=== PATIENT | female | born 1945 | race Caucasian/White ===

== ENCOUNTER 2016-10-31 10:49 | Inpatient (IN) | payer MEDICARE ==
[2016-10-31 17:10] VITALS: BMI 17.2
[2016-10-31] MEDS ORDERED: ACETAMINOPHEN TAB 325 MG TAB PO PRN (17:57)
[2016-10-31] MEDS ORDERED: MAG HYDROX/AL HYDROX/SIMETH 30 ML CUP PO PRN (17:57)
[2016-10-31] MEDS: OLANZapine 5 MG TAB PO SCH (21:03)
[2016-11-01] MEDS: FLUoxetine HCL 20 MG CAP PO SCH (08:57)
[2016-11-01 09:33] LABS: Calcium 9.7 mg/dL (8.4-10.2); Total Bilirubin 0.6 mg/dL (0.2-1.3); Total Protein 6.6 g/dL (6.3-8.2)
[2016-11-01 09:44] LABS: Basophils % (A) 0 %; CH 31.4; CHCM 32.3; Eosinophils # (A) 0.1 k/uL (0-0.7); Eosinophils % (A) 1 %; HCT 39.1 % (34.0-46.0); HDW 2.22; HGB 12.4 gm/dL (11.4-16.0); Luc # (Auto) 0.19; Luc % (Auto) 2; Lymphocytes # (A) 1.1 k/uL (1.0-4.8); Lymphocytes % (A) 12 %; MCHC 31.7 g/dL (31.0-37.0); MCV 97.8 fL (80.0-100.0); Mean Platelet Volume 7.2; Monocytes # (A) 0.6 k/uL (0-1.0); Monocytes % (A) 7 %; Neutrophils # (A) 7.1 k/uL (1.3-7.7); Neutrophils % (A) 78 %; RBC 3.99 m/uL (3.80-5.40); RDW 12.7 % (11.5-15.5); WBC 9.1 k/uL (3.8-10.6); WBC (Perox) 9.26
--- NOTE | 2016-11-01 15:41 | HP ---
DATE OF ADMISSION: IDENTIFYING DATA: This patient is a 71-year-old female who was admitted to the mental health unit as a transfer from [facility]. HISTORY OF PRESENT ILLNESS: The patient had presents with a petition stating, "patient decided to end her life by ingesting multiple medication, I was done my life. I wanted to simply it". The patient states that Wednesday while alone in her own home, she ingested a combination of Prozac, Zyprexa and Ativan. She thinks she took approximately 30 Prozac, around 5 Zyprexa and an unknown quantity of Ativan. She took all these medications at once. Her intent was to . She states that she had been contemplating the attempt for about one week before attempting and she did write suicide note to her children. She has been feeling depressed for the last year and a half she states. She has not been tearful, but had noticed impairments of sleep, appetite, and energy. She has lost approximately 12 pounds unintentionally. She had been feeling hopeless. There really was no other precipitating event other than she thinks the Ativan that she was concurrently taking was "messing me up." She reports in the recent past that it had been increased from 1 mg twice daily to 1 mg 3 times daily. She states that she had been complaining to her psychiatrist she was having anxiety but she felt anxiety was worsened as well as her mood by the Ativan. The patient does have a long history of bipolar disorder. She has had 4 admissions to this mental health unit since January 2015. She endorses classic episodes of cheryle with increased energy, decreased need for sleep, racing thoughts, irritability, etc. She describes classic depressive episodes as well. In terms of anxiety she describes herself as being a worrier. She is endorsing no panic attacks. She reports no symptoms of psychosis. PAST PSYCHIATRIC HISTORY: She has had multiple inpatient admissions. Again, she has had 4 since January 2015. She is diagnosed with bipolar disorder. Most recently she is prescribed Prozac 40 mg daily, Zyprexa 5 mg at bedtime and was receiving Ativan 1 mg [address] Boyer at [facility]. The patient has been on numerous psychotropics in the past including lithium, Depakote, Haldol, Effexor, Lamictal, Abilify, Prozac, Risperdal, Zyprexa, Tegretol. She is not able to comment on the quality of those medication trials. She does have an individual therapist. She does have another prior suicide attempt in 1975 with a lithium overdose. She had been most successfully treated with lithium for over 30 years, but it needed to be stopped due to perceived renal damage. PAST MEDICAL HISTORY: She states that she has a thyroid but is on no medications for that. ALLERGIES: IODINE and although not an allergy she cannot take lithium again. CHEMICAL DEPENDENCY HISTORY: She reports using alcohol once a year on [place]. No use of marijuana or other illicit drugs. She has never been placed in residential treatment for chemical dependency reasons. FAMILY PSYCHIATRIC HISTORY: Her brother had an unknown psychiatric illness. No suicides in the family. FAMILY CHEMICAL DEPENDENCY HISTORY: None reported. SOCIAL HISTORY: The patient is 71 years old. She is twice . She lives alone in her own home. She is retired from parking cashier work. She graduated high school and earned associates. No history of service. She is originally from [place], but moved to this area numerous years ago. She was raised by both parents. She has 2 sisters and 4 brothers. She has 2 adult children whom she does have contact with. LEGAL HISTORY: None reported. ABUSE HISTORY: None reported. MENTAL STATUS EXAM: The patient is a thin female appearing her stated age. She has a mildly disheveled appearance. She is pleasant and cooperative. She is easily directed in the interview. She reports recent suicidal ideation and hopelessness in the context of feeling depressed for the last year and a half. She endorses some anxiety symptoms. She reports no homicidal ideation. She is endorsing no racing thoughts. She demonstrates no pressured speech. She does not appear hypomanic or manic at this time. She reports no auditory or visual hallucinations. She is endorsing no specific delusions. She does not appear psychotic during the interview. Affect is constricted. She demonstrates no verbal or physical aggressiveness. Insight and judgment limited. She demonstrates no abnormal involuntary movements. She is oriented to person, place, and date. She is able to spell world backwards. STRENGTHS: Housing, income, support from family. WEAKNESSES: Ongoing mood symptoms. INTELLECT: Average. IMPRESSIONS: 1. Bipolar I disorder, most recent depressed, anxiety, unspecified. 2. Rule out cluster B traits. 3. Recent medication overdose approximately one week ago. PLAN: The patient has been admitted with a petition and clinical certificate. She is willing to sign in voluntarily. We reviewed medication options. She feels fairly strongly that Zyprexa has been good for mood stabilization. She has been on high as 7.5 mg daily, but feels that 5 mg at bedtime is affective. She wishes to continue the Prozac 40 mg daily. She states this was a recent change from Effexor just approximately 3 months ago. We discussed alternatives. We discussed augmentation strategy of possibly using Lamictal for further stabilization of mood. She will be seen by the court specialist for routine history and physical exam. Labs are reviewed. There is some elevation of her BUN and creatinine, as well as her AST and ALT. Social work will meet with the patient to complete psychosocial assessment and begin discharge planning. We will monitor her for safety and encourage her participation in the milieu.
[2016-11-01] MEDS: OLANZapine 5 MG TAB PO SCH (20:07)
[2016-11-02] MEDS: FLUoxetine HCL 20 MG CAP PO SCH (08:23)
--- NOTE | 2016-11-02 10:17 | P.PN ---
Progress Note - Text Interval history: The patient is found in group she follows me to an interview room. We discussed her current medications and decided we would add Lamictal to try to further stabilize mood and this may also help with depressive symptoms. She does not wish to change the Prozac. The Zyprexa has provided a mood stabilizing influence. Hopefully the Lamictal could eventually be effective and replace the Zyprexa. She reports having some difficulty remembering things such as her address. She feels it's likely related to her recent overdose. She has been attending groups. Her daughter came up for visit she has spoken with her son via phone and she finds them supportive. Mental status exam: The patient is a thin female appearing her stated age she is dressed in her own clothing. Eye contact is appropriate speech is fluent spontaneous nonpressured. She reports feeling forgetful she cannot recall her own address. She is able to participate in conversation she recalls her current medications I do need to repeat some answers to questions she is are he asked. She endorses a depressed mood but feels safe here in the hospital. She is endorsing no acute suicidal ideation here area no homicidal ideation she is endorsing no auditory or visual hallucinations no specific delusions. Insight and judgment limited. She demonstrates no verbal or physical aggressiveness. No abnormal involuntary movements observed. Plan: The patient will continue on the Zyprexa and Prozac as written. She wishes to continue on both of these medications we will initiate Lamictal 25 mg daily. This will need to be titrated further to efficacy. Hopefully the Lamictal with demonstrate mood stabilizing efficacy allowing the Zyprexa to be discontinued in the long run. Vital signs reviewed. We will continue to monitor her for safety and encourage her full participation in the milieu.
--- NOTE | 2016-11-02 10:35 | CONS ---
DATE OF CONSULTATION: REASON FOR CONSULTATION: Drug overdose. HISTORY OF ILLNESS: Ms. Ziegler is a 71-year-old female with a known history of depression for the past one year and history of suicidal ideation in the past. She was initially transferred from [facility] as she took multiple medications and multiple antidepressant medications during her life. Patient has been very depressed for the past one year. She took approximately 30 pills of a combination of Prozac, Zyprexa and Ativan. The patient was petitioned and subsequently transferred to the mental health unit at [facility]. Patient was found to have a slightly elevated BUN and troponin level and ALT and AST level as well. Patient currently denied any complaints of abdominal pain. No nausea, vomiting. No complaints of chest pain or short of breath. Patient is very depressed. Otherwise denies any complaints at this time, denied any recent illnesses. Apparently, patient has not been sleeping well and has been having a flight of ideas and irritable recently and also was having being very depressed as well. REVIEW OF SYSTEMS: CONSTITUTIONAL: No fever. No chills. Patient denied any weakness or malaise. RESPIRATORY: No cough or sputum production. CARDIOVASCULAR: No chest pain or short of breath. ABDOMEN: No nausea, vomiting or abdominal pain. GENITOURINARY: No dysuria. No ( ). NEUROLOGIC: No headache or dizziness or lightheadedness. ENDOCRINE: No heat or cold intolerance. PSYCHIATRIC: Depressed mood. All other 14-point review of systems negative except as above. PAST MEDICAL HISTORY: Depression. PAST SURGICAL HISTORY: Tubal ligation. FAMILY HISTORY: Brother had a mental illness. Denied any history of hypertension, diabetes mellitus or premature heart disease in the family. SOCIAL HISTORY: Patient denied any smoking, alcohol, drugs or IVDU. Home medications Zyprexa, Prozac and Ativan. Allergies include IODINATED CONTRAST MEDIA, LITHIUM. PHYSICAL EXAMINATION: A 71-year-old female, lying in the bed comfortably, awake, alert and oriented x3. Appears to be in no apparent distress. VITALS: Blood pressure is 141/64, pulse is 88, respiratory rate 16, temperature afebrile. Pulse ox is ( ). HEENT: Atraumatic, normocephalic. Neck is supple. No JVD. CVS EXAM: S1, S2 heard. No murmurs, no gallop, no rub. LUNGS: Bilateral air entry is present. No wheezing. No crackles. Nonlabored breathing. ABDOMEN: Soft, nontender. Bowel sounds are present. [employer]: Awake, alert, oriented x3. No focal deficit. EXTREMITIES: No edema. Pulses are palpable bilaterally. No clubbing or cyanosis. PSYCHIATRIC: Cooperative, depressed. Denied any suicidal ideation at this time. LABORATORY DATA: WBC 9.1, hemoglobin 12.4, platelets 270, sodium 143, potassium 4.0, chloride 103, bicarb is 29, BUN 19, creatinine 1.34, blood sugar is 152, AST 73, ALT 104, TSH 0.571. IMPRESSION: 1. Acute drug overdose with Ativan, Prozac and Zyprexa. 2. Suicide attempt. 3. Bipolar disorder with major depression. 4. Acute kidney injury, most likely prerenal. 5. Elevated liver enzymes, possible drug induced. 6. History of prior suicide attempt with overdose. DISCUSSION AND PLAN: Patient will be continued on antidepressants as per Psychiatry recommendations. Would recommend repeating CMP to chela liver enzymes and acute kidney and renal failure. Encourage p.o. intake. TSH is within normal limits. Will continue the current management and further recommendations based on the clinical course.
[2016-11-02] MEDS: lamoTRIgine 25 MG TAB PO SCH (11:52)
[2016-11-02] MEDS: OLANZapine 5 MG TAB PO SCH (21:05)
[2016-11-03] MEDS: FLUoxetine HCL 20 MG CAP PO SCH (08:37)
[2016-11-03] MEDS: lamoTRIgine 25 MG TAB PO SCH (08:37)
--- NOTE | 2016-11-03 10:23 | P.PN ---
Progress Note - Text Interval history: The patient is found in her room she follows me to an interview room. She reports feeling tired she states that she woke last evening having to go to the bathroom. We discussed using melatonin if needed for insomnia and she was agreeable. We again reviewed her psychotropic medications her questions were answered. She has been making an effort to attend groups. She continues to endorse a depressed mood but feels safe here in the hospital. Mental status exam: The patient is a thin female she is dressed in her own clothing. Eye contact is appropriate. Affect is constricted she endorses a depressed mood. In terms of suicidal thoughts she reports she feels safe here in the hospital. No homicidal ideation. No evidence of psychosis. She demonstrates no verbal or physical aggressiveness. Insight and judgment limited. No observed abnormal involuntary movements. Plan: The patient will continue on her current medication I will order melatonin at bedtime to improve sleep. Vital signs reviewed. I will repeat a CMP tomorrow to evaluate kidney function and liver enzymes further. She requires continued hospitalization for treatment of mood symptoms. We will continue to monitor her for safety and encourage her full participation in the milieu.
[2016-11-03] MEDS: OLANZapine 5 MG TAB PO SCH (20:44)
[2016-11-03] MEDS: MELATONIN 5 MG TABLET PO SCH (20:44)
[2016-11-04] MEDS: FLUoxetine HCL 20 MG CAP PO SCH (08:40)
[2016-11-04] MEDS: lamoTRIgine 25 MG TAB PO SCH (08:41)
[2016-11-04 08:54] LABS: Calcium 9.8 mg/dL (8.4-10.2); Potassium 4.8 mmol/L (3.5-5.1); Total Bilirubin 0.6 mg/dL (0.2-1.3)
--- NOTE | 2016-11-04 10:06 | P.PN ---
Progress Note - Text Interval history: The patient is found in her room she follows me to an interview room. She reports that she had a family meeting this morning involving her son and daughter. The patient states in terms of mood "I lost confidence in myself". By this she means she does not feel confident she can manage her affairs or keep herself safe at this time. She to is troubled by the fact that she overdosed as it has been so many years since she did that last. We discussed her psychotropic medication again. She continues to state she does not wish to use a benzodiazepine as she felt the Ativan ultimately made her worse. Mental status exam: The patient is a thin female she seated calmly she is pleasant cooperative she endorses a depressed mood with anxiety at times she still has some hopelessness thinking. She endorses no homicidal ideation. There is no evidence of psychosis. She demonstrates no verbal or physical aggressiveness. She is oriented to person place and date. She has a constricted affect. She does not appear hypomanic or manic. She is reporting no auditory or visual hallucinations or specific delusions. Plan: The patient will continue on her current psychotropic medications we will titrate the Lamictal further during the course of her stay. The lab work was reviewed there has been some mild improvement in the liver enzyme numbers but her BUN/creatinine have increased. She does have a history of being on lithium for several years and this may be a chronic phenomenon we will ask for input from internal medicine. The patient is not appropriate for discharge at this time as she remains a safety risk given the impulsive nature of her serious overdose. The patient verbalizes a sense of not being able to keep herself safe.
[2016-11-04] MEDS: OLANZapine 5 MG TAB PO SCH (20:35)
[2016-11-04] MEDS: MELATONIN 5 MG TABLET PO SCH (20:35)
[2016-11-05] MEDS: FLUoxetine HCL 20 MG CAP PO SCH (08:28)
[2016-11-05] MEDS: lamoTRIgine 25 MG TAB PO SCH ×2 (08:28→20:09)
--- NOTE | 2016-11-05 10:25 | P.PN ---
Progress Note - Text Interval history: The patient's is found in the hallway she follows me to an interview room. She reports that her mood is mildly improved. She does still feel down and feels overwhelmed at times. Appetite is still diminished. She has no questions regarding medication management we discussed titrating the Lamictal further during the course of the admission. She is trying to plan for things she will need to address once she returns home. She states her sister is willing to oversee her medications for additional support. Mental status exam: The patient is a thin female she just room clothing eye contacts appropriate she is cooperative. She demonstrates a constricted affect. She reports a depressed mood appetite is decreased. To some extent she still feels overwhelmed. She feels safe in the hospital she has no homicidal ideation there is no report or evidence of psychosis hypomania or cheryle. She is oriented to person place and date. She demonstrates no psychomotor agitation at times there may be some mild psychomotor slowing. Plan: The patient will continue on her current medications we will go ahead and titrate the Lamictal to 25 mg twice daily. She continues to wish to stay on the Prozac and Zyprexa. She is open to the idea of the Lamictal replacing the Zyprexa in the future once the Lamictal is at a therapeutic dose and demonstrates efficacy. We will continue to monitor her for safety. We have requested input from internal medicine regarding her kidney function which is likely the effect of chronic lithium use. We will order another CMP to check the trend of her kidney function.
[2016-11-05] MEDS: MELATONIN 5 MG TABLET PO SCH (20:09)
[2016-11-05] MEDS: OLANZapine 5 MG TAB PO SCH (20:09)
[2016-11-06] MEDS: FLUoxetine HCL 20 MG CAP PO SCH (07:56)
[2016-11-06] MEDS: lamoTRIgine 25 MG TAB PO SCH ×2 (07:56→20:06)
[2016-11-06 09:30] LABS: Calcium 9.3 mg/dL (8.4-10.2); Potassium 4.8 mmol/L (3.5-5.1); Total Bilirubin 0.5 mg/dL (0.2-1.3); Total Protein 6.3 g/dL (6.3-8.2)
--- NOTE | 2016-11-06 09:48 | P.PN ---
Progress Note - Text Interval history: The patient is found in her room she follows me to an interview room. We addressed her medications her questions were answered. We have titrated the Lamictal further to 25 mg twice daily. She continues to attend groups. She admits that in terms of mood "I'm not there yet". She does feel herself pressured to get out to attend to bills and other responsibilities but we discussed our primary priority is her safety at this time. She continues to attend meals we discussed that we would like her to eat more. She reports that she ate all of her dinner and is aware that she needs to take in more calories. Mental status exam: The patient is a thin female she ambulates slowly without ataxia. Eye contact is appropriate speech is fluent spontaneous nonpressured. She endorses a mood that is still down she is still bewildered as to why she overdosed and continues to state "it's been so long". She maintains a constricted affect. She reports some hopelessness thinking she feels safe in the hospital no homicidal ideation. There is no report or evidence of psychosis. She does not appear hypomanic or manic. She is oriented to person place and date. Plan: The patient will continue on her current medication we will continue to monitor her for safety. She is encouraged to eat more and continue hydration. We are awaiting lab work drawn this morning to follow her BUN and creatinine as well as AST ALT. We discussed that she will probably be appropriate for discharge by mid next week if clinically stable.
[2016-11-06] MEDS: MAGNESIUM HYDROXIDE 2,400 MG/10 ML CUP PO PRN (13:33)
[2016-11-06] MEDS: OLANZapine 5 MG TAB PO SCH (20:06)
[2016-11-06] MEDS: MELATONIN 5 MG TABLET PO SCH (20:06)
[2016-11-07] MEDS: FLUoxetine HCL 20 MG CAP PO SCH (08:24)
[2016-11-07] MEDS: lamoTRIgine 25 MG TAB PO SCH ×2 (08:24→20:18)
[2016-11-07 12:45] LABS: Glucose,Whole Blood 107 mg/dL (75-99)
[2016-11-07 17:44] LABS: Glucose,Whole Blood 91 mg/dL (75-99)
--- NOTE | 2016-11-07 19:16 | P.PN ---
Progress Note - Text Date of service: 11/07/2016 Chief complaint: "I feel better today " Subjective: The patient has been seen today as follow-up, chart reviewed, case discussed with the treatment team. Patient denies feeling depressed, hopeless, or suicidal. She reports has intermittent sleep last night. She reports has better appetite today. Patient expressed feeling anxious about her medical condition and she was very fixated on her kidney condition. Patient was educated about her BUN and creatinine still elevated. Also patient was concerned about her blood sugar level which was elevated. Patient has been explained that we'll order HBA1C to monitor blood sugar control.The patient denies any manic symptoms including sustained period of time with elevated or irritable mood, impulsive or irrational behavior. The patient denies any auditory or visual hallucinations. Also the patient denies any paranoid ideation. Review of other systems: Patient denies any physical symptoms besides what has been mentioned above. No breathing problems, no chest pain reported today. Objective: Vitals has been reviewed. Mental status examination; Appearance: The patient appears stated age. Very thin, no specific features. Gait/posture: Normal gait, Normal arm was swinging: No abnormal movements. Attitude and behavior: engaged, cooperative, fair eye contact. Motor activity: Normal psychomotor activity Speech: Normal rate and rhythm Mood: Anxious Affect: Constricted Thought form: goal-directed, linear, coherent. Thought content: Non-delusional, denies suicidal thoughts, denies homicidal thoughts, denies intentions or plans. Perception: Denies any auditory or visual hallucinations Attention: No impairment. Patient was able to repeat serial 7. Orientation: Patient patient was fully oriented to time place person and situation. Insight: Patient has limited insight about his psychiatric disorder. Judgment: Patient has limited judgment about his psychiatric treatment. Assessment: Bipolar disorder, most recent depressed. Unspecified anxiety Cluster B traits Plan: Increase the melatonin to 10 mg by mouth at bedtime for sleep problems. Patient was educated about her BUN and creatinine. Also was educated about improvement in AST and ALT. Obtain HbA1C Continue psychiatric hospitalization for further monitoring and stabilization. Continue current management including psychiatric medications Prozac 40 mg daily , Zyprexa 5 mg at bedtime and Lamictal 25 mg twice a day.
[2016-11-07 20:18] LABS: Glucose,Whole Blood 114 mg/dL (75-99)
[2016-11-07] MEDS: MELATONIN 5 MG TABLET PO SCH (20:19)
[2016-11-07] MEDS: OLANZapine 5 MG TAB PO SCH (20:19)
[2016-11-08 06:12] LABS: Glucose,Whole Blood 93 mg/dL (75-99)
[2016-11-08] MEDS: FLUoxetine HCL 20 MG CAP PO SCH (08:11)
[2016-11-08] MEDS: lamoTRIgine 25 MG TAB PO SCH ×2 (08:12→20:19)
[2016-11-08 12:22] LABS: Glucose,Whole Blood 83 mg/dL (75-99)
--- NOTE | 2016-11-08 16:19 | P.PN ---
Progress Note - Text Date of service: 11/08/2016 Chief complaint: "I feel better today" Subjective: The patient has been seen today as follow-up, chart reviewed, case discussed with the treatment team. Patient reports in general feels better and emotionally stable. She endorsed feeling frustrated about staying the weekend and holiday here. Patient reports sometimes feels down, but not severely depressed, and denies any suicidal thoughts. Anxiety is better control. She reports better sleep last night about 8 hours and stated appetite is getting better "food started to taste better". The patient denies any manic symptoms. The patient denies any auditory or visual hallucinations. Also the patient denies any paranoid ideation. Review of other systems: Patient denies any physical symptoms besides what has been mentioned above. No breathing problems, no chest pain reported today. Objective: Vitals has been reviewed. Mental status examination: Appearance: The patient appears stated age. Very thin, no specific features. Gait/posture: Normal gait, Normal arm was swinging: No abnormal movements. Attitude and behavior: engaged, cooperative, fair eye contact. Motor activity: Normal psychomotor activity Speech: Normal rate and rhythm Mood: Anxious Affect: Constricted Thought form: goal-directed, linear, coherent. Thought content: Non-delusional, denies suicidal thoughts, denies homicidal thoughts, denies intentions or plans. Perception: Denies any auditory or visual hallucinations Attention: No impairment. Orientation: Patient patient was fully oriented to time place person and situation. Insight: Patient has limited insight about his psychiatric disorder. Judgment: Patient has limited judgment about his psychiatric treatment. Assessment: Bipolar disorder, most recent depressed. Unspecified anxiety Cluster B traits Plan: Continue melatonin to 10 mg by mouth at bedtime for sleep problems. Patient was educated about her lab results. BUN and creatinine. and AST and ALT. Obtain HbA1C- ordered Continue psychiatric hospitalization for further monitoring and stabilization. Continue current management including psychiatric medications Prozac 40 mg daily , Zyprexa 5 mg at bedtime and Lamictal 25 mg twice a day. Consider discuss discharge plan.
[2016-11-08] MEDS: MAGNESIUM HYDROXIDE 2,400 MG/10 ML CUP PO PRN (16:22)
[2016-11-08 17:03] LABS: Glucose,Whole Blood 95 mg/dL (75-99)
[2016-11-08] MEDS: MELATONIN 5 MG TABLET PO SCH (20:18)
[2016-11-08] MEDS: OLANZapine 5 MG TAB PO SCH (20:18)
[2016-11-09] MEDS: FLUoxetine HCL 20 MG CAP PO SCH (08:19)
[2016-11-09] MEDS: lamoTRIgine 25 MG TAB PO SCH ×2 (08:19→20:08)
[2016-11-09 10:48] LABS: Hemoglobin A1C 5.6 % (4.2-6.1)
--- NOTE | 2016-11-09 20:02 | P.PN ---
Progress Note - Text DATE OF SERVICE: 11/09/2016 CHIEF COMPLAINT: The patient was admitted due to increasing problems with depression and hopelessness. She hadn't taken an unknown amount of her medications including Zyprexa, Prozac and Ativan with a clear intention to end her life. She had poor sleep, appetite and energy. She was hopeless. She was admitted on petition for involuntary hospitalization. INTERVAL HISTORY: The patient has been doing fairly well. Overall her mood has gradually improved. She has a better outlook. She feels that her mood has stabilized and that she has been not coming out of her serious depression. She hasn't had any hypomanic or manic symptoms. She had a quiet evening last night. He has been attending groups. Generally she seems to present herself in a quiet reserved manner. In one group by yesterday she was noted to have racing thoughts. He was having issues with constipation though a bowel prep has helped. She hasn't had other change in her general health, save for elevated systolic blood pressure in the 150 range. She tolerates her psychotropic medications. MENTAL STATUS EXAM: Patient gave good eye contact. Psychomotor activity was slowed. He answered questions appropriately. Her thoughts were coherent and goal directed. Her affect was somewhat blunted. He smiled a little. He had a pleasant manner. Her mood was even. She didn't appear to be distressed. ASSESSMENT: I will continue the current diagnosis and treatment plan. We will continue to engage the patient in individual and group therapeutic activities. I will continue psychotropic medications the same. We reviewed side effects and the potential long-term issues relating to her medications. It is no noted that her hemoglobin A1c today was 5.6, with a fasting glucose of 114. We will continue to focus on stabilization and discharge planning.
[2016-11-09] MEDS: OLANZapine 5 MG TAB PO SCH (20:08)
[2016-11-09] MEDS: MELATONIN 5 MG TABLET PO SCH (20:08)
[2016-11-10] MEDS: lamoTRIgine 25 MG TAB PO SCH ×2 (08:00→20:37)
[2016-11-10] MEDS: FLUoxetine HCL 20 MG CAP PO SCH (08:00)
--- NOTE | 2016-11-10 12:32 | P.PN ---
Progress Note - Text DATE OF SERVICE: 11/10/2016 CHIEF COMPLAINT: The patient was admitted due to increasing problems with depression and hopelessness. She hadn't taken an unknown amount of her medications including Zyprexa, Prozac and Ativan with a clear intention to end her life. She had poor sleep, appetite and energy. She was hopeless. She was admitted on petition for involuntary hospitalization. INTERVAL HISTORY: The patient has been doing fairly well. She had a quiet evening last night. She slept fairly well. She has been up and about today. She attends groups. She notes that yesterday morning she had some problems with lightheadedness though she has not had problems with that today. She feels her medications have been helping. She has a better outlook. Her mood has improved. She has been able to focus on some issues relating to discharge planning. She hasn't had change in her general health. He tolerates her psychotropic medications. MENTAL STATUS EXAM: Patient gave good eye contact. Psychomotor activity was a little slow. She answered questions appropriately. Her thoughts were clear and coherent. Her affect was a little blunted but not significantly so. Her mood was even. She smiled some. She was not distressed. ASSESSMENT: I will continue the current diagnosis and treatment plan. Will continue psychotropic medications the same. I reviewed discharge planning issues. I anticipate the patient to be discharged in the next few days.
[2016-11-10] MEDS: MELATONIN 5 MG TABLET PO SCH (20:37)
[2016-11-10] MEDS: OLANZapine 5 MG TAB PO SCH (20:37)
[2016-11-11 06:33] VITALS: BP 124/76; PULSE 113; RESP 18; TEMP 97.9
[2016-11-11] MEDS: FLUoxetine HCL 20 MG CAP PO SCH (08:16)
[2016-11-11] MEDS: lamoTRIgine 25 MG TAB PO SCH (08:17)
--- NOTE | 2016-11-11 11:14 | P.DS ---
Providers Date of admission: 10/31/16 15:36 Expected date of discharge: 11/11/16 Attending physician: Francisco Moreau Consults: 10/31/16 17:57 Consult Physician Routine Consulting Provider: Gab Desir Consult Reason/Comments: H & P and medical care Do you want consulting provider notified?: Yes 11/04/16 11:16 Consult Physician Routine Consulting Provider: Gab Desir Consult Reason/Comments: increasing BUN and CR. Do you want consulting provider notified?: Yes Primary care physician: Moises Ross - Discharge Diagnosis(es) (1) Bipolar 1 disorder, depressed Current Visit: Yes Status: Acute Priority: High Hospital Course: This patient is a 71-year-old female who was admitted to the mental health unit after she overdosed with medications. The patient presented with a petition from [facility] and she tried to end her life by ingesting multiple medications. She reported she took the overdose while she was alone at home she ingested a combination of Prozac Zyprexa and Ativan. She states she had been feeling depressed for the last year and noted fluctuation of her mood. She had been losing weight and was feeling hopeless. She was also prescribed Ativan and she felt that that was "messing me up" she felt more anxious with it. For full details please refer to my psychiatric evaluation. Summary of hospital course: The patient was admitted to the mental health unit she signed in voluntarily. She stated she wanted to continue on her Prozac and Zyprexa. We did decide to initiate Lamictal and titrated that during the course of her stay. Eventually the Lamictal could become efficacious enough to replace Zyprexa. The patient had described that the suicidal thoughts were impulsive however she didn't plan it for approximately one week. She processed her stressors further during the course of her stay. She was in contact with family social media marketing analyst contacted family during the hospitalization as well. The patient was pleasant and cooperative she participated in group she demonstrated no agitated behavior. She was seen by the clinical aide for routine history and physical exam. She does have a history of kidney injury and her BUN and creatinine remain elevated. Her liver enzymes were elevated but they did trend downwards. During the course of the hospitalization the patient reports a resolution of any acute suicidal ideation. She plans to utilize family support. She is cooperative with the idea of following with her psychiatrist and other healthcare providers. She reported no side effects to the Lamictal. She did improve in terms of oral hydration and eating. At this time she feels that she no longer requires hospitalization and would like to return home. Mental status exam: The patient is a thin female appearing her stated age she has adequate hygiene grooming eye contact is appropriate speech is fluent spontaneous nonpressured. She engages in conversation and is cooperative. She reports her mood is improved she is reporting no hopelessness thinking or any suicidal or homicidal ideation intent or plan. She is endorsing no auditory or visual hallucinations or specific delusions. There is no evidence of psychosis. She does not appear hypomanic or manic. Insight and judgment improved. She is oriented to person place and date. She demonstrates no verbal or physical aggressiveness. She is able to demonstrate a range of affect including use of humor appropriately. Impressions 1. Bipolar 1 disorder most recent depressed, anxiety unspecified 2. Recent medication overdose, history of chronic kidney injury Plan: The patient will be discharged from the mental health unit today to return home. Her son will transport her home. She expects that she will stay with her daughter for a short time. The patient will continue on Zyprexa 5 mg at bedtime Prozac 40 mg daily Lamictal 25 mg twice daily. The Lamictal may be titrated further in the outpatient setting. There is no imminent safety risk the patient is appropriate for transition to outpatient psychiatric care. The patient is instructed to return to the hospital with any acute safety concerns and she agrees. She will follow-up with her primary care physician as needed. Patient Condition at Discharge: Stable Plan - Discharge Summary New Discharge Prescriptions: New FLUoxetine HCL [PROzac] 40 mg PO DAILY #30 cap lamoTRIgine [LaMICtal] 25 mg PO BID #60 tab Melatonin 5 mg PO HS #30 tab Continue OLANZapine [ZyPREXA] 5 mg PO HS #30 Discontinued FLUoxetine HCL [PROzac] 40 mg PO DAILY #30 cap Discharge Medication List FLUoxetine HCL [PROzac] 40 mg PO DAILY #30 cap 11/11/16 [Rx] Melatonin 5 mg PO HS #30 tab 11/11/16 [Rx] OLANZapine [ZyPREXA] 5 mg PO HS #30 11/11/16 [Rx] lamoTRIgine [LaMICtal] 25 mg PO BID #60 tab 11/11/16 [Rx] Follow up Appointment(s)/Referral(s): [facility] [Outside] - 11/12/16 1:00 pm ([place]) Activity/Diet/Wound Care/Special Instructions: Follow up with PCP in regards to increased BUN and CR. per Dr. Desir.
[2016-11-11 14:56] LABS: Appearance,Urine Clear (Clear); Bilirubin,Urine Negative (Negative); Glucose,Urine (UA) Negative (Negative); Ketones,Urine Negative (Negative); Leukocyte Esterase,Urine Negative (Negative); Nitrite,Urine Negative (Negative); Protein,Urine Negative (Negative); Specific Gravity,Urine 1.002 (1.001-1.035); UA Billing (MACRO vs. MICRO) CHEM; Urobilinogen,Urine <2.0 mg/dL (<2.0)
== END 2016-11-11 18:20 | disposition home or self-care (01) | DRG 885 ==
LOC: 3MHU 15:36
PROVIDERS: ADMIT Psychiatry & Neurology Psychiatry; ATTEND Psychiatry & Neurology Psychiatry
DX: F31.9 Bipolar disorder, unspecified (principal); N17.9 Acute kidney failure, unspecified; R45.851 Suicidal ideations; F41.9 Anxiety disorder, unspecified; Z79.899 Other long term (current) drug therapy; Z91.5 Personal history of self-harm
CPT/HCPCS: 80053; 81003; 83036; 84443; 85025

== ENCOUNTER 2016-12-30 18:43 | Inpatient (IN) | payer MEDICARE ==
--- NOTE | 2016-12-30 18:57 | ED ---
General Adult HPI - General Source: patient, family, RN notes reviewed, old records reviewed Mode of arrival: ambulatory Limitations: no limitations <Mau Barajas - Last Filed: 12/30/16 19:49> <Taylor Chand - Last Filed: 12/30/16 23:11> - General Chief complaint: Psychiatric Symptoms Stated complaint: SUICIDAL Time Seen by Provider: 12/30/16 18:56 - History of Present Illness Initial comments: This is a 71-year-old female here for evaluation of psychiatric disease. Increased suicidal ideation. No drug or alcohol abuse. (Mau Barajas) - Related Data Home Medications Medication Instructions Recorded Confirmed FLUoxetine HCL [PROzac] 40 mg PO QAM 12/30/16 12/30/16 lamoTRIgine [LaMICtal] 150 mg PO QAM 12/30/16 12/30/16 Previous Rx's Medication Instructions Recorded Melatonin 5 mg PO HS #30 tab 11/11/16 OLANZapine [ZyPREXA] 5 mg PO HS #30 11/11/16 Allergies Allergy/AdvReac Type Severity Reaction Status Date / Time Iodinated Contrast- Oral and Allergy Unknown Verified 07/06/15 08:10 IV Dye [Iodinated Contrast Media - IV Dye] lithium Allergy Dyspnea Verified 12/30/16 19:42 Review of Systems ROS Other: All systems not noted in ROS Statement are negative. <Mau Barajas - Last Filed: 12/30/16 19:49> ROS Other: All systems not noted in ROS Statement are negative. <Taylor Chand - Last Filed: 12/30/16 23:11> ROS Statement: Those systems with pertinent positive or pertinent negative responses have been documented in the HPI. Past Medical History Past Medical History: No Reported History Additional Past Medical History / Comment(s): Goiter, rhabdomylosis History of Any Multi-Drug Resistant Organisms: None Reported Past Surgical History: Tubal Ligation Additional Past Surgical History / Comment(s): Bilateral cataract removal and lens implants Past Anesthesia/Blood Transfusion Reactions: No Reported Reaction Past Psychological History: Anxiety, Bipolar, Depression Smoking Status: Never smoker - Past Family History Father Family Medical History: Coronary Artery Disease (CAD), Diabetes Mellitus Additional Family Medical History / Comment(s): Father at age 65. He had history of coronary artery disease and diabetes. Mother Family Medical History: CVA/TIA Additional Family Medical History / Comment(s): Mother at age 88 from a CVA. Brother(s) Additional Family Medical History / Comment(s): The patient has 4 brothers and one has depression. Patient has 2 sisters. Patient has 2 children one son and one daughter. <Mau Barajas - Last Filed: 12/30/16 19:49> General Exam Limitations: no limitations General appearance: alert, in no apparent distress Head exam: Present: atraumatic, normocephalic, normal inspection Eye exam: Present: normal appearance, PERRL, EOMI. Absent: scleral icterus, conjunctival injection, periorbital swelling ENT exam: Present: normal exam, mucous membranes moist Neck exam: Present: normal inspection. Absent: tenderness, meningismus, lymphadenopathy Respiratory exam: Present: normal lung sounds bilaterally. Absent: respiratory distress, wheezes, rales, rhonchi, stridor Cardiovascular Exam: Present: regular rate, normal rhythm, normal heart sounds. Absent: systolic murmur, diastolic murmur, rubs, gallop, clicks GI/Abdominal exam: Present: soft, normal bowel sounds. Absent: distended, tenderness, guarding, rebound, rigid Extremities exam: Present: normal inspection, full ROM, normal capillary refill. Absent: tenderness, pedal edema, joint swelling, calf tenderness Back exam: Present: normal inspection Neurological exam: Present: alert, oriented X3, CN II-XII intact Psychiatric exam: Present: normal affect, normal mood Skin exam: Present: warm, dry, intact, normal color. Absent: rash <Mau Barajas - Last Filed: 12/30/16 19:49> Course <Mau Barajas - Last Filed: 12/30/16 19:49> <Taylor Chand - Last Filed: 12/30/16 23:11> Vital Signs 12/30/16 18:50 Temperature 97.2 F L Pulse Rate 97 Respiratory 20 Rate Blood Pressure 141/73 O2 Sat by Pulse 95 Oximetry Chest clear to 2300s work with the service representative from Department of psychiatry patient also was done is walk with the patient herself labs are reviewed noticed creatinine was bit bumped up she had a poor oral intake she was encouraged to drink some more fluids she agreed with the IV fluids were not done she be admitted inpatient but there are no beds she should immediately or for low while the blood clears up (Taylor Chand) - Reevaluation(s) Reevaluation #1: 12/30/16 18:57 medically clear for psychiatric evaluation (Mau Barajas) Medical Decision Making - Lab Data Result diagrams: 12/30/16 19:56 12/30/16 19:56 <Taylor Chand - Last Filed: 12/30/16 23:11> - Lab Data Lab Results 12/30/16 12/30/16 12/30/16 Range/Units 19:56 19:56 20:09 WBC 8.5 (3.8-10.6) k/uL RBC 4.09 (3.80-5.40) m/uL Hgb 13.0 (11.4-16.0) gm/dL Hct 39.7 (34.0-46.0) % MCV 97.0 (80.0-100.0) fL MCH 31.8 (25.0-35.0) pg MCHC 32.8 (31.0-37.0) g/dL RDW 13.0 (11.5-15.5) % Plt Count 288 (150-450) k/uL Neutrophils % 81 % Lymphocytes % 10 % Monocytes % 5 % Eosinophils % 1 % Basophils % 1 % Neutrophils # 6.9 (1.3-7.7) k/uL Lymphocytes # 0.9 L (1.0-4.8) k/uL Monocytes # 0.5 (0-1.0) k/uL Eosinophils # 0.0 (0-0.7) k/uL Basophils # 0.0 (0-0.2) k/uL Sodium 136 L (137-145) mmol/L Potassium 4.5 (3.5-5.1) mmol/L Chloride 102 (98-107) mmol/L Carbon Dioxide 24 (22-30) mmol/L Anion Gap 10 mmol/L BUN 34 H (7-17) mg/dL Creatinine 1.50 H (0.52-1.04) mg/dL Est GFR (MDRD) Af Amer 42 (>60 ml/min/1.73 sqM) Est GFR (MDRD) Non-Af 34 (>60 ml/min/1.73 sqM) Glucose 89 (74-99) mg/dL Calcium 10.0 (8.4-10.2) mg/dL Urine Color Yellow Urine Appearance Clear (Clear) Urine pH 5.5 (5.0-8.0) Ur Specific [place] 1.009 (1.001-1.035) Urine Protein Trace H (Negative) Urine Glucose (UA) Negative (Negative) Urine Ketones Negative (Negative) Urine Blood Small H (Negative) Urine Nitrite Negative (Negative) Urine Bilirubin Negative (Negative) Urine Urobilinogen <2.0 (<2.0) mg/dL Ur Leukocyte Esterase Negative (Negative) Urine RBC 5 (0-5) /hpf Urine WBC 1 (0-5) /hpf Hyaline Casts 1 (0-2) /lpf Urine Mucus Rare H (None) /hpf Salicylates <1.0 mg/dL Urine Opiates Screen Not Detected (NotDetected) Ur Oxycodone Screen Not Detected (NotDetected) Urine Methadone Screen Not Detected (NotDetected) Ur Propoxyphene Screen Not Detected (NotDetected) Acetaminophen <10.0 ug/mL Ur Barbiturates Screen Not Detected (NotDetected) U Tricyclic Antidepress Not Detected (NotDetected) Ur Phencyclidine Scrn Not Detected (NotDetected) Ur Amphetamines Screen Not Detected (NotDetected) U Methamphetamines Scrn Not Detected (NotDetected) U Benzodiazepines Scrn Not Detected (NotDetected) Urine Cocaine Screen Not Detected (NotDetected) U Marijuana (THC) Screen Not Detected (NotDetected) Serum Alcohol <10 mg/dL Disposition <Mau Barajas - Last Filed: 12/30/16 19:49> <Taylor Chand - Last Filed: 12/30/16 23:11> Clinical Impression: Suicidal ideation Disposition: ADMITTED IP TO THIS HOSP Referrals: Moises Ross MD [Primary Care Provider] - 1-2 days
[2016-12-30 20:11] LABS: Basophils % (A) 1 %; CH 32.2; CHCM 33.4; Eosinophils % (A) 1 %; HCT 39.7 % (34.0-46.0); HDW 2.21; Luc # (Auto) 0.19; Luc % (Auto) 2; Lymphocytes # (A) 0.9 k/uL (1.0-4.8); Lymphocytes % (A) 10 %; MCH 31.8 pg (25.0-35.0); MCHC 32.8 g/dL (31.0-37.0); Mean Platelet Volume 7.4; Monocytes # (A) 0.5 k/uL (0-1.0); Monocytes % (A) 5 %; Neutrophils # (A) 6.9 k/uL (1.3-7.7); Neutrophils % (A) 81 %; RBC 4.09 m/uL (3.80-5.40); WBC 8.5 k/uL (3.8-10.6); WBC (Perox) 8.22
[2016-12-30 20:21] LABS: Acetaminophen <10.0 ug/mL; Alcohol <10 mg/dL; Anion Gap 10 mmol/L; Blood Urea Nitrogen 34 mg/dL (7-17); Carbon Dioxide 24 mmol/L (22-30); Chloride 102 mmol/L (98-107); Glucose 89 mg/dL (74-99); Non-African American GFR(MDRD) 34 (>60 ml/min/1.73 sqM); Potassium 4.5 mmol/L (3.5-5.1); Salicylate <1.0 mg/dL; Sodium 136 mmol/L (137-145)
[2016-12-30 20:36] LABS: Appearance,Urine Clear (Clear); Bilirubin,Urine Negative (Negative); Glucose,Urine (UA) Negative (Negative); Ketones,Urine Negative (Negative); Leukocyte Esterase,Urine Negative (Negative); Mucus,Urine Rare /hpf; Nitrite,Urine Negative (Negative); PH, Urine 5.5 (5.0-8.0); Particle Count 962; Protein,Urine Trace (Negative); RBC,Urine 5 /hpf (0-5); Specific Gravity,Urine 1.009 (1.001-1.035); UA Billing (MACRO vs. MICRO) MICRO; Urobilinogen,Urine <2.0 mg/dL (<2.0); WBC,Urine 1 /hpf (0-5)
[2016-12-30] MEDS ORDERED: LORazepam 1 MG TAB PO STA (21:16)
[2016-12-30] MEDS ORDERED: MELATONIN 5 MG TABLET PO STA (23:01)
[2016-12-30] MEDS ORDERED: OLANZapine 5 MG TAB PO STA (23:43)
[2016-12-31] MEDS ORDERED: OLANZapine 5 MG TAB PO SCH (09:00)
[2016-12-31] MEDS ORDERED: lamoTRIgine 100 MG TAB PO STA (14:28)
[2016-12-31] MEDS ORDERED: FLUoxetine HCL 20 MG CAP PO STA (14:29)
[2016-12-31] MEDS ORDERED: ACETAMINOPHEN TAB 325 MG TAB PO PRN (17:04)
[2016-12-31] MEDS ORDERED: MAGNESIUM HYDROXIDE 2,400 MG/10 ML CUP PO PRN (17:04)
[2016-12-31] MEDS ORDERED: MAG HYDROX/AL HYDROX/SIMETH 30 ML CUP PO PRN (17:04)
[2016-12-31] MEDS ORDERED: MAGNESIUM CITRATE 296 ML BOTTLE PO ONE (20:32)
[2016-12-31] MEDS ORDERED: NA PHOS,M-B/NA PHOS,DI-BA 133 ML ENEMA RECTAL ONE (20:37)
[2016-12-31] MEDS ORDERED: MELATONIN 5 MG TABLET PO SCH (21:00)
[2016-12-31] MEDS ORDERED: BACITRACIN OINT 1 EACH PACKET TOPICAL ONE (21:09)
--- NOTE | 2016-12-31 21:47 | P.CONS ---
History of Present Illness - Reason for Consult Consult date: 12/31/16 management of medical problems - Chief Complaint constipation, weight loss - History of Present Illness This patient is a 71 years old female who is being admitted to the psychiatric unit for evaluation and treatment of depression and suicidal ideation we will consulted to manage her medical problems specifically the patient is complaining of constipation she stated that this problem is chronic this usually leads to this fecal impaction she tries to his impacted herself with no success last bowel movement was more than 5 days ago she also complains of weight loss despite the fact that she eats according to her History of thyroidectomy partial in the past. Review of Systems Constitutional: Patient reports no fever, no chills, has weight changes, no change in appetite Eyes: Patient reports no double vision, no visual changes ENT: Patient reports no rhinorrhea, no post nasal drip, no sore throat Cardiovascular: Patient reports no chest, no edema, no palpitations, no syncope , no orthopnea, no paroxysmal nocturnal dyspnea. Respiratory: Patient reports no dyspnea, no cough, no wheeze Gastrointestinal: Patient reports no nausea, no vomiting, c/o severe constipation, no diarrhea Genitourinary: Patient reports no dysuria, no urinary frequency, no hematuria. Musculoskeletal: Patient reports no unusual joint pain, no joint swelling or weakness. Patient reports no muscular pain. Psychiatric: Patient reports no changes in mood, no sleeping problems. Patient reports no changes in memory. Endocrine: Patient reports no thirst, no polyuria, no cold intolerance, no heat intolerance. Neurological: Patient reports no unusual paresthesias, no seizures, no paresis , no paralysis, no facila droop, no headache. Heme/Lymphatic: Patient reports no easy bruising, no bleeding tendency, no lymphadenopathy. Allergic/ Immunologic: Patient reports no recent allergic reactions or immunologic history. Skin: Patient reports no rashes or unusual lesions. Past Medical History Past Medical History: Thyroid Disorder Additional Past Medical History / Comment(s): Goiter, rhabdomylosis History of Any Multi-Drug Resistant Organisms: None Reported Past Surgical History: Tubal Ligation Additional Past Surgical History / Comment(s): Bilateral cataract removal and lens implants, partial thyroidectomy Past Anesthesia/Blood Transfusion Reactions: No Reported Reaction Past Psychological History: Anxiety, Bipolar, Depression Smoking Status: Never smoker - Past Family History Father Family Medical History: Coronary Artery Disease (CAD), Diabetes Mellitus Additional Family Medical History / Comment(s): Father at age 65. He had history of coronary artery disease and diabetes. No history of eating disorders Mother Family Medical History: CVA/TIA Additional Family Medical History / Comment(s): Mother at age 88 from a CVA. Brother(s) Additional Family Medical History / Comment(s): The patient has 4 brothers and one has depression. Patient has 2 sisters. Patient has 2 children one son and one daughter. Medications and Allergies Home Medications Medication Instructions Recorded Confirmed Type FLUoxetine HCL [PROzac] 40 mg PO QAM 12/30/16 12/30/16 History lamoTRIgine [LaMICtal] 150 mg PO QAM 12/30/16 12/30/16 History Allergies Allergy/AdvReac Type Severity Reaction Status Date / Time Iodinated Contrast- Oral and Allergy Unknown Verified 07/06/15 08:10 IV Dye [Iodinated Contrast Media - IV Dye] lithium Allergy Dyspnea Verified 12/30/16 19:42 Physical Exam Vitals: Vital Signs Temp Pulse Pulse Resp BP BP Pulse Ox 12/31/16 16:02 98.2 F 84 16 134/79 98 12/31/16 15:48 98.6 F 88 18 130/88 12/31/16 10:06 57 L 14 144/65 98 Intake and Output 12/31/16 12/31/16 12/31/16 06:59 14:59 22:59 Other: Weight 40.832 kg Patient Weight 01/01/17 06:59 Weight 40.832 kg - Constitutional General appearance: cooperative, no acute distress, thin - EENT Eyes: no edentulous, PERRLA, no photophobia, normal appearance Ears: bilateral: normal - Neck Neck: normal ROM (Physician), no rigidity, no stridor, no thyromegaly Carotids: bilateral: upstroke normal Thyroid: bilateral: normal size - Respiratory Respiratory: bilateral: CTA, negative: dullness, rales, rhonchi, wheezing - Cardiovascular Rhythm: regular Abnormal Heart Sounds: systolic murmur, diastolic murmur - Gastrointestinal General gastrointestinal: decreased bowel sounds, organomegaly, soft, tenderness Localized gastrointestinal: tender: suprabubic - Integumentary Integumentary: no cellulitis, no flushed, no jaundiced, normal - Neurologic Neurologic: CNII-XII intact - Musculoskeletal Musculoskeletal: no generalized weakness, strength equal bilaterally - Psychiatric Psychiatric: A&O x's 3 (depressed ) Results CBC & Chem 7: 12/30/16 19:56 12/30/16 19:56 Assessment and Plan (1) Suicidal ideation Narrative/Plan: She's been admitted to the psych unit and treatment as per protocol Status: Acute (2) Bipolar 1 disorder, depressed Narrative/Plan: Again she is suicidal depressed and treatment as per psychiatriy Status: Acute (3) Constipation Narrative/Plan: She has history of constipation and fecal impaction it is bad the point that she tried the to disimpact herself with no success She likely has severe constipation with fecal impaction. We will start her on Fleet enemas and mag citrate increase her fiber and encourage by mouth fluid intake It's interesting that she has this constipation for a long time and she also has history of partial thyroidectomy, order TSH level to rule out hypothyroidism as a cause of her constipation Status: Chronic (4) Dehydration Narrative/Plan: She appears cachectic and dehydrated she admits not drinking enough water, her BUN/creatinine are also elevated likely as a result of hemoconcentration. But we cannot rule out underlying chronic kidney disease due to the fact that 2 years ago her creatinine was 1.3 she is little high for her. I encouraged her to increase her by mouth fluid Status: Acute (5) Weight loss Narrative/Plan: We will obtain TSH nutritional consult ,add ensure, outpatient further workup for weight loss and follow up with her primary Status: Chronic Time with Patient: Greater than 30
[2016-12-31] MEDS: OLANZapine 5 MG TAB PO SCH (22:08)
[2016-12-31] MEDS: MELATONIN 5 MG TABLET PO SCH (22:08)
[2017-01-01] MEDS: lamoTRIgine 100 MG TAB PO SCH (09:43)
[2017-01-01] MEDS: POLYETHYLENE GLYCOL 3350 17 GM POWD.PACK PO SCH (09:44)
[2017-01-01] MEDS: LORazepam 1 MG TAB PO PRN ×2 (09:47→18:59)
[2017-01-01] MEDS: OLANZapine 2.5 MG TAB PO SCH (13:17)
--- NOTE | 2017-01-01 13:26 | P.HP ---
Psychiatric H&P - . H&P Date: 01/01/17 History & Physical: Allergies Allergy/AdvReac Type Severity Reaction Status Date / Time Iodinated Contrast- Oral and Allergy Unknown Verified 07/06/15 08:10 IV Dye [Iodinated Contrast Media - IV Dye] lithium Allergy Dyspnea Verified 12/30/16 19:42 Vital Signs Temp 98.3 F 01/01/17 06:37 Pulse 84 01/01/17 06:37 Resp 15 01/01/17 06:37 BP 156/85 01/01/17 06:37 Pulse Ox 98 12/31/16 16:02 Intake & Output 12/31/16 01/01/17 01/01/17 18:59 06:59 18:59 Weight 40.832 kg Laboratory Last Values WBC 8.5 k/uL (3.8-10.6) 12/30/16 19:56 RBC 4.09 m/uL (3.80-5.40) 12/30/16 19:56 Hgb 13.0 gm/dL (11.4-16.0) 12/30/16 19:56 Hct 39.7 % (34.0-46.0) 12/30/16 19:56 MCV 97.0 fL (80.0-100.0) 12/30/16 19:56 MCH 31.8 pg (25.0-35.0) 12/30/16 19:56 MCHC 32.8 g/dL (31.0-37.0) 12/30/16 19:56 RDW 13.0 % (11.5-15.5) 12/30/16 19:56 Plt Count 288 k/uL (150-450) 12/30/16 19:56 Neutrophils % 81 % 12/30/16 19:56 Lymphocytes % 10 % 12/30/16 19:56 Monocytes % 5 % 12/30/16 19:56 Eosinophils % 1 % 12/30/16 19:56 Basophils % 1 % 12/30/16 19:56 Neutrophils # 6.9 k/uL (1.3-7.7) 12/30/16 19:56 Lymphocytes # 0.9 k/uL (1.0-4.8) L 12/30/16 19:56 Monocytes # 0.5 k/uL (0-1.0) 12/30/16 19:56 Eosinophils # 0.0 k/uL (0-0.7) 12/30/16 19:56 Basophils # 0.0 k/uL (0-0.2) 12/30/16 19:56 Sodium 136 mmol/L (137-145) L 12/30/16 19:56 Potassium 4.5 mmol/L (3.5-5.1) 12/30/16 19:56 Chloride 102 mmol/L (98-107) 12/30/16 19:56 Carbon Dioxide 24 mmol/L (22-30) 12/30/16 19:56 Anion Gap 10 mmol/L 12/30/16 19:56 BUN 34 mg/dL (7-17) H 12/30/16 19:56 Creatinine 1.50 mg/dL (0.52-1.04) H 12/30/16 19:56 Est GFR (MDRD) Af Amer 42 (>60 ml/min/1.73 sqM) 12/30/16 19:56 Est GFR (MDRD) Non-Af 34 (>60 ml/min/1.73 sqM) 12/30/16 19:56 Glucose 89 mg/dL (74-99) 12/30/16 19:56 Calcium 10.0 mg/dL (8.4-10.2) 12/30/16 19:56 TSH 0.230 mIU/L (0.465-4.680) L 12/30/16 19:56 Urine Color Yellow 12/30/16 20:09 Urine Appearance Clear (Clear) 12/30/16 20:09 Urine pH 5.5 (5.0-8.0) 12/30/16 20:09 Ur Specific [place] 1.009 (1.001-1.035) 12/30/16 20:09 Urine Protein Trace (Negative) H 12/30/16 20:09 Urine Glucose (UA) Negative (Negative) 12/30/16 20:09 Urine Ketones Negative (Negative) 12/30/16 20:09 Urine Blood Small (Negative) H 12/30/16 20:09 Urine Nitrite Negative (Negative) 12/30/16 20:09 Urine Bilirubin Negative (Negative) 12/30/16 20:09 Urine Urobilinogen <2.0 mg/dL (<2.0) 12/30/16 20:09 Ur Leukocyte Esterase Negative (Negative) 12/30/16 20:09 Urine RBC 5 /hpf (0-5) 12/30/16 20:09 Urine WBC 1 /hpf (0-5) 12/30/16 20:09 Hyaline Casts 1 /lpf (0-2) 12/30/16 20:09 Urine Mucus Rare /hpf (None) H 12/30/16 20:09 Salicylates <1.0 mg/dL 12/30/16 19:56 Urine Opiates Screen Not Detected (NotDetected) 12/30/16 20:09 Ur Oxycodone Screen Not Detected (NotDetected) 12/30/16 20:09 Urine Methadone Screen Not Detected (NotDetected) 12/30/16 20:09 Ur Propoxyphene Screen Not Detected (NotDetected) 12/30/16 20:09 Acetaminophen <10.0 ug/mL 12/30/16 19:56 Ur Barbiturates Screen Not Detected (NotDetected) 12/30/16 20:09 U Tricyclic Antidepress Not Detected (NotDetected) 12/30/16 20:09 Ur Phencyclidine Scrn Not Detected (NotDetected) 12/30/16 20:09 Ur Amphetamines Screen Not Detected (NotDetected) 12/30/16 20:09 U Methamphetamines Scrn Not Detected (NotDetected) 12/30/16 20:09 U Benzodiazepines Scrn Not Detected (NotDetected) 12/30/16 20:09 Urine Cocaine Screen Not Detected (NotDetected) 12/30/16 20:09 U Marijuana (THC) Screen Not Detected (NotDetected) 12/30/16 20:09 Serum Alcohol <10 mg/dL 12/30/16 19:56 Identification: Patient is a 71-year-old female who was brought to the hospital on Wednesday evening by her family stating that she was not sleeping, up pacing not eating and has apparently been going on for the last 7-10 days. When the patient was seen in the emergency room it was described that she had pressured speech and made some bizarre comments, patient was pacing they're constantly. History of Present Illness: Patient was seen after her recent discharge in November of this year from the hospital after a very serious suicide attempt. Patient was discharged on Lamictal which had been increased by her outpatient psychiatrist to a total of 150 mg a day, she was continued on Prozac 40 mg a day and Zyprexa 5 mg at bedtime. Patient was also continuing on the melatonin that it been begun here in the hospital at 5 mg. Patient was seen today and she was constantly pacing, telling me she was pacing constantly in the daley although the patient did state that she is able to sleep at night and doesn't feel like pacing van. She described to me that she feels compelled to pace, she reports that she is not feeling like she has increased energy and did not state that she was speaking a lot or too fast at home. Patient reports that she does not have a lot of energy, and was not doing a lot of activities at home. Patient states that she is feeling depressed, having suicidal thoughts that she just doesn't want to be here due to how she feels, denied any plans or intent to act. She states that she continues to ruminate about problems such as what to do with her apartment, what to do with her car bills that she has to pay. She states she saw her psychiatrist twice since her discharge here in November and is really unable to tell me when the increased pacing began. Patient is able to tell me that she has had manic episodes in the past and describes them as having increased energy, the ability to get a lot done, impulsive behavior, traveling, spending money not needing a lot of sleep and states this is not how she is currently feeling. Patient also reports that she has had episodes of depression in the past and had a serious suicide attempt prior to her last admission and per her history once in 1975. Patient has been living with her daughter since her discharge here and states she has not been doing much. She is unable to report if she had any side effects from the medication, in reviewing her records she's been on Zyprexa since 2016 and I see no correlation between her pacing which she states she has had for a number of years and the use of Zyprexa. Past Psychiatric History: Patient states she has had multiple inpatient admissions she was here last in October of this year. Patient has been treated with multiple medications, lithium in the past which caused renal impairment and the discontinuation of it, Effexor, Depakote, Risperdal, Prozac, Zyprexa, Abilify and Latuda. Past Medical/Surgical History: Patient has a history of a goiter which she states that she has declined surgery for and is not currently on any medication. She states that she had a tubal ligation in the past and cataract surgery. Current Medications Acetaminophen (Tylenol Tab) 650 mg PO Q4HR PRN PRN Reason: Pain/Discomfort Al Hydroxide/Mg Hydroxide (Maalox) 30 ml PO Q4HR PRN PRN Reason: GI Upset Fluoxetine HCl (Prozac) 20 mg PO DAILY [facility] Lamotrigine (Lamictal) 150 mg PO QAM [facility] Last Admin: 01/01/17 09:43 Dose: 150 mg Lorazepam (Ativan) 1 mg PO Q8HR PRN PRN Reason: Agitation Last Admin: 01/01/17 09:47 Dose: 1 mg Magnesium Hydroxide (Milk Of Magnesia) 2,400 mg PO DAILY PRN PRN Reason: Constipation Melatonin (Melatonin) 5 mg PO HS [facility] Last Admin: 12/31/16 22:08 Dose: 5 mg Olanzapine (Zyprexa) 5 mg PO HS [facility] Last Admin: 12/31/16 22:08 Dose: 5 mg Olanzapine (Zyprexa) 2.5 mg PO DAILY [facility] Polyethylene Glycol (Miralax) 17 gm PO DAILY [facility] Last Admin: 01/01/17 09:44 Dose: Not Given Family History: Per the patient's past medical record, patient has a brother with an unknown psychiatric illness. She reported that there were no completed suicides in the family. Social History: patient states that she has been recently living with her daughter but was living in an apartment on her own prior to that. She states that she has been twice in the past and is . She has an associates degree. Patient states that her parents are both and she has 6 total siblings. Patient has 2 children with whom she has a very close relationship. Patient is currently not working and is supported on a fixed income. She denied any abuse history. Substance Use History: Patient has no prior current history of any substance use , she uses alcohol on an infrequent basis. Legal History: Patient has no reported legal history. Mental Status:Appearance/Attitude: Patient is a thin, appropriately dressed, she is constantly pacing and is only able to sit for several minutes at a time in the office and she is cooperative. Behavior: Patient does not display any psychomotor retardation but is constantly pacing and states that she feels compelled to do so. Speech/Language: Patient's speech is spontaneous and of normal volume and rhythm and she is coherent. Thought Process: Patient is goal-directed, there is no evidence of circumstantial or tangential thought and no evidence of flight of ideas or loose associations. Thought Content: Patient denies any auditory or visual hallucinations and no delusions or paranoid ideation are elicited. The patient states that she feels compelled to keep pacing but states that she doesn't feel that way when she is in bed at night. Patient states that she has no energy eyes that she was speaking fast at any point in the past. Patient states she is constantly ruminating about her car, her apartment, her bills. She states she was not talking a lot at home and feels hopeless and helpless because she can't do things. She states that she was sleeping at home but was not eating. Suicidal/Homicidal Ideation: Patient states that she does not want to be here, she denies any current suicidal plan or intent to act and denies any current homicidal ideation. Sensorium/Cognition: Patient is alert and oriented to person, place, and time and her memory is grossly intact. Mood/Affect: Patient's mood is agitated, depressed and her affect is blunted. Insight/Judgement: Patient's insight and judgment are fair. Intellectual Functioning: patient's intellectual functioning appears average Strength/Weaknesses: Patient has a supportive family, compliance with medication and follow-up treatment/recurrent mood symptoms Assessment: patient was brought to the emergency room by her family after they reported a 7-10 day decompensation, from the report from the emergency room patient was noted to have pressured speech, pacing however when she was admitted to the inpatient unit she is not exhibiting any pressured speech but does continue to pace and states that she feels compelled to do so. Patient states she is not feeling manic and is aware of what those symptoms are, she states she continues to feel depressed, hopeless and helpless and is having suicidal ideation, which she states is that she just doesn't want to be here and has no plan or intent to act. Patient states she is able to sleep and doesn 't feel like pacing at those times. Patient has been living with her daughter and has been compliant with her medications Admission Diagnoses: Bipolar disorder, current episode severe Plan: Patient was admitted on a voluntary basis, routine laboratory studies were ordered at a medical consultation was requested. Patient was also ordered group and activity therapy. Patient was placed on routine observations and continued on her Lamictal 150 mg daily and her Zyprexa 5 mg at bedtime. Patient was also continued on melatonin 5 mg at bedtime. Patient was also placed on Ativan 1 mg 3 times a day as needed and after she received 1 mg dose this morning there did not seem to be much change in her pacing behavior and she reported such. It is difficult to determine if the patient is really having a manic episode or just agitated depression. As the patient is reporting feeling depressed, suicidal ideation I will restart her Prozac but at 20 mg and increase her Zyprexa to 2.5 mg in the morning and continued 5 mg at bedtime. Should the patient continue to report feeling depressed her Prozac can be increased to 40 mg. Patient has reported poor response to Latuda and Abilify in the past and has been on as high as 20 mg of Zyprexa a day in the past. 01/01/17 13:08 01/01/17 13:09
[2017-01-01] MEDS: OLANZapine 5 MG TAB PO SCH (21:18)
[2017-01-01] MEDS: MELATONIN 5 MG TABLET PO SCH (21:18)
[2017-01-02] MEDS: lamoTRIgine 100 MG TAB PO SCH (08:56)
[2017-01-02] MEDS: FLUoxetine HCL 20 MG CAP PO SCH (08:56)
[2017-01-02] MEDS: OLANZapine 2.5 MG TAB PO SCH (08:56)
[2017-01-02] MEDS: POLYETHYLENE GLYCOL 3350 17 GM POWD.PACK PO SCH (08:57)
[2017-01-02 09:05] LABS: Calcium 9.5 mg/dL (8.4-10.2); Potassium 4.4 mmol/L (3.5-5.1)
[2017-01-02] MEDS: LORazepam 1 MG TAB PO PRN (13:46)
--- NOTE | 2017-01-02 14:59 | P.PN ---
Progress Note - Text Date of service: 01/02/2017 Chief complaint: "I am pacing all the day " Subjective: The patient has been seen today as follow-up, chart reviewed, case discussed with the treatment team. Patient slept about 4 hours last night. Patient has been not going to groups and other unit activities. Patient reports poor appetite problems. Patient reports has been pacing all the day and she couldn' t stop walking. She reports feeling restless and very irritable. She stated her depression still very bad, feeling hopeless and has intermittent suicidal thoughts but denies any plans or intentions to hurt herself. The patient denies any manic symptoms. The patient denies any auditory or visual hallucinations. Also the patient denies any paranoid ideation. The patient is compliant with her medications and denies any adverse reactions. I discussed with the patient that the pacing could be a potential SEs of medications. She refused to try Benady for EPS and reports always has opposite effect with benadryl. She agreed to try Cogentin Review of other systems: Patient denies any physical symptoms besides what has been mentioned above. No breathing problems, no chest pain reported today. Objective: Vitals has been reviewed. Mental status examination; Appearance: The patient appears stated age, underweight, no specific features. Gait/posture: Normal gait but pacing all the time. Attitude and behavior: Not fully engaged, cooperative, intermittent eye contact. Motor activity: Increased psychomotor activity Speech: Low volume, soft Mood: Depressed Affect: Blunted Thought form: goal-directed, linear, coherent. Thought content: Non-delusional, suicidal thoughts, denies homicidal thoughts, denies intentions or plans. Perception: Denies any auditory or visual hallucinations Attention: No impairment. Orientation: Patient patient was fully oriented to time place person and situation. Insight: Patient has limited insight about her psychiatric disorder. Judgment: Patient has limited judgment about her psychiatric treatment. Assessment: Bipolar disorder, most recent episode depression Plan: Continue with inpatient psychiatric hospitalization for monitoring and continue treatment. Continue group therapy and other unit activities. Continue psychiatric medications: Prozac 20mg daily for depression. Zyprexa 2.5mg am and 5mg bedtime as mood stabilizer . Lamictal 150mg daily as mood stabilizer. Melatonin to help with insomnia Start Cogentin 0.5mg BID to address pacing as a potential EPS. Discharge planning is ongoing.
--- NOTE | 2017-01-02 17:05 | P.PN ---
Subjective Principal diagnosis: anxiety Patient is a 71-year-old female with no significant past medical history here for treatment of her bipolar disorder. Patient seen and examined at bedside. She complains of paving all day. She denies any chest pain, palpitations, shortness of breath, nausea, vomiting, or diarrhea. She states that her appetite has been better. Objective - Vital Signs Vital signs: Vital Signs Temp 97.9 F 01/02/17 06:45 Pulse 66 01/02/17 06:45 Resp 16 01/02/17 06:45 BP 105/59 01/02/17 06:45 Pulse Ox 98 12/31/16 16:02 Intake & Output 01/01/17 01/02/17 01/02/17 18:59 06:59 18:59 Weight 40.832 kg - Exam General: non toxic, no distress, appears at stated age Derm: no rashes, no lesions Head: atraumatic, normocephalic, symmetric Eyes: EOMI, no lid lag, anicteric sclera ENT: no post nasal drip, no thrush Mouth: no lip lesion, mucus membranes moist Cardiovascular: S1S2 reg, no murmur, positive posterior tibial pulse bilateral, Lungs: CTA bilateral, no rhonchi, no rales , no accessory muscle use Abdominal: soft, nontender to palpation, no guarding, no appreciable organomegaly Ext: no gross muscle atrophy, no edema, no contractures Neuro: CN II-XI grossly intact, no focal neuro deficits Psych: Alert, oriented, anxious - Labs CBC & Chem 7: 12/30/16 19:56 01/02/17 08:19 Labs: Abnormal Lab Results - Last 24 Hours (Table) 01/02/17 Range/Units 08:19 BUN 35 H (7-17) mg/dL Creatinine 1.50 H (0.52-1.04) mg/dL Assessment and Plan Plan: #Depressed TSH-normal T4, recommend recheck in 4-6 weeks #Chronic kidney disease stage III, labs reviewed from prior and appears at baseline-no need to continue to follow as an inpatient #Weight loss-appetite has improved with psychiatric treatment # bipolar disorder-continue your psych management
[2017-01-02] MEDS: MELATONIN 5 MG TABLET PO SCH (20:57)
[2017-01-02] MEDS: BENZTROPINE MESYLATE 0.5 MG TAB PO SCH (20:57)
[2017-01-02] MEDS: OLANZapine 5 MG TAB PO SCH (20:57)
[2017-01-03] MEDS: lamoTRIgine 100 MG TAB PO SCH (08:44)
[2017-01-03] MEDS: FLUoxetine HCL 20 MG CAP PO SCH (08:44)
[2017-01-03] MEDS: BENZTROPINE MESYLATE 0.5 MG TAB PO SCH (08:44)
[2017-01-03] MEDS: OLANZapine 2.5 MG TAB PO SCH (08:44)
[2017-01-03] MEDS: POLYETHYLENE GLYCOL 3350 17 GM POWD.PACK PO SCH (08:45)
[2017-01-03] MEDS: LORazepam 1 MG TAB PO PRN ×2 (09:12→18:06)
--- NOTE | 2017-01-03 13:06 | P.PN ---
Progress Note - Text Date of service: 01/03/2017 Chief complaint: "I'm is still pacing and I am feeling depressed " Subjective: The patient has been seen today as follow-up, chart reviewed, case discussed with the treatment team. Patient slept about 4-6 hours last night. Patient has been not going to groups and other unit activities. Patient reports good appetite problems. The patient reported that she still pacing for most of her time and she couldn't sit still. She continued to feel restless and always urge to move that she couldn't finish her food even she would has good appetite. She stated her depression still high and feeling hopeless about this situation. She continued to feel suicidal but denies any plan or intention to hurt self or others. The patient denies any manic symptoms . The patient denies any auditory or visual hallucinations. Also the patient denies any paranoid ideation. The patient is compliant with her medications and denies any adverse reactions beside what reported. Review of other systems: Patient denies any physical symptoms besides what has been mentioned above. No breathing problems, no chest pain reported today. Objective: Vitals has been reviewed. Mental status examination; Appearance: The patient appears stated age, underweight, no specific features. Gait/posture: Normal gait but pacing all the time. Attitude and behavior: Not fully engaged, cooperative, intermittent eye contact. Motor activity: Increased psychomotor activity Speech: Low volume, soft Mood: Depressed Affect: Blunted Thought form: goal-directed, linear, coherent. Thought content: Non-delusional, suicidal thoughts, denies homicidal thoughts, denies intentions or plans. Perception: Denies any auditory or visual hallucinations Attention: No impairment. Insight: Patient has limited insight about her psychiatric disorder. Judgment: Patient has limited judgment about her psychiatric treatment. Assessment: Bipolar disorder, most recent episode depression The patient pacing could be SE of medications and will increase Cogentin to 1mg BID for better control of restlessness. If patient didn't respond, probably consider change her psychiatric medications Zyprexa and/or Prozac. Plan: Continue with inpatient psychiatric hospitalization for monitoring and continue treatment. Continue group therapy and other unit activities. Continue psychiatric medications: Prozac 20mg daily for depression. Zyprexa 2.5mg am and 5mg bedtime as mood stabilizer . Lamictal 150mg daily as mood stabilizer. Melatonin to help with insomnia Inc Cogentin 1mg BID to address pacing as a potential EPS. Continue follow up
[2017-01-03] MEDS: OLANZapine 5 MG TAB PO SCH (20:38)
[2017-01-03] MEDS: MELATONIN 5 MG TABLET PO SCH (20:38)
[2017-01-03] MEDS: BENZTROPINE MESYLATE 1 MG TAB PO SCH (20:39)
[2017-01-04] MEDS: POLYETHYLENE GLYCOL 3350 17 GM POWD.PACK PO SCH (08:06)
[2017-01-04] MEDS: lamoTRIgine 100 MG TAB PO SCH (08:07)
[2017-01-04] MEDS: BENZTROPINE MESYLATE 1 MG TAB PO SCH (08:07)
[2017-01-04] MEDS: FLUoxetine HCL 20 MG CAP PO SCH (08:07)
[2017-01-04] MEDS: OLANZapine 2.5 MG TAB PO SCH ×2 (09:01→15:18)
--- NOTE | 2017-01-04 12:38 | P.PN ---
Progress Note - Text Interval History: Patient is a 71-year-old female seen in coverage for Dr. Moreau. Over the weekend the patient was begun on Cogentin and she reports it is not changed her pacing. Patient states that she continues to be able to sleep at night and is not getting up at night or feeling restless when she lies down at night to go to bed. Patient states she is unable to sit to eat but consumes about 50% of her meals and is is drinking the insurer. Patient states that when she is up she feels compelled to continue pacing in the hallway and is unable to sit for for more than 5 minutes. Patient consistently during the interview states that she is unable to sit still, I won't be able to sit still I won't be able to sit. Patient reports she continues to feel depressed and has suicidal thoughts with no plan. She reports no change in her feelings of depression. Patient reported she is sleeping well. Mental Status: Appearance/Attitude: Patient is a thin, neatly dressed and makes poor eye contact due to constantly pacing and is cooperative Behavior: Patient displays no psychomotor retardation but constantly paces during the day and during the interview in the office Speech/Language: Patient's speech is spontaneous, of normal volume and rhythm and she is coherent. Thought Process: Patient is goal directed, no evidence of circumstantial or tangential thought and no loose associations or flight of ideas. Thought Content: Patient denies any auditory or visual hallucinations no delusions or paranoid ideation were elicited. Patient states that she is able to sleep, she states she is able to lie quietly in bed and does sleep well at night. Patient states she feels compelled to paces soon if she awakens in the morning and states she is not able to stop pacing even to eat her meals. Suicidal/Homicidal Ideation: Patient states she has had some suicidal thoughts at times but no plan to act and denies any current homicidal ideation. Sensorium/Cognition: Patient is alert and oriented to person, place, and time and her memory is grossly intact. Mood/Affect: Patient's mood is depressed, agitated and her affect is blunted. Insight/Judgement: Patient's insight and judgment are fair. Assessment: Patient has received no benefit from the Cogentin and I do not see any evidence of akathisia or EPS. Patient states she is not able to sit to eat but is consuming about 50% of her meals and using the and sure. Patient is able to sleep at night and states she has no feeling of restlessness or need to pace at night. In team treatment meeting it was reported that the patient did sit quietly during one group for 45 minutes. Patient remains depressed with suicidal ideation but no plans. Plan: Patient will continue on Lamictal 150 mg a day, Prozac 20 mg a day to target her mood. I will increase the patient's Zyprexa to 2.5 mg at 9 AM and 3 PM and continue 5 mg at bedtime to target her agitation. I will discontinue the Cogentin as I do not feel the patient is having akathisia or EPS. Patient was encouraged to try to sit quietly at times or to lie in bed quietly, she states that she is going to be unable to do this. Patient was encouraged to continue to eat and attend groups and activities as she can.
[2017-01-04] MEDS: LORazepam 1 MG TAB PO PRN (17:04)
[2017-01-04] MEDS: MELATONIN 5 MG TABLET PO SCH (21:06)
[2017-01-04] MEDS: OLANZapine 5 MG TAB PO SCH (21:07)
--- NOTE | 2017-01-04 21:35 | P.PN ---
Progress Note - Text I saw the patient for the fall. Patient states that she got up from the bed in upright position very fast and felt lightheaded and lost her balance and fell on the side seeking her right side of head against the wall. She did not lose consciousness. She did not feel lots of pain. There is no confusion or loss of memory for events for prior and after the event. Currently there is no headache no vision changes nausea vomiting or any other complaints. Patient is known to run blood pressures on the lower side. The physical examination vital signs are stable Patient is no distress and is comfortable She had an neck examination: No signs of trauma extraocular movements are intact pupils are reactive to light no facial asymmetry Range of motion in the cervical spine is normal and there is no point tenderness or deformities Lungs are clear to auscultation Cardiovascular regular rate and rhythm S1-S2 Abdomen is soft nontender stem Activities without edema Musculoskeletal no joint pain swelling or deformities Neurological exam: Cranial nerves II through XII intact; motor is 5 out of 5 proximally and distally in upper and lower extremities Assessment and plan; Fall due to disequilibrium and orthostatic lightheadedness Patient instructed to get up from sitting or laying position slowly Nursing staff and patient instructed on alarming symptoms like headache, vision changes, changes in mental status, nausea neck pain, paresthesia to inform house physician immediately
[2017-01-05] MEDS: FLUoxetine HCL 20 MG CAP PO SCH (09:13)
[2017-01-05] MEDS: POLYETHYLENE GLYCOL 3350 17 GM POWD.PACK PO SCH (09:13)
[2017-01-05] MEDS: lamoTRIgine 100 MG TAB PO SCH (09:13)
[2017-01-05] MEDS: OLANZapine 2.5 MG TAB PO SCH (09:18)
--- NOTE | 2017-01-05 09:21 | P.PN ---
Progress Note - Text Interval history: The patient is found in her room lying in bed she follows me to an interview room. The patient was admitted to the hospital with a markedly depressed mood. She has been experiencing anorexia her weight has decreased reportedly by 15 pounds. She reports that she feels terrible she is anxious and continually has to pace. She continues on Prozac her Zyprexa was recently increased. There was some concern that the Zyprexa could be causing akisthesia and Cogentin was trialed. This was discontinued and the Zyprexa was increased. From patient report it is difficult to tell what is causing the pacing. She identifies herself as feeling anxious but also feels that she has to move her body all the time even when calm. She recalls being on the Zyprexa since approximately August which was 2 months before her last admission. The treatment option of ECT has been discussed with the patient. She states that she is fearful of this as a treatment modality and we spent several minutes discussing it to provide information. We discussed that it could demonstrate better and quicker efficacy than further medication trials. She reports she is sleeping throughout the night. Mental status exam: The patient is a cachectic appearing 71-year-old female. She is dressed in her own clothing. She ambulates slowly without ataxia. She has a dysphoric affect she reports a depressed mood with anxiety. She continues to have suicidal ideation throughout the day no homicidal ideation. She endorses no auditory or visual hallucinations she is endorsing no specific delusions there is no overt evidence of psychosis. Thought process is linear she demonstrates no tangential thinking loose associations or flight of ideas. She does have spontaneous speech but mainly responds to questions asked. During the session she states she has to stand up and she paces briefly in the room and is seated again. Even while seated she is moving her lower extremities. She demonstrates no verbal or physical aggressiveness. She remains oriented. Plan: We will discontinue the daytime doses of Zyprexa just in case it is causing akathisia. We had previously planned on eliminating Zyprexa as the Lamictal was increased. I do feel ECT is a viable treatment option and she is encouraged to give this more consideration. We will try to provide more educational materials regarding ECT. Should she opt for ECT treatment we will facilitate a transfer to a facility providing that service. Vital signs reviewed. We will monitor her for safety monitor by mouth intake and encourage participation in the milieu. She requires inpatient psychiatric hospitalization at this time.
[2017-01-05] MEDS: OLANZapine 5 MG TAB PO SCH (20:29)
[2017-01-05] MEDS: MELATONIN 5 MG TABLET PO SCH (21:24)
[2017-01-06] MEDS: lamoTRIgine 100 MG TAB PO SCH (09:39)
[2017-01-06] MEDS: FLUoxetine HCL 20 MG CAP PO SCH (09:39)
[2017-01-06] MEDS: POLYETHYLENE GLYCOL 3350 17 GM POWD.PACK PO SCH (09:39)
[2017-01-06] MEDS: LORazepam 1 MG TAB PO PRN (09:40)
--- NOTE | 2017-01-06 12:53 | CT ---
EXAMINATION TYPE: CT brain wo con DATE OF EXAM: 01/06/2017 HISTORY: Fall, hit Rt Parietal region with headache. CT DLP: 1082 mGycm. Automated Exposure Control for Dose Reduction was Utilized. TECHNIQUE: CT scan of the head is performed without contrast. COMPARISON: CT brain July 06, 2015. FINDINGS: There is no acute intracranial hemorrhage or midline shift identified. There is diffuse v entricular and sulcal prominence consistent with diffuse age-related cerebral atrophy. There is low- attenuation in the periventricular white matter consistent with chronic small vessel ischemic change. The globes are intact and the visualized sinuses are clear. The calvarium is intact. Patchy densi ty right external auditory canal is felt to reflect cerumen without significant change from prior CT. IMPRESSION: No acute intracranial hemorrhage or midline shift. There is mild diffuse age-related ce rebral atrophy and chronic small vessel ischemic change redemonstrated. No significant change from p rior study is noted.
--- NOTE | 2017-01-06 13:25 | P.PN ---
Progress Note - Text Interval History: Patient is a 71-year-old female who is being seen in coverage for Dr. Moreau and was seen today in her room and she was lying in bed and stated that she had fallen this morning and told me that she had hit her hip, however later reported that she had also hit her head. Patient reports that she isn't feeling well today and was lying in bed and seemed to be able to rest and states that she was not pacing because she was told to stay in bed. Patient told me that she was pacing yesterday and continues to feel the need to do so. Patient had no complaints at this time as she was preoccupied somatically with her fall this morning and possible incontinence of stool which was found to have not occurred. Mental Status: Appearance/Attitude: Patient is a thin woman who is lying in her hospital bed, she reports that she fell earlier today and is unable to tell me if she was dizzy or not at that time. Behavior: Patient does not display any psychomotor retardation but remains restless and states that she still feels compelled to pace but is not doing so. Speech/Language: Patient's speech is spontaneous and of normal volume and rhythm and she is coherent. Thought Process: Patient is goal-directed there is no evidence of thought blocking. Thought Content: Patient denies any auditory or visual hallucinations, no paranoid or delusional ideation is noted. Patient is occupied with her fall this morning as well as possible stool incontinence. Patient has been sleeping well Suicidal/Homicidal Ideation: Patient denied any current suicidal or homicidal ideation. Sensorium/Cognition: Patient is alert and oriented to person, place, and time and her memory is grossly intact. Mood/Affect: Patient's mood remains depressed, she is restless and pacing and her affect is blunted. Insight/Judgement: Patient's insight and judgment are fair. Assessment: patient was continued on Zyprexa 5 mg at night and her daytime doses were discontinued and her Prozac was maintained at 20 mg a day. Patient fell this morning and later told us that she had her hip as well as her head. Patient's pulse this morning was low at 42 but on repeat examination her pulse was back within the normal range. Patient's BUN remains elevated as well. Patient had a computed tomography scan of her brain which revealed no acute changes. Patient remains depressed, was pacing in the halls until she fell this morning was told to stay in her bed. Plan: Will continue her current medications at their present doses, have asked medical appliance maker to reevaluate the patient and they ordered a computed tomography scan of her brain which was also completed and was negative for an acute event. Patient was discussed in team treatment meeting and patient had been offered the option of ECT which she was reluctant to proceed with.
[2017-01-06 17:02] LABS: Basophils # (A) 0.1 k/uL (0-0.2); Basophils % (A) 1 %; CH 31.9; CHCM 32.8; Eosinophils # (A) 0.1 k/uL (0-0.7); Eosinophils % (A) 1 %; HCT 38.8 % (34.0-46.0); HDW 2.13; HGB 12.5 gm/dL (11.4-16.0); Luc # (Auto) 0.15; Luc % (Auto) 2; Lymphocytes % (A) 15 %; MCH 31.6 pg (25.0-35.0); MCHC 32.2 g/dL (31.0-37.0); MCV 97.9 fL (80.0-100.0); Mean Platelet Volume 7.3; Monocytes # (A) 0.5 k/uL (0-1.0); Monocytes % (A) 7 %; Neutrophils # (A) 5.1 k/uL (1.3-7.7); Neutrophils % (A) 75 %; RBC 3.96 m/uL (3.80-5.40); RDW 13.1 % (11.5-15.5); WBC 6.9 k/uL (3.8-10.6); WBC (Perox) 7.12
[2017-01-06 17:09] LABS: Calcium 9.6 mg/dL (8.4-10.2); Potassium 4.9 mmol/L (3.5-5.1); Total Bilirubin 0.2 mg/dL (0.2-1.3); Total Protein 6.4 g/dL (6.3-8.2)
[2017-01-06] MEDS: SODIUM CHLORIDE 0.9% 1,000 ML IV SCH (17:44)
--- NOTE | 2017-01-06 17:57 | P.PN ---
Subjective Principal diagnosis: anxiety Patient is a 71-year-old female with no significant past medical history here for treatment of her bipolar disorder. Patient seen and examined at bedside. Patient states she fell today and struck the right side of her head. She denies any headaches. She has felt light headed upon standing today. She denies any chest pain, shortness of breath, nausea, and diaphoresis. She states that she is still having to pace and sometimes it feels as though she has to walk quickly and she is unable to fight this urge. Objective - Vital Signs Vital signs: Vital Signs Temp 98.3 F 01/06/17 09:55 Pulse 80 01/06/17 12:02 Resp 18 01/06/17 12:02 BP 145/71 01/06/17 12:02 Pulse Ox 98 12/31/16 16:02 - Exam General: non toxic, no distress, appears at stated age Derm: no rashes, no lesions Head: atraumatic, normocephalic, Eyes: EOMI, no lid lag, anicteric sclera ENT: no post nasal drip, no thrush Mouth: no lip lesion, mucus membranes dry Cardiovascular: S1S2 reg, no murmur, positive posterior tibial pulse bilateral, Lungs: CTA bilateral, no rhonchi, no rales , no accessory muscle use Abdominal: soft, nontender to palpation, no guarding, no appreciable organomegaly Ext: no gross muscle atrophy, no edema, no contractures Neuro: CN II-XI grossly intact, no focal neuro deficits Psych: Alert, oriented, anxious - Labs CBC & Chem 7: 01/06/17 16:49 01/06/17 16:49 Assessment and Plan Plan: # Lightheadedness-stat blood work ordered and reviewed which demonstrates dehydration, we will initiate 0.9 normal saline at 100 mL an hour and recheck renal profile in a.m. #Fall-stat head CT checked and is negative #Depressed TSH-normal T4, recommend recheck in 4-6 weeks #Chronic kidney disease stage III, labs reviewed from prior and appears at baseline-no need to continue to follow as an inpatient #Weight loss-appetite has improved with psychiatric treatment # bipolar disorder-continue your psych management
[2017-01-06] MEDS: OLANZapine 5 MG TAB PO SCH (22:10)
[2017-01-06] MEDS: MELATONIN 5 MG TABLET PO SCH (22:13)
[2017-01-07] MEDS: SODIUM CHLORIDE 0.9% 1,000 ML IV SCH ×2 (03:12→13:50)
[2017-01-07] MEDS: FLUoxetine HCL 20 MG CAP PO SCH (08:40)
[2017-01-07] MEDS: lamoTRIgine 100 MG TAB PO SCH (08:40)
[2017-01-07 09:41] LABS: Calcium 9.3 mg/dL (8.4-10.2); Magnesium 2.2 mg/dL (1.6-2.3)
[2017-01-07 11:40] VITALS: BMI 16.7
--- NOTE | 2017-01-07 15:27 | P.PN ---
Progress Note - Text Interval History: Patient is a 71-year-old female being seen in coverage for Dr. Moreau. Patient reports that she continues to pace and is unable to sit for more than 15 minutes at a time. Patient states that she did not feel like eating today but did eat anyway and states that she continues to sleep at night without difficulty. She states she remains compelled to pace, is anxious and remains depressed. Patient states that she has suicidal thoughts but no plan to act. Patient had no other complaints at this time her focus is mainly on the inability for her to stop pacing. Mental Status: Appearance/Attitude: Patient is a thin female who is appropriately and neatly dressed, makes good eye contact and is cooperative. Behavior: Patient does not display any psychomotor retardation she was able to sit through the interview today in a chair but gripped the sides of the chair tightly to keep herself from pacing. Speech/Language: Patient's speech is spontaneous, normal volume and rhythm and she is coherent. Thought Process: Patient is goal-directed, she is not circumstantial or tangential and there is no evidence of loose associations or flight of ideas. Thought Content: Patient denies any auditory or visual hallucinations no delusions or paranoia were elicited. The patient continues to feel compelled to pace and is seen in the hallways pacing up and down, however she has been able to rest in bed periodically through the day. She states she is able to sit for about 15 minutes. Patient reports that she slept well and her appetite was not good today but she is still eating. Suicidal/Homicidal Ideation: Patient denies any current homicidal ideation and states she continues to have suicidal ideation but no plans. Sensorium/Cognition: Patient is alert and oriented to person, place, and time and her memory is grossly intact. Mood/Affect: Patient's mood remains depressed and her affect is blunted. Insight/Judgement: Patient's insight and judgment are fair. Assessment: Patient yesterday fell in the morning and x-rays revealed no acute changes to the computed tomography scan of her brain. Patient was also noted to have an increase in her creatinine and so she was begun on IV fluids and her creatinine level has decreased. Patient states she is feeling more stable today and has continued to feel compelled to pace. Patient however has been able to sit still at times for about 15 minutes. She reports that she continues to sleep well at night. She continues to report feeling depressed and compelled to pace. Plan: Patient will continue on Prozac 20 mg and Zyprexa 5 mg at bedtime. I discussed with the patient starting a low dose of BuSpar to see if this would alleviate some of her agitation and she was agreeable to this and so I will begin 5 mg twice a day. Patient and I also discussed ECT which had been suggested by Dr. Moreau and I discussed this with her and she will continue to consider this option. Patient continues to require hospitalization to stabilize her mood.
--- NOTE | 2017-01-07 18:04 | P.PN ---
Subjective Principal diagnosis: anxiety Patient is a 71-year-old female with no significant past medical history here for treatment of her bipolar disorder. Found to have falls and dehydration. Treated with IV fluids overnight examined at bedside. Delayed charting patient seen at approximately 12 PM Patient seen and examined at bedside. Her dizziness has resolved. She feels much better when up and walking. No headache, nausea, blurry vision, or double vision. Objective - Vital Signs Vital signs: Vital Signs Temp 97.9 F 01/07/17 06:46 Pulse 85 01/07/17 08:37 Resp 18 01/07/17 08:37 BP 151/77 01/07/17 08:37 Pulse Ox 98 12/31/16 16:02 Intake & Output 01/06/17 01/07/17 01/07/17 18:59 06:59 18:59 Intake Total 100 Balance 100 Weight 42.9 kg Intake: IV 100 Invasive Line 1 100 - Exam General: non toxic, no distress, appears at stated age Derm: no rashes, no lesions Head: atraumatic, normocephalic, Eyes: EOMI, no lid lag, anicteric sclera ENT: no post nasal drip, no thrush Mouth: no lip lesion, mucus membranes moist Cardiovascular: S1S2 reg, no murmur, positive posterior tibial pulse bilateral, Lungs: CTA bilateral, no rhonchi, no rales , no accessory muscle use Abdominal: soft, nontender to palpation, no guarding, no appreciable organomegaly Ext: no gross muscle atrophy, no edema, no contractures Neuro: CN II-XI grossly intact, no focal neuro deficits Psych: Alert, oriented, anxious - Labs CBC & Chem 7: 01/06/17 16:49 01/07/17 08:35 Labs: Abnormal Lab Results - Last 24 Hours (Table) 01/07/17 Range/Units 08:35 Chloride 108 H (98-107) mmol/L BUN 43 H (7-17) mg/dL Creatinine 1.50 H (0.52-1.04) mg/dL Glucose 116 H (74-99) mg/dL Assessment and Plan Plan: #Acute kidney injury secondary to dehydration, improved-DC'd IV fluids at 5 PM, recheck basic metabolic profile in a.m., patient nurse will leave in IV as hep- locked until then next morning. #Fall-stat head CT checked and is negative #Depressed TSH-normal T4, recommend recheck in 4-6 weeks #Chronic kidney disease stage III, labs reviewed from prior and appears at baseline-no need to continue to follow as an inpatient #Weight loss-appetite has improved with psychiatric treatment # bipolar disorder-continue your psych management We will plan on reevaluating the patient tomorrow to see if IV fluids need to continue or if we can remove her IV.
[2017-01-07] MEDS: busPIRone HCl 5 MG TAB PO SCH (20:32)
[2017-01-07] MEDS: MELATONIN 5 MG TABLET PO SCH (20:32)
[2017-01-07] MEDS: OLANZapine 5 MG TAB PO SCH (20:33)
[2017-01-08] MEDS: LORazepam 1 MG TAB PO PRN (02:09)
[2017-01-08] MEDS: lamoTRIgine 100 MG TAB PO SCH (08:28)
[2017-01-08] MEDS: busPIRone HCl 5 MG TAB PO SCH ×2 (08:28→20:29)
[2017-01-08] MEDS: FLUoxetine HCL 20 MG CAP PO SCH (08:29)
[2017-01-08 09:08] LABS: Calcium 9.7 mg/dL (8.4-10.2)
--- NOTE | 2017-01-08 10:31 | P.PN ---
Progress Note - Text interval history: The patient is found in her room lying in bed she follows me to an interview room. She endorses a depressed mood with continued hopelessness thinking and intermittent suicidal ideation. She reports having difficulty sleeping last night. We continued our conversation regarding ECT as an option and she had expressed giving it some consideration. She asked that I speak with her daughter Mary. With the patient's expressed permission I did call Mary and answered questions she had regarding ECT treatment. During my absence it appears the patient was given IV fluids for an elevated BUN/ creatinine creatinine. She does have a history of chronic kidney disease. The patient reports feeling anxious she continues to pace. Mental status exam: The patient is a thin underweight female she is dressed in her own clothing. Eye contact is intermittent she soft-spoken. She has a dysphoric affect and also appears anxious. She endorses hopelessness thinking with intermittent suicidal thoughts. No homicidal ideation reported. No report or evidence of auditory or visual hallucinations or specific delusions. She demonstrates no signs of hypomania or cheryle. Insight and judgment limited. She is oriented to person place month is January and the correct year. Plan: We will continue her current medications BuSpar was added in my absence. I will discontinue the Zyprexa. Her family plans on meeting with her tomorrow to continue the conversation of possibly pursuing ECT. Vital signs reviewed labs reviewed. We will continue to monitor her for safety she is encouraged to participate fully in the milieu
--- NOTE | 2017-01-08 11:34 | P.PN ---
Subjective Principal diagnosis: anxiety pacing intermittently but improved Patient is a 71-year-old female with no significant past medical history here for treatment of her bipolar disorder. Found to have falls and dehydration. Treated with IV fluids overnight examined at bedside. Delayed charting patient seen at approximately 12 PM Patient seen and examined at bedside. Her dizziness has resolved. She feels much better when up and walking. No headache, nausea, blurry vision, or double vision. Objective - Vital Signs Vital signs: Vital Signs Temp 98.0 F 01/08/17 02:51 Pulse 79 01/08/17 04:55 Resp 14 01/08/17 04:55 BP 145/68 01/08/17 04:55 Pulse Ox 98 12/31/16 16:02 Intake & Output 01/07/17 01/08/17 01/08/17 18:59 06:59 18:59 Weight 42.9 kg - Exam Constitutional: No acute distress, conversant, pleasant Eyes: Anicteric sclerae, moist conjunctiva, no lid-lag, PERRLA ENMT: NC/AT,Oropharynx clear, no erythema, exudates Neck: Supple, FROM, no masses, or JVD, No carotid bruits; No thyromegaly Lungs: Clear to auscultation, Clear to percussion, Normal respiratory effort, no accessory muscle use Cardiovascular: Heart regular in rate and rhythm, No murmurs, gallops, or rubs No peripheral edema Abdominal: Soft Nontender, nom distended, no guarding, no rebound or rigidity, Normoactive bowel sounds No hepatomegaly, No splenomegaly, No palpable mass No abdominal wall hernia noted Skin: Normal temperature, tone, texture, turgor, No induration No subcutaneous nodules, No rash, lesions, No ulcers Extremities: No digital cyanosis No clubbing, Pedal pulses intact and symmetrical Radial pulses intact and symmetrical Normal gait and station, No calf tenderness Psychiatric: Alert and oriented to person, place and time, flat affect, anxious About possibly receiving ECT Neuro: Muscles Strength 5/5 in all 4 extremities, Sensation to light touch grossly present throughout, Cranial nerves II-XII grossly intact No focal sensory deficits - Labs CBC & Chem 7: 01/06/17 16:49 01/08/17 07:52 Labs: Abnormal Lab Results - Last 24 Hours (Table) 01/08/17 Range/Units 07:52 Sodium 146 H (137-145) mmol/L Chloride 109 H (98-107) mmol/L BUN 28 H (7-17) mg/dL Creatinine 1.45 H (0.52-1.04) mg/dL Assessment and Plan Plan: A/P Acute kidney injury * secondary to dehydration, resolved after IV fluids-DC'd IV fluids today * We will discontinue her IV today, creatinine likely back to baseline #Fall-stat head CT checked and is negative #Depressed TSH-normal T4, recommend recheck in 4-6 weeks #Chronic kidney disease stage III, labs reviewed from prior and appears at baseline-no need to continue to follow as an inpatient #Weight loss-appetite has improved with psychiatric treatment # bipolar disorder-continue your psych management Disposition Medically stable sign off
[2017-01-08] MEDS ORDERED: LOPERAMIDE 2 MG CAP PO PRN (18:47)
[2017-01-08] MEDS: MELATONIN 5 MG TABLET PO SCH (20:28)
[2017-01-09] MEDS: FLUoxetine HCL 20 MG CAP PO SCH (08:04)
[2017-01-09] MEDS: lamoTRIgine 100 MG TAB PO SCH (08:04)
[2017-01-09] MEDS: busPIRone HCl 5 MG TAB PO SCH ×2 (08:04→20:20)
--- NOTE | 2017-01-09 15:19 | XR ---
EXAMINATION TYPE: XR chest 2V DATE OF EXAM: 01/09/2017 COMPARISON: NONE HISTORY: Extended care facility placement. TECHNIQUE: Frontal and lateral views of the chest are obtained. FINDINGS: There is no focal air space opacity, pleural effusion, or pneumothorax seen. Underlying em physematous change is not excluded. There is abnormal deviation of trachea to right of midline and mi ld to moderate narrowing of the trachea. The cardiac silhouette size is within normal limits. The o sseous structures are intact. IMPRESSION: Chronic emphysematous change without acute pulmonary process. Tracheal deviation is like ly on basis of enlarged left thyroid lobe or goiter as is noted on recent carotid ultrasound. Conside r confirmation with old outside chest x-ray.
--- NOTE | 2017-01-09 15:21 | US ---
EXAMINATION TYPE: US carotid duplex BILAT DATE OF EXAM: 01/09/2017 COMPARISON: Seen today chest x-ray CLINICAL HISTORY: required prior to ECF placement. EXAM MEASUREMENTS: RIGHT: Peak Systolic Velocity (PSV) cm/sec ----- Right CCA: 80.9 ----- Right ICA: 97.4 ----- Right ECA: 108.2 ICA/CCA ratio: 1.2 RIGHT: End Diastole cm/sec ----- Right CCA: 20.4 ----- Right ICA: 31.4 ----- Right ECA: 17.6 LEFT: Peak Systolic Velocity (PSV) cm/sec ----- Left CCA: 102.7 ----- Left ICA: 78.5 ----- Left ECA: 75.5 ICA/CCA ratio: 0.8 LEFT: End Diastole cm/sec ----- Left CCA: 34.9 ----- Left ICA: 17.1 ----- Left ECA: 9.5 VERTEBRALS (direction of flow): Right Vertebral: Antegrade Left Vertebral: Antegrade No elevated velocities, no significant stenosis. Grayscale images show no significant focal plaque at carotid bulb level bilaterally. Towards end of s tudy there is suspicious Left thyroid: 5.0 x 4.0 x 4.4cm hypoechoic vascular nodule IMPRESSION: No hemodynamically significant stenosis in either internal carotid artery. There is hete rogeneous hypoechoic hypervascular 5.0 cm left thyroid nodule in which neoplasm cannot be excluded. Follow-up dedicated thyroid ultrasound and ultrasound-guided FNA is advised.
[2017-01-09] MEDS: MELATONIN 5 MG TABLET PO SCH (20:20)
[2017-01-10] MEDS: lamoTRIgine 100 MG TAB PO SCH (07:53)
[2017-01-10] MEDS: busPIRone HCl 5 MG TAB PO SCH ×2 (07:53→20:34)
[2017-01-10] MEDS: FLUoxetine HCL 20 MG CAP PO SCH (07:54)
--- NOTE | 2017-01-10 08:54 | PN ---
PROGRESS NOTE DATE OF SERVICE: 01/09/2017. CHIEF COMPLAINT: The patient was admitted due to increasing problems with depression with poor sleep, loss of energy and motivation. She was functioning poorly at home. She had suicide thoughts. INTERVAL HISTORY: The patient has been doing fair. She has continued to have depression issues. Dr. Moreau talked to her about the possibility of ECT. The patient notes that she had a quiet evening last night. She slept better. Today she has been up and about, she wanders on the unit. She does not interact much with others. She is to have a family meeting today. She attends groups. She tends to be more on the quiet side than anything else. She continues to feel down in her mood. She acknowledges some tendency to self blame and believes others are looking at her and seeing her in a negative light. She has been started on BuSpar, she has not had problems with that. She has not had change in her general health. She tolerates her psychotropic medications. MENTAL STATUS EXAM: The patient gave fair eye contact. Psychomotor activity was slowed. Speech was monotone. She did not say a lot. Her affect was blunted. Her mood was reserved. She was moderately distressed. ASSESSMENT: Continue the current diagnosis and treatment plan. A primary discussion that Dr. Moreau has had is possible referral for ECT. He did not indicated in his note any direction in regard to antidepressant medications. She was started on BuSpar without difficulty. She is on a minimal dose of that. I will increase her BuSpar to 10 mg twice a day and continue other psychotropic medications the same. We will continue to focus on stabilization and discharge planning. MMODL / PAVANN: [id number] /
--- NOTE | 2017-01-10 11:19 | US ---
EXAMINATION TYPE: US thyroid st tissue head/neck DATE OF EXAM: 01/10/2017 COMPARISON: Carotid ultrasound from yesterday CLINICAL HISTORY: nodule/follow-up. Abnormal carotid ultrasound GLAND SIZE: Right Lobe: 6.1 x 2.0 x 2.4 cm Overall Parenchyma: heterogenous Left Lobe: 8.0 x 4.5 x 3.1 cm Overall Parenchyma: heterogeneous Isthmus Thickness: 0.5 cm NODULES RIGHT: # of nodules measured on right: 1 1. 0.8 X 0.8 x 0.4 cm hypoechoic cystic nodule at the lower pole with well-defined margins; interru pted peripheral calcification. This nodule is wider than tall and shows no intranodular vascularity. Prior size: not previously documented LEFT: # of nodules measured on left: 1 1. 5.1 X 4.4 x 4.9 cm hypoechoic mixed nodule at the mid to inferior pole with poorly defined rl ns. This nodule appears to be as wider than tall and shows some intranodular vascularity. ISTHMUS: # of nodules measured in the isthmus: 0 Bilateral neck scanned, no evidence of lymphadenopathy. Limited due to overall thyroid echogenicity is heterogenous. Thyroid appears to measure large and co ntains two distinct nodules; one on the right and one on the left. The nodule on the left has hypoec hoic heterogenous composition and increased vascularity, Heterogeneous enlarged thyroid gland is present with asymmetric increased size to left lobe noted. Do minant 5.1 cm isoechoic solid nodule is felt present mid to lower pole level left thyroid. IMPRESSION: Heterogeneous enlarged thyroid gland with dominant 5.1 cm isoechoic left-sided mid to lower pole priscila d nodule. Neoplasm cannot be excluded. Further investigation with ultrasound guided fine-needle aspir ation is advised.
--- NOTE | 2017-01-10 12:07 | P.PN ---
Subjective Principal diagnosis: anxiety pacing intermittently but improved Patient is a 71-year-old female with no significant past medical history here for treatment of her bipolar disorder. Found to have falls and dehydration. Treated with IV fluids overnight examined at bedside. Delayed charting patient seen at approximately 12 PM Patient seen and examined at bedside. Her dizziness has resolved. She feels much better when up and walking. No headache, nausea, blurry vision, or double vision. Objective - Vital Signs Vital signs: Vital Signs Temp 98.2 F 01/10/17 03:08 Pulse 82 01/10/17 03:08 Resp 18 01/10/17 03:08 BP 143/65 01/10/17 03:08 Pulse Ox 95 01/10/17 03:08 Intake & Output 01/09/17 01/10/17 01/10/17 18:59 06:59 18:59 Weight 43.1 kg - Exam Constitutional: No acute distress, conversant, pleasant Eyes: Anicteric sclerae, moist conjunctiva, no lid-lag, PERRLA ENMT: NC/AT,Oropharynx clear, no erythema, exudates Neck: Supple, FROM, no masses, or JVD, No carotid bruits; Palpable nontender left superior nodule on thyroid Lungs: Clear to auscultation, Clear to percussion, Normal respiratory effort, no accessory muscle use Cardiovascular: Heart regular in rate and rhythm, No murmurs, gallops, or rubs No peripheral edema Abdominal: Soft Nontender, nom distended, no guarding, no rebound or rigidity, Normoactive bowel sounds No hepatomegaly, No splenomegaly, No palpable mass No abdominal wall hernia noted Skin: Normal temperature, tone, texture, turgor, No induration No subcutaneous nodules, No rash, lesions, No ulcers Extremities: No digital cyanosis No clubbing, Pedal pulses intact and symmetrical Radial pulses intact and symmetrical Normal gait and station, No calf tenderness Psychiatric: Alert and oriented to person, place and time, flat affect, anxious About possibly receiving ECT Neuro: Muscles Strength 5/5 in all 4 extremities, Sensation to light touch grossly present throughout, Cranial nerves II-XII grossly intact No focal sensory deficits - Labs CBC & Chem 7: 01/06/17 16:49 01/08/17 07:52 Assessment and Plan Plan: A/P Acute kidney injury * secondary to dehydration, resolved after IV fluids-DC'd IV fluids today * We will discontinue her IV today, creatinine likely back to baseline Thyroid nodule * 0.5 cm nodule found on carotid Dopplers, reports a history of goiter and by ENT Carlos several years ago unaware of the results * Order a thyroid ultrasound and FNAS #Fall-stat head CT checked and is negative #Depressed TSH-normal T4, recommend recheck in 4-6 weeks #Chronic kidney disease stage III, labs reviewed from prior and appears at baseline-no need to continue to follow as an inpatient #Weight loss-appetite has improved with psychiatric treatment # bipolar disorder-continue your psych management Disposition Medically stable sign off
--- NOTE | 2017-01-10 15:21 | PN ---
PROGRESS NOTE DATE OF SERVICE: 01/10/2017 CHIEF COMPLAINT: The patient was admitted due to increasing problems with depression with poor sleep, loss of energy and motivation. She was functioning poorly at home. She had suicide thoughts. INTERVAL HISTORY: Patient has been doing fair. She had a quiet evening last night. She says that she signed papers for ECT. I did increase her BuSpar yesterday though she said she is not sure if she has noted any difference yet. She does have a little better outlook and seems to be a little more comfortable. It is noted that she was found to have a 5 cm left thyroid nodule as per carotid ultrasound. Medicine is doing appropriate follow up. She has not had other change in her general health. She tolerates the psychotropic medications. MENTAL STATUS EXAM: Patient gave good eye contact. She was a little restless. Her speech was clear. She did not say a lot. She had a quiet manner. Her affect was blunted. Her mood reserved/ She did not appear to be significantly distressed. ASSESSMENT: I will continue the current diagnosis and treatment plan. I will continue psychotropic medications the same. We will complete studies regarding her thyroid issues and presumably she will then be referred for ECT. MMODL / IJN: [id number] /
[2017-01-10] MEDS: MELATONIN 5 MG TABLET PO SCH (20:34)
[2017-01-11 06:55] VITALS: RESP 16
[2017-01-11] MEDS: busPIRone HCl 5 MG TAB PO SCH ×2 (09:35→20:13)
[2017-01-11] MEDS: FLUoxetine HCL 20 MG CAP PO SCH (09:35)
[2017-01-11] MEDS: lamoTRIgine 100 MG TAB PO SCH (09:35)
--- NOTE | 2017-01-11 10:15 | P.PN ---
Progress Note - Text Interval history: The patient is found in the hallway she follows me to an interview room. She reports that her mood is anxious she is depressed she continues to have suicidal thoughts. Testing was ordered to clear her for ECT as we anticipate a transfer tomorrow to [facility]. Chest x-ray was clear for any acute process. The carotid ultrasound did pickup an abnormal thyroid finding. A subsequent thyroid ultrasound was ordered which revealed a nodule. Radiology recommended a fine-needle aspiration. Typically this would be done as an outpatient. I will discuss this results with the accepting psychiatrist at [facility] prior to transfer tomorrow. The patient's family did participate in a family meeting over the weekend they were supportive in general and supported the idea of ECT. Mental status exam: The patient is a thin female she is dressed in her own clothing eye contact is appropriate speech is fluent. She endorses a depressed and anxious mood with ongoing hopeless thoughts and ongoing suicidal thoughts. She maintains a blunted affect. She demonstrates no hypomanic or manic symptoms. She endorses no auditory or visual hallucinations or specific delusions. Insight and judgment limited. She is oriented to person place and date. She demonstrates no verbal or physical aggressiveness. Plan: The patient will continue on her current medication. We are anticipating a transfer to [facility] tomorrow for initiation of ECT. We will address an acceptable plan for following up on the thyroid nodule prior to her transfer. We will continue to monitor her for safety and encourage her participation in the milieu.
[2017-01-11] MEDS: MELATONIN 5 MG TABLET PO SCH (20:12)
[2017-01-12 07:01] VITALS: BP 140/86; PULSE 90; TEMP 98
[2017-01-12] MEDS: busPIRone HCl 5 MG TAB PO SCH (08:28)
[2017-01-12] MEDS: lamoTRIgine 100 MG TAB PO SCH (08:28)
[2017-01-12] MEDS: FLUoxetine HCL 20 MG CAP PO SCH (08:28)
--- NOTE | 2017-01-12 09:35 | P.DS ---
Providers Date of admission: 12/31/16 15:16 Expected date of discharge: 01/12/17 Attending physician: Francisco Moreau Consults: 12/31/16 17:25 Consult Physician Routine Consulting Provider: Laurel Bailey Consult Reason/Comments: H & P and medical care Do you want consulting provider notified?: Already Contacted 01/06/17 09:55 Consult Physician Urgent Consulting Provider: [facility] Consult Reason/Comments: falls and acute drop in pulse rate Do you want consulting provider notified?: Yes Primary care physician: Moises Ross - Discharge Diagnosis(es) (1) Bipolar 1 disorder, depressed Current Visit: No Status: Acute Priority: High Hospital Course: Brief summary of admission note: This patient is a 71-year-old female who was admitted to the mental health unit through the emergency room with severe symptoms of depression. The patient presented with hopelessness thinking and suicidal ideation. She had decreased appetite with significant weight loss. She described constant pacing and reported symptoms of anxiety. Energy was reported as low she had been withdrawing from normal activities infrequently laying in bed. For full details please refer to the psychiatric evaluation 01/01/2017 Summary of hospital course: Due to the mental health unit voluntarily. She was continued on Lamictal and Prozac her Zyprexa was increased. The patient was on this unit admitted last October for severe symptoms of depression in the context of a recent suicide attempt in the form of overdose. She was maintained on her Prozac than the Zyprexa was continued and Lamictal was initiated. At that time she felt the Prozac and Zyprexa provided benefit. Our goal with the last admission was to replace Zyprexa with Lamictal as a mood stabilizer. The Zyprexa was maintained however by her outpatient psychiatrist. In coverage titrated the Zyprexa further. The patient's described feelings of restlessness and there was some concern she could be having akathisia although it is unlikely and it is more likely it is her anxiety causing the pacing behavior. The patient has been tried on numerous psychotropic medications with marginal response. The idea of ECT was discussed with her and after receiving more information she was agreeable. I discussed ECT with the patient's daughter via phone and in the family is was brought in for a family meeting facilitated by social work to discuss it further. As part of the medical workup for ECT she underwent chest x-ray carotid Doppler an EKG. There was an incidental finding of thyroid goiter and with thyroid ultrasound a thyroid nodule. Fine-needle aspiration his outpatient was recommended. We plan to transfer the patient today to [facility] for ECT. The patient remains depressed she continues to have hopelessness feelings with intermittent suicidal thoughts. She has been cooperative. Mental status exam: The patient is a thin underweight female. She is dressed in her own clothing. Eye contact is intermittent she has a dysphoric affect. She describes a depressed mood with hopelessness thinking and suicidal thoughts. She endorses no homicidal ideation intent or plan. She reports no auditory or visual hallucinations or any specific delusions as we reviewed several types. There is no overt evidence of psychosis. She endorses no racing thoughts there is no objective evidence of hypomania or cheryle at this time. She does appear anxious at times and will pace in the daley. Insight and judgment limited due to severe psychiatric symptoms. She is oriented to person place and date. She appropriately participates in the conversation when needed. She demonstrates no verbal or physical aggressiveness. She demonstrates no abnormal involuntary movements. Impressions 1. Bipolar 1 disorder most recent depressed severe without psychosis 2. History of thyroid goiter, thyroid nodule discovered with ultrasound which will require fine-needle aspiration as outpatient 3. Severe psychosocial dysfunction secondary to severe mood symptoms Plan: The patient will continue on her current psychotropic medications. We will transfer her to [facility] to their inpatient psychiatric unit so she may initiate ECT treatment. I have spoken with the accepting psychiatrist, Dr. Whitaker, this morning. Patient Condition at Discharge: Serious Plan - Discharge Summary New Discharge Prescriptions: New busPIRone HCl [Buspar] 10 mg PO BID tab FLUoxetine HCL [PROzac] 20 mg PO DAILY cap lamoTRIgine [LaMICtal] 100 mg PO DAILY tab Melatonin 5 mg PO HS tab Discontinued Melatonin 5 mg PO HS #30 tab OLANZapine [ZyPREXA] 5 mg PO HS #30 lamoTRIgine [LaMICtal] 150 mg PO QAM FLUoxetine HCL [PROzac] 40 mg PO QAM Discharge Medication List FLUoxetine HCL [PROzac] 20 mg PO DAILY cap 01/12/17 [Rx] Melatonin 5 mg PO HS tab 01/12/17 [Rx] busPIRone HCl [Buspar] 10 mg PO BID tab 01/12/17 [Rx] lamoTRIgine [LaMICtal] 100 mg PO DAILY tab 01/12/17 [Rx] Follow up Appointment(s)/Referral(s): Moises Ross MD [Primary Care Provider] - 1-2 days Care Plan Goals (MU): repeat TSH and T4 with primary care doctor in 6 weeks.
[2017-01-12] MEDS: LORazepam 1 MG TAB PO PRN (14:21)
== END 2017-01-12 15:59 | DRG 885 ==
LOC: EC 18:43 → 3MHU 12-31 15:16
PROVIDERS: ADMIT Psychiatry & Neurology Psychiatry; ATTEND Psychiatry & Neurology Psychiatry
DX: F31.4 Bipolar disorder, current episode depressed, severe, without psychotic features (principal); N17.9 Acute kidney failure, unspecified; R64 Cachexia; Z68.1 Body mass index [BMI] 19.9 or less, adult; R45.851 Suicidal ideations; E04.1 Nontoxic single thyroid nodule; N18.3 Chronic kidney disease, stage 3 (moderate); E86.0 Dehydration; R63.6 Underweight; F41.9 Anxiety disorder, unspecified; G47.9 Sleep disorder, unspecified; K56.41 Fecal impaction; Z79.899 Other long term (current) drug therapy; Z91.5 Personal history of self-harm; Z98.42 Cataract extraction status, left eye; Z98.41 Cataract extraction status, right eye; Z96.1 Presence of intraocular lens; Z88.8 Allergy status to other drugs, medicaments and biological substances; Z91.041 Radiographic dye allergy status; W01.198A Fall on same level from slipping, tripping and stumbling with subsequent striking against other object, initial encounter; Z81.8 Family history of other mental and behavioral disorders
CPT/HCPCS: 36415; 70450; 71020; 76536; 80048; 80053; 80306; 80320; 81001; 82075; 83520; 83735; 84439; 84443; 85025; 93005; 93880; 99285

== ENCOUNTER 2020-01-01 12:33 | Inpatient (IN) | payer MEDICARE ==
--- NOTE | 2020-01-01 13:08 | ED ---
General Adult HPI - General Source: patient, family, RN notes reviewed, old records reviewed Mode of arrival: ambulatory Limitations: no limitations <Mau Stewart - Last Filed: 01/01/20 19:49> <Bony Chase - Last Filed: 01/01/20 22:28> <Marita Blackman - Last Filed: 01/02/20 07:22> <Levy Jacobsen - Last Filed: 01/02/20 14:01> - General Chief complaint: Psychiatric Symptoms Stated complaint: Mental Health Time Seen by Provider: 01/01/20 12:40 - History of Present Illness Initial comments: This is a 74-year-old female who presents emergency Department with an extensive history of bipolar. Patient's family states that he is been depressed for the last 3 years but over the last few weeks after medication change the patient become much more manic and now she is becoming dangerous around the house. Patient is talking about shooting people patient has left the stove on and patient is not sleeping at all lately. Family is very concerned that she will accidentally harm her self. Patient states that she does believe she is in a manic phase but she doesn't think is quite as bad as the family does. Patient denies any physical complaints today. Patient denies headache patient denies any chest pain palpitations difficulty breathing shortness of breath per patient denies any fever chills or cough per patient denies abdominal pain patient denies nausea vomiting diarrhea. (Mau Stewart) - Related Data Home Medications Medication Instructions Recorded Confirmed Cholecalciferol [Vitamin D3 (25 1,000 unit PO DAILY@119901/01/20 01/01/20 Mcg = 1000 Iu)] LORazepam [Ativan] 0.5 mg PO Q6H PRN 01/01/20 01/01/20 Magnesium(Unknown Dose) 1 tab PO DAILY@119901/01/20 01/01/20 Multivitamins, Thera [Multivitamin 1 tab PO DAILY@119901/01/20 01/01/20 (formulary)] OLANZapine [ZyPREXA] 10 mg PO HS 01/01/20 01/01/20 hydrOXYzine pamoate [Vistaril] 25 mg PO TID PRN 01/01/20 01/01/20 Previous Rx's Medication Instructions Recorded lamoTRIgine [LaMICtal] 100 mg PO DAILY tab 01/12/17 Allergies Allergy/AdvReac Type Severity Reaction Status Date / Time Iodinated Contrast Media Allergy Unknown Verified 01/01/20 19:06 [Iodinated Contrast Media - IV Dye] lithium Allergy Dyspnea Verified 01/01/20 19:06 Review of Systems ROS Other: All systems not noted in ROS Statement are negative. <Mau Stewart - Last Filed: 01/01/20 19:49> ROS Other: All systems not noted in ROS Statement are negative. <Bony Chase D - Last Filed: 01/01/20 22:28> ROS Other: All systems not noted in ROS Statement are negative. <Marita Blackman P - Last Filed: 01/02/20 07:22> ROS Other: All systems not noted in ROS Statement are negative. <Levy Jacobsen - Last Filed: 01/02/20 14:01> ROS Statement: Those systems with pertinent positive or pertinent negative responses have been documented in the HPI. Past Medical History Past Medical History: Thyroid Disorder Additional Past Medical History / Comment(s): Goiter, rhabdomylosis History of Any Multi-Drug Resistant Organisms: None Reported Past Surgical History: Tubal Ligation Additional Past Surgical History / Comment(s): Bilateral cataract removal and lens implants, partial thyroidectomy Past Anesthesia/Blood Transfusion Reactions: No Reported Reaction Past Psychological History: Anxiety, Bipolar, Depression Past Alcohol Use History: Occasional Past Drug Use History: None Reported - Past Family History Father Family Medical History: Coronary Artery Disease (CAD), Diabetes Mellitus Additional Family Medical History / Comment(s): Father at age 65. He had history of coronary artery disease and diabetes. No history of eating disorders Mother Family Medical History: CVA/TIA Additional Family Medical History / Comment(s): Mother at age 88 from a CVA. Brother(s) Additional Family Medical History / Comment(s): The patient has 4 brothers and one has depression. Patient has 2 sisters. Patient has 2 children one son and one daughter. <Mau Stewart - Last Filed: 01/01/20 19:49> General Exam Limitations: no limitations <Mau Stewart - Last Filed: 01/01/20 19:49> - General Exam Comments Initial Comments: GENERAL: Patient is well-developed and well-nourished. Patient is nontoxic and well- hydrated and is in mild distress. ENT: Neck is soft and supple. No significant lymphadenopathy is noted. Oropharynx is clear. Moist mucous membranes. Neck has full range of motion without eliciting any pain. EYES: The sclera were anicteric and conjunctiva were pink and moist. Extraocular movements were intact and pupils were equal round and reactive to light. Eyelids were unremarkable. PULMONARY: Unlabored respirations. Good breath sounds bilaterally. No audible rales rhonchi or wheezing was noted. CARDIOVASCULAR: There is a regular rate and rhythm without any murmurs gallops or rubs. ABDOMEN: Soft and nontender with normal bowel sounds. SKIN: Patient has a wound on the lateral right leg that appears to be healing without any signs of infection NEUROLOGIC: Patient is alert and oriented x3. Cranial nerves II through XII are grossly intact. Motor and sensory are also intact. Normal speech, volume and content. Symmetrical smile. MUSCULOSKELETAL: Normal extremities with adequate strength and full range of motion. No lower extremity swelling or edema. No calf tenderness. LYMPHATICS: No significant lymphadenopathy is noted PSYCHIATRIC: Patient is calm and appropriate with me she denies any suicidal ideations. (Mau Stewart) Course <Levy Jacobsen - Last Filed: 01/02/20 14:01> Vital Signs 01/01/20 01/01/20 01/01/20 12:41 13:29 15:00 Temperature 98.1 F Pulse Rate 95 Respiratory 18 16 16 Rate Blood Pressure 152/81 O2 Sat by Pulse 100 Oximetry 01/01/20 01/02/20 01/02/20 23:19 04:24 06:49 Temperature 98.4 F Pulse Rate 109 H 87 86 Respiratory 16 18 18 Rate Blood Pressure 143/73 148/82 148/80 O2 Sat by Pulse 97 98 99 Oximetry - Reevaluation(s) Reevaluation #1: 01/02/20 13:56 Patient did require a certification did complete this. (Levy Jacobsen) Medical Decision Making - Lab Data Result diagrams: 01/01/20 13:49 01/01/20 13:49 <Mau Stewart - Last Filed: 01/01/20 19:49> - Lab Data Result diagrams: 01/01/20 13:49 01/01/20 13:49 <Bony Chsae - Last Filed: 01/01/20 22:28> - Lab Data Result diagrams: 01/01/20 13:49 01/01/20 13:49 <Marita Blackman - Last Filed: 01/02/20 07:22> - Lab Data Result diagrams: 01/01/20 13:49 01/01/20 13:49 <Levy Jacobsen - Last Filed: 01/02/20 14:01> - Medical Decision Making I filled out a clinical certain the patient to be transferred to a geriatric psychiatric facility Dr. Chase will be taking over care of this patient at 9 PM (Mau Stewart) Patient care is signed out to me by previous shift physician Dr. Stewart. Briefly, patient is a 74-year-old feel presents with acute psychosis. Patient does have history of psychiatric disease. Patient is medically cleared. Pending transfer to geriatric psychiatry unit. Patient care signed out to Dr. Blackman. (Bony De Paz) Patient care was signed out to me overnight, patient rested comfortably thr oughout the night. Regular diet and patient home medications were ordered. Patient is pending placement in inpatient psychiatric facility. (Marita Blackman) - Lab Data Lab Results 01/01/20 01/01/20 01/01/20 Range/Units 13:49 13:49 14:07 WBC 5.3 (3.8-10.6) k/uL RBC 3.80 (3.80-5.40) m/uL Hgb 11.4 (11.4-16.0) gm/dL Hct 36.0 (34.0-46.0) % MCV 94.7 (80.0-100.0) fL MCH 29.9 (25.0-35.0) pg MCHC 31.5 (31.0-37.0) g/dL RDW 12.7 (11.5-15.5) % Plt Count 291 (150-450) k/uL Neutrophils % 65 % Lymphocytes % 25 % Monocytes % 6 % Eosinophils % 2 % Basophils % 1 % Neutrophils # 3.4 (1.3-7.7) k/uL Lymphocytes # 1.3 (1.0-4.8) k/uL Monocytes # 0.3 (0-1.0) k/uL Eosinophils # 0.1 (0-0.7) k/uL Basophils # 0.1 (0-0.2) k/uL Sodium 140 (137-145) mmol/L Potassium 4.2 (3.5-5.1) mmol/L Chloride 108 H (98-107) mmol/L Carbon Dioxide 25 (22-30) mmol/L Anion Gap 7 mmol/L BUN 28 H (7-17) mg/dL Creatinine 1.46 H (0.52-1.04) mg/dL Est GFR (CKD-EPI)AfAm 41 (>60 ml/min/1.73 sqM) Est GFR (CKD-EPI)NonAf 36 (>60 ml/min/1.73 sqM) Glucose 88 (74-99) mg/dL Calcium 9.7 (8.4-10.2) mg/dL Total Bilirubin 0.4 (0.2-1.3) mg/dL AST 31 (14-36) U/L ALT 19 (4-34) U/L Alkaline Phosphatase 53 (38-126) U/L Total Protein 6.3 (6.3-8.2) g/dL Albumin 3.9 (3.5-5.0) g/dL Urine Color Light Yellow Urine Appearance Clear (Clear) Urine pH 6.0 (5.0-8.0) Ur Specific [place] 1.007 (1.001-1.035) Urine Protein Trace H (Negative) Urine Glucose (UA) Negative (Negative) Urine Ketones Negative (Negative) Urine Blood Negative (Negative) Urine Nitrite Negative (Negative) Urine Bilirubin Negative (Negative) Urine Urobilinogen <2.0 (<2.0) mg/dL Ur Leukocyte Esterase Negative (Negative) Urine Opiates Screen Not Detected (NotDetected) Ur Oxycodone Screen Not Detected (NotDetected) Urine Methadone Screen Not Detected (NotDetected) Ur Propoxyphene Screen Not Detected (NotDetected) Ur Barbiturates Screen Not Detected (NotDetected) U Tricyclic Antidepress Not Detected (NotDetected) Ur Phencyclidine Scrn Not Detected (NotDetected) Ur Amphetamines Screen Not Detected (NotDetected) U Methamphetamines Scrn Not Detected (NotDetected) U Benzodiazepines Scrn Detected H (NotDetected) Urine Cocaine Screen Not Detected (NotDetected) U Marijuana (THC) Screen Not Detected (NotDetected) Disposition <Mau Stewart - Last Filed: 01/01/20 19:49> <Bony Chase - Last Filed: 01/01/20 22:28> <Marita Blackman - Last Filed: 01/02/20 07:22> <Levy Jacobsen - Last Filed: 01/02/20 14:01> Clinical Impression: Bipolar disorder, Manic behavior Disposition: TRANSFER TO PSYCH HOSP/UNIT
[2020-01-01 13:58] LABS: Basophils # (A) 0.1 k/uL (0-0.2); Basophils % (A) 1 %; Eosinophils # (A) 0.1 k/uL (0-0.7); Eosinophils % (A) 2 %; HGB 11.4 gm/dL (11.4-16.0); Lymphocytes # (A) 1.3 k/uL (1.0-4.8); Lymphocytes % (A) 25 %; MCH 29.9 pg (25.0-35.0); MCHC 31.5 g/dL (31.0-37.0); MCV 94.7 fL (80.0-100.0); Mean Platelet Volume 6.8; Monocytes # (A) 0.3 k/uL (0-1.0); Monocytes % (A) 6 %; Neutrophils # (A) 3.4 k/uL (1.3-7.7); Neutrophils % (A) 65 %; Platelet Count 291 k/uL (150-450); RDW 12.7 % (11.5-15.5); WBC 5.3 k/uL (3.8-10.6)
[2020-01-01 14:12] LABS: Albumin 3.9 g/dL (3.5-5.0); Calcium 9.7 mg/dL (8.4-10.2); Potassium 4.2 mmol/L (3.5-5.1); Total Bilirubin 0.4 mg/dL (0.2-1.3); Total Protein 6.3 g/dL (6.3-8.2)
[2020-01-01 15:14] LABS: Amphetamine Screen,Urine Not Detected (NotDetected); Barbiturate Screen,Urine Not Detected (NotDetected); Benzodiazepines Screen,Urine Detected (NotDetected); Cocaine Screen,Urine Not Detected (NotDetected); Methadone Screen, Urine Not Detected (NotDetected); Opiate Screen,Urine Not Detected (NotDetected); Oxycodone Screen, Urine Not Detected (NotDetected); Phencyclidine Screen,Urine Not Detected (NotDetected); Tricyclic Antidepressant,Urine Not Detected (NotDetected); Urn Cannabinoid Scrn Not Detected (NotDetected)
[2020-01-01 15:27] LABS: Appearance,Urine Clear (Clear); Bilirubin,Urine Negative (Negative); Blood,Urine Negative (Negative); Color,Urine Light Yellow; Glucose,Urine (UA) Negative (Negative); Ketones,Urine Negative (Negative); Leukocyte Esterase,Urine Negative (Negative); Nitrite,Urine Negative (Negative); Protein,Urine Trace (Negative); Specific Gravity,Urine 1.007 (1.001-1.035); Urobilinogen,Urine <2.0 mg/dL (<2.0)
[2020-01-01] MEDS ORDERED: LORazepam 2 MG/ML INJ IM STA (22:30)
[2020-01-02] MEDS ORDERED: LORazepam 0.5 MG TAB PO PRN (07:22)
[2020-01-02] MEDS ORDERED: hydrOXYzine pamoate 25 MG CAP PO PRN (07:22)
[2020-01-02] MEDS: lamoTRIgine 100 MG TAB PO SCH (08:46)
[2020-01-02] MEDS ORDERED: MAG HYDROX/AL HYDROX/SIMETH 30 ML CUP PO PRN (12:02)
[2020-01-02] MEDS ORDERED: ZIPRASIDONE 20 MG VIAL IM PRN (12:02)
[2020-01-02] MEDS ORDERED: MAGNESIUM HYDROXIDE 2,400 MG/10 ML CUP PO PRN (12:02)
[2020-01-02] MEDS ORDERED: ACETAMINOPHEN TAB 325 MG TAB PO PRN (12:02)
--- NOTE | 2020-01-02 17:16 | P.MDCNMH ---
History of Present Illness H&P Date: 01/02/20 74-year-old female with history of bipolar disorder presents the ED for manic symptoms. She is admitted to mental health unit for further management and observation. [facility] physicians has been consulted for medical management of this patient. Patient has a flight of ideas and is not very easily redirectable. Patient is preoccupied with the notion that masks are dangerous. She denies any immediate complaints. She denies any headache, lower extremity edema, nausea or vomiting, fever or chills, cough, chest pain, shortness of breath, palpitations, changes in urination or bowel habits. No changes in appetite or weight. She denies any dizziness, numbness/weakness/tingling of the extremities. Her vital signs show tachycardia and elevated. CMP shows chloride of 108, BUN 20, creatinine 1.46. Urinalysis shows trace protein. UDS positive benzodiazepine. Review of Systems Pertinent positives and negatives as discussed in HPI, a complete review of systems was performed and all other systems are negative. Past Medical History Past Medical History: Thyroid Disorder Additional Past Medical History / Comment(s): Goiter, rhabdomylosis History of Any Multi-Drug Resistant Organisms: None Reported Past Surgical History: Tubal Ligation Additional Past Surgical History / Comment(s): Bilateral cataract removal and lens implants, partial thyroidectomy Past Anesthesia/Blood Transfusion Reactions: No Reported Reaction Past Psychological History: Anxiety, Bipolar, Depression Smoking Status: Never smoker Past Alcohol Use History: Occasional Additional Past Alcohol Use History / Comment(s): A she is a lifelong nonsmoker. She denies any medical marijuana marijuana, street drug use. She does state she drinks a couple glasses of wine per week. Past Drug Use History: None Reported - Past Family History Father Family Medical History: Coronary Artery Disease (CAD), Diabetes Mellitus Additional Family Medical History / Comment(s): Father at age 65. He had history of coronary artery disease and diabetes. No history of eating disorders Mother Family Medical History: CVA/TIA Additional Family Medical History / Comment(s): Mother at age 88 from a CVA. Brother(s) Additional Family Medical History / Comment(s): The patient has 4 brothers and one has depression. Patient has 2 sisters. Patient has 2 children one son and one daughter. Medications and Allergies Home Medications Medication Instructions Recorded Confirmed Type lamoTRIgine [LaMICtal] 100 mg PO DAILY tab 01/12/17 01/02/20 Rx Cholecalciferol [Vitamin D3 (25 1,000 unit PO DAILY@1200 01/01/20 01/02/20 History Mcg = 1000 Iu)] LORazepam [Ativan] 0.5 mg PO Q6H PRN 01/01/20 01/02/20 History Magnesium(Unknown Dose) 1 tab PO DAILY@119901/01/20 01/02/20 History Multivitamins, Thera [Multivitamin 1 tab PO DAILY@1200 01/01/20 01/02/20 History (formulary)] OLANZapine [ZyPREXA] 10 mg PO HS 01/01/20 01/02/20 History hydrOXYzine pamoate [Vistaril] 25 mg PO TID PRN 01/01/20 01/02/20 History Allergies Allergy/AdvReac Type Severity Reaction Status Date / Time Iodinated Contrast Media Allergy Unknown Verified 01/02/20 15:14 [Iodinated Contrast Media - IV Dye] lithium Allergy Dyspnea Verified 01/02/20 15:14 Physical Exam Vitals: Vital Signs Temp Pulse Pulse Resp BP BP Pulse Ox 01/02/20 14:30 98.3 F 102 H 18 151/92 98 01/02/20 13:56 116 H 20 168/89 99 01/02/20 06:49 86 18 148/80 99 01/02/20 04:24 87 18 148/82 98 01/01/20 23:19 98.4 F 109 H 16 143/73 97 Intake and Output 01/02/20 01/02/20 01/02/20 06:59 14:59 22:59 Other: Weight 49.3 kg General: [Flight of ideas], [no distress], [appears at stated age] Derm: [warm], [dry] Head: [atraumatic], [normocephalic], [symmetric] Eyes: [EOMI], [no lid lag], [anicteric sclera] Mouth: [no lip lesion], [mucus membranes moist] Cardiovascular: [S1S2 reg], [no murmur], [positive DP pulse bilateral], Lungs: [CTA bilateral], [no rhonchi, no rales] , [no accessory muscle use] Abdominal: [soft], [ nontender to palpation], [no guarding], [no appreciable organomegaly] Ext: [no gross muscle atrophy], [no edema], [no contractures] Neuro: [ CN II-XI grossly intact], [no focal neuro deficits] Psych: [Alert], [oriented], [appropriate affect] Cranial Nerve Examination - Cranial Nerves Cranial Nerve II- Optic: Intact Cranial Nerve III- Oculomotor: Intact Cranial Nerve IV- Trochlear: Intact Cranial Nerve V- Trigeminal: Intact Cranial Nerve - Abducens: Intact Cranial Nerve VII- Facial: Intact Cranial Nerve VIII- Auditory: Intact Cranial Nerve IX- Glossopharyngeal: Intact Cranial Nerve X- Vagus: Intact Cranial Nerve XI- Accessory: Intact Cranial Nerve XII- Hypoglossal: Intact Results CBC & Chem 7: 01/01/20 13:49 01/01/20 13:49 Assessment and Plan Assessment: Elevated BP Tachycardia Chronic kidney disease Goiter Patient's blood pressure of 168/89. She is not on any antihypertensive medication. We will continue to monitor her blood pressure at this time and start antihypertensive medication if persistently elevated. Documented heart rate as high as 116. Regular. Obtain EKG. Creatinine 1.46. It appears at baseline. Likely related to long-standing lithium use with possible hypertension. Avoid nephrotoxins. Obtain TSH. Obtain thyroid ultrasound. Thank you for this consult. Please call with any additional questions or concerns.
[2020-01-02] MEDS: OLANZapine 10 MG TAB PO SCH (22:11)
[2020-01-03] MEDS: lamoTRIgine 100 MG TAB PO SCH (09:03)
[2020-01-03] MEDS: CHOLECALCIFEROL 1,000 UNIT TAB PO SCH (11:33)
[2020-01-03] MEDS: MAGNESIUM OXIDE 400 MG TAB PO SCH (11:34)
[2020-01-03] MEDS: MULTIVITAMINS, THERA 1 EACH TAB PO SCH (11:34)
[2020-01-03] MEDS ORDERED: TEMAZEPAM 30 MG CAP PO SCH (21:00)
[2020-01-03] MEDS: OLANZapine 10 MG TAB PO SCH (21:04)
[2020-01-03] MEDS: TEMAZEPAM 15 MG CAP PO SCH (21:05)
[2020-01-04] MEDS: lamoTRIgine 100 MG TAB PO SCH (09:37)
--- NOTE | 2020-01-04 11:24 | P.HP ---
Psychiatric H&P - . H&P Date: 01/03/20 History & Physical: Allergies Allergy/AdvReac Type Severity Reaction Status Date / Time Iodinated Contrast Media Allergy Unknown Verified 01/02/20 15:14 [Iodinated Contrast Media - IV Dye] lithium Allergy Dyspnea Verified 01/02/20 15:14 Vital Signs Temp 98.3 F 01/02/20 14:30 Pulse 102 H 01/02/20 14:30 Resp 18 01/02/20 14:30 BP 151/92 01/02/20 14:30 Pulse Ox 98 01/02/20 14:30 Intake & Output 01/02/20 01/03/20 01/03/20 18:59 06:59 18:59 Weight 49.3 kg Laboratory Last Values WBC 5.3 k/uL (3.8-10.6) 01/01/20 13:49 RBC 3.80 m/uL (3.80-5.40) 01/01/20 13:49 Hgb 11.4 gm/dL (11.4-16.0) 01/01/20 13:49 Hct 36.0 % (34.0-46.0) 01/01/20 13:49 MCV 94.7 fL (80.0-100.0) 01/01/20 13:49 MCH 29.9 pg (25.0-35.0) 01/01/20 13:49 MCHC 31.5 g/dL (31.0-37.0) 01/01/20 13:49 RDW 12.7 % (11.5-15.5) 01/01/20 13:49 Plt Count 291 k/uL (150-450) 01/01/20 13:49 Neutrophils % 65 % 01/01/20 13:49 Lymphocytes % 25 % 01/01/20 13:49 Monocytes % 6 % 01/01/20 13:49 Eosinophils % 2 % 01/01/20 13:49 Basophils % 1 % 01/01/20 13:49 Neutrophils # 3.4 k/uL (1.3-7.7) 01/01/20 13:49 Lymphocytes # 1.3 k/uL (1.0-4.8) 01/01/20 13:49 Monocytes # 0.3 k/uL (0-1.0) 01/01/20 13:49 Eosinophils # 0.1 k/uL (0-0.7) 01/01/20 13:49 Basophils # 0.1 k/uL (0-0.2) 01/01/20 13:49 Sodium 140 mmol/L (137-145) 01/01/20 13:49 Potassium 4.2 mmol/L (3.5-5.1) 01/01/20 13:49 Chloride 108 mmol/L (98-107) H 01/01/20 13:49 Carbon Dioxide 25 mmol/L (22-30) 01/01/20 13:49 Anion Gap 7 mmol/L 01/01/20 13:49 BUN 28 mg/dL (7-17) H 01/01/20 13:49 Creatinine 1.46 mg/dL (0.52-1.04) H 01/01/20 13:49 Est GFR (CKD-EPI)AfAm 41 (>60 ml/min/1.73 sqM) 01/01/20 13:49 Est GFR (CKD-EPI)NonAf 36 (>60 ml/min/1.73 sqM) 01/01/20 13:49 Glucose 88 mg/dL (74-99) 01/01/20 13:49 Calcium 9.7 mg/dL (8.4-10.2) 01/01/20 13:49 Total Bilirubin 0.4 mg/dL (0.2-1.3) 01/01/20 13:49 AST 31 U/L (14-36) 01/01/20 13:49 ALT 19 U/L (4-34) 01/01/20 13:49 Alkaline Phosphatase 53 U/L (38-126) 01/01/20 13:49 Total Protein 6.3 g/dL (6.3-8.2) 01/01/20 13:49 Albumin 3.9 g/dL (3.5-5.0) 01/01/20 13:49 Urine Color Light Yellow 01/01/20 14:07 Urine Appearance Clear (Clear) 01/01/20 14:07 Urine pH 6.0 (5.0-8.0) 01/01/20 14:07 Ur Specific [place] 1.007 (1.001-1.035) 01/01/20 14:07 Urine Protein Trace (Negative) H 01/01/20 14:07 Urine Glucose (UA) Negative (Negative) 01/01/20 14:07 Urine Ketones Negative (Negative) 01/01/20 14:07 Urine Blood Negative (Negative) 01/01/20 14:07 Urine Nitrite Negative (Negative) 01/01/20 14:07 Urine Bilirubin Negative (Negative) 01/01/20 14:07 Urine Urobilinogen <2.0 mg/dL (<2.0) 01/01/20 14:07 Ur Leukocyte Esterase Negative (Negative) 01/01/20 14:07 Urine Opiates Screen Not Detected (NotDetected) 01/01/20 14:07 Ur Oxycodone Screen Not Detected (NotDetected) 01/01/20 14:07 Urine Methadone Screen Not Detected (NotDetected) 01/01/20 14:07 Ur Propoxyphene Screen Not Detected (NotDetected) 01/01/20 14:07 Ur Barbiturates Screen Not Detected (NotDetected) 01/01/20 14:07 U Tricyclic Antidepress Not Detected (NotDetected) 01/01/20 14:07 Ur Phencyclidine Scrn Not Detected (NotDetected) 01/01/20 14:07 Ur Amphetamines Screen Not Detected (NotDetected) 01/01/20 14:07 U Methamphetamines Scrn Not Detected (NotDetected) 01/01/20 14:07 U Benzodiazepines Scrn Detected (NotDetected) H 01/01/20 14:07 Urine Cocaine Screen Not Detected (NotDetected) 01/01/20 14:07 U Marijuana (THC) Screen Not Detected (NotDetected) 01/01/20 14:07 01/03/20 08:12 Identification: Patient is a 74 year-old female who was brought to the hospital on Wednesday evening by her family stating that she was not sleeping, up pacing not eating and has apparently been going on for the last 7-10 days. When the patient was seen in the emergency room it was described that she had pressured speech and made some bizarre comments, patient was pacing they're constantly. History of Present Illness: The patient has been depressed for the last 3 years since she was discharged from our hospital. In November 2016 she had a very serious suicide attempt. At that time she was hospitalized and then was discharged on Lamictal which had been increased by her outpatient psychiatrist to a total of 150 mg a day, she was continued on Prozac 40 mg a day and Zyprexa 5 mg at bedtime. Patient was also continuing on the melatonin that it been begun here in the hospital at 5 mg. she had to be rehospitalized on 01/01. She was discharged on BuSpar 10 twice a day [place] 20 every day Lamictal 100 and melatonin and was taken off of olanzapine Lamictal and the Prozac was decreased from 40. She has not been manic but has continued to be depressed since then until about 2 weeks ago when she began to elevate into cheryle at that point she was being treated with Effexor so that was rapidly discontinued about 2 weeks ago Lamictal was started again when she got to 50 she developed a mild rash so was stopped and restarted and now she is at 100 without any rash. She was begun about 2 weeks ago on Zyprexa at 2.5 which was increased to 5 and then to 10 just a day or 2 ago. However this coincides with her getting more and more manic and the question is whether the Zyprexa make her more manic or not. But she can't take lithium which we know works and we do not have information as to why Depakote was discontinued in the past. Now she presents the ED for manic symptoms. She is admitted to mental health unit for further management and observation. Internal medicine physicians has been consulted for medical management of this patient. Patient has a flight of ideas but is very easily redirectable. Patient is preoccupied with the notion that masks are dangerous. Current symptomatology patient was unable to sleep, she did attend a group last night was disheveled but compliant intrusive hyperverbal and required redirection in order to participate. Past Psychiatric History: the patient reports that she has had bipolar disorder since the 1970s. She was maintained on lithium for over 30 years. She stated "it saved my life". Apparently her creatinine and BUNs continued to rise and it was discontinued a few years ago. Since that time she has had multiple hospitalizations and a number of medication trials. Many of the medication trials have been truncated due to her nonadherence because of reported side effects. She reports having been trialed on Depakote, Latuda, Haldol, Lamictal, Abilify, Prozac, Risperdal, Zyprexa, Geodon, Seroquel 100 mg, Tegretol, Effexor, Wellbutrin. She does report a history of destabilization with antidepressant medication. She has been on court order for treatment in the past. She does report one suicide attempt by overdose on lithium in 1975. Past symptoms when her illness is not controlled: Threatening family and others, making comments about talking to people, being hyperverbal, ranting and raving about how she is going to josie everybody including the government as he are taking money from her and violating her rights. She hears relatives and also Maurizio Emeka, she excuses threatening people because it is "the [address] ", decreased need for sleep, easily agitated when manic and suicidal when depressed although she's only had 1 attempt. PMH: Patient has a history of goiter. Admission laboratory reveals her TSH is slightly low. Surgeries she has had bilateral cataract removalPatient has a history of a goiter which she states that she has declined surgery for and is not currently on any medication. She states that she had a tubal ligation in the past and cataract surgery. ALLERGIES: Iodinated contrast Vital signs: Temperature is 98.3 heart rate 116 blood pressure 168/89 respiration 20 Labs: Hematology done on 12/31 was normal, general chemistry shows elevated creatinine which is expected due to the chronic kidney disease, BUN is also elevated, the urine was clear except for some trace protein again from the kidney disease, toxicology was negative except for some benzodiazepines MEDICATIONS: Lamictal 100 mg each morning, Zyprexa 10 mg each evening for the last 2 days, when necessary Vistaril and Ativan for anxiety CHEMICAL DEPENDENCY HISTORY: Patient denies abuse of alcohol or recreational drugs. Denies abuse of prescription medications she has been a life long nonsmoker and does have an occasional glass of wine Family History: Per the patient's past medical record, patient has a brother with an unknown psychiatric illness. She reported that there were no completed suicides in the family. Her father struggled with CAD and diabetes mellitus and at 65. Mother at 88 from a stroke Social History: patient states that she has been recently living with her sister and has lived "all over" before that. She states that she has been twice in the past the first lasted "a little over a year, oh wait it was 7 years, how stupid can I be?" and "he was a son of a bitch" and the second lasted "well you know, you said 89, oh I think it was 82 no (fran peters). She is , the last time in 1989. She has an associates degree. Patient states that her parents are both and she has 6 total siblings. Patient has 2 children with whom she has a very close relationship. She has 4 grandchildren. Patient is currently not working and is supported on a fixed income. She denied any abuse history. Substance Use History: Patient has no prior current history of any substance use, she uses alcohol on an infrequent basis. Legal History: Patient has no reported legal history. Mental Status:Appearance/Attitude: Patient is a thin, appropriately dressed, she is constantly pacing and is only able to sit for several minutes at a time in the office and she is cooperative. Behavior: Patient does not display any psychomotor retardation but is constantly pacing and states that she feels compelled to do so. Speech/Language: Patient's speech is spontaneous and of normal volume and rhythm and she is coherent. Thought Process: Patient has severe flight of ideas and loose associations. Thought Content: Patient denies any auditory or visual hallucinations and no delusions or paranoid ideation are elicited. Suicidal/Homicidal Ideation: Patient denies any current suicidal plan or intent to act and denies any current homicidal ideation. Sensorium/Cognition: Patient is alert and oriented to person, place, and time and her memory is grossly intact. Mood/Affect: Patient's mood is agitated, elevated without being euphoric and is animated in her affect. Insight/Judgement: Patient's insight and judgment are pretty much nonexistent since she can stay on topic. Cognitive functioning is severely impaired she could not subtract 7 from 100 and when asked to subtract 7 from 10 she said "you're kidding right" then she thought for a while and said it's 10. She was unable to spell world backward she got retirement through the word and started talking about other topics. I gave her 3 things to remember such as blue [place] and [place] triangle, she described the shapes by driving them in the air to try to remember but less than a minute later could not remember any of the pieces. When I asked her how cats and snakes are alike she said they're sneaky then started talking about a different topic. She was bothered by the fact that she could not remember a see details of her life. For example she was twice she told me that the first time she was was for a year and she change it to 7 years. When asked her how long she was the second time she said she didn't know that she said well I knew because I told her that it ended in 1989. She couldn't realize that knowing when something and does not tell you how long it lasted. Then she thought it started in 1979 but couldn't calculate how long that would be. I asked her how many grandchildren she had she said 4 and then she changed a number. There is a concern that there may be some dementia mixed in with the racing cheryle Intellectual Functioning: patient's intellectual functioning appears average Strength/Weaknesses: Patient has a supportive family, compliance with medication and follow-up treatment/recurrent mood symptoms Assessment: After talking with the daughter it seems that this manic episode is different than previous manic episodes in that it probably has an element of dementia. However she is definitely too confused to be safe on her own or to be aware of any of her physical needs and take proper care of herself due to the racing thoughts. Admission Diagnoses: Bipolar I disorder, current episode manic severe Rule out early dementia Plan: Patient was admitted on a voluntary basis, routine laboratory studies were ordered at a medical consultation was requested. Patient was encouraged to attend both group and activity therapy. Patient was placed on routine observations and continued on her Lamictal 100 mg daily and her Zyprexa 10 mg at bedtime. Says she just started the Zyprexa we need to give [place] time and I'll give her some Restoril to take with it. We may need to increase his Zyprexa further in a day or 2 if it doesn't seem to be working. Her daughters guessed that the Zyprexa might be backfiring and making her worse is unlikely as she has not lethargic which is usually the reason and makes some old people more confused. 01/03/20 09:22
--- NOTE | 2020-01-04 11:29 | P.PN ---
Subjective Progress Note Date: 01/04/20 Principal diagnosis: Bipolar 1 manic severe Rule out dementia Subjective: The patient can't have a subjective opinion because her mind shifts from one idea to another before finishing his sentence she was rambling about how she couldn't find her shoes and how when she got up in the middle of the night she had to crawl. Objective the patient is alert walks steadily reasonable eye contact severe flight of ideas and looseness of associations she's not aggressive is a bit irritable. She was going on and on about how she was told by the lady in the cafeteria that she only had 20 minutes. Breakfast is and add a precise time in this hospital and she was objecting to that. Vital signs: Temperature 97.8 heart rate 96 respirations 16 blood pressure 140/61 Labs none new Groups: She did come to an 18 group yesterday at 145 and showed circumstantial thought process continuing asked during the group about many depression back in the day these are phrases she repeats endlessly back in the day and she likes to call her illness manic depression rather than bipolar. However she perseverates on these ideas when the group is moved on to a new topic she tends to perseverate on the old topic she is disheveled concrete intrusive hyperverbal Staff assessment patient is disheveled dresses in odd ways with several layers of clothing inside out speech is rapid and pressured she is anxious but cooperative shows flight of ideas high-energy. She was able to sleep last night when she took the high dose of Restoril. (when people are in manic state they usually need a higher dose that she begins to calm down we will have to decrease his dose) Assessment patient still manic but tolerating the medicine well think of give her 1 more night at 10 mg on the Zyprexa and increase it if she isn't beginning to slow down Objective - Vital Signs Vital signs: Vital Signs Temp 97.8 F 01/04/20 06:21 Pulse 96 01/04/20 06:21 Resp 16 01/04/20 06:21 BP 140/61 01/04/20 06:21 Pulse Ox 98 01/03/20 22:19 - Labs CBC & Chem 7: 01/01/20 13:49 01/01/20 13:49
[2020-01-04] MEDS: CHOLECALCIFEROL 1,000 UNIT TAB PO SCH (12:43)
[2020-01-04] MEDS: MAGNESIUM OXIDE 400 MG TAB PO SCH (12:43)
[2020-01-04] MEDS: MULTIVITAMINS, THERA 1 EACH TAB PO SCH (12:43)
[2020-01-04] MEDS: TEMAZEPAM 15 MG CAP PO SCH (20:30)
[2020-01-04] MEDS: OLANZapine 10 MG TAB PO SCH (20:30)
[2020-01-05] MEDS: lamoTRIgine 100 MG TAB PO SCH (09:18)
--- NOTE | 2020-01-05 10:20 | P.PN ---
Subjective Progress Note Date: 01/05/20 Principal diagnosis: Bipolar 1 manic severe Rule out dementia Subjective: The patient rambles a lot she seems be really worried about the court papers and what the different things me. She says she slept well and feels less unstable then she has when she walks. Objective: Vital signs pulse is 90 respiration 18 blood pressure is 140/69 and O2 sat is 96 Labs: Nothing new Groups the patient has been attending and needs quite a bit of prompting to participate but she has a good attitude initiates talking with peers and staff and is redirectable Staff report patient is dressing in her own clothes but tends to be put on all of her clothes because she is worried about what other people will do with that. Seems anxious with rapid pressured speech disorganized thought flight processes and poor insight Mental status exam: She seems lower than the last 2 days little bit more on topic right now little bit more worried about the whole court today. Good eye contact she has trouble letting go what she is doing and moving on to the next task her affect is more subdued and she is less likely to break into somebody else's sent Assessment is that the medication is starting to work. The Zyprexa was started and increased when the cheryle was surging and continued to assert but not because of the Zyprexa it seems to be starting to work in fact by Wednesday I expect that may have to back off on that Zyprexa to a lower dose. The patient was able to sleep 6 continuous hours last night which is good. The concern is that when she comes out of the cheryle she is going to crash into a depression. The patient continues to need hospitalization for her safety and that her age for adjusting the medication Plan increase the Lamictal 125 Objective - Vital Signs Vital signs: Vital Signs Temp 97.3 F L 01/04/20 22:30 Pulse 90 01/05/20 06:00 Resp 18 01/05/20 06:00 BP 140/69 01/05/20 06:00 Pulse Ox 96 01/05/20 06:00 - Labs CBC & Chem 7: 01/01/20 13:49 01/01/20 13:49
[2020-01-05] MEDS: CHOLECALCIFEROL 1,000 UNIT TAB PO SCH (12:05)
[2020-01-05] MEDS: MULTIVITAMINS, THERA 1 EACH TAB PO SCH (12:05)
[2020-01-05] MEDS: MAGNESIUM OXIDE 400 MG TAB PO SCH (12:05)
[2020-01-05] MEDS: OLANZapine 10 MG TAB PO SCH (22:33)
[2020-01-05] MEDS: LORazepam 1 MG TAB PO PRN (22:34)
[2020-01-06] MEDS: lamoTRIgine 25 MG TAB PO SCH (08:59)
[2020-01-06] MEDS: MULTIVITAMINS, THERA 1 EACH TAB PO SCH (13:05)
[2020-01-06] MEDS: CHOLECALCIFEROL 1,000 UNIT TAB PO SCH (13:06)
[2020-01-06] MEDS: MAGNESIUM OXIDE 400 MG TAB PO SCH (13:06)
[2020-01-06] MEDS: OLANZapine 10 MG TAB PO SCH (21:07)
--- NOTE | 2020-01-06 22:10 | P.PN ---
Progress Note - Text Progress Note Date: 01/06/20 Subjective: Patient was seen today as a cross coverage for Dr. Valles. The patient was evaluated, chart reviewed, case discussed with the treatment team. Patient reports poor sleep, and appetite was reported as "fine". Patient has not been going to groups and other unit activities. The patient is compliant with her medications and denies any adverse reactions. Pt. reports poor sleep last night because claimed had diarrhea all night but denies any diarrhea today. As per nursing Restoril was discontinued which causes patient not to sleep last night and she was on 30 mg HS. Pt reports continued to feel depressed but "not much". Denies S/H ideation, and denies any A/V hallucinations. No report of severe mood swings, manic or severe anxiety symptoms. Pt was pleasant with no behavioral problems but nurses report pt probably clogged her toilet last night. Pt was not oriented. Objective: Vitals has been reviewed. Mental status examination; Appearance: The patient appears stated age, adequately groomed and dressed, no specific features. Gait/posture: Normal gait, Normal arm swinging: No abnormal movements. Attitude and behavior: engaged, cooperative, eye contact. Motor activity: Normal psychomotor activity Speech: Normal rate, tone. Mood: Anxious, depressed Affect: Constricted Thought form: decreased thoughts, but coherent. Thought content: Non-delusional, denies suicidal thoughts, denies homicidal thoughts, denies intentions or plans. Perception: Denies any auditory or visual hallucinations Attention: No impairment. Orientation: Patient was not oriented to time but oriented to place person and situation. Insight: Patient has fair insight about her psychiatric disorder. Judgment: Patient has fair judgment about her psychiatric treatment. Assessment: Bipolar I disorder, current episode manic severe Rule out early dementia Plan: Continue inpatient level of care due to need for further stabilization. Precautions: Continue 15 minutes check for safety. Consider medical consultation if any acute medical issues arise. Provide the patient individual, group therapy, substance use disorder counseling to give better insight and learn coping skills. Medications: Lamictal for mood stabilization. Zyprexa for psychotic symptoms and mood stabilizer. Continue PRN psych medications Continue non-psychiatric medications for management of co-morbid medical problems. Discharge patient to OUTPATIENT services upon a stabilization
[2020-01-07] MEDS: lamoTRIgine 25 MG TAB PO SCH (09:40)
[2020-01-07] MEDS: MULTIVITAMINS, THERA 1 EACH TAB PO SCH (09:41)
[2020-01-07] MEDS: CHOLECALCIFEROL 1,000 UNIT TAB PO SCH (09:41)
[2020-01-07] MEDS: MAGNESIUM OXIDE 400 MG TAB PO SCH (09:41)
--- NOTE | 2020-01-07 12:53 | P.PN ---
Progress Note - Text Progress Note Date: 01/07/20 Subjective: Patient was seen today as a cross coverage for Dr. Valles. The patient was evaluated, chart reviewed, case discussed with the treatment team. Patient reports feeling stable emotionally and he denies feeling depressed, hopeless or suicidal. She denies any manic or psychotic symptoms. Patient presents less confused and more oriented with better hygiene and groomed. She reports has been feeling sleepy all evening because Zyprexa made her to feel very tired. Patient was oriented to place and person but not fully oriented to time. We discussed to this shift Zyprexa timing to be at bedtime instead of dinner time. She reports continued to have good appetite, but she is not attending groups. No reports of any hallucinations, paranoid ideation, or delusions. Objective: Vitals has been reviewed. Mental status examination; Appearance: The patient appears stated age, adequately groomed and dressed, no specific features. Gait/posture: Normal gait, Normal arm swinging: No abnormal movements. Attitude and behavior: engaged, cooperative, eye contact. Motor activity: Normal psychomotor activity Speech: Normal rate, tone. Mood: Anxious, depressed Affect: Constricted Thought form: decreased thoughts, but coherent. Thought content: Non-delusional, denies suicidal thoughts, denies homicidal thoughts, denies intentions or plans. Perception: Denies any auditory or visual hallucinations Attention: No impairment. Orientation: Patient was not oriented to time but oriented to place person and situation. Insight: Patient has fair insight about her psychiatric disorder. Judgment: Patient has fair judgment about her psychiatric treatment. Assessment: Bipolar I disorder, current episode manic severe Rule out early dementia Plan: Continue inpatient level of care due to need for further stabilization. Precautions: Continue 15 minutes check for safety. Consider medical consultation if any acute medical issues arise. Provide the patient individual, group therapy, substance use disorder counseling to give better insight and learn coping skills. Medications: Lamictal for mood stabilization. Zyprexa for psychotic symptoms and mood stabilizer. Continue PRN psych medications Continue non-psychiatric medications for management of co-morbid medical problems. Discharge patient to OUTPATIENT services upon a stabilization
[2020-01-07] MEDS: OLANZapine 10 MG TAB PO SCH (20:56)
[2020-01-08] MEDS: LORazepam 1 MG TAB PO PRN (01:11)
--- NOTE | 2020-01-08 09:25 | P.PN ---
Subjective Progress Note Date: 01/08/20 Principal diagnosis: Bipolar 1 manic severe Rule out dementia Subjective the patient was going on and on about somebody on the unit who was controlling the TV and she got upset and had to talk to the staff. However she says she is sleeping fine and overall feeling good was able talk to her family on the phone this weekend Objective she still has pressured speech and flight of ideas Groups she been attending and needs verbal prompting to participate has hyperverbal initiates conversations but does not need much assistance she seems to be a figure out what's going on Staff assessment is that the patient denies suicide homicidality or any psychotic symptoms was spontaneous and cooperative and very social vital signs temperature is 98.1 respirations 16 Labs nothing new Mental status exam patient is constantly distracted she had to tell me about the window and how at night if you put your eyes up against that she can make she see out fairly well and then she had to go happen of her face before she could come and talk and then constant change of topic. Assessment on Wednesday she looked like she was headed down under the cheryle but is about the same may be slightly better Plan increase the Zyprexa to 15 I taught her about the normal dosage ranges she is worried will demonstrate kidney do not think that's an issue it's more will she process it properly but she is handling the 10 well she is not dizzy or unstable and is still much too manic Objective - Vital Signs Vital signs: Vital Signs Temp 98.1 F 01/08/20 06:43 Pulse 87 01/07/20 06:30 Resp 16 01/08/20 06:43 BP 116/59 01/07/20 06:30 Pulse Ox 96 01/05/20 06:00 Intake & Output 01/07/20 01/08/20 01/08/20 18:59 06:59 18:59 Weight 50 kg - Labs CBC & Chem 7: 01/01/20 13:49 01/01/20 13:49
[2020-01-08] MEDS: lamoTRIgine 25 MG TAB PO SCH (09:35)
[2020-01-08] MEDS: CHOLECALCIFEROL 1,000 UNIT TAB PO SCH (12:04)
[2020-01-08] MEDS: MAGNESIUM OXIDE 400 MG TAB PO SCH (12:04)
[2020-01-08] MEDS: MULTIVITAMINS, THERA 1 EACH TAB PO SCH (12:04)
[2020-01-08] MEDS: OLANZapine 5 MG TAB PO SCH (21:16)
[2020-01-09] MEDS: lamoTRIgine 25 MG TAB PO SCH (08:54)
[2020-01-09] MEDS: CHOLECALCIFEROL 1,000 UNIT TAB PO SCH (13:30)
[2020-01-09] MEDS: MAGNESIUM OXIDE 400 MG TAB PO SCH (13:30)
[2020-01-09] MEDS: MULTIVITAMINS, THERA 1 EACH TAB PO SCH (13:30)
[2020-01-09] MEDS: OLANZapine 5 MG TAB PO SCH (21:13)
[2020-01-09] MEDS: QUEtiapine 100 MG TAB PO SCH (21:13)
[2020-01-10] MEDS: CHOLECALCIFEROL 1,000 UNIT TAB PO SCH (10:35)
[2020-01-10] MEDS: lamoTRIgine 25 MG TAB PO SCH (10:35)
[2020-01-10] MEDS: MAGNESIUM OXIDE 400 MG TAB PO SCH (10:36)
[2020-01-10] MEDS: MULTIVITAMINS, THERA 1 EACH TAB PO SCH (10:36)
[2020-01-10 11:27] VITALS: BMI 19.5
--- NOTE | 2020-01-10 12:55 | P.PN ---
Subjective Progress Note Date: 01/09/20 Principal diagnosis: Diagnosis: Bipolar 1 manic episode Subjective the patient is gradually's slowing down was that she can't sleep and is worried if they can't sleep she will be able to function Objective: Vital signs temperature 98.3 heart rate 107 respirations 16 blood pressure 132/63 Labs: Nothing new Groups: The patient has been attending groups is relatively calm and appropriate require some assistance Staff assessment patient is stopped spontaneous attentive compliant denies suicidality or homicidality talks with peers and staff Mental status exam: Patient still jumps from topic to topic does not seem to be delusional at this point as she was somewhat grandiose when her family came to visit. Psychomotor activity is still above normal but slower than it was no aggression no tearfulness. Assessment patient is still manic still not sleeping Plan at 100 of Seroquel at night and see if we can get her to sleep. Objective - Vital Signs Vital signs: Vital Signs Temp 97.8 F 01/10/20 06:35 Pulse 67 01/10/20 06:35 Resp 16 01/10/20 06:35 BP 123/69 01/10/20 06:35 Pulse Ox 98 01/10/20 06:35 Intake & Output 01/09/20 01/10/20 01/10/20 18:59 06:59 18:59 Weight 50 kg - Labs CBC & Chem 7: 01/01/20 13:49 01/01/20 13:49
--- NOTE | 2020-01-10 12:58 | P.PN ---
Subjective Progress Note Date: 01/10/20 Principal diagnosis: Diagnosis: Bipolar 1 manic episode Subjective: Patient says she was able to sleep last night and is very positive about that no constipation dizziness dry mouth blurred vision or restlessness Objective: Vital signs temperature 97.8 heart rate 67 which is slowing down and respirations 16 blood pressure 123/69 room air is 98% Labs nothing new Groups the patient is still wandering in and out of groups and needs verbal prompts to participate she initiates interaction with peers and staff Staff assessment: Patient slept 7 hours last night she still remained somewhat intrusive but pleasant denying psychotic experiences insight is poor judgment poor Mental status exam: Patient is good eye contact normal response time normal psychomotor activity did not picker box operator on any delusional focus still uses too many words to answer a question and changes the subject easily and insight is slow no aggression no tearfulness Assessment patient is still manic although she was able to sleep if we can get her to have a few good night sleep we should back get her racing thoughts down to where she can function and stay on topic so we'll continue the current medications and were also looking for placement Objective - Vital Signs Vital signs: Vital Signs Temp 97.8 F 01/10/20 06:35 Pulse 67 01/10/20 06:35 Resp 16 01/10/20 06:35 BP 123/69 01/10/20 06:35 Pulse Ox 98 01/10/20 06:35 Intake & Output 01/09/20 01/10/20 01/10/20 18:59 06:59 18:59 Weight 50 kg - Labs CBC & Chem 7: 01/01/20 13:49 01/01/20 13:49
[2020-01-10] MEDS: OLANZapine 5 MG TAB PO SCH (21:00)
[2020-01-10] MEDS: QUEtiapine 100 MG TAB PO SCH (21:00)
[2020-01-11] MEDS: lamoTRIgine 25 MG TAB PO SCH (08:50)
[2020-01-11] MEDS: MULTIVITAMINS, THERA 1 EACH TAB PO SCH (08:51)
[2020-01-11] MEDS: CHOLECALCIFEROL 1,000 UNIT TAB PO SCH (08:51)
[2020-01-11] MEDS: MAGNESIUM OXIDE 400 MG TAB PO SCH (09:35)
--- NOTE | 2020-01-11 10:52 | P.PN ---
Subjective Progress Note Date: 01/11/20 Principal diagnosis: Diagnosis: Bipolar 1 manic episode Subjective: The patient said that she had some trouble sleeping last night despite the extra Seroquel Objective: the patient still rambles is distracted by irrelevant things such is commenting about how my fascial was scratched and having to comment on random objects in the environment. She has good eye contact is pacing all the time mild pressured speech. The staff report that there is probably some dementia and distractibility is probably baseline not just left over from cheryle. However the patient is not able to take care of herself due to baseline dysfunction and needs to be in a placement where they can keep her safe and make sure she is properly cared for. Groups she attends but has to be redirected and prompted a lot in order to be up participate The patient interacts well with peers is compliant with care trouble with focus and to be restless. She was seen by her family who are struggling to find a place for her to stay. Medications 15 of Zyprexa with 100 of Seroquel which is pretty good dose for a small 74-year-old. Assessment. She needs to be transferred to a safe environment I'm not sure want to increase the medicine as it takes about a month to kick in and will probably suffice at this dose. Objective - Vital Signs Vital signs: Vital Signs Temp 97.8 F 01/10/20 06:35 Pulse 113 H 01/11/20 05:41 Resp 18 01/11/20 05:41 BP 169/81 01/11/20 05:41 Pulse Ox 98 01/10/20 06:35 Intake & Output 01/10/20 01/11/20 01/11/20 18:59 06:59 18:59 Weight 50 kg - Labs CBC & Chem 7: 01/01/20 13:49 01/01/20 13:49
[2020-01-11] MEDS: OLANZapine 5 MG TAB PO SCH (20:40)
[2020-01-11] MEDS: QUEtiapine 100 MG TAB PO SCH (20:40)
[2020-01-12] MEDS: lamoTRIgine 25 MG TAB PO SCH (09:33)
--- NOTE | 2020-01-12 11:10 | P.PN ---
Subjective Progress Note Date: 01/12/20 Principal diagnosis: Diagnosis: Bipolar 1 manic episode Subjective: The patient has difficulty staying on topic making comments about the temperature in the room and how my facemask looks like someone from [employer]. Her comments are irrelevant to the task at hand and get in the way of focusing on discharge plans. 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 The patient described a reaction to her Seroquel where first it made her sleepy and she is able fall sleep but then she developed akathisia which kept her up for an hour and a half in the middle of the night, pacing. . Objective: staff observation is that the patient remains confused if pleasant able take care of basic ADLs denies psychosis is cooperative with medication group function: The patient tries to function socially so she goes to the groups and is compliant but tends to have trouble staying on topic is quite talkative with her peers and staff disorganized thought processes wanders in and out of the groups. Vital signs: Have not been run today Labs nothing new Assessment program to stop the Seroquel which will probably interfere with her sleep although she is on an excellent dose of Zyprexa which hopefully will help and she will need to go directly to a place that can monitor her safety and we have not found a place in she has not functioning well enough to be on her own without endangering herself due to her confusion Objective - Vital Signs Vital signs: Vital Signs Temp 97.8 F 01/10/20 06:35 Pulse 113 H 01/11/20 05:41 Resp 18 01/11/20 05:41 BP 169/81 01/11/20 05:41 Pulse Ox 98 01/10/20 06:35 - Labs CBC & Chem 7: 01/01/20 13:49 01/01/20 13:49
[2020-01-12] MEDS: CHOLECALCIFEROL 1,000 UNIT TAB PO SCH (12:17)
[2020-01-12] MEDS: MULTIVITAMINS, THERA 1 EACH TAB PO SCH (12:17)
[2020-01-12] MEDS: MAGNESIUM OXIDE 400 MG TAB PO SCH (12:17)
[2020-01-12] MEDS: OLANZapine 5 MG TAB PO SCH (21:35)
[2020-01-13] MEDS: lamoTRIgine 25 MG TAB PO SCH (08:52)
--- NOTE | 2020-01-13 11:31 | P.PN ---
Progress Note - Text Progress Note Date: 01/13/20 Interval history: Patient was seen playing cards with another patient in the patient lounge and was directable and agreeable to speak with designer/writer. Patient appeared to be fairly calm with designer/writer and interactive. She states that she was able to sleep better last night being off the Seroquel. She spoke about her family today and how she misses them and that they're doing "fireworks over the weekend". She states that she is interacting with others and trying to go to groups as much as he can. She denied any overnight complaints and states she has been taking her medications regularly. She states that she has been showering and eating her meals. She claims that her mood has been improving. At this time patient denies any suicidal or homicidal ideations intent or plan. Denies any Auditory or visual hallucinations. Patient denies any side effects from the medications and has been compliant with meds. Mental status exam: General Appearance: Patient appears to be thin, stated age is alert, directable, and cooperative. Improving hygiene. Behavior: No agitated behavior. Patient is calm and directable cooperative. Speech: Patient's speech is fluent and nonpressured. Mood/Affect: Mood is improving mildly, affect is congruent and constricted. Suicidality/Homicidality: Patient denies having any suicidal or homicidal ideation intent or plan. Perceptions: Patient denies any auditory or visual hallucinations. Though content/process: There is no evidence of any delusional thought content and thought process is linear and goal-directed. Focused on discharge. Memory and concentration: AOX3, grossly intact for the purposes of this session Judgment and insight: improving mildly Assessment/Plan: Continue with current diagnosis. Patient continues to meet criteria for inpatient psychiatric admission for symptom stabilization and safety.Patient will be maintained on current psychotropic medication regimen. Monitor for medication compliance and for any psychotropic medication side effects. Will continue to monitor ongoing response to treatment. Encouraged participation in milieu.
[2020-01-13] MEDS: MAGNESIUM OXIDE 400 MG TAB PO SCH (12:32)
[2020-01-13] MEDS: MULTIVITAMINS, THERA 1 EACH TAB PO SCH (12:32)
[2020-01-13] MEDS: CHOLECALCIFEROL 1,000 UNIT TAB PO SCH (12:32)
[2020-01-13] MEDS: OLANZapine 5 MG TAB PO SCH (21:31)
[2020-01-14] MEDS: lamoTRIgine 25 MG TAB PO SCH (09:17)
--- NOTE | 2020-01-14 09:51 | P.PN ---
Progress Note - Text Progress Note Date: 01/14/20 Interval history: Patient was seen wandering the hallways before group and was directable and a greeable to speak with radio script writer. Patient appeared to be fairly calm with radio script writer and interactive and spoke about speaking with her daughter yesterday about going to an assisted living. She states that she was initially hesitant to go however she was willing to go with along with that plan. She did claim that she slept well last night however did have some restless leg symptoms just prior to sleeping which lasted approximately 1 hour. Senior Mechanical Development Engineer spoke with patient about possible medications including Requip however patient would like to continue to monitor at this time. She states that she is interacting with others and trying to go to groups as much as he can. She has been taking her medications regularly. She states that she has been showering and eating her meals. She claims that her mood has been improving. At this time patient denies any suicidal or homicidal ideations intent or plan. Denies any Auditory or visual hallucinations. Patient denies any side effects from the medications and has been compliant with meds. Mental status exam: General Appearance: Patient appears to be thin, stated age is alert, directable, and cooperative. Improving hygiene. Behavior: No agitated behavior. Patient is calm and directable cooperative. Speech: Patient's speech is fluent and nonpressured. Mood/Affect: Mood is "good" and his improving mildly, affect is congruent and constricted. Suicidality/Homicidality: Patient denies having any suicidal or homicidal ideation intent or plan. Perceptions: Patient denies any auditory or visual hallucinations. Though content/process: There is no evidence of any delusional thought content and thought process is linear and goal-directed. Focused on discharge. Memory and concentration: AOX3, grossly intact for the purposes of this session Judgment and insight: improving mildly Assessment/Plan: Continue with current diagnosis. Patient continues to meet criteria for inpatient psychiatric admission for symptom stabilization and safety.Patient will be maintained on current psychotropic medication regimen, consider Requip if RLS persist. Monitor for medication compliance and for any psychotropic medication side effects. Will continue to monitor ongoing response to treatment. Encouraged participation in milieu.
[2020-01-14] MEDS: CHOLECALCIFEROL 1,000 UNIT TAB PO SCH (12:14)
[2020-01-14] MEDS: MULTIVITAMINS, THERA 1 EACH TAB PO SCH (12:14)
[2020-01-14] MEDS: MAGNESIUM OXIDE 400 MG TAB PO SCH (12:14)
[2020-01-14] MEDS: OLANZapine 5 MG TAB PO SCH (20:54)
[2020-01-15 07:17] VITALS: RESP 16
[2020-01-15] MEDS: MULTIVITAMINS, THERA 1 EACH TAB PO SCH (09:03)
[2020-01-15] MEDS: MAGNESIUM OXIDE 400 MG TAB PO SCH (09:03)
[2020-01-15] MEDS: lamoTRIgine 25 MG TAB PO SCH (09:03)
[2020-01-15] MEDS: CHOLECALCIFEROL 1,000 UNIT TAB PO SCH (09:03)
--- NOTE | 2020-01-15 10:52 | P.PN ---
Subjective Progress Note Date: 01/15/20 Principal diagnosis: Diagnoses bipolar 1 manic Subjective patient still rambles a lot but basically feels positive about allowing her family to help her solve her problem and she says she is going to be going to a home with about 4 bedrooms and later to help take care of her Objective: Vital signs temperature 98.6 heart rate 92 respiration 16 blood pressure 107/59 Labs nothing new Groups: Patient attends faithfully states for the full group is compliant speech is noted to be spontaneous and she initiates verbal interchanges with peer and staff but not as pressured or intrusive as before Staff assessment patient is calm goals dressed in street clothes denies suicidal or suicidal or psychotic experiences oriented Patient is alert good eye contact reasonable response times somewhat sarcastic view of life without being irrational no signs of psychosis. She denies depr ession and does not seem to be slowed down no tearfulness no irritability. Assessment: She should have a place to be discharged too by tomorrow she is not doing well enough to be on her own no changes in medicine are indicated at this time we cannot go up on the Lamictal until we see whether she needs to and I believe the Zyprexa to be good dose she is not constipated she is not dizzy no dry mouth is not too sleepy. Objective - Vital Signs Vital signs: Vital Signs Temp 98.6 F 01/15/20 06:42 Pulse 92 01/15/20 06:42 Resp 16 01/15/20 06:42 BP 107/59 01/15/20 06:42 Pulse Ox 97 01/14/20 06:55 Intake & Output 01/14/20 01/15/20 01/15/20 18:59 06:59 18:59 Weight 49.3 kg - Labs CBC & Chem 7: 01/01/20 13:49 01/01/20 13:49
[2020-01-15] MEDS: OLANZapine 5 MG TAB PO SCH (21:09)
[2020-01-16 04:50] VITALS: BP 151/86; PULSE 69; TEMP 98.2
[2020-01-16] MEDS: lamoTRIgine 25 MG TAB PO SCH (10:09)
--- NOTE | 2020-01-16 10:54 | P.DS ---
Providers Date of admission: 01/02/20 11:58 Expected date of discharge: 01/16/20 Attending physician: Megan Valles MD Consults: 01/02/20 12:02 Consult Physician Routine Consulting Provider: Laurel Bailey Consult Reason/Comments: History and Physical Do you want consulting provider notified?: Yes Primary care physician: [facility] Course: Patient presented to the emergency room with severe symptoms of cheryle with flight of ideas trouble being redirectable pressured speech irrational preoccupations she was admitted to the psychiatric unit on 825 and is being discharged on 98 The patient went to groups and classes and participated well she is very social person and very gradually over her time here her intrusiveness and is decreased in her ability to stay on topic improved. She has been sleeping well. Noted by the staff to be appropriate bright good hygiene compliant cooperative oriented person place time and circumstance denying hallucinations or delusions denying any suicidality or homicidality. Groups the patient was slightly restless in groups but attended and participated well was growing ability to stay on task Medications the patient was given a hefty dose of Zyprexa at 15 mg which still took about a week to begin to do anything she was also given Lamictal because her dominant past history is been depression and I increased it to 125 which hopefully will prevent her from crashing into depression now that she is coming out of the cheryle. It seems to be working because the cheryle is largely cleared and I don't see any depression. The patient will go to her family today and they have a placement for her she has good follow-up in terms of renewal of her medications and counseling Assessment that she is ready for discharge Assessment: Assessment: The patient is doing much better she still rambles and is easily distracted I think those are just due to her age but the pressure is gone away and she has not crashed into depression she is not a danger to self or others she has good follow-up arranged I think she is ready for discharge Health Concerns: The patient came in had a physical exam with noted to have a history of blood pressure tachycardia chronic kidney disease and a goiter. Her creatinine is 1.46 which was felt to just be baseline and stable and probably from the long-term use of lithium in the past She had a TSH which was fine so her thyroid seems to be okay Vital signs: She ran a fast heart rate when she first came in but that settled down today was 69 yesterday 92 was running up in the 100s blood pressure has been fine 107/59 yesterday 151/86 today O2 sat is good respirations 16 Pertinent Studies: As above Procedures: None Patient Condition at Discharge: Fair Plan - Discharge Summary New Discharge Prescriptions: New lamoTRIgine [LaMICtal] 125 mg PO DAILY 30 Days #150 tab OLANZapine [ZyPREXA] 15 mg PO HS 30 Days #90 tab Continue Multivitamins, Thera [Multivitamin (formulary)] 1 tab PO DAILY@1200 Cholecalciferol [Vitamin D3 (25 Mcg = 1000 Iu)] 1,000 unit PO DAILY@1200 Discontinued lamoTRIgine [LaMICtal] 100 mg PO DAILY tab Magnesium(Unknown Dose) 1 tab PO DAILY@1200 hydrOXYzine pamoate [Vistaril] 25 mg PO TID PRN PRN Reason: Anxiety OLANZapine [ZyPREXA] 10 mg PO HS LORazepam [Ativan] 0.5 mg PO Q6H PRN PRN Reason: Anxiety Discharge Medication List Cholecalciferol [Vitamin D3 (25 Mcg = 1000 Iu)] 1,000 unit PO DAILY@1200 01/01/20 [History] Multivitamins, Thera [Multivitamin (formulary)] 1 tab PO DAILY@1200 01/01/20 [History] OLANZapine [ZyPREXA] 15 mg PO HS 30 Days #90 tab 01/16/20 [Rx] lamoTRIgine [LaMICtal] 125 mg PO DAILY 30 Days #150 tab 01/16/20 [Rx] Follow up Appointment(s)/Referral(s): Ferdinand Shelton MD [Primary Care Provider] - 1-2 days Activity/Diet/Wound Care/Special Instructions: Activity and diet as tolerated. Avoid the use of street drugs and alcohol. Take all medications as prescribed. When you are in need of refills on your medications please contact your medical provider and/or outpatient psychiatrist to have this done. Please go to scheduled outpatient appointment for aftercare treatment. If symptoms return or become worse, call the crisis line at and/or go to the nearest emergency room for evaluation.
[2020-01-16] MEDS: CHOLECALCIFEROL 1,000 UNIT TAB PO SCH (12:01)
[2020-01-16] MEDS: MAGNESIUM OXIDE 400 MG TAB PO SCH (12:01)
[2020-01-16] MEDS: MULTIVITAMINS, THERA 1 EACH TAB PO SCH (12:01)
== END 2020-01-16 15:07 | disposition home or self-care (01) | DRG 885 ==
LOC: EC 12:33 → 3MHU 01-02 11:58
PROVIDERS: ADMIT Psychiatry & Neurology Psychiatry; ATTEND Psychiatry & Neurology Psychiatry
DX: F31.2 Bipolar disorder, current episode manic severe with psychotic features (principal); F03.90 Unspecified dementia, unspecified severity, without behavioral disturbance, psychotic disturbance, mood disturbance, and anxiety; R00.0 Tachycardia, unspecified; E89.0 Postprocedural hypothyroidism; G25.81 Restless legs syndrome; N18.9 Chronic kidney disease, unspecified; Z91.5 Personal history of self-harm; Z79.899 Other long term (current) drug therapy; Z87.39 Personal history of other diseases of the musculoskeletal system and connective tissue; Z86.39 Personal history of other endocrine, nutritional and metabolic disease; Z98.51 Tubal ligation status; Z98.42 Cataract extraction status, left eye; Z98.41 Cataract extraction status, right eye; Z96.1 Presence of intraocular lens; Z98.890 Other specified postprocedural states; Z88.8 Allergy status to other drugs, medicaments and biological substances; Z91.041 Radiographic dye allergy status; Z82.49 Family history of ischemic heart disease and other diseases of the circulatory system; Z83.3 Family history of diabetes mellitus; Z82.3 Family history of stroke; Z81.8 Family history of other mental and behavioral disorders
CPT/HCPCS: 36415; 80053; 80306; 81003; 82075; 84443; 85025; 93005; 96372; 99285

== ENCOUNTER 2021-09-01 12:55 | Inpatient (IN) | payer MEDICARE ==
--- NOTE | 2021-09-01 18:06 | ED ---
General Adult HPI - General Chief complaint: Psychiatric Symptoms Stated complaint: unable to sleep, sent from [facility] Time Seen by Provider: 09/01/21 17:47 Source: patient Mode of arrival: ambulatory Limitations: no limitations - History of Present Illness Initial comments: Dictation was produced using [employer] dictation software. please excuse any gram matical, word or spelling errors. Chief Complaint: 76-year-old female presents emergency Department for psychiatric evaluation. History of Present Illness: She is 76-year-old female past medical history of psychiatric illness. Patient states she has a history of depression and anxiet y. She was brought to the emergency department by her daughter. Patient reports that she is been having trouble sleeping and pacing the house for sometimes 24 hours. Patient denies any homicidal ideation. Sometimes has suicidal thoughts. Denies any visual or auditory hallucinations. Patient has been admitted to the hospital for psychiatric issues in the past. She does not have any medical complaints. Chart review shows that patient has been admitted for bipolar disorder and cheryle. The ROS documented in this emergency department record has been reviewed and confirmed by me. Those systems with pertinent positive or negative responses have been documented in the HPI. All other systems are other negative and/or noncontributory. PHYSICAL EXAM: General Impression: Alert and oriented x3, not in acute distress HEENT: Normocephalic atraumatic, extra-ocular movements intact, pupils equal and reactive to light bilaterally, mucous membranes moist. Cardiovascular: Heart regular rate and rhythm Chest: Able to complete full sentences, no retractions, no tachypnea Abdomen: abdomen soft, non-tender, non-distended, no organomegaly Musculoskeletal: Pulses present and equal in all extremities, no peripheral edema Motor: no focal deficits noted Neurological: CN II-XII grossly intact, no focal motor or sensory deficits noted Skin: Intact with no visualized rashes Psych: Flattened affect, poor eye contact ED course: 74-year-old female with past medical history of bipolar disease pre sents to the ER for psychiatric evaluation. Signs upon arrival are within acceptable limits. Physical examination is benign. She has no medical complaints. Laboratory evaluation obtained. CBC metabolic panel is within acceptable limits. Patient medically cleared for EPS evaluation. Patient was instructed by EPS and accepted patient for inpatient psychiatric admission. - Related Data Home Medications Medication Instructions Recorded Confirmed Cholecalciferol [Vitamin D3 (25 1,000 unit PO DAILY@1200 01/01/20 09/01/21 Mcg = 1000 Iu)] Dicyclomine [Bentyl] 20 mg PO BID 09/01/21 09/01/21 Mirtazapine [Remeron] 30 mg PO HS 09/01/21 09/01/21 QUEtiapine [SEROquel] 25 mg PO BID@1200,2100 09/01/21 09/01/21 QUEtiapine [SEROquel] 200 mg PO HS 09/01/21 09/01/21 lamoTRIgine [LaMICtal] 100 mg PO BID 09/01/21 09/01/21 Allergies Allergy/AdvReac Type Severity Reaction Status Date / Time Iodinated Contrast Media Allergy Unknown Verified 09/01/21 19:23 [Iodinated Contrast Media - IV Dye] lithium Allergy Dyspnea Verified 09/01/21 19:23 Review of Systems ROS Statement: Those systems with pertinent positive or pertinent negative responses have been documented in the HPI. ROS Other: All systems not noted in ROS Statement are negative. Past Medical History Past Medical History: Thyroid Disorder Additional Past Medical History / Comment(s): Goiter, rhabdomylosis History of Any Multi-Drug Resistant Organisms: None Reported Past Surgical History: Tubal Ligation Additional Past Surgical History / Comment(s): Bilateral cataract removal and lens implants, partial thyroidectomy Past Anesthesia/Blood Transfusion Reactions: No Reported Reaction Past Psychological History: Anxiety, Bipolar, Depression Smoking Status: Never smoker Past Alcohol Use History: Occasional Past Drug Use History: None Reported - Past Family History Father Family Medical History: Coronary Artery Disease (CAD), Diabetes Mellitus Additional Family Medical History / Comment(s): Father at age 65. He had history of coronary artery disease and diabetes. No history of eating disorders Mother Family Medical History: CVA/TIA Additional Family Medical History / Comment(s): Mother at age 88 from a CVA. Brother(s) Additional Family Medical History / Comment(s): The patient has 4 brothers and one has depression. Patient has 2 sisters. Patient has 2 children one son and one daughter. General Exam Limitations: no limitations Course Vital Signs 09/01/21 09/01/21 13:59 23:00 Temperature 99.3 F Pulse Rate 101 H 107 H Respiratory 18 16 Rate Blood Pressure 155/82 118/65 O2 Sat by Pulse 96 98 Oximetry Medical Decision Making - Lab Data Result diagrams: 09/01/21 18:03 09/01/21 18:03 Lab Results 09/01/21 09/01/21 09/01/21 Range/Units 18:03 18:03 18:03 WBC 6.6 (3.8-10.6) k/uL RBC 4.14 (3.80-5.40) m/uL Hgb 13.2 (11.4-16.0) gm/dL Hct 40.1 (34.0-46.0) % MCV 96.9 (80.0-100.0) fL MCH 32.0 (25.0-35.0) pg MCHC 33.0 (31.0-37.0) g/dL RDW 12.3 (11.5-15.5) % Plt Count 274 (150-450) k/uL MPV 6.9 Neutrophils % 70 % Lymphocytes % 20 % Monocytes % 6 % Eosinophils % 1 % Basophils % 1 % Neutrophils # 4.6 (1.3-7.7) k/uL Lymphocytes # 1.3 (1.0-4.8) k/uL Monocytes # 0.4 (0-1.0) k/uL Eosinophils # 0.1 (0-0.7) k/uL Basophils # 0.0 (0-0.2) k/uL Sodium 140 (137-145) mmol/L Potassium 4.2 (3.5-5.1) mmol/L Chloride 104 (98-107) mmol/L Carbon Dioxide 27 (22-30) mmol/L Anion Gap 9 mmol/L BUN 39 H (7-17) mg/dL Creatinine 1.71 H (0.52-1.04) mg/dL Est GFR (CKD-EPI)AfAm 34 (>60 ml/min/1.73 sqM) Est GFR (CKD-EPI)NonAf 29 (>60 ml/min/1.73 sqM) Glucose 102 H (74-99) mg/dL Estimated Ave Glu mg/dL 116 Hemoglobin A1c 5.7 (0.0-6.0) % Calcium 10.1 (8.4-10.2) mg/dL Total Bilirubin 0.5 (0.2-1.3) mg/dL AST 29 (14-36) U/L ALT 20 (4-34) U/L Alkaline Phosphatase 70 (38-126) U/L Total Protein 7.5 (6.3-8.2) g/dL Albumin 4.6 (3.5-5.0) g/dL Triglycerides (0.00-149.00) mg/dL Cholesterol (0.00-200.00) mg/dL LDL Cholesterol, Calc (0.0-131.0) mg/dL VLDL Cholesterol, Calc (5.00-40.00) mg/dL HDL Cholesterol (40.00-60.00) mg/dL Cholesterol/HDL Ratio Ratio TSH (0.465-4.680) mIU/L Coronavirus (PCR) (Not Detectd) 09/01/21 09/01/21 Range/Units 18:03 22:00 WBC (3.8-10.6) k/uL RBC (3.80-5.40) m/uL Hgb (11.4-16.0) gm/dL Hct (34.0-46.0) % MCV (80.0-100.0) fL MCH (25.0-35.0) pg MCHC (31.0-37.0) g/dL RDW (11.5-15.5) % Plt Count (150-450) k/uL MPV Neutrophils % % Lymphocytes % % Monocytes % % Eosinophils % % Basophils % % Neutrophils # (1.3-7.7) k/uL Lymphocytes # (1.0-4.8) k/uL Monocytes # (0-1.0) k/uL Eosinophils # (0-0.7) k/uL Basophils # (0-0.2) k/uL Sodium (137-145) mmol/L Potassium (3.5-5.1) mmol/L Chloride (98-107) mmol/L Carbon Dioxide (22-30) mmol/L Anion Gap mmol/L BUN (7-17) mg/dL Creatinine (0.52-1.04) mg/dL Est GFR (CKD-EPI)AfAm (>60 ml/min/1.73 sqM) Est GFR (CKD-EPI)NonAf (>60 ml/min/1.73 sqM) Glucose (74-99) mg/dL Estimated Ave Glu mg/dL Hemoglobin A1c (0.0-6.0) % Calcium (8.4-10.2) mg/dL Total Bilirubin (0.2-1.3) mg/dL AST (14-36) U/L ALT (4-34) U/L Alkaline Phosphatase (38-126) U/L Total Protein (6.3-8.2) g/dL Albumin (3.5-5.0) g/dL Triglycerides 95.60 (0.00-149.00) mg/dL Cholesterol 201.00 H (0.00-200.00) mg/dL LDL Cholesterol, Calc 103.7 (0.0-131.0) mg/dL VLDL Cholesterol, Calc 19.12 (5.00-40.00) mg/dL HDL Cholesterol 78.20 H (40.00-60.00) mg/dL Cholesterol/HDL Ratio 2.57 Ratio TSH 0.401 L (0.465-4.680) mIU/L Coronavirus (PCR) Not Detected (Not Detectd) Disposition Clinical Impression: Psychosis Disposition: ADMITTED IP TO THIS HOSP Condition: Fair
[2021-09-01 18:18] LABS: Basophils % (A) 1 %; Eosinophils # (A) 0.1 k/uL (0-0.7); Eosinophils % (A) 1 %; HCT 40.1 % (34.0-46.0); HGB 13.2 gm/dL (11.4-16.0); Lymphocytes # (A) 1.3 k/uL (1.0-4.8); Lymphocytes % (A) 20 %; MCV 96.9 fL (80.0-100.0); Mean Platelet Volume 6.9; Monocytes # (A) 0.4 k/uL (0-1.0); Monocytes % (A) 6 %; Neutrophils # (A) 4.6 k/uL (1.3-7.7); Neutrophils % (A) 70 %; Platelet Count 274 k/uL (150-450); RBC 4.14 m/uL (3.80-5.40); RDW 12.3 % (11.5-15.5); WBC 6.6 k/uL (3.8-10.6)
[2021-09-01 18:26] LABS: Albumin 4.6 g/dL (3.5-5.0); Calcium 10.1 mg/dL (8.4-10.2); Potassium 4.2 mmol/L (3.5-5.1); Total Bilirubin 0.5 mg/dL (0.2-1.3); Total Protein 7.5 g/dL (6.3-8.2)
[2021-09-01] MEDS ORDERED: ZIPRASIDONE 20 MG VIAL IM STA (19:51)
[2021-09-01] MEDS ORDERED: SODIUM CHLORIDE 0.9% 1,000 ML IV ONE (19:52)
[2021-09-01] MEDS ORDERED: LORazepam 2 MG/ML INJ IM STA (20:54)
[2021-09-01] MEDS ORDERED: diphenhydrAMINE 50 MG/ML 1 ML VIAL IM STA (20:55)
[2021-09-01] MEDS ORDERED: LORazepam 1 MG TAB PO PRN (23:42)
[2021-09-01] MEDS ORDERED: MAGNESIUM HYDROXIDE 2,400 MG/10 ML CUP PO PRN (23:42)
[2021-09-01] MEDS ORDERED: LORazepam 2 MG/ML INJ IM PRN (23:52)
[2021-09-02] MEDS: DICYCLOMINE 20 MG TAB PO SCH ×2 (08:36→22:03)
[2021-09-02] MEDS: lamoTRIgine 100 MG TAB PO SCH ×2 (08:36→22:03)
[2021-09-02 09:26] LABS: Chol/HDL Ratio 2.57 Ratio; LDL Cholesterol,Calculated 103.7 mg/dL (0.0-131.0); VLDL Calculation 19.12 mg/dL (5.00-40.00)
[2021-09-02 09:58] VITALS: BMI 18.0
[2021-09-02] MEDS ORDERED: LORazepam 1 MG TAB PO PRN (11:04)
--- NOTE | 2021-09-02 11:20 | P.HP ---
Psychiatric H&P - . H&P Date: 09/02/21 History & Physical: Allergies Allergy/AdvReac Type Severity Reaction Status Date / Time Iodinated Contrast Media Allergy Unknown Verified 09/01/21 19:23 Iodinated Contrast Media - IV Dye lithium Allergy Dyspnea Verified 09/01/21 19:23 Vital Signs Temp 97.6 F 09/02/21 01:03 Pulse 89 09/02/21 01:03 Resp 18 09/02/21 01:03 BP 127/60 09/02/21 01:03 Pulse Ox 96 09/02/21 01:03 Intake & Output 09/01/21 09/02/21 09/02/21 18:59 06:59 18:59 Weight 46.266 kg 46.266 kg Laboratory Last Values WBC 6.6 k/uL (3.8-10.6) 09/01/21 18:03 RBC 4.14 m/uL (3.80-5.40) 09/01/21 18:03 Hgb 13.2 gm/dL (11.4-16.0) 09/01/21 18:03 Hct 40.1 % (34.0-46.0) 09/01/21 18:03 MCV 96.9 fL (80.0-100.0) 09/01/21 18:03 MCH 32.0 pg (25.0-35.0) 09/01/21 18:03 MCHC 33.0 g/dL (31.0-37.0) 09/01/21 18:03 RDW 12.3 % (11.5-15.5) 09/01/21 18:03 Plt Count 274 k/uL (150-450) 09/01/21 18:03 MPV 6.9 09/01/21 18:03 Neutrophils % 70 % 09/01/21 18:03 Lymphocytes % 20 % 09/01/21 18:03 Monocytes % 6 % 09/01/21 18:03 Eosinophils % 1 % 09/01/21 18:03 Basophils % 1 % 09/01/21 18:03 Neutrophils # 4.6 k/uL (1.3-7.7) 09/01/21 18:03 Lymphocytes # 1.3 k/uL (1.0-4.8) 09/01/21 18:03 Monocytes # 0.4 k/uL (0-1.0) 09/01/21 18:03 Eosinophils # 0.1 k/uL (0-0.7) 09/01/21 18:03 Basophils # 0.0 k/uL (0-0.2) 09/01/21 18:03 Sodium 140 mmol/L (137-145) 09/01/21 18:03 Potassium 4.2 mmol/L (3.5-5.1) 09/01/21 18:03 Chloride 104 mmol/L (98-107) 09/01/21 18:03 Carbon Dioxide 27 mmol/L (22-30) 09/01/21 18:03 Anion Gap 9 mmol/L 09/01/21 18:03 BUN 39 mg/dL (7-17) H 09/01/21 18:03 Creatinine 1.71 mg/dL (0.52-1.04) H 09/01/21 18:03 Est GFR (CKD-EPI)AfAm 34 (>60 ml/min/1.73 sqM) 09/01/21 18:03 Est GFR (CKD-EPI)NonAf 29 (>60 ml/min/1.73 sqM) 09/01/21 18:03 Glucose 102 mg/dL (74-99) H 09/01/21 18:[address] Glu mg/dL 116 09/01/21 18:03 Hemoglobin A1c 5.7 % (0.0-6.0) 09/01/21 18:03 Calcium 10.1 mg/dL (8.4-10.2) 09/01/21 18:03 Total Bilirubin 0.5 mg/dL (0.2-1.3) 09/01/21 18:03 AST 29 U/L (14-36) 09/01/21 18:03 ALT 20 U/L (4-34) 09/01/21 18:03 Alkaline Phosphatase 70 U/L (38-126) 09/01/21 18:03 Total Protein 7.5 g/dL (6.3-8.2) 09/01/21 18:03 Albumin 4.6 g/dL (3.5-5.0) 09/01/21 18:03 Triglycerides 95.60 mg/dL (0.00-149.00) 09/01/21 18:03 Cholesterol 201.00 mg/dL (0.00-200.00) H 09/01/21 18:03 LDL Cholesterol, Calc 103.7 mg/dL (0.0-131.0) 09/01/21 18:03 VLDL Cholesterol, Calc 19.12 mg/dL (5.00-40.00) 09/01/21 18:03 HDL Cholesterol 78.20 mg/dL (40.00-60.00) H 09/01/21 18:03 Cholesterol/HDL Ratio 2.57 Ratio 09/01/21 18:03 TSH 0.401 mIU/L (0.465-4.680) L 09/01/21 18:03 Coronavirus (PCR) Not Detected (Not Detectd) 09/01/21 22:00 09/02/21 11:14 IDENTIFYING DATA: Patient is a 76-year-old female with a history of bipolar disorder, currently lives with her daughter in the house has 2 kids and 4 grandchildren. HPI: Patient presented to the hospital yesterday on a petition by her daughter for increased agitation, pacing and also not taking medications and having poor sleep. Patient was given several prn meds last night for agitation in the ER before coming up to the mental health unit. Patient was admitted involuntarily on a petition and certificate. Patient was seen this morning in agreeable to speak to underwriter solicitation director in the office. Patient appeared to be fairly calm today. She states that she was "pacing and not sleeping" at home. She states that she was also feeling agitated. This is been going on for the past 2 weeks she says. She claims that she "just needed some rest". She claims that she has a long history of bipolar disorder diagnosed when she was in her 20s. She states that her mood is "a bit better today". She is denying any current racing thoughts. She is denying any goal oriented/goal-directed behavior or flight of ideas. She claims that she is taking her medications at home including Lamictal and Seroquel as her daughter and sister help manage it for her. She claims that she does not have any paranoia. She claims that her appetite has been fairly poor. Patient denies any suicidal or homicidal ideations intent or plan. At this time patient denies any auditory or visual hallucinations. Patient denies any flight of ideas racing thoughts and increased in goal directed behavior. Patient admits to using no recreational drugs or cigarettes. PAST PSYCHIATRIC HISTORY: Patient states that she has a history of bipolar disorder, diagnosed in her 20s. She claims that she has been on several different psychiatric medications however currently is on Seroquel and Lamictal, she was recently switched off of Zyprexa. She is been admitted psychiatrically several times in the past, last hospitalization was in December 2019. She claimed that she follows up at [facility] with her nurse practitioner. She claims that she has had 3 suicide attempts in the past nail have been overdoses. Past Medical History: Thyroid Disorder Additional Past Medical History / Comment(s): Goiter, rhabdomylosis ALLERGIES: as per EMR CHEMICAL DEPENDENCY HISTORY: as per HPI FAMILY PSYCHIATRIC/SUBSTANCE USE HISTORY: denies SOCIAL HISTORY: Patient was born and raised in [facility]. She states that she completed high school and got her associates degree in business. She is denying any legal history. She claims that she has 2 kids and 4 grandchildren. She states that she currently lives with her daughter in house. MENTAL STATUS EXAM: General Appearance: Patient appears to be thin, elderly, stated age is alert, directable, and attempts to cooperate. Patient appears to have fair hygiene and grooming. Behavior: Patient is seated without any agitated behavior. Speech: Patient's speech is fluent and nonpressured. Mood/Affect: Patient reports their mood is "a bit better today", affect is congr uent and constricted. Suicidality/Homicidality: Patient denies having any homicidal ideation intent or plan. Denies any suicidal ideations intent or plan Perceptions: Patient denies any visual hallucinations and denies any auditory hallucinations Though content/process: No delusions or paranoia today. Goal oriented. No flight of ideas. Memory and concentration: AOX3, grossly intact for the purposes of this session. Can spell "WORLD" backwards Judgment and insight: Limited STRENGTHS/WEAKNESSES: strength is that patient is resilient. Weakness is that patient has poor judgment and is impulsive INTELLECT: average IMPRESSIONS: Bipolar disorder, manic episode PLAN: -Patient is admitted under voluntary status to MHU for stabilization of psychiatric symptoms and safety. Patient has signed adult voluntary form and medication consent and is placed in patient's chart. -Medications : Will start patient on her home dose of Lamictal 100 mg twice a day for mood stabilization, Seroquel increased to 250 mg daily at bedtime for mood stabilization/insomnia, decreased Remeron to 15 mg daily at bedtime for mood/anxiety/sleep. -Ativan and Haldol PRN for agitation/aggression -Patient was informed of the risks, benefits and side effects of the medication and patient verbally consented to taking the medications. Patient signed med consent form and was placed in chart. -Internal Medicine consult to perform medical evaluation and physical. -NRT - not needed as patient does not smoke. -SW on board for discharge planning. Encourage patient to participate in groups to work on coping skills.
[2021-09-02] MEDS: CHOLECALCIFEROL 25 MCG (1000 IU) TABLET PO SCH (12:53)
[2021-09-02] MEDS ORDERED: MIRTAZAPINE 15 MG TAB PO SCH (21:00)
[2021-09-02] MEDS ORDERED: QUEtiapine 100 MG TAB PO SCH ×2 (21:00)
--- NOTE | 2021-09-02 21:54 | P.CONS ---
History of Present Illness - Reason for Consult Consult date: 09/02/21 Medical management Requesting physician: Jaylen Vaughn - Chief Complaint Hyperactive - History of Present Illness This is a pleasant 76-year-old patient who follows with Dr. Ferdinand Shelton. Chronic stable medical conditions include goiter that has been worked up, chronic kidney disease, insomnia, bipolar disorder. Patient is brought into the ER with her daughter for being very hyperactive pacing up and down not sleeping. Appetite has been okay. No change in bowel pattern. No fever no chills. Review of systems: GEN.: Tired EYES: None HEENT: None NECK: None RESPIRATORY: None CARDIOVASCULAR: None GASTROINTESTINAL: None GENITOURINARY: None MUSCULOSKELETAL: None LYMPHATICS: None HEMATOLOGICAL: None PSYCHIATRY: Trouble sleeping anxious NEUROLOGICAL: None Past medical history to include: Goiter, bipolar disorder, chronic kidney disease Social history: This daughter. Alcohol occasionally. No smoking. Family history: CAD, diabetes Physical examination: VITAL SIGNS: 97.6, 89, 18, 127/60, 96% room air GENERAL: BMI 18.1 laying in bed a bit anxious. EYES: Pupils equal. Conjunctiva normal. HEENT: External appearance of nose and ears normal, oral cavity grossly normal. NECK: JVD not raised; masses not palpable. HEART: First and second heart sounds are normal; no edema. LUNGS: Respiratory rate normal; clear to auscultation. ABDOMEN: Soft, nontender, liver spleen not palpable, no masses palpable. PSYCH: Alert and oriented x3; mood and affect anxiousl. MUSCULOSKELETAL:No Clubbing/cyanosis;muscles-grossly intact. Evidence of OA especially in the hands NEUROLOGICAL: Cranial nerves grossly intact; no facial asymmetry, power and sensation grossly intact. LYMPHATICS: No lymph nodes palpable in the axilla and neck INVESTIGATIONS, reviewed in the clinical context: White count 6.6 hemoglobin 13.2 platelets 274 sodium 140 potassium 4.2 and 39 creatinine 1.71 and 3 TSH 0.401 COVID 19: Not detected Assessment and plan: -Bipolar disorder, manic episode Being followed by psychiatry -Abnormal TSH. Free T4 and T3 requested -Chronic kidney disease, stage III likely nephrosclerosis -Hypertension with chronic kidney disease Start Lopressor 25 mg twice a day -Insomnia from underlying psychiatry disorder Remeron -Irritable bowel syndrome Bentyl Care was discussed with the patient. Questions answered. Thyroid studies have been requested. Thank you Dr. Vaughn Past Medical History Past Medical History: Thyroid Disorder Additional Past Medical History / Comment(s): Goiter, rhabdomylosis History of Any Multi-Drug Resistant Organisms: None Reported Past Surgical History: Tubal Ligation Additional Past Surgical History / Comment(s): Bilateral cataract removal and lens implants, partial thyroidectomy Past Anesthesia/Blood Transfusion Reactions: No Reported Reaction Past Psychological History: Anxiety, Bipolar, Depression Smoking Status: Never smoker Past Alcohol Use History: Occasional Past Drug Use History: None Reported - Past Family History Father Family Medical History: Coronary Artery Disease (CAD), Diabetes Mellitus Additional Family Medical History / Comment(s): Father at age 65. He had history of coronary artery disease and diabetes. No history of eating disorders Mother Family Medical History: CVA/TIA Additional Family Medical History / Comment(s): Mother at age 88 from a CVA. Brother(s) Additional Family Medical History / Comment(s): The patient has 4 brothers and one has depression. Patient has 2 sisters. Patient has 2 children one son and one daughter. Medications and Allergies Home Medications Medication Instructions Recorded Confirmed Type Cholecalciferol [Vitamin D3 (25 1,000 unit PO DAILY@1200 01/01/20 09/01/21 History Mcg = 1000 Iu)] Dicyclomine [Bentyl] 20 mg PO BID 09/01/21 09/01/21 History Mirtazapine [Remeron] 30 mg PO HS 09/01/21 09/01/21 History QUEtiapine [SEROquel] 25 mg PO BID@1200,2100 09/01/21 09/01/21 History QUEtiapine [SEROquel] 200 mg PO HS 09/01/21 09/01/21 History lamoTRIgine [LaMICtal] 100 mg PO BID 09/01/21 09/01/21 History Allergies Allergy/AdvReac Type Severity Reaction Status Date / Time Iodinated Contrast Media Allergy Unknown Verified 09/01/21 19:23 [Iodinated Contrast Media - IV Dye] lithium Allergy Dyspnea Verified 09/01/21 19:23 Physical Exam Vitals: Vital Signs Temp Pulse Pulse Resp BP BP Pulse Ox 09/02/21 01:03 97.6 F 89 18 127/60 96 09/01/21 23:00 107 H 16 118/65 98 09/01/21 13:59 99.3 F 101 H 18 155/82 96 Intake and Output 09/01/21 09/02/21 09/02/21 22:59 06:59 14:59 Other: Weight 46.266 kg Results CBC & Chem 7: 09/01/21 18:03 09/01/21 18:03 Labs: Abnormal Lab Results - Last 24 Hours (Table) 09/01/21 09/01/21 Range/Units 18:03 18:03 BUN 39 H (7-17) mg/dL Creatinine 1.71 H (0.52-1.04) mg/dL Glucose 102 H (74-99) mg/dL Cholesterol 201.00 H (0.00-200.00) mg/dL HDL Cholesterol 78.20 H (40.00-60.00) mg/dL TSH 0.401 L (0.465-4.680) mIU/L
[2021-09-02] MEDS: METOPROLOL TARTRATE 25 MG TAB PO SCH (22:03)
[2021-09-02] MEDS: MIRTAZAPINE 15 MG TAB PO SCH (22:03)
[2021-09-03] MEDS: lamoTRIgine 100 MG TAB PO SCH ×2 (08:23→21:09)
[2021-09-03] MEDS: METOPROLOL TARTRATE 25 MG TAB PO SCH ×2 (08:23→21:09)
[2021-09-03] MEDS: DICYCLOMINE 20 MG TAB PO SCH (08:23)
[2021-09-03] MEDS: flUPHENAZine 2.5 MG/ML (MDV) 10 ML VIAL IM PRN ×2 (09:46→15:30)
--- NOTE | 2021-09-03 10:44 | P.PN ---
Progress Note - Text Progress Note Date: 09/03/21 Interval History: Patient was seen this morning for psychiatric follow-up. Nurses had alerted august garcia that patient was grossly disorganized, bizarre and aggressive this morning. They were attempting to restrain her in her bed this morning and group underwriter wasn't going evaluate patient. She received prn Ativan earlier 2 mg. Patient was seen trying to get up out of her bed and appeared to be disorganized and bizarre. She did acknowledge group underwriter however was answering questions inappropriately. She was resisting fairly aggressively. She was not following commands. Patient was not able to answer any questions appropriately. Silo Filler gave order for prolixin prn IM 5mg. Mental Status Exam: General Appearance: Patient appears to be elderly, stated age is difficult to redirect, trying to resist physical restrains, bizarre. Behavior: Laying in the bed trying to resist and was aggressive. Speech: Patient's speech is not comprehensible. Mood/Affect: Unable to assess Suicidality/Homicidality: Unable to assess Perceptions: Unable to assess Though content/process: Bizarre, disorganized, illogical. Memory and concentration: Followed minimal commands, poor attention. Judgment and insight: Limited Assessment Bipolar disorder, manic episode Plan: -Patient continues to meet criteria for inpatient psychiatric admission for symptom stabilization and safety. Patient has signed adult voluntary form and medication consent and was placed in patient's chart. -Medications: Continue Lamictal 100 mg twice a day for mood stabilization, Seroquel 250 mg daily at bedtime for mood stabilization, Remeron 15 mg daily at bedtime for mood/anxiety/sleep. -When necessary Ativan and Haldol for agitation/aggression. -NRT - not needed as patient does not smoke. -SW on board for discharge planning. Encouraged the patient to participate in milieu.
[2021-09-03] MEDS ORDERED: OLANZapine 10 MG VIAL IM STA ×2 (12:47→16:47)
[2021-09-03] MEDS ORDERED: WATER FOR INJECTION, STERILE 10 ML IV ONE ×2 (12:52→17:12)
[2021-09-03] MEDS: CHOLECALCIFEROL 25 MCG (1000 IU) TABLET PO SCH (13:00)
--- NOTE | 2021-09-03 14:11 | P.MHFACE ---
Face to Face Restrain/Seclus - Evaluation Patient's Immediate Situation: Endangers self safety, Endangers others' safety Patient's Immediate Situation - Comment: patient was aggressive, not able to be redirected and swinging at staff members. Patient's Reaction to the Intervention: Uncooperative, Hostile, Bizarre, Aggressive, Combative, Resistive to care Patient's Medical & Behavioral Condition: Awake, Confused, Agitated, Paranoid Need to Continue or Terminate Restraint or Seclusion: Continue Face to Face Eval of Restraint Date: 09/03/21 Face to Face Eval of Restraint Time: 13:10
--- NOTE | 2021-09-03 17:44 | P.MHFACE ---
Face to Face Restrain/Seclus - Evaluation Patient's Immediate Situation: Endangers self safety Patient's Reaction to the Intervention: Uncooperative, Depressed, Restless Patient's Medical & Behavioral Condition: Awake, Depressed, Suicidal thoughts Need to Continue or Terminate Restraint or Seclusion: Continue Face to Face Eval of Restraint Date: 09/03/21 Face to Face Eval of Restraint Time: 17:35
--- NOTE | 2021-09-03 17:46 | P.PN ---
Progress Note - Text Progress Note Date: 09/03/21 - Chief Complaint Hyperactive Hospital course This is a pleasant 76-year-old patient who follows with Dr. Ferdinand Shelton. Chronic stable medical conditions include goiter that has been worked up, chronic kidney disease, insomnia, bipolar disorder. Patient is brought into the ER with her daughter for being very hyperactive pacing up and down not sleeping. Appetite has been okay. No change in bowel pattern. No fever no chills. Patient admitted with bipolar disorder/manic episode. September 03: Patient was sedated with Ativan earlier today.This afternoon patient is very anxious delirious. Walking the hallways. Holding onto people. Would n ot answer any questions straight. Active Medications Acetaminophen (Acetaminophen Tab 325 Mg Tab) 650 mg PO Q4HR PRN PRN Reason: Pain/Discomfort Al Hydroxide/Mg Hydroxide (Mag Hydrox/Al Hydrox/Simeth 30 Ml Cup) 30 ml PO Q4HR PRN PRN Reason: GI Upset Cholecalciferol (Cholecalciferol 25 Mcg (1000 Iu) Tablet) 25 mcg PO DAILY@1200 [facility] Last Admin: 09/03/21 13:00 Dose: Not Given Documented by: Dicyclomine HCl (Dicyclomine 20 Mg Tab) 20 mg PO BID [facility] Last Admin: 09/03/21 08:23 Dose: Not Given Documented by: Fluphenazine HCl (Fluphenazine 5 Mg Tab) 5 mg PO Q6H PRN PRN Reason: Agitation Fluphenazine HCl (Fluphenazine 2.5 Mg/Ml (Mdv) 10 Ml Vial) 5 mg IM Q6HR PRN PRN Reason: Agitation Last Admin: 09/03/21 15:30 Dose: 5 mg Documented by: Lamotrigine (Lamotrigine 100 Mg Tab) 100 mg PO BID [facility] Last Admin: 09/03/21 08:23 Dose: Not Given Documented by: Magnesium Hydroxide (Magnesium Hydroxide 2,400 Mg/10 Ml Cup) 2,400 mg PO DAILY PRN PRN Reason: Constipation Metoprolol Tartrate (Metoprolol Tartrate 25 Mg Tab) 25 mg PO BID [facility] Last Admin: 09/03/21 08:23 Dose: Not Given Documented by: Mirtazapine (Mirtazapine 15 Mg Tab) 15 mg PO [facility] Last Admin: 09/02/21 22:03 Dose: Not Given Documented by: Quetiapine Fumarate (Quetiapine 100 Mg Tab) 250 mg PO HS [facility] Last Admin: 09/02/21 22:03 Dose: Not Given Documented by: Past medical history to include: Goiter, bipolar disorder, chronic kidney disease Social history: This daughter. Alcohol occasionally. No smoking. Family history: CAD, diabetes Physical examination: VITAL SIGNS: Noted GENERAL: Anxious, not really answering questions EYES: Pupils equal. Conjunctiva normal. HEENT: External appearance of nose and ears normal, oral cavity grossly normal. NECK: JVD not raised; masses not palpable. HEART: First and second heart sounds are normal; no edema. LUNGS: Respiratory rate normal; clear to auscultation. ABDOMEN: Soft, nontender, liver spleen not palpable, no masses palpable. PSYCH: Very anxious delirious MUSCULOSKELETAL:No Clubbing/cyanosis;muscles-grossly intact. Evidence of OA especially in the hands NEUROLOGICAL: Walking hallways. Moving all 4 limbs.. INVESTIGATIONS, reviewed in the clinical context: White count 6.6 hemoglobin 13.2 platelets 274 sodium 140 potassium 4.2 and 39 creatinine 1.71 and 3 TSH 0.401 COVID 19: Not detected Assessment and plan: -Bipolar disorder, manic episode: Uncontrolled Being followed by psychiatry -Abnormal TSH. Free T4 and T3 pending -Chronic kidney disease, stage III likely nephrosclerosis -Hypertension with chronic kidney disease Lopressor 25 mg twice a day -Insomnia from underlying psychiatry disorder Remeron -Irritable bowel syndrome Bentyl We'll stop scheduled Bentyl. Awaiting thyroid studies. Zyprexa is being added by psychiatry. Thank you Dr. Vaughn
[2021-09-03] MEDS ORDERED: QUEtiapine 100 MG TAB PO SCH (21:00)
[2021-09-03 21:01] LABS: Basophils # (A) 0.1 k/uL (0-0.2); Basophils % (A) 1 %; Eosinophils # (A) 0.1 k/uL (0-0.7); Eosinophils % (A) 1 %; HCT 40.2 % (34.0-46.0); HGB 13.2 gm/dL (11.4-16.0); Lymphocytes # (A) 1.6 k/uL (1.0-4.8); Lymphocytes % (A) 21 %; MCH 32.6 pg (25.0-35.0); MCHC 32.9 g/dL (31.0-37.0); Mean Platelet Volume 6.8; Monocytes # (A) 0.6 k/uL (0-1.0); Monocytes % (A) 7 %; Neutrophils # (A) 5.2 k/uL (1.3-7.7); Neutrophils % (A) 67 %; Platelet Count 279 k/uL (150-450); RBC 4.06 m/uL (3.80-5.40); RDW 12.4 % (11.5-15.5); WBC 7.7 k/uL (3.8-10.6)
[2021-09-03 21:09] LABS: Calcium 9.9 mg/dL (8.4-10.2); Potassium 4.4 mmol/L (3.5-5.1)
[2021-09-03] MEDS: MIRTAZAPINE 15 MG TAB PO SCH (21:09)
[2021-09-03] MEDS ORDERED: ZIPRASIDONE 20 MG VIAL IM STA (22:36)
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
[2021-09-03] MEDS: DEXTROSE 5%-0.9% NACL 1,000 ML IV SCH (23:27)
[2021-09-04] MEDS: DEXTROSE 5%-0.9% NACL 1,000 ML IV SCH (06:31)
[2021-09-04] MEDS: lamoTRIgine 100 MG TAB PO SCH (07:58)
[2021-09-04] MEDS: METOPROLOL TARTRATE 25 MG TAB PO SCH (07:58)
[2021-09-04] MEDS: CHOLECALCIFEROL 25 MCG (1000 IU) TABLET PO SCH (07:58)
[2021-09-04] MEDS ORDERED: ZIPRASIDONE 20 MG VIAL IM STA (08:26)
[2021-09-04] MEDS ORDERED: OLANZapine 7.5 MG TAB PO PRN (10:16)
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
[2021-09-04] MEDS: DIVALPROEX ER 500 MG TAB.ER.24H PO SCH (11:29)
[2021-09-04] MEDS: PALIPERIDONE 3 MG TAB.ER.24 PO SCH ×2 (11:29→21:23)
--- NOTE | 2021-09-04 11:42 | P.MHFACE ---
Face to Face Restrain/Seclus - Evaluation Patient's Immediate Situation: Endangers self safety, Endangers others' safety Patient's Immediate Situation - Comment: patient was not redirectable and was aggressive, scratching at people and agitated. mentioning she wanted to . acute risk for self harm and/or harm to others. Patient's Reaction to the Intervention: Uncooperative, Bizarre, Aggressive, Resistive to care Patient's Medical & Behavioral Condition: Awake, Manic, Suicidal thoughts Need to Continue or Terminate Restraint or Seclusion: Continue Face to Face Eval of Restraint Date: 09/04/21 Face to Face Eval of Restraint Time: 10:51
[2021-09-04] MEDS ORDERED: SODIUM CHLORIDE 0.9% 1,000 ML IV SCH (13:30)
[2021-09-04] MEDS: OLANZapine 10 MG VIAL IM PRN ×2 (13:47→22:07)
[2021-09-04 14:59] LABS: Appearance,Urine Clear (Clear); Bilirubin,Urine Negative (Negative); Blood,Urine Negative (Negative); Color,Urine Light Yellow; Glucose,Urine (UA) Negative (Negative); Ketones,Urine Negative (Negative); Leukocyte Esterase,Urine Negative (Negative); Nitrite,Urine Negative (Negative); PH, Urine 6.5 (5.0-8.0); Protein,Urine Trace (Negative); Specific Gravity,Urine 1.006 (1.001-1.035); Urobilinogen,Urine <2.0 mg/dL (<2.0)
--- NOTE | 2021-09-04 15:02 | P.MHFACE ---
Face to Face Restrain/Seclus - Evaluation Patient's Immediate Situation: Endangers self safety, Endangers others' safety Patient's Immediate Situation - Comment: patient continues to pull at restraints and continues to endorse thoughts of self harm and to call the police. she is not directable and does not follow commands. repeatedly moving in the bed, repeating phrases over and over. Patient's Reaction to the Intervention: Uncooperative, Bizarre, Combative, Restless, Resistive to care Patient's Medical & Behavioral Condition: Awake, Confused, Agitated, Paranoid, Manic Need to Continue or Terminate Restraint or Seclusion: Continue Face to Face Eval of Restraint Date: 09/04/21 Face to Face Eval of Restraint Time: 14:50
[2021-09-04] MEDS: DEXTROSE 5% IN WATER 1,000 ML IV SCH (15:07)
[2021-09-04 15:09] LABS: Amphetamine Screen,Urine Not Detected (NotDetected); Barbiturate Screen,Urine Not Detected (NotDetected); Benzodiazepines Screen,Urine Not Detected (NotDetected); Cocaine Screen,Urine Not Detected (NotDetected); Methadone Screen, Urine Not Detected (NotDetected); Opiate Screen,Urine Not Detected (NotDetected); Oxycodone Screen, Urine Not Detected (NotDetected); Phencyclidine Screen,Urine Not Detected (NotDetected); Tricyclic Antidepressant,Urine Not Detected (NotDetected); Urn Cannabinoid Scrn Not Detected (NotDetected)
[2021-09-04] MEDS ORDERED: VALPROIC ACID ORAL SOLN 250 MG/5 ML CUP PO STA (16:24)
--- NOTE | 2021-09-04 16:52 | P.PN ---
Progress Note - Text Progress Note Date: 09/04/21 - Chief Complaint Hyperactive Hospital course This is a pleasant 76-year-old patient who follows with Dr. Ferdinand Shelton. Chronic stable medical conditions include goiter that has been worked up, chronic kidney disease, insomnia, bipolar disorder. Patient is brought into the ER with her daughter for being very hyperactive pacing up and down not sleeping. Appetite has been okay. No change in bowel pattern. No fever no chills. Patient admitted with bipolar disorder/manic episode. September 03: Patient was sedated with Ativan earlier today.This afternoon patient is very anxious delirious. Walking the hallways. Holding onto people. Would n ot answer any questions straight. September 04: Patient has been in restraints. Not eating drinking since yesterday at least. Overnight given 2 L of IV fluids. IV fluids started. D5W. Patient is very restless. Delirious. Saying words sentences repetitively. In restraints. Active Medications Acetaminophen (Acetaminophen Tab 325 Mg Tab) 650 mg PO Q4HR PRN PRN Reason: Pain/Discomfort Al Hydroxide/Mg Hydroxide (Mag Hydrox/Al Hydrox/Simeth 30 Ml Cup) 30 ml PO Q4HR PRN PRN Reason: GI Upset Cholecalciferol (Cholecalciferol 25 Mcg (1000 Iu) Tablet) 25 mcg PO DAILY@1200 [facility] Last Admin: 09/04/21 07:58 Dose: Not Given Documented by: Divalproex Sodium (Divalproex Er 500 Mg Tab.Er.24h) 500 mg PO DAILY [facility] Last Admin: 09/04/21 11:29 Dose: Not Given Documented by: Dextrose/Water (Dextrose 5%-Water Iv Soln) 1,000 mls @ 75 mls/hr IV .[id number] [facility] Last Admin: 09/04/21 15:07 Dose: 75 mls/hr Documented by: Magnesium Hydroxide (Magnesium Hydroxide 2,400 Mg/10 Ml Cup) 2,400 mg PO DAILY PRN PRN Reason: Constipation Metoprolol Tartrate (Metoprolol Tartrate 25 Mg Tab) 25 mg PO BID [facility] Last Admin: 09/04/21 07:58 Dose: Not Given Documented by: Mirtazapine (Mirtazapine 15 Mg Tab) 30 mg PO [facility] Olanzapine (Olanzapine 10 Mg Vial) 7.5 mg IM TID PRN PRN Reason: Agitation Last Admin: 09/04/21 13:47 Dose: 7.5 mg Documented by: Olanzapine (Olanzapine 7.5 Mg Tab) 7.5 mg PO TID PRN PRN Reason: Agitation Paliperidone (Paliperidone 3 Mg Tab.Er.24) 3 mg PO BID [facility] Last Admin: 09/04/21 11:29 Dose: Not Given Documented by: Ziprasidone (Ziprasidone 20 Mg Vial) 20 mg IM BID PRN PRN Reason: Agitation or Acute Psychosis Past medical history to include: Goiter, bipolar disorder, chronic kidney disease Social history: This daughter. Alcohol occasionally. No smoking. Family history: CAD, diabetes Physical examination: VITAL SIGNS: 97.3, 103, 20, 140/91, 98% room air GENERAL: Very anxious, try to move about, in restraints EYES: Pupils equal. Conjunctiva normal. HEENT: External appearance of nose and ears normal, oral cavity dry NECK: JVD not raised; masses not palpable. HEART: First and second heart sounds are normal; no edema. LUNGS: Respiratory rate normal; clear to auscultation. ABDOMEN: Soft, nontender, liver spleen not palpable, no masses palpable. PSYCH: Delirious. Anxious. MUSCULOSKELETAL:No Clubbing/cyanosis;muscles-grossly intact. Evidence of OA especially in the hands NEUROLOGICAL: Restraints. Very restless. INVESTIGATIONS, reviewed in the clinical context: UA: Unremarkable Urine drug screen: Negative BUN 33 creatinine 1.54. TSH 1.8 White count 6.6 hemoglobin 13.2 platelets 274 sodium 140 potassium 4.2 and 39 creatinine 1.71 and 3 TSH 0.401 COVID 19: Not detected Assessment and plan: -Bipolar disorder, manic episode: Uncontrolled Being followed by psychiatry. Under restraints -Acute delirium, multifactorial -Mild rhabdomyolysis IV fluids -Chronic kidney disease, stage III likely nephrosclerosis -Acute kidney injury from dehydration from not taking oral IV fluids D5W 1 25 mL an hour -Hypertension with chronic kidney disease Lopressor 25 mg twice a day. Start Catapres patch as patient not taking oral medications -Insomnia from underlying psychiatry disorder Remeron -Irritable bowel syndrome Bentyl D5W at 1 25 mL an hour. Start Catapres 0.1 patch. DC Lopressor. Thank you Dr. Vaughn
[2021-09-04] MEDS: cloNIDine 0.1 MG/24HR PATCH TRANSDERM SCH (17:16)
--- NOTE | 2021-09-04 18:19 | P.MHFACE ---
Face to Face Restrain/Seclus - Evaluation Patient's Immediate Situation: Endangers self safety Patient's Reaction to the Intervention: Restless Patient's Medical & Behavioral Condition: Paranoid Need to Continue or Terminate Restraint/Seclusion - Comment: Continue. Patient not redirectable, repeats same phrases over and over. Still agitated. Responding to internal stimuli.
[2021-09-04] MEDS ORDERED: ZIPRASIDONE 20 MG VIAL IM PRN (21:00)
[2021-09-04] MEDS: MIRTAZAPINE 15 MG TAB PO SCH (21:23)
[2021-09-04] MEDS ORDERED: LORazepam 2 MG/ML INJ IV STA (22:43)
--- NOTE | 2021-09-04 23:33 | P.MHFACE ---
Face to Face Restrain/Seclus - Evaluation Patient's Immediate Situation: Endangers self safety, Endangers staff safety Patient's Reaction to the Intervention: Anxious Patient's Medical & Behavioral Condition: Agitated Need to Continue or Terminate Restraint or Seclusion: Continue Need to Continue or Terminate Restraint/Seclusion - Comment: The patient internally preoccupied, not following directions, and exhibiting rigidity. Continues to be a danger to self and others. Discussed the case with the mental health unit RNs in detail regarding concerns for possibly developing neuroleptic malignant syndrome in light of significant rigidity. The patient's vitals were reviewed with temperature 98.0F. The psychiatrist reconsignment clerk was notified, Ativan IV push 2 mg was ordered. Recommend close monitoring for development of hyperpyrexia and possible neuroleptic malignant syndrome. Stat labs also ordered for possible rhabdomyolysis and acute kidney injury. The patient's internal medicine consulting physician also notified by the mental health unit RN. Face to Face Eval of Restraint Date: 09/04/21 Face to Face Eval of Restraint Time: 22:10
[2021-09-04 23:37] LABS: HCT 38.4 % (34.0-46.0); HGB 12.2 gm/dL (11.4-16.0); MCH 31.5 pg (25.0-35.0); MCHC 31.8 g/dL (31.0-37.0); MCV 98.9 fL (80.0-100.0); Mean Platelet Volume 7.1; Platelet Count 235 k/uL (150-450); RBC 3.88 m/uL (3.80-5.40); RDW 11.8 % (11.5-15.5); WBC 9.1 k/uL (3.8-10.6)
[2021-09-04 23:54] LABS: Albumin 3.9 g/dL (3.5-5.0); Calcium 9.7 mg/dL (8.4-10.2); Magnesium 1.8 mg/dL (1.6-2.3); Total Bilirubin 0.5 mg/dL (0.2-1.3); Total Protein 6.6 g/dL (6.3-8.2)
[2021-09-05] MEDS ORDERED: LORazepam 2 MG/ML INJ IV STA (00:29)
[2021-09-05] MEDS: PALIPERIDONE 3 MG TAB.ER.24 PO SCH (05:27)
[2021-09-05] MEDS: DEXTROSE 5% IN WATER 1,000 ML IV SCH (05:37)
[2021-09-05] MEDS ORDERED: LORazepam 2 MG/ML INJ IV SCH (06:00)
[2021-09-05] MEDS: DIVALPROEX ER 500 MG TAB.ER.24H PO SCH (09:24)
--- NOTE | 2021-09-05 12:02 | P.PN ---
Progress Note - Text Progress Note Date: 09/05/21 - Chief Complaint Hyperactive Hospital course This is a pleasant 76-year-old patient who follows with Dr. Ferdinand Shelton. Chronic stable medical conditions include goiter that has been worked up, chronic kidney disease, insomnia, bipolar disorder. Patient is brought into the ER with her daughter for being very hyperactive pacing up and down not sleeping. Appetite has been okay. No change in bowel pattern. No fever no chills. Patient admitted with bipolar disorder/manic episode. September 03: Patient was sedated with Ativan earlier today.This afternoon patient is very anxious delirious. Walking the hallways. Holding onto people. Would n ot answer any questions straight. September 04: Patient has been in restraints. Not eating drinking since yesterday at least. Overnight given 2 L of IV fluids. IV fluids started. D5W. Patient is very restless. Delirious. Saying words sentences repetitively. In restraints. September 05: Patient has remained in restraints. Has a sitter. Iate about 25% this morning. Being given Ativan. Fluids reorder that D545 at 100 mL an hour. Some elevation in CPK. Clinically not felt to be neuroleptic malignant syndrome. No fever. Elevated blood pressure recorded previously likely from agitation/restlessness. Active Medications Acetaminophen (Acetaminophen Tab 325 Mg Tab) 650 mg PO Q4HR PRN PRN Reason: Pain/Discomfort Al Hydroxide/Mg Hydroxide (Mag Hydrox/Al Hydrox/Simeth 30 Ml Cup) 30 ml PO Q4HR PRN PRN Reason: GI Upset Cholecalciferol (Cholecalciferol 25 Mcg (1000 Iu) Tablet) 25 mcg PO DAILY@1200 [facility] Last Admin: 09/04/21 07:58 Dose: Not Given Documented by: Clonidine HCl (Clonidine 0.1 Mg/24hr Patch) 1 patch TRANSDERM Q7D [facility] [place] Last Admin: 09/04/21 17:16 Dose: 1 patch Documented by: Dextrose/Sodium Chloride (Dextrose 5%-1/2ns Iv Soln) 1,000 mls @ 100 mls/hr IV .Q10H [facility] Lorazepam (Lorazepam 2 Mg/Ml Inj) 1 mg IV Q8HR [facility] Magnesium Hydroxide (Magnesium Hydroxide 2,400 Mg/10 Ml Cup) 2,400 mg PO DAILY PRN PRN Reason: Constipation Mirtazapine (Mirtazapine 15 Mg Tab) 30 mg PO HS [facility] Last Admin: 09/04/21 21:23 Dose: Not Given Documented by: Olanzapine (Olanzapine 10 Mg Vial) 7.5 mg IM TID PRN PRN Reason: Agitation Last Admin: 09/04/21 22:07 Dose: 7.5 mg Documented by: Olanzapine (Olanzapine 7.5 Mg Tab) 7.5 mg PO TID PRN PRN Reason: Agitation Paliperidone (Paliperidone 3 Mg Tab.Er.24) 3 mg PO HS [facility] [place] [place] Valproic Acid (Valproic Acid Oral Soln 250 Mg/5 Ml Cup) 250 mg PO BID [facility] Ziprasidone (Ziprasidone 20 Mg Vial) 20 mg IM BID PRN PRN Reason: Agitation or Acute Psychosis Last Admin: 09/04/21 18:45 Dose: 20 mg Documented by: Past medical history to include: Goiter, bipolar disorder, chronic kidney disease Social history: This daughter. Alcohol occasionally. No smoking. Family history: CAD, diabetes Physical examination: VITAL SIGNS: 97.6, 95, 16, 138/72, 97% room air GENERAL: More relaxed, sleepy, in restraints EYES: Pupils equal. Conjunctiva normal. HEENT: External appearance of nose and ears normal, oral cavity dry NECK: JVD not raised; masses not palpable. HEART: First and second heart sounds are normal; no edema. LUNGS: Respiratory rate normal; clear to auscultation. ABDOMEN: Soft, nontender, liver spleen not palpable, no masses palpable. PSYCH: Sleepy MUSCULOSKELETAL:No Clubbing/cyanosis;muscles-grossly intact. Evidence of OA especially in the hands INVESTIGATIONS, reviewed in the clinical context: September 04: Potassium 4 BUN 20 creatinine 1.38 CPK 1027 UA: Unremarkable Urine drug screen: Negative BUN 33 creatinine 1.54. TSH 1.8 White count 6.6 hemoglobin 13.2 platelets 274 sodium 140 potassium 4.2 and 39 creatinine 1.71 and 3 TSH 0.401 COVID 19: Not detected Assessment and plan: -Bipolar disorder, manic episode: Uncontrolled Being followed by psychiatry. Under restraints -Acute delirium, multifactorial, uncontrolled -Acute rhabdomyolysis: Slow to respond Continue IV fluids -Chronic kidney disease, stage III likely nephrosclerosis -Acute kidney injury from dehydration from not taking oral: Slow to respond IV fluids D5.45. 100 mL an hour. -Hypertension with chronic kidney disease Catapres patch as patient not taking oral medications -Insomnia from underlying psychiatry disorder Remeron -Irritable bowel syndrome Bentyl D5 0.45 at 100 mL an hour.Catapres 0.1 patch. Pending labs from today. Ativan when necessary. Continue sitter. Thank you Dr. Vaughn
[2021-09-05] MEDS: VALPROIC ACID ORAL SOLN 250 MG/5 ML CUP PO SCH ×3 (12:03→21:00)
[2021-09-05] MEDS: CHOLECALCIFEROL 25 MCG (1000 IU) TABLET PO SCH ×2 (12:03→13:53)
--- NOTE | 2021-09-05 12:03 | P.PN ---
Progress Note - Text Progress Note Date: 09/05/21 Interval History: Patient was seen this morning for psychiatric follow-up. Patient was in restr aints for most of yesterday up until the late evening due to agitation and inability to be redirected. Patient was repeating several phrases over and over again. She was also pulling at restraints. Patient was given several prn meds without much improvement. Patient ended up being given 2 mg of Ativan last night IV push which improved her mental status and patient was released from restraints. Patient also began drinking water and eating. She was also noted to be not pacing any longer. She was seen today by medical writer continues to have a one-to-one sitter. She was laying in the seclusion room which was unlocked and no restraints. Patient was agreeable to speak to medical writer however he did not know who he was. She knew her full name however does not know today's date or where she is. She attempted to answer most questions however did appear to be somewhat lethargic. She denied any complaints or concerns. Denying any depression or anxiety. Followed most commands. Improvement in attention span and concentration. Improvement in eye contact today. She is denying any suicidal or homicidal ideations intent or plan. She is denying any auditory or visual hallucinations. Mental Status Exam: General Appearance: Patient appears to be elderly, somewhat lethargic, laying in bed, thin. Behavior: Laying in bed, no agitation. Speech: Patient's speech is easier to understand today. [place]. Mood/Affect: Denies any depression or anxiety. Affect is constricted. Suicidality/Homicidality: Denies any suicidal or homicidal ideations intent or plan. Perceptions: Denies any auditory or visual hallucinations. Though content/process: [place], poverty of content. More logical. Not endorsing any paranoia or delusions. Memory and concentration: Followed most commands today. Improvement in concentration. Alert and oriented 1, only knows her name. Judgment and insight: Limited, improving markedly Assessment Catatonia, excited type Bipolar disorder, cheryle Plan: -Patient continues to meet criteria for inpatient psychiatric admission for symptom stabilization and safety. Patient has signed adult voluntary form and medication consent and was placed in patient's chart. -Medications: Remeron 30 mg daily at bedtime for mood/anxiety/sleep. added Depakene 250 mg BID for mood stabilization. paliperidone 3 mg changed to qhs for psychosis/mood stabilization. decreased Ativan IVP to 1 mg q8hr scheduled for treatment of catatonia, will likely continue this throughout the weekend and consider titrating down very slowly. -When necessary Zyprexa and Geodon for agitation/aggression. -NRT - not needed as patient does not smoke. -SW on board for discharge planning. Encouraged the patient to participate in milieu. awaiting court and deferral date.
[2021-09-05 12:14] LABS: Albumin 3.9 g/dL (3.5-5.0); Potassium 4.7 mmol/L (3.5-5.1); Total Bilirubin 0.5 mg/dL (0.2-1.3); Total Protein 6.6 g/dL (6.3-8.2)
[2021-09-05] MEDS: DEXTROSE 5%-0.45% NACL 1,000 ML IV SCH (13:11)
[2021-09-05] MEDS: LORazepam 2 MG/ML INJ IV SCH ×2 (16:59→23:47)
[2021-09-05] MEDS ORDERED: PALIPERIDONE 3 MG TAB.ER.24 PO SCH (21:00)
[2021-09-05] MEDS: MIRTAZAPINE 15 MG TAB PO SCH (21:00)
[2021-09-06] MEDS: DEXTROSE 5%-0.45% NACL 1,000 ML IV SCH ×2 (01:17→14:21)
[2021-09-06 08:45] LABS: Calcium 9.5 mg/dL (8.4-10.2); Potassium 4.5 mmol/L (3.5-5.1)
[2021-09-06] MEDS: LORazepam 2 MG/ML INJ IV SCH ×4 (08:48→23:29)
[2021-09-06] MEDS: VALPROIC ACID ORAL SOLN 250 MG/5 ML CUP PO SCH ×2 (08:50→23:28)
--- NOTE | 2021-09-06 10:18 | P.PN ---
Subjective Progress Note Date: 09/06/21 Principal diagnosis: Bipolar disorder by history Major neurocognitive disorder/delirium? Rule out Catatonia Subjective data:/Subjective data The patient is unable to participate in any interaction I was called in by the nursing staff where 3 of the nursing staff are monitoring the patient and patient remains on one-to-one observation The patient exhibits some resistance for any movement of her extremities She seemed to be making some guttural sounds but appears preoccupied Patient appears delirious and not interested with the reality or her surroundings Patient's formal and operational judgment and insight remains poor Diagnostic impression: Major neurocognitive disorder/delirium? EPS? Plan: We'll hold off on the antipsychotics at this time since patient received the paliperidone for the first time Continue Ativan as prescribed patient was just given 1 mg of IV push We'll also add Cogentin 1 mg twice a day by mouth or IM although needs to be used cautiously as it may had further to the mental confusion Patient may be a candidate for transfer to the medical [facility] Objective - Vital Signs Vital signs: Vital Signs Temp 98.4 F 09/06/21 07:08 Pulse 102 H 09/06/21 07:08 Resp 20 09/05/21 11:30 BP 126/60 09/06/21 07:08 Pulse Ox 94 L 09/06/21 07:08 Intake & Output 09/05/21 09/06/21 09/06/21 18:59 06:59 18:59 Intake Total 1979 Balance 1979 Weight 46.266 kg Intake: IV 1979 Invasive Line 1 1979 - Labs CBC & Chem 7: 09/04/21 23:29 09/06/21 07:09 Labs: Abnormal Lab Results - Last 24 Hours (Table) 09/05/21 09/06/21 Range/Units 11:37 07:09 Chloride 108 H 115 H (98-107) mmol/L BUN 34 H 41 H (7-17) mg/dL Creatinine 1.64 H 1.58 H (0.52-1.04) mg/dL Glucose 103 H 110 H (74-99) mg/dL Creatine Kinase 675 H 332 H (30-135) U/L
[2021-09-06] MEDS ORDERED: BENZTROPINE 2 MG/2 ML AMP IM STA (10:31)
[2021-09-06] MEDS ORDERED: LORazepam 2 MG/ML INJ IV STA (11:19)
[2021-09-06] MEDS: CHOLECALCIFEROL 25 MCG (1000 IU) TABLET PO SCH (13:46)
--- NOTE | 2021-09-06 15:47 | P.PN ---
Progress Note - Text Progress Note Date: 09/06/21 - Chief Complaint Hyperactive Hospital course This is a pleasant 76-year-old patient who follows with Dr. Ferdinand Shelton. Chronic stable medical conditions include goiter that has been worked up, chronic kidney disease, insomnia, bipolar disorder. Patient is brought into the ER with her daughter for being very hyperactive pacing up and down not sleeping. Appetite has been okay. No change in bowel pattern. No fever no chills. Patient admitted with bipolar disorder/manic episode. September 03: Patient was sedated with Ativan earlier today.This afternoon patient is very anxious delirious. Walking the hallways. Holding onto people. Would n ot answer any questions straight. September 04: Patient has been in restraints. Not eating drinking since yesterday at least. Overnight given 2 L of IV fluids. IV fluids started. D5W. Patient is very restless. Delirious. Saying words sentences repetitively. In restraints. September 05: Patient has remained in restraints. Has a sitter. Iate about 25% this morning. Being given Ativan. Fluids reorder that D545 at 100 mL an hour. Some elevation in CPK. Clinically not felt to be neuroleptic malignant syndrome. No fever. Elevated blood pressure recorded previously likely from agitation/restlessness. September 06: Patient has a sitter. Out of restraints. Has been receiving Ativan. Patient is able to sit up at the edge of the bed. Sleepy. Answering occasional question. Was able to feed the patient 1 couple of custard. Took some apple juice. the patient set up in the chair. Continue with IV fluid as oral intake is insufficient. Discussed the staff to give oral intake spaced out. Active Medications Acetaminophen (Acetaminophen Tab 325 Mg Tab) 650 mg PO Q4HR PRN PRN Reason: Pain/Discomfort Al Hydroxide/Mg Hydroxide (Mag Hydrox/Al Hydrox/Simeth 30 Ml Cup) 30 ml PO Q4HR PRN PRN Reason: GI Upset Cholecalciferol (Cholecalciferol 25 Mcg (1000 Iu) Tablet) 25 mcg PO DAILY@1200 [facility] Last Admin: 09/06/21 13:46 Dose: Not Given Documented by: Clonidine HCl (Clonidine 0.1 Mg/24hr Patch) 1 patch TRANSDERM Q7D [facility] [place] Last Admin: 09/04/21 17:16 Dose: 1 patch Documented by: Dextrose/Sodium Chloride (Dextrose 5%-1/2ns Iv Soln) 1,000 mls @ 100 mls/hr IV .Q10H [facility] Last Admin: 09/06/21 14:21 Dose: 100 mls/hr Documented by: Lorazepam (Lorazepam 2 Mg/Ml Inj) 2 mg IV Q8HR [facility] [place] Last Admin: 09/06/21 15:08 Dose: 2 mg Documented by: Magnesium Hydroxide (Magnesium Hydroxide 2,400 Mg/10 Ml Cup) 2,400 mg PO DAILY PRN PRN Reason: Constipation Mirtazapine (Mirtazapine 15 Mg Tab) 30 mg PO HS [facility] [place] [place] Last Admin: 09/05/21 21:00 Dose: 30 mg Documented by: Olanzapine (Olanzapine 10 Mg Vial) 7.5 mg IM TID PRN PRN Reason: Agitation Last Admin: 09/04/21 22:07 Dose: 7.5 mg Documented by: Olanzapine (Olanzapine 7.5 Mg Tab) 7.5 mg PO TID PRN PRN Reason: Agitation Valproic Acid (Valproic Acid Oral Soln 250 Mg/5 Ml Cup) 250 mg PO BID [facility] [place] Last Admin: 09/06/21 08:50 Dose: 250 mg Documented by: Ziprasidone (Ziprasidone 20 Mg Vial) 20 mg IM BID PRN PRN Reason: Agitation or Acute Psychosis Last Admin: 09/04/21 18:45 Dose: 20 mg Documented by: Past medical history to include: Goiter, bipolar disorder, chronic kidney disease Social history: This daughter. Alcohol occasionally. No smoking. Family history: CAD, diabetes Physical examination: VITAL SIGNS: 98.4, 16, 105, 22, 126/60, 94% GENERAL: Sitting edge edge of bed, tired sleepy EYES: Pupils equal. Conjunctiva normal. HEENT: External appearance of nose and ears normal, oral cavity dry NECK: JVD not raised; masses not palpable. HEART: First and second heart sounds are normal; no edema. LUNGS: Respiratory rate normal; clear to auscultation. ABDOMEN: Soft, nontender, liver spleen not palpable, no masses palpable. PSYCH: May answer occasional question. 6 lethargic MUSCULOSKELETAL:No Clubbing/cyanosis;muscles-grossly intact. Evidence of OA especially in the hands INVESTIGATIONS, reviewed in the clinical context: September 06: Potassium 4.5 BUN 41 and creatinine 1.58 CPK 332 September 04: Potassium 4 BUN 20 creatinine 1.38 CPK 1027 UA: Unremarkable Urine drug screen: Negative BUN 33 creatinine 1.54. TSH 1.8 White count 6.6 hemoglobin 13.2 platelets 274 sodium 140 potassium 4.2 and 39 creatinine 1.71 and 3 TSH 0.401 COVID 19: Not detected Assessment and plan: -Bipolar disorder, manic episode: Being followed by psychiatry. Restraints discontinued -Acute delirium, multifactorial, uncontrolled -Acute rhabdomyolysis: Improved Continue IV fluids -Chronic kidney disease, stage III likely nephrosclerosis -Acute kidney injury from dehydration from not taking oral: IV fluids D5.45. 100 mL an hour. -Hypertension with chronic kidney disease Catapres patch as patient not taking oral medications -Insomnia from underlying psychiatry disorder Remeron -Irritable bowel syndrome Bentyl Continue D5 0.45 at 100 mL an hour.Catapres 0.1 patch. Will keep the IV fluids going to oral intake is adequate. This should improve with aspiration psychiatry condition improves. Thank you Dr. Vaughn
[2021-09-06] MEDS ORDERED: LORazepam 2 MG/ML INJ IV SCH (16:00)
[2021-09-06] MEDS: MIRTAZAPINE 15 MG TAB PO SCH (23:27)
[2021-09-07] MEDS: LORazepam 2 MG/ML INJ IV SCH ×3 (01:21→11:17)
[2021-09-07] MEDS: DEXTROSE 5%-0.45% NACL 1,000 ML IV SCH ×3 (02:56→15:25)
[2021-09-07] MEDS: CHOLECALCIFEROL 25 MCG (1000 IU) TABLET PO SCH (10:10)
[2021-09-07] MEDS: VALPROIC ACID ORAL SOLN 250 MG/5 ML CUP PO SCH ×2 (10:10→20:37)
--- NOTE | 2021-09-07 10:42 | P.PN ---
Progress Note - Text Progress Note Date: 09/07/21 - Chief Complaint Hyperactive Hospital course This is a pleasant 76-year-old patient who follows with Dr. Ferdinand Shelton. Chronic stable medical conditions include goiter that has been worked up, chronic kidney disease, insomnia, bipolar disorder. Patient is brought into the ER with her daughter for being very hyperactive pacing up and down not sleeping. Appetite has been okay. No change in bowel pattern. No fever no chills. Patient admitted with bipolar disorder/manic episode. September 03: Patient was sedated with Ativan earlier today.This afternoon patient is very anxious delirious. Walking the hallways. Holding onto people. Would n ot answer any questions straight. September 04: Patient has been in restraints. Not eating drinking since yesterday at least. Overnight given 2 L of IV fluids. IV fluids started. D5W. Patient is very restless. Delirious. Saying words sentences repetitively. In restraints. September 05: Patient has remained in restraints. Has a sitter. Iate about 25% this morning. Being given Ativan. Fluids reorder that D545 at 100 mL an hour. Some elevation in CPK. Clinically not felt to be neuroleptic malignant syndrome. No fever. Elevated blood pressure recorded previously likely from agitation/restlessness. September 06: Patient has a sitter. Out of restraints. Has been receiving Ativan. Patient is able to sit up at the edge of the bed. Sleepy. Answering occasional question. Was able to feed the patient 1 couple of custard. Took some apple juice. the patient set up in the chair. Continue with IV fluid as oral intake is insufficient. Discussed the staff to give oral intake spaced out. September 07: Patient has been receiving Ativan. Sleepy this morning. Sitter in place. I help set up the patient edge of the bed. Used to washcloth to wipe her. Nursing staff present. Was able to feed her a couple of custard and a couple of Magic cup. She also took her medications. Drinks water. Plan to have the patient sit up in a chair. Supervised. Active Medications Acetaminophen (Acetaminophen Tab 325 Mg Tab) 650 mg PO Q4HR PRN PRN Reason: Pain/Discomfort Al Hydroxide/Mg Hydroxide (Mag Hydrox/Al Hydrox/Simeth 30 Ml Cup) 30 ml PO Q4HR PRN PRN Reason: GI Upset Cholecalciferol (Cholecalciferol 25 Mcg (1000 Iu) Tablet) 25 mcg PO DAILY@1200 [facility] Last Admin: 09/07/21 10:10 Dose: 25 mcg Documented by: Clonidine HCl (Clonidine 0.1 Mg/24hr Patch) 1 patch TRANSDERM Q7D [facility] Last Admin: 09/04/21 17:16 Dose: 1 patch Documented by: Dextrose/Sodium Chloride (Dextrose 5%-1/2ns Iv Soln) 1,000 mls @ 100 mls/hr IV .Q10H [facility] Last Admin: 09/07/21 05:47 Dose: 100 mls/hr Documented by: Lorazepam (Lorazepam 2 Mg/Ml Inj) 1 mg IV Q4H [facility] Last Admin: 09/07/21 06:42 Dose: 1 mg Documented by: Magnesium Hydroxide (Magnesium Hydroxide 2,400 Mg/10 Ml Cup) 2,400 mg PO DAILY PRN PRN Reason: Constipation Mirtazapine (Mirtazapine 15 Mg Tab) 30 mg PO HS [facility] Last Admin: 09/06/21 23:27 Dose: Not Given Documented by: Olanzapine (Olanzapine 10 Mg Vial) 7.5 mg IM TID PRN PRN Reason: Agitation Last Admin: 09/04/21 22:07 Dose: 7.5 mg Documented by: Olanzapine (Olanzapine 7.5 Mg Tab) 7.5 mg PO TID PRN PRN Reason: Agitation Valproic Acid (Valproic Acid Oral Soln 250 Mg/5 Ml Cup) 250 mg PO BID [facility] Last Admin: 09/07/21 10:10 Dose: 250 mg Documented by: Ziprasidone (Ziprasidone 20 Mg Vial) 20 mg IM BID PRN PRN Reason: Agitation or Acute Psychosis Last Admin: 09/04/21 18:45 Dose: 20 mg Documented by: Past medical history to include: Goiter, bipolar disorder, chronic kidney disease Social history: This daughter. Alcohol occasionally. No smoking. Family history: CAD, diabetes Physical examination: VITAL SIGNS: 98.9, 109, 15, 135-79, 97% room air GENERAL: Sitting edge of bed, tired EYES: Pupils equal. Conjunctiva normal. HEENT: External appearance of nose and ears normal, oral cavity dry NECK: JVD not raised; masses not palpable. HEART: First and second heart sounds are normal; no edema. LUNGS: Respiratory rate normal; clear to auscultation. ABDOMEN: Soft, nontender, liver spleen not palpable, no masses palpable. PSYCH: Tired. Attempting to answer. MUSCULOSKELETAL:No Clubbing/cyanosis;muscles-grossly intact. Evidence of OA especially in the hands INVESTIGATIONS, reviewed in the clinical context: September 06: Potassium 4.5 BUN 41 and creatinine 1.58 CPK 332 September 04: Potassium 4 BUN 20 creatinine 1.38 CPK 1027 UA: Unremarkable Urine drug screen: Negative BUN 33 creatinine 1.54. TSH 1.8 White count 6.6 hemoglobin 13.2 platelets 274 sodium 140 potassium 4.2 and 39 creatinine 1.71 and 3 TSH 0.401 COVID 19: Not detected Assessment and plan: -Bipolar disorder, manic episode: Being followed by psychiatry. -Acute delirium, multifactorial, uncontrolled Also note patient has been getting Ativan. -Acute rhabdomyolysis: Improved Continue IV fluids -Chronic kidney disease, stage III likely nephrosclerosis -Acute kidney injury from dehydration from not taking oral: IV fluids D5.45. 100 mL an hour. -Hypertension with chronic kidney disease Catapres patch as patient not taking oral medications -Insomnia from underlying psychiatry disorder Remeron -Irritable bowel syndrome Bentyl Continue D5 0.45 at 100 mL an hour.Catapres 0.1 patch. Continue IV fluids to the patient doesn't get back to her baseline eating. Would recommend scheduling dose of Valium 1 mg twice daily. though its long-acting and uses Ativan 0.5 mg IV when necessary on a smaller dose. Discussed with last night. Thank you
--- NOTE | 2021-09-07 11:01 | P.PN ---
Subjective Progress Note Date: 09/07/21 Principal diagnosis: Bipolar disorder by history Major neurocognitive disorder/delirium? Rule out Catatonia Subjective data:/Subjective data The patient responded when addressed Responses were weak and superficial Patient states that she was aware that she was at home Patient was unable to recognize this rewriter or the nursing staff She does not volunteer any other information but continues to stare Staff reports that the patient slept most of the night and was not experiencing any muscle stiffness or any agitation or aggression Diagnostic impression: Major neurocognitive disorder/delirium? EPS? Plan: We'll hold off on the antipsychotics at this time since patient received the paliperidone for the first time Continue Ativan as prescribed Had discussed the case with the process development technician makeup sales consultant where concern was raised about the patient having to be held by to nursing staff for several hours due to her agitation and that she would be better served on the medical floor where he could use soft restraints The process development technician however wanted to possibly supply a medical bed to be sent to or floor for such use I also discussed the case with Considering the severe form of mental status changes with with the different antipsychotics that have already been used the patient is a high risk for EPS and an NMS She may be a good candidate for ECT Meantime would recommend continuation of treatment with benzodiazepines and mood stabilizers Otoniel Noble M.D. 09/07/2021 Objective - Vital Signs Vital signs: Vital Signs Temp 98.9 F 09/07/21 10:32 Pulse 109 H 09/07/21 10:32 Resp 15 09/07/21 10:32 BP 135/79 09/07/21 10:32 Pulse Ox 97 09/07/21 10:32 Intake & Output 09/06/21 09/07/21 09/07/21 18:59 06:59 18:59 Intake Total 700 Balance 700 Intake: IV 700 Invasive Line 1 700 - Labs CBC & Chem 7: 09/04/21 23:29 09/06/21 07:09
[2021-09-07] MEDS ORDERED: LORazepam 2 MG/ML INJ IV PRN (11:31)
[2021-09-07] MEDS ORDERED: LORazepam 2 MG/ML INJ IM PRN ×2 (12:36)
[2021-09-07 13:31] LABS: Albumin 3.1 g/dL (3.5-5.0); Calcium 9.2 mg/dL (8.4-10.2); Potassium 4.3 mmol/L (3.5-5.1); Total Bilirubin 0.4 mg/dL (0.2-1.3); Total Protein 5.7 g/dL (6.3-8.2)
[2021-09-07] MEDS: LORazepam 1 MG TAB PO PRN (18:02)
[2021-09-07] MEDS ORDERED: LORazepam 2 MG/ML INJ IV STA ×2 (19:54→20:15)
[2021-09-07] MEDS: MIRTAZAPINE 15 MG TAB PO SCH (20:37)
[2021-09-08] MEDS ORDERED: diazePAM 2 MG TAB PO SCH (11:32)
--- NOTE | 2021-09-08 12:09 | P.PN ---
Progress Note - Text Progress Note Date: 09/08/21 Interval History: Patient was seen this morning for psychiatric follow-up. Patient was sitting at her bed side and eating breakfast. She was eating very slowly and having a difficult time putting the grill cheese in her mouth. Patient continued to be chewing. She did acknowledge marketing copywriter briefly however was staring mainly at her plate. She is having a flat affect and very minimal responses to patient's questions. She did state her name however believes that she is in [place]. She is denying any auditory or visual hallucinations. She is denying any suicidal or homicidal ideations intent or plan. marketing copywriter spoke with patients daughter Mary over the phone who expressed her concerns and asked several questions about patient's treatment. Flight Nurse explained the treatment and her hospitalization and the waxing and waning course of improvement versus setbacks. Flight Nurse also explained the benefits and the risks of ECT however patient's daughter states that she does not want her to go through with that. I also spoke about the potential of guardianship and patient's daughter states that she will be filing for guardianship soon. Mental Status Exam: General Appearance: Patient appears to be elderly, somewhat lethargic, sitting at the side of the bed, thin. Behavior: Sitting on her bed, no agitation. Speech: Patient's speech is easier to understand today. [place]. Poverty of content. Soft tone Mood/Affect: Denies any depression or anxiety. Affect is constricted. Suicidality/Homicidality: Denies any suicidal or homicidal ideations intent or plan. Perceptions: Denies any auditory or visual hallucinations. Though content/process: Mineral, poverty of content. Memory and concentration: Followed some commands today. Alert and oriented 1, believes that she is in [place], only knows her name. Does not know today's date. Judgment and insight: Limited, improving mildly Assessment Catatonia, excited type Bipolar disorder, cheryle Plan: -Patient continues to meet criteria for inpatient psychiatric admission for symptom stabilization and safety. Patient has signed adult voluntary form and medication consent and was placed in patient's chart. -Medications: Increase Depakene 250 mg daily + 375 mg qhs for mood stabilization. continue with Ativan IVP to 1 mg q4hr PRN for treatment of catatonia. added Valium 2 mg tid for catatonia. -When necessary Zyprexa and Geodon for agitation/aggression. -NRT - not needed as patient does not smoke. -SW on board for discharge planning. Encouraged the patient to participate in milieu. court date set for september 17, deferral with front end loader operator today. Patient daughter does not want patient to go through ECT and wants to continue on with medical management.
[2021-09-08] MEDS: DEXTROSE 5%-0.45% NACL 1,000 ML IV SCH ×3 (15:42→22:44)
[2021-09-08] MEDS: CHOLECALCIFEROL 25 MCG (1000 IU) TABLET PO SCH (15:43)
[2021-09-08] MEDS: VALPROIC ACID ORAL SOLN 250 MG/5 ML CUP PO SCH ×2 (15:49→21:52)
--- NOTE | 2021-09-08 16:31 | P.PN ---
Progress Note - Text Progress Note Date: 09/08/21 - Chief Complaint Hyperactive Hospital course This is a pleasant 76-year-old patient who follows with Dr. Ferdinand Shelton. Chronic stable medical conditions include goiter that has been worked up, chronic kidney disease, insomnia, bipolar disorder. Patient is brought into the ER with her daughter for being very hyperactive pacing up and down not sleeping. Appetite has been okay. No change in bowel pattern. No fever no chills. Patient admitted with bipolar disorder/manic episode. September 03: Patient was sedated with Ativan earlier today.This afternoon patient is very anxious delirious. Walking the hallways. Holding onto people. Would n ot answer any questions straight. September 04: Patient has been in restraints. Not eating drinking since yesterday at least. Overnight given 2 L of IV fluids. IV fluids started. D5W. Patient is very restless. Delirious. Saying words sentences repetitively. In restraints. September 05: Patient has remained in restraints. Has a sitter. Iate about 25% this morning. Being given Ativan. Fluids reorder that D545 at 100 mL an hour. Some elevation in CPK. Clinically not felt to be neuroleptic malignant syndrome. No fever. Elevated blood pressure recorded previously likely from agitation/restlessness. September 06: Patient has a sitter. Out of restraints. Has been receiving Ativan. Patient is able to sit up at the edge of the bed. Sleepy. Answering occasional question. Was able to feed the patient 1 couple of custard. Took some apple juice. the patient set up in the chair. Continue with IV fluid as oral intake is insufficient. Discussed the staff to give oral intake spaced out. September 07: Patient has been receiving Ativan. Sleepy this morning. Sitter in place. I help set up the patient edge of the bed. Used to washcloth to wipe her. Nursing staff present. Was able to feed her a couple of custard and a couple of Magic cup. She also took her medications. Drinks water. Plan to have the patient sit up in a chair. Supervised. September 08: Patient has been more restful. Not agitated. Has a sitter. Eating somewhat better. Sleepy. Discussed with Dr. Vaughn. Valium 2 mg twice a day. Will DC IV fluids later today. Also discussed with the nurse. Has a patient sit up in a chair. Supervised. Active Medications Acetaminophen (Acetaminophen Tab 325 Mg Tab) 650 mg PO Q4HR PRN PRN Reason: Pain/Discomfort Al Hydroxide/Mg Hydroxide (Mag Hydrox/Al Hydrox/Simeth 30 Ml Cup) 30 ml PO Q4HR PRN PRN Reason: GI Upset Cholecalciferol (Cholecalciferol 25 Mcg (1000 Iu) Tablet) 25 mcg PO DAILY@1200 [facility] Last Admin: 09/08/21 15:43 Dose: Not Given Documented by: Clonidine HCl (Clonidine 0.1 Mg/24hr Patch) 1 patch TRANSDERM Q7D COUNT INCLUDES THE [facility] Last Admin: 09/04/21 17:16 Dose: 1 patch Documented by: Diazepam (Diazepam 2 Mg Tab) 2 mg PO BID COUNT INCLUDES THE [facility] Dextrose/Sodium Chloride (Dextrose 5%-1/2ns Iv Soln) 1,000 mls @ 100 mls/hr IV .Q10H COUNT INCLUDES THE [facility] Last Admin: 09/08/21 15:44 Dose: Not Given Documented by: Lorazepam (Lorazepam 2 Mg/Ml Inj) 1 mg IV Q4H PRN PRN Reason: Agitation or Acute Anxiety Last Admin: 09/08/21 05:50 Dose: 1 mg Documented by: Lorazepam (Lorazepam 2 Mg/Ml Inj) 1 mg IM Q4HR PRN PRN Reason: Agitation or Acute Anxiety Lorazepam (Lorazepam 1 Mg Tab) 1 mg PO Q4HR PRN PRN Reason: Agitation or Acute Anxiety Last Admin: 09/07/21 18:02 Dose: 1 mg Documented by: Magnesium Hydroxide (Magnesium Hydroxide 2,400 Mg/10 Ml Cup) 2,400 mg PO DAILY PRN PRN Reason: Constipation Mirtazapine (Mirtazapine 15 Mg Tab) 30 mg PO HS COUNT INCLUDES THE [facility] Last Admin: 09/07/21 20:37 Dose: 30 mg Documented by: Olanzapine (Olanzapine 7.5 Mg Tab) 7.5 mg PO TID PRN PRN Reason: Agitation Valproic Acid (Valproic Acid Oral Soln 250 Mg/5 Ml Cup) 375 mg PO HS COUNT INCLUDES THE [facility] Valproic Acid (Valproic Acid Oral Soln 250 Mg/5 Ml Cup) 250 mg PO DAILY COUNT INCLUDES THE [facility] Ziprasidone (Ziprasidone 20 Mg Vial) 20 mg IM BID PRN PRN Reason: Agitation or Acute Psychosis Last Admin: 09/04/21 18:45 Dose: 20 mg Documented by: Past medical history to include: Goiter, bipolar disorder, chronic kidney disease Social history: This daughter. Alcohol occasionally. No smoking. Family history: CAD, diabetes Physical examination: VITAL SIGNS: 97.1, 98, 16, 1:30 (76, 95% room air GENERAL: Laying in bed, a bit sleepy EYES: Pupils equal. Conjunctiva normal. HEENT: External appearance of nose and ears normal, oral cavity dry NECK: JVD not raised; masses not palpable. HEART: First and second heart sounds are normal; no edema. LUNGS: Respiratory rate normal; clear to auscultation. ABDOMEN: Soft, nontender, liver spleen not palpable, no masses palpable. PSYCH: Tired. Attempting to answer. MUSCULOSKELETAL:No Clubbing/cyanosis;muscles-grossly intact. Evidence of OA especially in the hands INVESTIGATIONS, reviewed in the clinical context: September 07: Vaginal 4.3 creatinine 1.44 September 06: Potassium 4.5 BUN 41 and creatinine 1.58 CPK 332 September 04: Potassium 4 BUN 20 creatinine 1.38 CPK 1027 UA: Unremarkable Urine drug screen: Negative BUN 33 creatinine 1.54. TSH 1.8 White count 6.6 hemoglobin 13.2 platelets 274 sodium 140 potassium 4.2 and 39 creatinine 1.71 and 3 TSH 0.401 COVID 19: Not detected Assessment and plan: -Bipolar disorder, manic episode: Being followed by psychiatry. -Acute delirium, multifactorial, some improvement Valium 2 mg twice a day added. -Acute rhabdomyolysis: Improved Continue IV fluids -Chronic kidney disease, stage III likely nephrosclerosis -Acute kidney injury from dehydration from not taking oral: IV fluids D5.45. 100 mL an hour. -Hypertension with chronic kidney disease Catapres patch as patient not taking oral medications -Insomnia from underlying psychiatry disorder Remeron -Irritable bowel syndrome Bentyl DC IV for this later today. Continue with supervised oral intake. Up in chair as tolerated. Valium 2 mg twice a day. Discussed with Dr. Vaughn. Also discussed at length with the nurse. Total time spent about 40 minutes with over 20 minutes of discussion. Thank you
[2021-09-08] MEDS: diazePAM 2 MG TAB PO SCH (21:52)
[2021-09-08] MEDS: MIRTAZAPINE 15 MG TAB PO SCH (21:52)
[2021-09-09] MEDS ORDERED: VALPROIC ACID ORAL SOLN 250 MG/5 ML CUP PO SCH (09:00)
[2021-09-09] MEDS: diazePAM 2 MG TAB PO SCH ×2 (09:14→20:49)
--- NOTE | 2021-09-09 10:27 | P.PN ---
Progress Note - Text Progress Note Date: 09/09/21 Interval History: Patient was seen this morning for psychiatric follow-up. Patient was sitting at her bed side looking at the floor. She was somewhat responsive to inspector automatic typewriter however did not follow many commands. She did not respond to questions today. She appeared to mildly restless and was trying to get up and out of bed however was redirected. Mental Status Exam: General Appearance: Patient appears to be elderly, somewhat lethargic, sitting at the side of the bed, thin. Behavior: Sitting on her bed, no agitation. mildly resltess Speech: Patient's speech is mumbling today. [place]. Soft tone Mood/Affect: Denies any depression or anxiety. Affect is constricted. Suicidality/Homicidality: Denies any suicidal or homicidal ideations intent or plan. Perceptions: Denies any auditory or visual hallucinations. Though content/process: [place], poverty of content. Memory and concentration: Followed some commands today. Alert and not oriented today. Judgment and insight: Limited Assessment Catatonia Bipolar disorder, cheryle Plan: -Patient continues to meet criteria for inpatient psychiatric admission for symptom stabilization and safety. Patient has signed adult voluntary form and medication consent and was placed in patient's chart. -Medications: Depakene 250 mg daily + 375 mg qhs for mood stabilization. continue with Ativan IVP to 1 mg q4hr PRN for treatment of catatonia. continue with Valium 2 mg tid for catatonia. -When necessary Zyprexa and Geodon for agitation/aggression. -NRT - not needed as patient does not smoke. -SW on board for discharge planning. Encouraged the patient to participate in milieu. court date set for september 10, patient did not defer with contract attorney. Patient daughter does not want patient to go through ECT and wants to continue on with medical management. will look into potential placement options.
[2021-09-09] MEDS: CHOLECALCIFEROL 25 MCG (1000 IU) TABLET PO SCH (13:52)
--- NOTE | 2021-09-09 14:38 | P.PN ---
Progress Note - Text Progress Note Date: 09/09/21 - Chief Complaint Hyperactive Hospital course This is a pleasant 76-year-old patient who follows with Dr. Ferdinand Shelton. Chronic stable medical conditions include goiter that has been worked up, chronic kidney disease, insomnia, bipolar disorder. Patient is brought into the ER with her daughter for being very hyperactive pacing up and down not sleeping. Appetite has been okay. No change in bowel pattern. No fever no chills. Patient admitted with bipolar disorder/manic episode. September 03: Patient was sedated with Ativan earlier today.This afternoon patient is very anxious delirious. Walking the hallways. Holding onto people. Would n ot answer any questions straight. September 04: Patient has been in restraints. Not eating drinking since yesterday at least. Overnight given 2 L of IV fluids. IV fluids started. D5W. Patient is very restless. Delirious. Saying words sentences repetitively. In restraints. September 05: Patient has remained in restraints. Has a sitter. Iate about 25% this morning. Being given Ativan. Fluids reorder that D545 at 100 mL an hour. Some elevation in CPK. Clinically not felt to be neuroleptic malignant syndrome. No fever. Elevated blood pressure recorded previously likely from agitation/restlessness. September 06: Patient has a sitter. Out of restraints. Has been receiving Ativan. Patient is able to sit up at the edge of the bed. Sleepy. Answering occasional question. Was able to feed the patient 1 couple of custard. Took some apple juice. the patient set up in the chair. Continue with IV fluid as oral intake is insufficient. Discussed the staff to give oral intake spaced out. September 07: Patient has been receiving Ativan. Sleepy this morning. Sitter in place. I help set up the patient edge of the bed. Used to washcloth to wipe her. Nursing staff present. Was able to feed her a couple of custard and a couple of Magic cup. She also took her medications. Drinks water. Plan to have the patient sit up in a chair. Supervised. September 08: Patient has been more restful. Not agitated. Has a sitter. Eating somewhat better. Sleepy. Discussed with Dr. Vaughn. Valium 2 mg twice a day. Will DC IV fluids later today. Also discussed with the nurse. Has a patient sit up in a chair. Supervised. May 3: Patient has been sleepy. Barely eating. Discussed with the nurse and Dr. Vaughn. Reinforced sleep hygiene. Discussed to cut back Valium to 1 mg twice daily. Repeat labs tomorrow. Up in chair as tolerated. Active Medications Acetaminophen (Acetaminophen Tab 325 Mg Tab) 650 mg PO Q4HR PRN PRN Reason: Pain/Discomfort Al Hydroxide/Mg Hydroxide (Mag Hydrox/Al Hydrox/Simeth 30 Ml Cup) 30 ml PO Q4HR PRN PRN Reason: GI Upset Cholecalciferol (Cholecalciferol 25 Mcg (1000 Iu) Tablet) 25 mcg PO DAILY@1200 [facility] Last Admin: 09/09/21 13:52 Dose: 25 mcg Documented by: Clonidine HCl (Clonidine 0.1 Mg/24hr Patch) 1 patch TRANSDERM Q7D [facility] Last Admin: 09/04/21 17:16 Dose: 1 patch Documented by: Diazepam (Diazepam 2 Mg Tab) 1 mg PO BID [facility] Lorazepam (Lorazepam 2 Mg/Ml Inj) 1 mg IV Q4H PRN PRN Reason: Agitation or Acute Anxiety Last Admin: 09/08/21 05:50 Dose: 1 mg Documented by: Lorazepam (Lorazepam 2 Mg/Ml Inj) 1 mg IM Q4HR PRN PRN Reason: Agitation or Acute Anxiety Lorazepam (Lorazepam 1 Mg Tab) 1 mg PO Q4HR PRN PRN Reason: Agitation or Acute Anxiety Last Admin: 09/07/21 18:02 Dose: 1 mg Documented by: Magnesium Hydroxide (Magnesium Hydroxide 2,400 Mg/10 Ml Cup) 2,400 mg PO DAILY PRN PRN Reason: Constipation Mirtazapine (Mirtazapine 15 Mg Tab) 30 mg PO [facility] Last Admin: 09/08/21 21:52 Dose: 30 mg Documented by: Olanzapine (Olanzapine 7.5 Mg Tab) 7.5 mg PO TID PRN PRN Reason: Agitation Valproic Acid (Valproic Acid Oral Soln 250 Mg/5 Ml Cup) 375 mg PO [facility] Last Admin: 09/08/21 21:52 Dose: Not Given Documented by: Valproic Acid (Valproic Acid Oral Soln 250 Mg/5 Ml Cup) 375 mg PO DAILY [facility] Ziprasidone (Ziprasidone 20 Mg Vial) 20 mg IM BID PRN PRN Reason: Agitation or Acute Psychosis Last Admin: 09/04/21 18:45 Dose: 20 mg Documented by: Past medical history to include: Goiter, bipolar disorder, chronic kidney disease Social history: This daughter. Alcohol occasionally. No smoking. Family history: CAD, diabetes Physical examination: VITAL SIGNS: 87.1, 98, 16, 135/76, 95% room air GENERAL: Laying in bed, sleepy EYES: Pupils equal. Conjunctiva normal. HEENT: External appearance of nose and ears normal, oral cavity dry NECK: JVD not raised; masses not palpable. HEART: First and second heart sounds are normal; no edema. LUNGS: Respiratory rate normal; clear to auscultation. ABDOMEN: Soft, nontender, liver spleen not palpable, no masses palpable. PSYCH: Sleepy. Attempting to answer. MUSCULOSKELETAL:No Clubbing/cyanosis;muscles-grossly intact. Evidence of OA especially in the hands INVESTIGATIONS, reviewed in the clinical context: September 07: Vaginal 4.3 creatinine 1.44 September 06: Potassium 4.5 BUN 41 and creatinine 1.58 CPK 332 September 04: Potassium 4 BUN 20 creatinine 1.38 CPK 1027 UA: Unremarkable Urine drug screen: Negative BUN 33 creatinine 1.54. TSH 1.8 White count 6.6 hemoglobin 13.2 platelets 274 sodium 140 potassium 4.2 and 39 creatinine 1.71 and 3 TSH 0.401 COVID 19: Not detected Assessment and plan: -Bipolar disorder, manic episode: Being followed by psychiatry. -Acute delirium, multifactorial, some improvement Valium cutback to 1 mg twice a day -Acute rhabdomyolysis: Improved Received IV fluids -Chronic kidney disease, stage III likely nephrosclerosis -Acute kidney injury from dehydration from not taking oral:: Better IV fluids D5.45. Held -Hypertension with chronic kidney disease Catapres patch as patient not taking oral medications -Insomnia from underlying psychiatry disorder Remeron -Irritable bowel syndrome Bentyl Discussed with Dr. Vaughn. Cut back Valium 1 mg every 12. Patient not eating much. Check labs in the morning. May need IV fluids. Sleep hygiene emphasized. Thank you
[2021-09-09 19:41] LABS: Glucose,Whole Blood 166 mg/dL (75-99)
[2021-09-09] MEDS: MIRTAZAPINE 15 MG TAB PO SCH (20:47)
[2021-09-09] MEDS: VALPROIC ACID ORAL SOLN 250 MG/5 ML CUP PO SCH (20:47)
[2021-09-10] MEDS: diazePAM 2 MG TAB PO SCH ×2 (07:51→21:57)
[2021-09-10] MEDS: VALPROIC ACID ORAL SOLN 250 MG/5 ML CUP PO SCH ×2 (07:51→21:30)
--- NOTE | 2021-09-10 10:02 | P.PN ---
Progress Note - Text Progress Note Date: 09/10/21 Interval History: Patient was seen this morning for psychiatric follow-up for catatonia. Patient was seen laying on the bed today and specification writer approached patient and she awoken. she looked at specification writer briefly however did not respond to any commands. She did not respond to questions today. She appeared to mildly restless and attempted to get up out of bed. she continues to have a flat affect and poor eye contact. Mental Status Exam: General Appearance: Patient appears to be elderly, somewhat lethargic, sitting at the side of the bed, thin. Behavior: laying on the bed, no agitation. mildly resltess Speech: Patient's speech is mumbling today. [place]. Soft tone Mood/Affect: Denies any depression or anxiety. Affect is constricted. Suicidality/Homicidality: Denies any suicidal or homicidal ideations intent or plan. Perceptions: Denies any auditory or visual hallucinations. Though content/process: [place], poverty of content. Memory and concentration: does not follow commands today. Alert and not oriented today. Judgment and insight: Limited Assessment Catatonia Bipolar disorder, cheryle Plan: -Patient continues to meet criteria for inpatient psychiatric admission for symptom stabilization and safety. Patient has signed adult voluntary form and medication consent and was placed in patient's chart. -Medications: Depakene 375 mg bid for mood stabilization. continue with Ativan IVP to 1 mg q4hr PRN for treatment of catatonia. continue with Valium 1 mg tid for catatonia. -depakote level tomorrow morning. -When necessary Zyprexa and Geodon for agitation/aggression. -NRT - not needed as patient does not smoke. -SW on board for discharge planning. Encouraged the patient to participate in milieu. court date set for september 10, patient did not defer with personal injury attorney. Patient daughter does not want patient to go through ECT and wants to continue on with medical management.
[2021-09-10] MEDS: CHOLECALCIFEROL 25 MCG (1000 IU) TABLET PO SCH (12:32)
[2021-09-10] MEDS: LORazepam 1 MG TAB PO PRN (16:59)
--- NOTE | 2021-09-10 21:24 | P.PN ---
Progress Note - Text Progress Note Date: 09/10/21 - Chief Complaint Hyperactive Hospital course This is a pleasant 76-year-old patient who follows with Dr. Ferdinand Shelton. Chronic stable medical conditions include goiter that has been worked up, chronic kidney disease, insomnia, bipolar disorder. Patient is brought into the ER with her daughter for being very hyperactive pacing up and down not sleeping. Appetite has been okay. No change in bowel pattern. No fever no chills. Patient admitted with bipolar disorder/manic episode. September 03: Patient was sedated with Ativan earlier today.This afternoon patient is very anxious delirious. Walking the hallways. Holding onto people. Would n ot answer any questions straight. September 04: Patient has been in restraints. Not eating drinking since yesterday at least. Overnight given 2 L of IV fluids. IV fluids started. D5W. Patient is very restless. Delirious. Saying words sentences repetitively. In restraints. September 05: Patient has remained in restraints. Has a sitter. Iate about 25% this morning. Being given Ativan. Fluids reorder that D545 at 100 mL an hour. Some elevation in CPK. Clinically not felt to be neuroleptic malignant syndrome. No fever. Elevated blood pressure recorded previously likely from agitation/restlessness. September 06: Patient has a sitter. Out of restraints. Has been receiving Ativan. Patient is able to sit up at the edge of the bed. Sleepy. Answering occasional question. Was able to feed the patient 1 couple of custard. Took some apple juice. the patient set up in the chair. Continue with IV fluid as oral intake is insufficient. Discussed the staff to give oral intake spaced out. September 07: Patient has been receiving Ativan. Sleepy this morning. Sitter in place. I help set up the patient edge of the bed. Used to washcloth to wipe her. Nursing staff present. Was able to feed her a couple of custard and a couple of Magic cup. She also took her medications. Drinks water. Plan to have the patient sit up in a chair. Supervised. September 08: Patient has been more restful. Not agitated. Has a sitter. Eating somewhat better. Sleepy. Discussed with Dr. Vaughn. Valium 2 mg twice a day. Will DC IV fluids later today. Also discussed with the nurse. Has a patient sit up in a chair. Supervised. May 3: Patient has been sleepy. Barely eating. Discussed with the nurse and Dr. Vaughn. Reinforced sleep hygiene. Discussed to cut back Valium to 1 mg twice daily. Repeat labs tomorrow. Up in chair as tolerated. September 10: Patient doing better today. She did eat fairly well. Has a sitter. Episodes of anxiousness reported. On Valium 1 mg twice a day. Active Medications Acetaminophen (Acetaminophen Tab 325 Mg Tab) 650 mg PO Q4HR PRN PRN Reason: Pain/Discomfort Al Hydroxide/Mg Hydroxide (Mag Hydrox/Al Hydrox/Simeth 30 Ml Cup) 30 ml PO Q4HR PRN PRN Reason: GI Upset Cholecalciferol (Cholecalciferol 25 Mcg (1000 Iu) Tablet) 25 mcg PO DAILY@1200 [facility] Last Admin: 09/10/21 12:32 Dose: 25 mcg Documented by: Clonidine HCl (Clonidine 0.1 Mg/24hr Patch) 1 patch TRANSDERM Q7D [facility] Last Admin: 09/04/21 17:16 Dose: 1 patch Documented by: Diazepam (Diazepam 2 Mg Tab) 1 mg PO BID [facility] Last Admin: 09/10/21 07:51 Dose: 1 mg Documented by: Lorazepam (Lorazepam 2 Mg/Ml Inj) 1 mg IV Q4H PRN PRN Reason: Agitation or Acute Anxiety Last Admin: 09/08/21 05:50 Dose: 1 mg Documented by: Lorazepam (Lorazepam 2 Mg/Ml Inj) 1 mg IM Q4HR PRN PRN Reason: Agitation or Acute Anxiety Lorazepam (Lorazepam 1 Mg Tab) 1 mg PO Q4HR PRN PRN Reason: Agitation or Acute Anxiety Last Admin: 09/10/21 16:59 Dose: 1 mg Documented by: Magnesium Hydroxide (Magnesium Hydroxide 2,400 Mg/10 Ml Cup) 2,400 mg PO DAILY PRN PRN Reason: Constipation Mirtazapine (Mirtazapine 15 Mg Tab) 30 mg PO [facility] Last Admin: 09/09/21 20:47 Dose: 30 mg Documented by: Olanzapine (Olanzapine 7.5 Mg Tab) 7.5 mg PO TID PRN PRN Reason: Agitation Valproic Acid (Valproic Acid Oral Soln 250 Mg/5 Ml Cup) 375 mg PO [facility] Last Admin: 09/09/21 20:47 Dose: 375 mg Documented by: Valproic Acid (Valproic Acid Oral Soln 250 Mg/5 Ml Cup) 375 mg PO DAILY [facility] Last Admin: 09/10/21 07:51 Dose: 375 mg Documented by: Ziprasidone (Ziprasidone 20 Mg Vial) 20 mg IM BID PRN PRN Reason: Agitation or Acute Psychosis Last Admin: 09/04/21 18:45 Dose: 20 mg Documented by: Past medical history to include: Goiter, bipolar disorder, chronic kidney disease Social history: This daughter. Alcohol occasionally. No smoking. Family history: CAD, diabetes Physical examination: VITAL SIGNS: 97.1, 98, 18, 142/79, 94% room air GENERAL: Laying in bed, sleepy EYES: Pupils equal. Conjunctiva normal. HEENT: External appearance of nose and ears normal, oral cavity dry NECK: JVD not raised; masses not palpable. HEART: First and second heart sounds are normal; no edema. LUNGS: Respiratory rate normal; clear to auscultation. ABDOMEN: Soft, nontender, liver spleen not palpable, no masses palpable. PSYCH: Sleepy. MUSCULOSKELETAL:No Clubbing/cyanosis;muscles-grossly intact. Evidence of OA especially in the hands INVESTIGATIONS, reviewed in the clinical context: September 07: Potassium 4.3 creatinine 1.44 September 06: Potassium 4.5 BUN 41 and creatinine 1.58 CPK 332 September 04: Potassium 4 BUN 20 creatinine 1.38 CPK 1027 UA: Unremarkable Urine drug screen: Negative BUN 33 creatinine 1.54. TSH 1.8 White count 6.6 hemoglobin 13.2 platelets 274 sodium 140 potassium 4.2 and 39 creatinine 1.71 and 3 TSH 0.401 COVID 19: Not detected Assessment and plan: -Bipolar disorder, manic episode: Being followed by psychiatry. -Acute delirium, multifactorial, some improvement Valium 1 mg twice a day -Acute rhabdomyolysis: Improved Received IV fluids -Chronic kidney disease, stage III likely nephrosclerosis -Acute kidney injury from dehydration from not taking oral:: Better IV fluids D5.45. Held -Hypertension with chronic kidney disease Catapres patch as patient not taking oral medications -Insomnia from underlying psychiatry disorder Remeron -Irritable bowel syndrome Bentyl Hopefully patient's Valium can be discontinued tomorrow as other anxiety medications can be scaled up. We will continue to follow. Thank you
[2021-09-10] MEDS: MIRTAZAPINE 15 MG TAB PO SCH (21:30)
[2021-09-11] MEDS: diazePAM 2 MG TAB PO SCH (07:45)
[2021-09-11] MEDS: VALPROIC ACID ORAL SOLN 250 MG/5 ML CUP PO SCH ×2 (08:18→20:27)
--- NOTE | 2021-09-11 11:45 | P.PN ---
Progress Note - Text Progress Note Date: 09/11/21 Interval History: Patient was seen this morning for psychiatric follow-up for catatonia. Patient was seen laying on the bed today and mortgage loan underwriter approached patient and she awoken. Patient again began to awaken and attempt to get up out of bed. She began walking requiring some assistance by mortgage loan underwriter and also sitter. Patient answered very few questions, she states that "not good" when asked about how she is doing today. She was not able to follow other commands by mortgage loan underwriter. She did not respond when mortgage loan underwriter asked her about suicidal or homicidal thoughts or auditory visual hallucinations. Patient has been taking her medications. She continues to appear to be fairly constricted in her affect and pacing at times in the hallways. poor eye contact. Mental Status Exam: General Appearance: Patient appears to be elderly, somewhat lethargic, sitting at the side of the bed, thin. Behavior: laying on the bed, no agitation. mildly restless Speech: Patient's speech is mumbling today. [place]. Soft tone Mood/Affect: Denies any depression or anxiety. Affect is constricted. Suicidality/Homicidality: Denies any suicidal or homicidal ideations intent or plan. Perceptions: Denies any auditory or visual hallucinations. Though content/process: [place], poverty of content. Memory and concentration: does not follow commands today. Alert and not oriented today. Judgment and insight: Limited Assessment Catatonia Bipolar disorder, cheryle Plan: -Patient continues to meet criteria for inpatient psychiatric admission for symptom stabilization and safety. Patient has signed adult voluntary form and medication consent and was placed in patient's chart. -Medications: Depakene 375 mg bid for mood stabilization. continue with Ativan IVP to 1 mg q4hr PRN for treatment of catatonia. continue with Valium 1 mg tid for catatonia. -depakote level tomorrow morning. -When necessary Zyprexa and Geodon for agitation/aggression. -NRT - not needed as patient does not smoke. -SW on board for discharge planning. Encouraged the patient to participate in milieu. court date set for september 10, patient did not defer with tire and tube repairer. Patient daughter does not want patient to go through ECT and wants to continue on with medical management. At this time it appears that patient is plateuing in her condition and could take quite a long time to recover just with medications. Will begin to speak with daughter about potential for detention vs afc home vs going home with daughter. Daughter will apparently be obtaining gaurdianship this week.
[2021-09-11] MEDS: LORazepam 1 MG TAB PO PRN (14:26)
[2021-09-11] MEDS: CHOLECALCIFEROL 25 MCG (1000 IU) TABLET PO SCH (14:26)
[2021-09-11] MEDS: cloNIDine 0.1 MG/24HR PATCH TRANSDERM SCH (18:04)
--- NOTE | 2021-09-11 19:54 | P.PN ---
Progress Note - Text Progress Note Date: 09/11/21 - Chief Complaint Hyperactive Hospital course This is a pleasant 76-year-old patient who follows with Dr. Ferdinand Shelton. Chronic stable medical conditions include goiter that has been worked up, chronic kidney disease, insomnia, bipolar disorder. Patient is brought into the ER with her daughter for being very hyperactive pacing up and down not sleeping. Appetite has been okay. No change in bowel pattern. No fever no chills. Patient admitted with bipolar disorder/manic episode. September 03: Patient was sedated with Ativan earlier today.This afternoon patient is very anxious delirious. Walking the hallways. Holding onto people. Would n ot answer any questions straight. September 04: Patient has been in restraints. Not eating drinking since yesterday at least. Overnight given 2 L of IV fluids. IV fluids started. D5W. Patient is very restless. Delirious. Saying words sentences repetitively. In restraints. September 05: Patient has remained in restraints. Has a sitter. Iate about 25% this morning. Being given Ativan. Fluids reorder that D545 at 100 mL an hour. Some elevation in CPK. Clinically not felt to be neuroleptic malignant syndrome. No fever. Elevated blood pressure recorded previously likely from agitation/restlessness. September 06: Patient has a sitter. Out of restraints. Has been receiving Ativan. Patient is able to sit up at the edge of the bed. Sleepy. Answering occasional question. Was able to feed the patient 1 couple of custard. Took some apple juice. the patient set up in the chair. Continue with IV fluid as oral intake is insufficient. Discussed the staff to give oral intake spaced out. September 07: Patient has been receiving Ativan. Sleepy this morning. Sitter in place. I help set up the patient edge of the bed. Used to washcloth to wipe her. Nursing staff present. Was able to feed her a couple of custard and a couple of Magic cup. She also took her medications. Drinks water. Plan to have the patient sit up in a chair. Supervised. September 08: Patient has been more restful. Not agitated. Has a sitter. Eating somewhat better. Sleepy. Discussed with Dr. Vaughn. Valium 2 mg twice a day. Will DC IV fluids later today. Also discussed with the nurse. Has a patient sit up in a chair. Supervised. May 3: Patient has been sleepy. Barely eating. Discussed with the nurse and Dr. Vaughn. Reinforced sleep hygiene. Discussed to cut back Valium to 1 mg twice daily. Repeat labs tomorrow. Up in chair as tolerated. September 10: Patient doing better today. She did eat fairly well. Has a sitter. Episodes of anxiousness reported. On Valium 1 mg twice a day. September 5: Patient has been tolerating a diet. Does walk in the hallways. Sometimes a bit erratic. Very anxious. Did sleep in the afternoon. Morning dose of Valium was held this morning. Discussed with Dr. Vaughn. Will DC the morning dose of Valium. Catapres will DC the patch in the morning. Catapres 0.1 mg twice a day starting the morning Active Medications Acetaminophen (Acetaminophen Tab 325 Mg Tab) 650 mg PO Q4HR PRN PRN Reason: Pain/Discomfort Al Hydroxide/Mg Hydroxide (Mag Hydrox/Al Hydrox/Simeth 30 Ml Cup) 30 ml PO Q4HR PRN PRN Reason: GI Upset Cholecalciferol (Cholecalciferol 25 Mcg (1000 Iu) Tablet) 25 mcg PO DAILY@1200 [facility] Last Admin: 09/11/21 14:26 Dose: 25 mcg Documented by: Clonidine HCl (Clonidine 0.1 Mg/24hr Patch) 1 patch TRANSDERM Q7D [facility] Stop: 09/12/21 08:00 Last Admin: 09/11/21 18:04 Dose: 1 patch Documented by: Diazepam (Diazepam 2 Mg Tab) 1 mg PO [facility] Lisinopril/HCTZ (Lisinopril-Hctz 10-12.5 Mg 1 Each Tab) 1 each PO BID [facility] Lorazepam (Lorazepam 2 Mg/Ml Inj) 1 mg IV Q4H PRN PRN Reason: Agitation or Acute Anxiety Last Admin: 09/08/21 05:50 Dose: 1 mg Documented by: Lorazepam (Lorazepam 2 Mg/Ml Inj) 1 mg IM Q4HR PRN PRN Reason: Agitation or Acute Anxiety Lorazepam (Lorazepam 1 Mg Tab) 1 mg PO Q4HR PRN PRN Reason: Agitation or Acute Anxiety Last Admin: 09/11/21 14:26 Dose: 1 mg Documented by: Magnesium Hydroxide (Magnesium Hydroxide 2,400 Mg/10 Ml Cup) 2,400 mg PO DAILY PRN PRN Reason: Constipation Mirtazapine (Mirtazapine 15 Mg Tab) 30 mg PO [facility] Last Admin: 09/10/21 21:30 Dose: 30 mg Documented by: Olanzapine (Olanzapine 7.5 Mg Tab) 7.5 mg PO TID PRN PRN Reason: Agitation Valproic Acid (Valproic Acid Oral Soln 250 Mg/5 Ml Cup) 375 mg PO [facility] Last Admin: 09/10/21 21:30 Dose: 375 mg Documented by: Valproic Acid (Valproic Acid Oral Soln 250 Mg/5 Ml Cup) 375 mg PO DAILY [facility] Last Admin: 09/11/21 08:18 Dose: 375 mg Documented by: Ziprasidone (Ziprasidone 20 Mg Vial) 20 mg IM BID PRN PRN Reason: Agitation or Acute Psychosis Last Admin: 09/04/21 18:45 Dose: 20 mg Documented by: Past medical history to include: Goiter, bipolar disorder, chronic kidney disease Social history: This daughter. Alcohol occasionally. No smoking. Family history: CAD, diabetes Physical examination: VITAL SIGNS: 98, 80, 16, 06/01/2006 3, 94% room air GENERAL: Laying in bed, lethargic EYES: Pupils equal. Conjunctiva normal. HEENT: External appearance of nose and ears normal, oral cavity dry NECK: JVD not raised; masses not palpable. HEART: First and second heart sounds are normal; no edema. LUNGS: Respiratory rate normal; clear to auscultation. ABDOMEN: Soft, nontender, liver spleen not palpable, no masses palpable. PSYCH: Occasionally answering questions MUSCULOSKELETAL:No Clubbing/cyanosis;muscles-grossly intact. Evidence of OA especially in the hands INVESTIGATIONS, reviewed in the clinical context: September 07: Potassium 4.3 creatinine 1.44 September 06: Potassium 4.5 BUN 41 and creatinine 1.58 CPK 332 September 04: Potassium 4 BUN 20 creatinine 1.38 CPK 1027 UA: Unremarkable Urine drug screen: Negative BUN 33 creatinine 1.54. TSH 1.8 White count 6.6 hemoglobin 13.2 platelets 274 sodium 140 potassium 4.2 and 39 creatinine 1.71 and 3 TSH 0.401 COVID 19: Not detected Assessment and plan: -Bipolar disorder, manic episode: Being followed by psychiatry. -Acute delirium, multifactorial, some improvement Cut back Valium 1 mg daily at bedtime -Acute rhabdomyolysis: Improved Received IV fluids -Chronic kidney disease, stage III likely nephrosclerosis -Acute kidney injury from dehydration from not taking oral:: Better IV fluids D5.45. Held -Hypertension with chronic kidney disease Will DC Catapres patch in the morning. Start clonidine 0.1 mg twice a day in the morning -Insomnia from underlying psychiatry disorder Remeron -Irritable bowel syndrome Bentyl Discussed with Dr. Vaughn. DC morning dose of Valium. Not given today. Will DC Catapres patch in the morning and start clonidine 0.1 mg twice a day starting tomorrow Thank you
[2021-09-11] MEDS: MIRTAZAPINE 15 MG TAB PO SCH (20:27)
[2021-09-11] MEDS ORDERED: diazePAM 2 MG TAB PO SCH (21:00)
[2021-09-12] MEDS: cloNIDine HCL 0.1 MG TAB PO SCH ×2 (08:25→20:02)
[2021-09-12] MEDS: VALPROIC ACID ORAL SOLN 250 MG/5 ML CUP PO SCH ×2 (08:26→20:04)
[2021-09-12] MEDS ORDERED: LISINOPRIL-HCTZ 10-12.5 MG 1 EACH TAB PO SCH (09:00)
--- NOTE | 2021-09-12 11:28 | P.PN ---
Progress Note - Text Progress Note Date: 09/12/21 Interval History: Patient was seen this morning for psychiatric follow-up for catatonia. Patient was seen laying on the bed today and typewriter ribbon winder approached patient and she awoken. Patient continues to want to get up out of bed. She acknowledges typewriter ribbon winder briefly however did not answer most of his questions. She states that she is doing "not good" today. She did not answer any other questions afterwards. She apparently has been drinking and eating appropriately. Valium has been cut back and half. poor eye contact. Mental Status Exam: General Appearance: Patient appears to be elderly, somewhat lethargic, sitting at the side of the bed, thin. Behavior: laying on the bed, no agitation. mildly restless Speech: Patient's speech is mumbling today. [place]. Soft tone Mood/Affect: Denies any depression or anxiety. Affect is constricted. Suicidality/Homicidality: Unable to assess Perceptions: Unable to assess Though content/process: [place], poverty of content. Limited. Memory and concentration: does not follow commands today. Alert and not oriented today. Judgment and insight: Limited Assessment Catatonia Bipolar disorder, cheryle Plan: -Patient continues to meet criteria for inpatient psychiatric admission for symptom stabilization and safety. Patient has signed adult voluntary form and medication consent and was placed in patient's chart. -Medications: Depakene 375 mg bid for mood stabilization. continue with Ativan IVP to 1 mg q4hr PRN for treatment of catatonia. continue with Valium 1 mg qhs for catatonia. -depakote level 5/6 - 56.1 -When necessary Zyprexa and Geodon for agitation/aggression. -NRT - not needed as patient does not smoke. -SW on board for discharge planning. Encouraged the patient to participate in milieu. court date set for september 10, patient did not defer with associate attorney. Patient daughter does not want patient to go through ECT and wants to continue on with medical management. At this time it appears that patient is plateuing in her condition and could take quite a long time to recover just with medications. Will begin to speak with daughter about potential for half-way vs afc home vs going home with daughter. PT and OT consult placed and will await evaland recommendations. Daughter will apparently be obtaining gaurdianship today
[2021-09-12] MEDS: CHOLECALCIFEROL 25 MCG (1000 IU) TABLET PO SCH (12:31)
--- NOTE | 2021-09-12 18:01 | P.PN ---
Progress Note - Text Progress Note Date: 09/12/21 - Chief Complaint Hyperactive Hospital course This is a pleasant 76-year-old patient who follows with Dr. Ferdinand Shelton. Chronic stable medical conditions include goiter that has been worked up, chronic kidney disease, insomnia, bipolar disorder. Patient is brought into the ER with her daughter for being very hyperactive pacing up and down not sleeping. Appetite has been okay. No change in bowel pattern. No fever no chills. Patient admitted with bipolar disorder/manic episode. September 03: Patient was sedated with Ativan earlier today.This afternoon patient is very anxious delirious. Walking the hallways. Holding onto people. Would n ot answer any questions straight. September 04: Patient has been in restraints. Not eating drinking since yesterday at least. Overnight given 2 L of IV fluids. IV fluids started. D5W. Patient is very restless. Delirious. Saying words sentences repetitively. In restraints. September 05: Patient has remained in restraints. Has a sitter. Iate about 25% this morning. Being given Ativan. Fluids reorder that D545 at 100 mL an hour. Some elevation in CPK. Clinically not felt to be neuroleptic malignant syndrome. No fever. Elevated blood pressure recorded previously likely from agitation/restlessness. September 06: Patient has a sitter. Out of restraints. Has been receiving Ativan. Patient is able to sit up at the edge of the bed. Sleepy. Answering occasional question. Was able to feed the patient 1 couple of custard. Took some apple juice. the patient set up in the chair. Continue with IV fluid as oral intake is insufficient. Discussed the staff to give oral intake spaced out. September 07: Patient has been receiving Ativan. Sleepy this morning. Sitter in place. I help set up the patient edge of the bed. Used to washcloth to wipe her. Nursing staff present. Was able to feed her a couple of custard and a couple of Magic cup. She also took her medications. Drinks water. Plan to have the patient sit up in a chair. Supervised. September 08: Patient has been more restful. Not agitated. Has a sitter. Eating somewhat better. Sleepy. Discussed with Dr. Vaughn. Valium 2 mg twice a day. Will DC IV fluids later today. Also discussed with the nurse. Has a patient sit up in a chair. Supervised. May 3: Patient has been sleepy. Barely eating. Discussed with the nurse and Dr. Vaughn. Reinforced sleep hygiene. Discussed to cut back Valium to 1 mg twice daily. Repeat labs tomorrow. Up in chair as tolerated. September 10: Patient doing better today. She did eat fairly well. Has a sitter. Episodes of anxiousness reported. On Valium 1 mg twice a day. September 11: Patient has been tolerating a diet. Does walk in the hallways. Sometimes a bit erratic. Very anxious. Did sleep in the afternoon. Morning dose of Valium was held this morning. Discussed with Dr. Vaughn. Will DC the morning dose of Valium. Catapres will DC the patch in the morning. Catapres 0.1 mg twice a day starting the morning September 12: Patient did walk the hallways. Eating anywhere from 25-50%. Morning dose of Valium has been discontinued. Patient otherwise mainly subdued lethargic all day. Will cut back the evening dose of Valium down to 0.5 mg. Try to maintain sleep hygiene. Discussed with staff. Past medical history to include: Goiter, bipolar disorder, chronic kidney disease Social history: This daughter. Alcohol occasionally. No smoking. Family history: CAD, diabetes Physical examination: VITAL SIGNS: 98, 80, 16, 06/01/2006 3, 94% room air GENERAL: Laying in bed, lethargic EYES: Pupils equal. Conjunctiva normal. HEENT: External appearance of nose and ears normal, oral cavity dry NECK: JVD not raised; masses not palpable. HEART: First and second heart sounds are normal; no edema. LUNGS: Respiratory rate normal; clear to auscultation. ABDOMEN: Soft, nontender, liver spleen not palpable, no masses palpable. PSYCH: Occasionally answering questions MUSCULOSKELETAL:No Clubbing/cyanosis;muscles-grossly intact. Evidence of OA especially in the hands INVESTIGATIONS, reviewed in the clinical context: September 07: Potassium 4.3 creatinine 1.44 September 06: Potassium 4.5 BUN 41 and creatinine 1.58 CPK 332 September 04: Potassium 4 BUN 20 creatinine 1.38 CPK 1027 UA: Unremarkable Urine drug screen: Negative BUN 33 creatinine 1.54. TSH 1.8 White count 6.6 hemoglobin 13.2 platelets 274 sodium 140 potassium 4.2 and 39 creatinine 1.71 and 3 TSH 0.401 COVID 19: Not detected Assessment and plan: -Bipolar disorder, manic episode: Being followed by psychiatry. -Acute delirium, multifactorial, some improvement Cut back Valium 0.5 mg daily at bedtime -Acute rhabdomyolysis: Improved Received IV fluids -Chronic kidney disease, stage III likely nephrosclerosis -Acute kidney injury from dehydration from not taking oral:: Better IV fluids D5.45. Held -Hypertension with chronic kidney disease Will DC Catapres patch in the morning. Start clonidine 0.1 mg twice a day in the morning -Insomnia from underlying psychiatry disorder Remeron -Irritable bowel syndrome Bentyl Patient is on significant amount of medications. Somewhat lethargic sleepy at all times. Ambulating slowly in the hallways. Cutback p.m. dose of Valium 0.5 mg. Follow Thank you
[2021-09-12] MEDS: MIRTAZAPINE 15 MG TAB PO SCH (20:03)
[2021-09-12] MEDS ORDERED: diazePAM 2 MG TAB PO SCH (21:00)
[2021-09-13] MEDS: cloNIDine HCL 0.1 MG TAB PO SCH ×2 (07:58→20:09)
[2021-09-13] MEDS: CHOLECALCIFEROL 25 MCG (1000 IU) TABLET PO SCH (07:58)
[2021-09-13] MEDS: VALPROIC ACID ORAL SOLN 250 MG/5 ML CUP PO SCH ×2 (07:59→20:10)
--- NOTE | 2021-09-13 12:58 | P.PN ---
Progress Note - Text Progress Note Date: 09/13/21 - Chief Complaint Hyperactive Hospital course This is a pleasant 76-year-old patient who follows with Dr. Ferdinand Shelton. Chronic stable medical conditions include goiter that has been worked up, chronic kidney disease, insomnia, bipolar disorder. Patient is brought into the ER with her daughter for being very hyperactive pacing up and down not sleeping. Appetite has been okay. No change in bowel pattern. No fever no chills. Patient admitted with bipolar disorder/manic episode. September 03: Patient was sedated with Ativan earlier today.This afternoon patient is very anxious delirious. Walking the hallways. Holding onto people. Would n ot answer any questions straight. September 04: Patient has been in restraints. Not eating drinking since yesterday at least. Overnight given 2 L of IV fluids. IV fluids started. D5W. Patient is very restless. Delirious. Saying words sentences repetitively. In restraints. September 05: Patient has remained in restraints. Has a sitter. Iate about 25% this morning. Being given Ativan. Fluids reorder that D545 at 100 mL an hour. Some elevation in CPK. Clinically not felt to be neuroleptic malignant syndrome. No fever. Elevated blood pressure recorded previously likely from agitation/restlessness. September 06: Patient has a sitter. Out of restraints. Has been receiving Ativan. Patient is able to sit up at the edge of the bed. Sleepy. Answering occasional question. Was able to feed the patient 1 couple of custard. Took some apple juice. the patient set up in the chair. Continue with IV fluid as oral intake is insufficient. Discussed the staff to give oral intake spaced out. September 07: Patient has been receiving Ativan. Sleepy this morning. Sitter in place. I help set up the patient edge of the bed. Used to washcloth to wipe her. Nursing staff present. Was able to feed her a couple of custard and a couple of Magic cup. She also took her medications. Drinks water. Plan to have the patient sit up in a chair. Supervised. September 08: Patient has been more restful. Not agitated. Has a sitter. Eating somewhat better. Sleepy. Discussed with Dr. Vaughn. Valium 2 mg twice a day. Will DC IV fluids later today. Also discussed with the nurse. Has a patient sit up in a chair. Supervised. May 3: Patient has been sleepy. Barely eating. Discussed with the nurse and Dr. Vaughn. Reinforced sleep hygiene. Discussed to cut back Valium to 1 mg twice daily. Repeat labs tomorrow. Up in chair as tolerated. September 4: Patient doing better today. She did eat fairly well. Has a sitter. Episodes of anxiousness reported. On Valium 1 mg twice a day. September 5: Patient has been tolerating a diet. Does walk in the hallways. Sometimes a bit erratic. Very anxious. Did sleep in the afternoon. Morning dose of Valium was held this morning. Discussed with Dr. Vaughn. Will DC the morning dose of Valium. Catapres will DC the patch in the morning. Catapres 0.1 mg twice a day starting the morning September 6: Patient did walk the hallways. Eating anywhere from 25-50%. Morning dose of Valium has been discontinued. Patient otherwise mainly subdued lethargic all day. Will cut back the evening dose of Valium down to 0.5 mg. Try to maintain sleep hygiene. Discussed with staff. September 7: Oral intake better. Less sleepy. Did walk in the hallway. Sitter. DC p.m. dose of Valium currently at 0.5 mg. Active Medications Acetaminophen (Acetaminophen Tab 325 Mg Tab) 650 mg PO Q4HR PRN PRN Reason: Pain/Discomfort Al Hydroxide/Mg Hydroxide (Mag Hydrox/Al Hydrox/Simeth 30 Ml Cup) 30 ml PO Q4HR PRN PRN Reason: GI Upset Cholecalciferol (Cholecalciferol 25 Mcg (1000 Iu) Tablet) 25 mcg PO DAILY@1200 [facility] Last Admin: 09/13/21 07:58 Dose: 25 mcg Documented by: Clonidine (Clonidine Hcl 0.1 Mg Tab) 0.1 mg PO BID [facility] Last Admin: 09/13/21 07:58 Dose: 0.1 mg Documented by: Lorazepam (Lorazepam 2 Mg/Ml Inj) 1 mg IV Q4H PRN PRN Reason: Agitation or Acute Anxiety Last Admin: 09/08/21 05:50 Dose: 1 mg Documented by: Lorazepam (Lorazepam 2 Mg/Ml Inj) 1 mg IM Q4HR PRN PRN Reason: Agitation or Acute Anxiety Lorazepam (Lorazepam 1 Mg Tab) 1 mg PO Q4HR PRN PRN Reason: Agitation or Acute Anxiety Last Admin: 09/11/21 14:26 Dose: 1 mg Documented by: Magnesium Hydroxide (Magnesium Hydroxide 2,400 Mg/10 Ml Cup) 2,400 mg PO DAILY PRN PRN Reason: Constipation Mirtazapine (Mirtazapine 15 Mg Tab) 30 mg PO [facility] Last Admin: 09/12/21 20:03 Dose: 30 mg Documented by: Olanzapine (Olanzapine 7.5 Mg Tab) 7.5 mg PO TID PRN PRN Reason: Agitation Valproic Acid (Valproic Acid Oral Soln 250 Mg/5 Ml Cup) 375 mg PO [facility] Last Admin: 09/12/21 20:04 Dose: 375 mg Documented by: Valproic Acid (Valproic Acid Oral Soln 250 Mg/5 Ml Cup) 375 mg PO DAILY [facility] Last Admin: 09/13/21 07:59 Dose: 375 mg Documented by: Ziprasidone (Ziprasidone 20 Mg Vial) 20 mg IM BID PRN PRN Reason: Agitation or Acute Psychosis Last Admin: 09/04/21 18:45 Dose: 20 mg Documented by: Past medical history to include: Goiter, bipolar disorder, chronic kidney disease Social history: This daughter. Alcohol occasionally. No smoking. Family history: CAD, diabetes Physical examination: VITAL SIGNS: 97.6, 65, 14, 133/60, 96% room air GENERAL: Laying in bed, sleepy EYES: Pupils equal. Conjunctiva normal. HEENT: External appearance of nose and ears normal, oral cavity dry NECK: JVD not raised; masses not palpable. HEART: First and second heart sounds are normal; no edema. LUNGS: Respiratory rate normal; clear to auscultation. ABDOMEN: Soft, nontender, liver spleen not palpable, no masses palpable. PSYCH: Sleepy MUSCULOSKELETAL:No Clubbing/cyanosis;muscles-grossly intact. Evidence of OA especially in the hands INVESTIGATIONS, reviewed in the clinical context: September 07: Potassium 4.3 creatinine 1.44 September 06: Potassium 4.5 BUN 41 and creatinine 1.58 CPK 332 September 04: Potassium 4 BUN 20 creatinine 1.38 CPK 1027 UA: Unremarkable Urine drug screen: Negative BUN 33 creatinine 1.54. TSH 1.8 White count 6.6 hemoglobin 13.2 platelets 274 sodium 140 potassium 4.2 and 39 creatinine 1.71 and 3 TSH 0.401 COVID 19: Not detected Assessment and plan: -Bipolar disorder, manic episode: Being followed by psychiatry. -Acute delirium, multifactorial, improving slowly DC p.m. dose of Valium -Acute rhabdomyolysis: Improved Received IV fluids -Chronic kidney disease, stage III likely nephrosclerosis -Acute kidney injury from dehydration from not taking oral:: Better IV fluids D5.45. Held -Hypertension with chronic kidney disease Will DC Catapres patch in the morning. Start clonidine 0.1 mg twice a day in the morning -Insomnia from underlying psychiatry disorder Remeron -Irritable bowel syndrome Bentyl DC p.m. dose of Valium. Sleep hygiene to be maintained. Discussed with the nurse. Follow with psychiatry. Check BMP in the morning. Thank you
[2021-09-13] MEDS: ACETAMINOPHEN TAB 325 MG TAB PO PRN ×2 (12:59→23:18)
[2021-09-13] MEDS: LORazepam 1 MG TAB PO PRN ×3 (12:59→23:17)
[2021-09-13] MEDS ORDERED: CALCIUM CARBONATE LIQUID 500 MG/5 ML CUP PO SCH (14:15)
--- NOTE | 2021-09-13 15:49 | P.PN ---
Progress Note - Text Progress Note Date: 09/13/21 Interval history: Patient was seen in her room where she was eating her lunch while being monitored by 1:1 staff. She was agreeable to speak with keno writer/runner, however she displayed poor eye contact, appeared withdrawn and appeared to be a poor historian due to the catatonia. She reports she is here because she is "very, very sick" and states that her illness "is going in a [employer]-n[employer]-she-wish band and can't stop it" which she repeats at several points in the conversation (perseveration). She is not able to name her diagnosis (bipolar) or the medications she is taking. When asked about side effects, she reports feeling unwill but cannot elaborate. Staff reports patient has complained of dizziness today. Vitals checked at bedside and are stable. She is able to feed herself, and per staff, has been eating and drinking today. At this time patient denies any suicidal or homicidal ideations, intent or plan. Denies any auditory or visual hallucinations. Patient has been compliant with meds. Per nurse, patient's daughter is now guardian and has brought in guardianship papers. 09/13/21 09/13/21 08:06 14:10 Temperature 97.6 F 97.8 F Pulse Rate [ Bilateral] Pulse Rate [ 65 71 Right Brachial] Respiratory 14 14 Rate Blood Pressure 133/60 153/70 [Left Arm Sitting] Blood Pressure [Right Arm] O2 Sat by Pulse 96 97 Oximetry Mental status exam: General Appearance: Patient appears to be stated age, appears thin, hygiene fair. She is alert. Behavior: No agitated behavior. Patient is calm, poor eye contact, is eating her lunch without assistance. Speech: Patient's speech is fragmented. Mood/Affect: Mood is "very very sick", affect appears depressed and constricted. Suicidality/Homicidality: Patient denies having any suicidal or homicidal ideation intent or plan. Perceptions: Patient denies any auditory or visual hallucinations. Though content/process: There is no evidence of any overt delusional thought content but appears fixated on her illness. Thought process: perseveration. Memory and concentration: Oriented to person; not able to assess place and time. Judgment and insight: Fair/poor Assessment/Plan: Continue with current diagnosis. Patient continues to meet criteria for inpatient psychiatric admission for symptom stabilization and safety. Patient will be maintained on current psychotropic medication regimen. Patient may benefit from trial of Vraylar, however with patient's insurance the copay is $100.55 for a 7 day supply. Will defer to primary team. Monitor for medication compliance and for any psychotropic medication side effects. Continue 1:1 staff to maintain safety. Will continue to monitor ongoing response to treatment. Encouraged participation in milieu.
[2021-09-13] MEDS: CALCIUM CARBONATE LIQUID 500 MG/5 ML CUP PO PRN (17:07)
[2021-09-13] MEDS: MIRTAZAPINE 15 MG TAB PO SCH (20:10)
[2021-09-14 07:05] LABS: Calcium 9.6 mg/dL (8.4-10.2); Potassium 5.1 mmol/L (3.5-5.1)
[2021-09-14] MEDS: CHOLECALCIFEROL 25 MCG (1000 IU) TABLET PO SCH (10:00)
[2021-09-14] MEDS: cloNIDine HCL 0.1 MG TAB PO SCH ×2 (10:00→20:44)
[2021-09-14] MEDS: VALPROIC ACID ORAL SOLN 250 MG/5 ML CUP PO SCH ×2 (10:00→20:43)
[2021-09-14 11:27] LABS: Basophils % (A) 1 %; Eosinophils # (A) 0.2 k/uL (0-0.7); Eosinophils % (A) 3 %; HCT 37.7 % (34.0-46.0); HGB 12.3 gm/dL (11.4-16.0); Lymphocytes # (A) 1.4 k/uL (1.0-4.8); Lymphocytes % (A) 29 %; MCH 31.8 pg (25.0-35.0); MCHC 32.7 g/dL (31.0-37.0); MCV 97.2 fL (80.0-100.0); Mean Platelet Volume 8.5; Monocytes # (A) 0.3 k/uL (0-1.0); Monocytes % (A) 7 %; Neutrophils # (A) 2.8 k/uL (1.3-7.7); Neutrophils % (A) 58 %; Platelet Count 266 k/uL (150-450); RBC 3.87 m/uL (3.80-5.40); RDW 12.1 % (11.5-15.5); WBC 4.8 k/uL (3.8-10.6)
[2021-09-14 11:31] LABS: Amylase 92 U/L (30-110); Lipase 153 U/L (23-300)
--- NOTE | 2021-09-14 11:58 | XR ---
Abdomen. HISTORY: Abdominal pain COMPARISON: None. TECHNIQUE: Single upright view the abdomen in 2 supine views of the abdomen were obtained FINDINGS: The lung bases are clear and there is no free intraperitoneal air beneath the diaphragms. The bowel gas pattern is nonspecific and there is no evidence of obstruction. No suspicious abdominal or pelvic calcifications are seen. There is a large amount of stool within the colon. There are degenerative changes in lumbar spine otherwise the osseous structures are intact. IMPRESSION: Nonspecific abdomen without evidence of free air or obstruction. Dense stool within the distal colon and rectum.
[2021-09-14] MEDS ORDERED: LACTULOSE 20 GM/30 ML CUP PO ONE (12:15)
[2021-09-14] MEDS ORDERED: MAGNESIUM CITRATE 296 ML BOTTLE PO ONE ×2 (15:00→19:00)
--- NOTE | 2021-09-14 15:33 | P.PN ---
Progress Note - Text Progress Note Date: 09/14/21 Patient was seen in her room where she sleeping while being monitored by 1:1 staff. She was agreeable to speak with life insurance underwriter, however she displayed poor eye contact, appeared withdrawn and depressed. At this time patient denies any suicidal or homicidal ideations, intent or plan; however reports patient eluded to wanting to earlier today. Patient denies auditory or visual hallucinations. Patient has been compliant with meds and denies medication side effects. She is eating and drinking. No falls. Vital signs 09/14/21 10:20 Temperature 98.7 F Pulse Rate Pulse Rate [ Bilateral] Pulse Rate [ 76 Right Brachial] Respiratory 14 Rate Blood Pressure Blood Pressure 107/56 [Left Arm Sitting] Blood Pressure [Right Arm] O2 Sat by Pulse Oximetry Mental status exam: General Appearance: Patient appears to be stated age, appears thin, hygiene fair. She is alert. Behavior: No agitated behavior. Patient is calm, poor eye contact. Speech: Patient's speech is fragmented. Mood/Affect: Mood is "upset", affect appears depressed and constricted. Suicidality/Homicidality: Patient denies having any suicidal or homicidal ideation. Perceptions: Patient denies any auditory or visual hallucinations. Though content/process: There is no evidence of any overt delusional thought content. Thought process: perseveration. Memory and concentration: Oriented to person, place and time "Mother's Day". Judgment and insight: Fair/poor Assessment/Plan: Continue with current diagnosis. Patient continues to meet criteria for inpatient psychiatric admission for symptom stabilization and safety. Patient will be maintained on current psychotropic medication regimen. Monitor for medication compliance and for any psychotropic medication side effects. Continue 1:1 staff to maintain safety. Will continue to monitor ongoing response to treatment. Encouraged participation in milieu.
[2021-09-14] MEDS: LORazepam 1 MG TAB PO PRN (15:58)
[2021-09-14] MEDS ORDERED: bisacodyL 10 MG SUPP RECTAL ONE (17:00)
--- NOTE | 2021-09-14 18:20 | P.PN ---
Progress Note - Text Progress Note Date: 09/14/21 - Chief Complaint Hyperactive Hospital course This is a pleasant 76-year-old patient who follows with Dr. Ferdinand Shelton. Chronic stable medical conditions include goiter that has been worked up, chronic kidney disease, insomnia, bipolar disorder. Patient is brought into the ER with her daughter for being very hyperactive pacing up and down not sleeping. Appetite has been okay. No change in bowel pattern. No fever no chills. Patient admitted with bipolar disorder/manic episode. September 03: Patient was sedated with Ativan earlier today.This afternoon patient is very anxious delirious. Walking the hallways. Holding onto people. Would n ot answer any questions straight. September 04: Patient has been in restraints. Not eating drinking since yesterday at least. Overnight given 2 L of IV fluids. IV fluids started. D5W. Patient is very restless. Delirious. Saying words sentences repetitively. In restraints. September 05: Patient has remained in restraints. Has a sitter. Iate about 25% this morning. Being given Ativan. Fluids reorder that D545 at 100 mL an hour. Some elevation in CPK. Clinically not felt to be neuroleptic malignant syndrome. No fever. Elevated blood pressure recorded previously likely from agitation/restlessness. September 06: Patient has a sitter. Out of restraints. Has been receiving Ativan. Patient is able to sit up at the edge of the bed. Sleepy. Answering occasional question. Was able to feed the patient 1 couple of custard. Took some apple juice. the patient set up in the chair. Continue with IV fluid as oral intake is insufficient. Discussed the staff to give oral intake spaced out. September 07: Patient has been receiving Ativan. Sleepy this morning. Sitter in place. I help set up the patient edge of the bed. Used to washcloth to wipe her. Nursing staff present. Was able to feed her a couple of custard and a couple of Magic cup. She also took her medications. Drinks water. Plan to have the patient sit up in a chair. Supervised. September 08: Patient has been more restful. Not agitated. Has a sitter. Eating somewhat better. Sleepy. Discussed with Dr. Vaughn. Valium 2 mg twice a day. Will DC IV fluids later today. Also discussed with the nurse. Has a patient sit up in a chair. Supervised. May 3: Patient has been sleepy. Barely eating. Discussed with the nurse and Dr. Vaughn. Reinforced sleep hygiene. Discussed to cut back Valium to 1 mg twice daily. Repeat labs tomorrow. Up in chair as tolerated. September 4: Patient doing better today. She did eat fairly well. Has a sitter. Episodes of anxiousness reported. On Valium 1 mg twice a day. September 5: Patient has been tolerating a diet. Does walk in the hallways. Sometimes a bit erratic. Very anxious. Did sleep in the afternoon. Morning dose of Valium was held this morning. Discussed with Dr. Vaughn. Will DC the morning dose of Valium. Catapres will DC the patch in the morning. Catapres 0.1 mg twice a day starting the morning September 6: Patient did walk the hallways. Eating anywhere from 25-50%. Morning dose of Valium has been discontinued. Patient otherwise mainly subdued lethargic all day. Will cut back the evening dose of Valium down to 0.5 mg. Try to maintain sleep hygiene. Discussed with staff. September 7: Oral intake better. Less sleepy. Did walk in the hallway. Sitter. DC p.m. dose of Valium currently at 0.5 mg. September 8: Had been complaining of abdominal discomfort. X-ray showed significant fecal stasis. Lactulose 20 g, followed by half a bottle of magnesium citrate is given. Also soapsuds given. Small BM. We'll repeat medical molasses enema tomorrow. Also Metamucil twice daily being added. Also reinforced importance of keeping patient awake during the daytime except for afternoon nap. So that has sleep cycle can be maintained. Patient has been ambulating in the hallway. Sleepy. Oral intake fair. Active Medications Acetaminophen (Acetaminophen Tab 325 Mg Tab) 650 mg PO Q4HR PRN PRN Reason: Pain/Discomfort Last Admin: 09/13/21 23:18 Dose: 650 mg Documented by: Al Hydroxide/Mg Hydroxide (Mag Hydrox/Al Hydrox/Simeth 30 Ml Cup) 30 ml PO Q4HR PRN PRN Reason: GI Upset Calcium Carbonate/Glycine (Calcium Carbonate Liquid 500 Mg/5 Ml Cup) 500 mg PO TID-W/MEALS PRN PRN Reason: GI Upset Last Admin: 09/13/21 17:07 Dose: 500 mg Documented by: Cholecalciferol (Cholecalciferol 25 Mcg (1000 Iu) Tablet) 25 mcg PO DAILY@1200 [facility] Last Admin: 09/14/21 10:00 Dose: 25 mcg Documented by: Clonidine (Clonidine Hcl 0.1 Mg Tab) 0.1 mg PO BID [facility] Last Admin: 09/14/21 10:00 Dose: Not Given Documented by: Lorazepam (Lorazepam 2 Mg/Ml Inj) 1 mg IV Q4H PRN PRN Reason: Agitation or Acute Anxiety Last Admin: 09/08/21 05:50 Dose: 1 mg Documented by: Lorazepam (Lorazepam 2 Mg/Ml Inj) 1 mg IM Q4HR PRN PRN Reason: Agitation or Acute Anxiety Lorazepam (Lorazepam 1 Mg Tab) 1 mg PO Q4HR PRN PRN Reason: Agitation or Acute Anxiety Last Admin: 09/14/21 15:58 Dose: 1 mg Documented by: Magnesium Citrate (Magnesium Citrate 296 Ml Bottle) 148 ml PO ONCE ONE Stop: 09/14/21 19:01 Magnesium Hydroxide (Magnesium Hydroxide 2,400 Mg/10 Ml Cup) 2,400 mg PO DAILY PRN PRN Reason: Constipation Mirtazapine (Mirtazapine 15 Mg Tab) 30 mg PO [facility] Last Admin: 09/13/21 20:10 Dose: 30 mg Documented by: Olanzapine (Olanzapine 7.5 Mg Tab) 7.5 mg PO TID PRN PRN Reason: Agitation Psyllium Hydrophilic Mucilloid (Psyllium Husk 100% 6 Gm Packet) 6 gm PO BID [facility] Valproic Acid (Valproic Acid Oral Soln 250 Mg/5 Ml Cup) 375 mg PO [facility] Last Admin: 09/13/21 20:10 Dose: 375 mg Documented by: Valproic Acid (Valproic Acid Oral Soln 250 Mg/5 Ml Cup) 375 mg PO DAILY [facility] Last Admin: 09/14/21 10:00 Dose: 375 mg Documented by: Ziprasidone (Ziprasidone 20 Mg Vial) 20 mg IM BID PRN PRN Reason: Agitation or Acute Psychosis Last Admin: 09/04/21 18:45 Dose: 20 mg Documented by: Past medical history to include: Goiter, bipolar disorder, chronic kidney disease Social history: This daughter. Alcohol occasionally. No smoking. Family history: CAD, diabetes Physical examination: VITAL SIGNS: 98.7, 76, 14, 107/56, 96 with room air GENERAL: Laying in bed, sleepy EYES: Pupils equal. Conjunctiva normal. HEENT: External appearance of nose and ears normal, oral cavity dry NECK: JVD not raised; masses not palpable. HEART: First and second heart sounds are normal; no edema. LUNGS: Respiratory rate normal; clear to auscultation. ABDOMEN: Soft, nontender, liver spleen not palpable, no masses palpable. PSYCH: Answering simple questions. MUSCULOSKELETAL:No Clubbing/cyanosis;muscles-grossly intact. Evidence of OA especially in the hands INVESTIGATIONS, reviewed in the clinical context: September 14: White count 4.8 hemoglobin 12.3 potassium 5.1 BUN 44 creatinine 1.80 September 07: Potassium 4.3 creatinine 1.44 September 06: Potassium 4.5 BUN 41 and creatinine 1.58 CPK 332 September 04: Potassium 4 BUN 20 creatinine 1.38 CPK 1027 UA: Unremarkable Urine drug screen: Negative BUN 33 creatinine 1.54. TSH 1.8 White count 6.6 hemoglobin 13.2 platelets 274 sodium 140 potassium 4.2 and 39 creatinine 1.71 and 3 TSH 0.401 COVID 19: Not detected Assessment and plan: -Bipolar disorder, manic episode: Being followed by psychiatry. -Acute delirium, multifactorial, improving slowly Valium discontinued. Reinforced sleep hygiene cycle -Acute rhabdomyolysis: Improved Received IV fluids -Chronic kidney disease, stage III likely nephrosclerosis -Acute kidney injury from dehydration from not taking oral:: Better IV fluids D5.45. Held -Hypertension with chronic kidney disease clonidine 0.1 mg twice a day i -Insomnia from underlying psychiatry disorder Remeron -Irritable bowel syndrome Bentyl -Severe constipation from decreased oral intake, inactivity Laxatives Sleep hygiene to be reinforced. Patient received lactulose 20 g, mag citrate half a bottle. Followed by soapsuds enema. Small BM. We'll receive another half a bottle of mag citrate. Metamucil twice daily has been added. Enema in the morning if no significant BM today. Total time spent today about 45 minutes with over 25 minutes of discussion.
[2021-09-14] MEDS: PSYLLIUM HUSK 100% 6 GM PACKET PO SCH (20:44)
[2021-09-14] MEDS: MIRTAZAPINE 15 MG TAB PO SCH (20:44)
[2021-09-15] MEDS: ACETAMINOPHEN TAB 325 MG TAB PO PRN ×2 (01:39→23:07)
[2021-09-15] MEDS: LORazepam 1 MG TAB PO PRN (01:45)
[2021-09-15] MEDS: PSYLLIUM HUSK 100% 6 GM PACKET PO SCH ×2 (08:50→21:26)
[2021-09-15] MEDS: VALPROIC ACID ORAL SOLN 250 MG/5 ML CUP PO SCH ×2 (08:51→21:13)
[2021-09-15] MEDS: CHOLECALCIFEROL 25 MCG (1000 IU) TABLET PO SCH (08:51)
[2021-09-15] MEDS: cloNIDine HCL 0.1 MG TAB PO SCH ×2 (08:53→21:13)
--- NOTE | 2021-09-15 10:40 | P.PN ---
Progress Note - Text Progress Note Date: 09/15/21 Interval History: Patient was seen this morning for psychiatric follow-upPatient was seen laying on the bed today and information writer approached patient and she awoken. Patient has been eating and drinking fluids OK today. She was laying in bed and more responsive today to information writer's questions. She correctly stated her name and knows that she is a hospital in [place]. She does not know today's date. She is denying any complaints and denying any depression today. She answers very concrete and monotone. Continues to have poor understanding of her treatment illness. Continues to be fairly slow to respond and slow to move. She is denying any auditory or visual hallucinations. Denying any suicidal or homicidal ideations intent or plan. Mental Status Exam: General Appearance: Patient appears to be elderly, somewhat lethargic, sitting at the side of the bed, thin. Behavior: laying on the bed, no agitation. Responds to questions. Speech: Patient's speech is mumbling today. [place]. Soft tone, improving Mood/Affect: Denies any depression or anxiety. Affect is constricted. Suicidality/Homicidality: Denies Perceptions: Denies any auditory or visual hallucinations. Though content/process: [place], poverty of content. Limited. Memory and concentration: Alert and oriented 2. Slow to respond. Follow some commands. Judgment and insight: Limited Assessment Catatonia, resolving Bipolar disorder, cheryle Plan: -Patient continues to meet criteria for inpatient psychiatric admission for symptom stabilization and safety. Patient has signed adult voluntary form and medication consent and was placed in patient's chart. -Medications: Depakene 375 mg bid for mood stabilization. continue with Ativan IVP to 1 mg q4hr PRN for treatment of catatonia. Valium has been discontinued. -depakote level 5/6 - 56.1 -When necessary Zyprexa and Geodon for agitation/aggression. -NRT - not needed as patient does not smoke. -SW on board for discharge planning. Encouraged the patient to participate in milieu. court date set for september 10, patient did not defer with [facility]. Patient daughter does not want patient to go through ECT and wants to continue on with medical management. At this time it appears that patient is plateuing in her condition and could take quite a long time to recover just with medications. Will begin to speak with daughter about potential for shelter vs [facility] home vs going home with daughter. PT and OT consulted. Daughter obtaining gaurdianship;
--- NOTE | 2021-09-15 14:58 | P.PN ---
Progress Note - Text Progress Note Date: 09/15/21 - Chief Complaint Hyperactive Hospital course This is a pleasant 76-year-old patient who follows with Dr. Ferdinand Shelton. Chronic stable medical conditions include goiter that has been worked up, chronic kidney disease, insomnia, bipolar disorder. Patient is brought into the ER with her daughter for being very hyperactive pacing up and down not sleeping. Appetite has been okay. No change in bowel pattern. No fever no chills. Patient admitted with bipolar disorder/manic episode. September 03: Patient was sedated with Ativan earlier today.This afternoon patient is very anxious delirious. Walking the hallways. Holding onto people. Would n ot answer any questions straight. September 04: Patient has been in restraints. Not eating drinking since yesterday at least. Overnight given 2 L of IV fluids. IV fluids started. D5W. Patient is very restless. Delirious. Saying words sentences repetitively. In restraints. September 05: Patient has remained in restraints. Has a sitter. Iate about 25% this morning. Being given Ativan. Fluids reorder that D545 at 100 mL an hour. Some elevation in CPK. Clinically not felt to be neuroleptic malignant syndrome. No fever. Elevated blood pressure recorded previously likely from agitation/restlessness. September 06: Patient has a sitter. Out of restraints. Has been receiving Ativan. Patient is able to sit up at the edge of the bed. Sleepy. Answering occasional question. Was able to feed the patient 1 couple of custard. Took some apple juice. the patient set up in the chair. Continue with IV fluid as oral intake is insufficient. Discussed the staff to give oral intake spaced out. September 07: Patient has been receiving Ativan. Sleepy this morning. Sitter in place. I help set up the patient edge of the bed. Used to washcloth to wipe her. Nursing staff present. Was able to feed her a couple of custard and a couple of Magic cup. She also took her medications. Drinks water. Plan to have the patient sit up in a chair. Supervised. September 08: Patient has been more restful. Not agitated. Has a sitter. Eating somewhat better. Sleepy. Discussed with Dr. Vaughn. Valium 2 mg twice a day. Will DC IV fluids later today. Also discussed with the nurse. Has a patient sit up in a chair. Supervised. May 3: Patient has been sleepy. Barely eating. Discussed with the nurse and Dr. Vaughn. Reinforced sleep hygiene. Discussed to cut back Valium to 1 mg twice daily. Repeat labs tomorrow. Up in chair as tolerated. September 4: Patient doing better today. She did eat fairly well. Has a sitter. Episodes of anxiousness reported. On Valium 1 mg twice a day. September 5: Patient has been tolerating a diet. Does walk in the hallways. Sometimes a bit erratic. Very anxious. Did sleep in the afternoon. Morning dose of Valium was held this morning. Discussed with Dr. Vaughn. Will DC the morning dose of Valium. Catapres will DC the patch in the morning. Catapres 0.1 mg twice a day starting the morning September 6: Patient did walk the hallways. Eating anywhere from 25-50%. Morning dose of Valium has been discontinued. Patient otherwise mainly subdued lethargic all day. Will cut back the evening dose of Valium down to 0.5 mg. Try to maintain sleep hygiene. Discussed with staff. September 7: Oral intake better. Less sleepy. Did walk in the hallway. Sitter. DC p.m. dose of Valium currently at 0.5 mg. September 8: Had been complaining of abdominal discomfort. X-ray showed significant fecal stasis. Lactulose 20 g, followed by half a bottle of magnesium citrate is given. Also soapsuds given. Small BM. We'll repeat medical molasses enema tomorrow. Also Metamucil twice daily being added. Also reinforced importance of keeping patient awake during the daytime except for afternoon nap. So that has sleep cycle can be maintained. Patient has been ambulating in the hallway. Sleepy. Oral intake fair. September 9: This morning patient had quite a few bowel movements. Loose. Abdomen soft. Eating fair. Did walk in the hallway. Answering questions. Patient will need sleep hygiene to be emphasized. Active Medications Acetaminophen (Acetaminophen Tab 325 Mg Tab) 650 mg PO Q4HR PRN PRN Reason: Pain/Discomfort Last Admin: 09/15/21 01:39 Dose: 650 mg Documented by: Al Hydroxide/Mg Hydroxide (Mag Hydrox/Al Hydrox/Simeth 30 Ml Cup) 30 ml PO Q4HR PRN PRN Reason: GI Upset Calcium Carbonate/Glycine (Calcium Carbonate Liquid 500 Mg/5 Ml Cup) 500 mg PO TID-W/MEALS PRN PRN Reason: GI Upset Last Admin: 09/13/21 17:07 Dose: 500 mg Documented by: Cholecalciferol (Cholecalciferol 25 Mcg (1000 Iu) Tablet) 25 mcg PO DAILY@1200 [facility] Last Admin: 09/15/21 08:51 Dose: 25 mcg Documented by: Clonidine (Clonidine Hcl 0.1 Mg Tab) 0.1 mg PO BID [facility] Last Admin: 09/15/21 08:53 Dose: 0.1 mg Documented by: Lorazepam (Lorazepam 2 Mg/Ml Inj) 1 mg IV Q4H PRN PRN Reason: Agitation or Acute Anxiety Last Admin: 09/08/21 05:50 Dose: 1 mg Documented by: Lorazepam (Lorazepam 2 Mg/Ml Inj) 1 mg IM Q4HR PRN PRN Reason: Agitation or Acute Anxiety Lorazepam (Lorazepam 1 Mg Tab) 1 mg PO Q4HR PRN PRN Reason: Agitation or Acute Anxiety Last Admin: 09/15/21 01:45 Dose: 1 mg Documented by: Magnesium Hydroxide (Magnesium Hydroxide 2,400 Mg/10 Ml Cup) 2,400 mg PO DAILY PRN PRN Reason: Constipation Mirtazapine (Mirtazapine 15 Mg Tab) 30 mg PO [facility] Last Admin: 09/14/21 20:44 Dose: 30 mg Documented by: Olanzapine (Olanzapine 7.5 Mg Tab) 7.5 mg PO TID PRN PRN Reason: Agitation Psyllium Hydrophilic Mucilloid (Psyllium Husk 100% 6 Gm Packet) 6 gm PO BID [facility] Last Admin: 09/15/21 08:50 Dose: Not Given Documented by: Valproic Acid (Valproic Acid Oral Soln 250 Mg/5 Ml Cup) 375 mg PO [facility] Last Admin: 09/14/21 20:43 Dose: 375 mg Documented by: Valproic Acid (Valproic Acid Oral Soln 250 Mg/5 Ml Cup) 375 mg PO DAILY [facility] Last Admin: 09/15/21 08:51 Dose: 375 mg Documented by: Ziprasidone (Ziprasidone 20 Mg Vial) 20 mg IM BID PRN PRN Reason: Agitation or Acute Psychosis Last Admin: 09/04/21 18:45 Dose: 20 mg Documented by: Past medical history to include: Goiter, bipolar disorder, chronic kidney disease Social history: This daughter. Alcohol occasionally. No smoking. Family history: CAD, diabetes Physical examination: VITAL SIGNS: 98.9, 78, 18, 122/69, 99% room air GENERAL: Laying in bed, sleepy EYES: Pupils equal. Conjunctiva normal. HEENT: External appearance of nose and ears normal, oral cavity dry NECK: JVD not raised; masses not palpable. HEART: First and second heart sounds are normal; no edema. LUNGS: Respiratory rate normal; clear to auscultation. ABDOMEN: Soft, nontender, liver spleen not palpable, no masses palpable. PSYCH: Answering simple questions. MUSCULOSKELETAL:No Clubbing/cyanosis;muscles-grossly intact. Evidence of OA especially in the hands INVESTIGATIONS, reviewed in the clinical context: September 14: White count 4.8 hemoglobin 12.3 potassium 5.1 BUN 44 creatinine 1.80 September 07: Potassium 4.3 creatinine 1.44 September 06: Potassium 4.5 BUN 41 and creatinine 1.58 CPK 332 September 04: Potassium 4 BUN 20 creatinine 1.38 CPK 1027 UA: Unremarkable Urine drug screen: Negative BUN 33 creatinine 1.54. TSH 1.8 White count 6.6 hemoglobin 13.2 platelets 274 sodium 140 potassium 4.2 and 39 creatinine 1.71 and 3 TSH 0.401 COVID 19: Not detected Assessment and plan: -Bipolar disorder, manic episode: Being followed by psychiatry. -Acute delirium, multifactorial, improving slowly Valium discontinued. Reinforce sleep hygiene cycle -Acute rhabdomyolysis: Improved Received IV fluids -Chronic kidney disease, stage III likely nephrosclerosis -Acute kidney injury from dehydration from not taking oral:: Better IV fluids D5.45. Held -Hypertension with chronic kidney disease clonidine 0.1 mg twice a day i -Insomnia from underlying psychiatry disorder Remeron -Irritable bowel syndrome Bentyl -Severe constipation from decreased oral intake, inactivity: Responded to Laxatives. Continue Metamucil. Sleep hygiene reinforced-this should really help the patient.. Other medications to continue. Patient is doing well off Valium.
[2021-09-15] MEDS: MAG HYDROX/AL HYDROX/SIMETH 30 ML CUP PO PRN (19:44)
[2021-09-15] MEDS: MIRTAZAPINE 15 MG TAB PO SCH (21:13)
[2021-09-16] MEDS: LORazepam 1 MG TAB PO PRN ×2 (01:57→22:20)
[2021-09-16] MEDS: MAG HYDROX/AL HYDROX/SIMETH 30 ML CUP PO PRN ×2 (04:20→22:20)
[2021-09-16] MEDS: cloNIDine HCL 0.1 MG TAB PO SCH ×2 (08:09→20:34)
[2021-09-16] MEDS: CHOLECALCIFEROL 25 MCG (1000 IU) TABLET PO SCH (08:10)
[2021-09-16] MEDS: VALPROIC ACID ORAL SOLN 250 MG/5 ML CUP PO SCH (08:10)
[2021-09-16] MEDS: PSYLLIUM HUSK 100% 6 GM PACKET PO SCH ×2 (08:10→20:34)
[2021-09-16] MEDS: CALCIUM CARBONATE LIQUID 500 MG/5 ML CUP PO PRN (09:59)
--- NOTE | 2021-09-16 11:19 | P.PN ---
Progress Note - Text Progress Note Date: 09/16/21 Interval History: Patient was seen this morning for psychiatric follow-up. Patient was seen laying on the bed today and was approached by [employer] underwriter today to be interviewed. Patient awoke and attempted to be almost getting out of bed today. She appears to be more verbal today and answered more questions for murder. She knows that she is in a hospital however does not know where. She knows her full name. She does not know today's date or year. She continues to be fairly concrete. She denied any overnight complaints however according to nursing report, patient had a difficult time with sleep last night. She appears to be less restless. She denies any depression today. She answers very concrete and monotone. Continues to have poor understanding of her treatment or illness. Continues to be fairly slow to respond and slow to move but has been noted to be walking in the hallway without assistance. she was also noted to be eating and drinking fluids. She is denying any auditory or visual hallucinations. Denying any suicidal or homicidal ideations intent or plan. Mental Status Exam: General Appearance: Patient appears to be elderly, somewhat lethargic, sitting at the side of the bed, thin. Behavior: laying on the bed, no agitation. Responds to questions, improving Speech: Patient's speech is [place]. Soft tone, improving Mood/Affect: Denies any depression or anxiety. Affect is constricted. Suicidality/Homicidality: Denies Perceptions: Denies any auditory or visual hallucinations. Though content/process: [place], poverty of content. Limited. not endorsing delusions. Memory and concentration: Alert and oriented 2. Slow to respond, improving midlly. Follow some commands. Judgment and insight: Limited Assessment Catatonia, resolving Bipolar disorder, cheryle Plan: -Patient continues to meet criteria for inpatient psychiatric admission for symptom stabilization and safety. Patient has signed adult voluntary form and medication consent and was placed in patient's chart. -Medications: switched to PO Depakote 1000 mg QHS for mood stabilization. continue with Ativan IVP to 1 mg q4hr PRN for treatment of catatonia. added melatonin 2 mg qhs for sleep. will attempt to keep patient more awake during the day to help regulate and imrpove her sleep/wake cycle. continue with Remeron 30 mg qhs for sleep/mood/appetite. -depakote level 5/6 - 56.1, will repeat morning. -When necessary Zyprexa and Geodon for agitation/aggression. -NRT - not needed as patient does not smoke. -SW on board for discharge planning. Encouraged the patient to participate in milieu. court date set for september 10, patient did not defer with associate attorney. Patient daughter does not want patient to go through ECT and wants to continue on with medical management. At this time it appears that patient is plateuing in her condition and could take quite a long time to recover just with medications. Will begin to speak with daughter about potential for half-way vs [facility] home vs going home with daughter. PT and OT onboard. Daughter obtaining gaurdianship.
--- NOTE | 2021-09-16 15:08 | P.PN ---
Progress Note - Text Progress Note Date: 09/16/21 - Chief Complaint Hyperactive Hospital course This is a pleasant 76-year-old patient who follows with Dr. Ferdinand Shelton. Chronic stable medical conditions include goiter that has been worked up, chronic kidney disease, insomnia, bipolar disorder. Patient is brought into the ER with her daughter for being very hyperactive pacing up and down not sleeping. Appetite has been okay. No change in bowel pattern. No fever no chills. Patient admitted with bipolar disorder/manic episode. September 03: Patient was sedated with Ativan earlier today.This afternoon patient is very anxious delirious. Walking the hallways. Holding onto people. Would n ot answer any questions straight. September 04: Patient has been in restraints. Not eating drinking since yesterday at least. Overnight given 2 L of IV fluids. IV fluids started. D5W. Patient is very restless. Delirious. Saying words sentences repetitively. In restraints. September 05: Patient has remained in restraints. Has a sitter. Iate about 25% this morning. Being given Ativan. Fluids reorder that D545 at 100 mL an hour. Some elevation in CPK. Clinically not felt to be neuroleptic malignant syndrome. No fever. Elevated blood pressure recorded previously likely from agitation/restlessness. September 06: Patient has a sitter. Out of restraints. Has been receiving Ativan. Patient is able to sit up at the edge of the bed. Sleepy. Answering occasional question. Was able to feed the patient 1 couple of custard. Took some apple juice. the patient set up in the chair. Continue with IV fluid as oral intake is insufficient. Discussed the staff to give oral intake spaced out. September 07: Patient has been receiving Ativan. Sleepy this morning. Sitter in place. I help set up the patient edge of the bed. Used to washcloth to wipe her. Nursing staff present. Was able to feed her a couple of custard and a couple of Magic cup. She also took her medications. Drinks water. Plan to have the patient sit up in a chair. Supervised. September 08: Patient has been more restful. Not agitated. Has a sitter. Eating somewhat better. Sleepy. Discussed with Dr. Vaughn. Valium 2 mg twice a day. Will DC IV fluids later today. Also discussed with the nurse. Has a patient sit up in a chair. Supervised. May 3: Patient has been sleepy. Barely eating. Discussed with the nurse and Dr. Vaughn. Reinforced sleep hygiene. Discussed to cut back Valium to 1 mg twice daily. Repeat labs tomorrow. Up in chair as tolerated. September 4: Patient doing better today. She did eat fairly well. Has a sitter. Episodes of anxiousness reported. On Valium 1 mg twice a day. September 5: Patient has been tolerating a diet. Does walk in the hallways. Sometimes a bit erratic. Very anxious. Did sleep in the afternoon. Morning dose of Valium was held this morning. Discussed with Dr. Vaughn. Will DC the morning dose of Valium. Catapres will DC the patch in the morning. Catapres 0.1 mg twice a day starting the morning September 6: Patient did walk the hallways. Eating anywhere from 25-50%. Morning dose of Valium has been discontinued. Patient otherwise mainly subdued lethargic all day. Will cut back the evening dose of Valium down to 0.5 mg. Try to maintain sleep hygiene. Discussed with staff. September 7: Oral intake better. Less sleepy. Did walk in the hallway. Sitter. DC p.m. dose of Valium currently at 0.5 mg. September 14: Had been complaining of abdominal discomfort. X-ray showed significant fecal stasis. Lactulose 20 g, followed by half a bottle of magnesium citrate is given. Also soapsuds given. Small BM. We'll repeat medical molasses enema tomorrow. Also Metamucil twice daily being added. Also reinforced importance of keeping patient awake during the daytime except for afternoon nap. So that has sleep cycle can be maintained. Patient has been ambulating in the hallway. Sleepy. Oral intake fair. September 15: This morning patient had quite a few bowel movements. Loose. Abdomen soft. Eating fair. Did walk in the hallway. Answering questions. Patient will need sleep hygiene to be emphasized. September 16: Patient slept well. Sleepy in the daytime. Depakote daytime dose discontinued by Dr. Vaughn. Discussed with him. With the nurse I completed the patient to the lounge. Put the television on. Again sleep hygiene to be reinforced. Oral intake fair. Active Medications Acetaminophen (Acetaminophen Tab 325 Mg Tab) 650 mg PO Q4HR PRN PRN Reason: Pain/Discomfort Last Admin: 09/15/21 23:07 Dose: 650 mg Documented by: Al Hydroxide/Mg Hydroxide (Mag Hydrox/Al Hydrox/Simeth 30 Ml Cup) 30 ml PO Q4HR PRN PRN Reason: GI Upset Last Admin: 09/16/21 04:20 Dose: 30 ml Documented by: Calcium Carbonate/Glycine (Calcium Carbonate Liquid 500 Mg/5 Ml Cup) 500 mg PO TID-W/MEALS PRN PRN Reason: GI Upset Last Admin: 09/16/21 09:59 Dose: 500 mg Documented by: Cholecalciferol (Cholecalciferol 25 Mcg (1000 Iu) Tablet) 25 mcg PO DAILY@1200 [facility] Last Admin: 09/16/21 08:10 Dose: 25 mcg Documented by: Clonidine (Clonidine Hcl 0.1 Mg Tab) 0.1 mg PO BID [facility] Last Admin: 09/16/21 08:09 Dose: 0.1 mg Documented by: Divalproex Sodium (Divalproex Er 500 Mg Tab.Er.24h) 1,000 mg PO [facility] Lorazepam (Lorazepam 2 Mg/Ml Inj) 1 mg IV Q4H PRN PRN Reason: Agitation or Acute Anxiety Last Admin: 09/08/21 05:50 Dose: 1 mg Documented by: Lorazepam (Lorazepam 2 Mg/Ml Inj) 1 mg IM Q4HR PRN PRN Reason: Agitation or Acute Anxiety Lorazepam (Lorazepam 1 Mg Tab) 1 mg PO Q4HR PRN PRN Reason: Agitation or Acute Anxiety Last Admin: 09/16/21 01:57 Dose: 1 mg Documented by: Magnesium Hydroxide (Magnesium Hydroxide 2,400 Mg/10 Ml Cup) 2,400 mg PO DAILY PRN PRN Reason: Constipation Melatonin (Melatonin 1 Mg Tab) 2 mg PO [facility] Mirtazapine (Mirtazapine 15 Mg Tab) 30 mg PO [facility] Last Admin: 09/15/21 21:13 Dose: 30 mg Documented by: Olanzapine (Olanzapine 7.5 Mg Tab) 7.5 mg PO TID PRN PRN Reason: Agitation Psyllium Hydrophilic Mucilloid (Psyllium Husk 100% 6 Gm Packet) 6 gm PO BID [facility] Last Admin: 09/16/21 08:10 Dose: Not Given Documented by: Ziprasidone (Ziprasidone 20 Mg Vial) 20 mg IM BID PRN PRN Reason: Agitation or Acute Psychosis Last Admin: 09/04/21 18:45 Dose: 20 mg Documented by: Past medical history to include: Goiter, bipolar disorder, chronic kidney disease Social history: This daughter. Alcohol occasionally. No smoking. Family history: CAD, diabetes Physical examination: VITAL SIGNS: 98.2, 67, 16, 122/71, 97% GENERAL: Laying in bed, sleepy EYES: Pupils equal. Conjunctiva normal. HEENT: External appearance of nose and ears normal, oral cavity dry NECK: JVD not raised; masses not palpable. HEART: First and second heart sounds are normal; no edema. LUNGS: Respiratory rate normal; clear to auscultation. ABDOMEN: Soft, nontender, liver spleen not palpable, no masses palpable. PSYCH: Answering simple questions. MUSCULOSKELETAL:No Clubbing/cyanosis;muscles-grossly intact. Evidence of OA especially in the hands INVESTIGATIONS, reviewed in the clinical context: September 14: White count 4.8 hemoglobin 12.3 potassium 5.1 BUN 44 creatinine 1.80 September 07: Potassium 4.3 creatinine 1.44 September 06: Potassium 4.5 BUN 41 and creatinine 1.58 CPK 332 September 04: Potassium 4 BUN 20 creatinine 1.38 CPK 1027 UA: Unremarkable Urine drug screen: Negative BUN 33 creatinine 1.54. TSH 1.8 White count 6.6 hemoglobin 13.2 platelets 274 sodium 140 potassium 4.2 and 39 creatinine 1.71 and 3 TSH 0.401 COVID 19: Not detected Assessment and plan: -Bipolar disorder, manic episode: ,catatonia Being followed by psychiatry. -Acute delirium, multifactorial, improving slowly Valium discontinued. Reinforce sleep hygiene cycle. DC morning dose of Depakote. -Acute rhabdomyolysis: Improved Received IV fluids -Chronic kidney disease, stage III likely nephrosclerosis -Acute kidney injury from dehydration from not taking oral:: Better IV fluids D5.45. Held -Hypertension with chronic kidney disease clonidine 0.1 mg twice a day i -Insomnia from underlying psychiatry disorder Remeron -Irritable bowel syndrome Bentyl -Severe constipation from decreased oral intake, inactivity: Responded to Laxatives. Continue Metamucil. Sleep hygiene reinforced-. Morning dose of Depakote discontinued. Other medications to continue. Activity as tolerated. Discussed with Dr. Vaughn.
[2021-09-16] MEDS: MIRTAZAPINE 15 MG TAB PO SCH (20:33)
[2021-09-16] MEDS ORDERED: MELATONIN 1 MG TAB PO SCH (21:00)
[2021-09-16] MEDS ORDERED: DIVALPROEX ER 250 MG TAB.ER.24H PO SCH (21:00)
[2021-09-16] MEDS ORDERED: DIVALPROEX ER 500 MG TAB.ER.24H PO SCH (21:00)
[2021-09-16] MEDS: ACETAMINOPHEN TAB 325 MG TAB PO PRN (22:20)
[2021-09-17] MEDS: cloNIDine HCL 0.1 MG TAB PO SCH ×2 (08:29→20:26)
[2021-09-17] MEDS: PSYLLIUM HUSK 100% 6 GM PACKET PO SCH ×2 (08:29→20:26)
--- NOTE | 2021-09-17 10:06 | P.PN ---
Progress Note - Text Progress Note Date: 09/17/21 Interval History: Patient was seen this morning for psychiatric follow-up. Patient was seen laying on the bed today and was approached by life underwriter today to be interviewed. Patient awoke and attempted to be almost getting out of bed today. She appears to be more verbal today and answered more questions for murder. She knows that she is in a hospital however does not know where. She knows her full name. She does not know today's date or year. She continues to be fairly concrete. She denied any overnight complaints however according to nursing report, patient had a difficult time with sleep last night. She appears to be less restless. She denies any depression today. She answers very concrete and monotone. Continues to have poor understanding of her treatment or illness. Continues to be fairly slow to respond and slow to move but has been noted to be walking in the hallway without assistance. she was also noted to be eating and drinking fluids. She is denying any auditory or visual hallucinations. Denying any suicidal or homicidal ideations intent or plan. Mental Status Exam: General Appearance: Patient appears to be elderly, somewhat lethargic, sitting at the side of the bed, thin. Behavior: laying on the bed, no agitation. Responds to questions, improving Speech: Patient's speech is [place]. Soft tone, improving Mood/Affect: Denies any depression or anxiety. Affect is constricted. Suicidality/Homicidality: Denies Perceptions: Denies any auditory or visual hallucinations. Though content/process: [place], poverty of content. Limited. not endorsing delusions. Memory and concentration: Alert and oriented 2. Slow to respond, improving midlly. Follow some commands. Judgment and insight: Limited Assessment Catatonia, resolving Bipolar disorder, cheryle Plan: -Patient continues to meet criteria for inpatient psychiatric admission for symptom stabilization and safety. Patient has signed adult voluntary form and medication consent and was placed in patient's chart. -Medications: decrease Depakote 500 mg QHS for mood stabilization as patient is likely experiencing abdominal pain from medication. started lamictal 25 mg bid for mood stabilization. continue with Ativan IVP to 1 mg q4hr PRN for treatment of catatonia. added ativan 1 mg PO qhs for catatonia and plan to titrate up as tolerated. increase melatonin 3 mg qhs for sleep. will attempt to keep patient more awake during the day to help regulate and imrpove her sleep/wake cycle. continue with Remeron 30 mg qhs for sleep/mood/appetite. -depakote level 5/6 - 56.1, will repeat morning. will also check ammonia level. -When necessary Zyprexa and Geodon for agitation/aggression. -NRT - not needed as patient does not smoke. -SW on board for discharge planning. Encouraged the patient to participate in milieu. court date set for september 10, patient did not defer with [employer]. Patient daughter does not want patient to go through ECT and wants to continue on with medical management. At this time it appears that patient is plateuing in her condition and could take quite a long time to recover just with medications. Will continue looking into [facility] assisted living for placement. PT and OT onboard. Daughter obtaining gaurdianship.
[2021-09-17] MEDS: lamoTRIgine 25 MG TAB PO SCH ×2 (10:18→20:25)
[2021-09-17] MEDS: CHOLECALCIFEROL 25 MCG (1000 IU) TABLET PO SCH (12:46)
[2021-09-17] MEDS ORDERED: LACTULOSE 20 GM/30 ML CUP PO ONE (13:20)
--- NOTE | 2021-09-17 15:03 | P.PN ---
Progress Note - Text Progress Note Date: 09/17/21 - Chief Complaint Hyperactive Hospital course This is a pleasant 76-year-old patient who follows with Dr. Ferdinand Shelton. Chronic stable medical conditions include goiter that has been worked up, chronic kidney disease, insomnia, bipolar disorder. Patient is brought into the ER with her daughter for being very hyperactive pacing up and down not sleeping. Appetite has been okay. No change in bowel pattern. No fever no chills. Patient admitted with bipolar disorder/manic episode. September 03: Patient was sedated with Ativan earlier today.This afternoon patient is very anxious delirious. Walking the hallways. Holding onto people. Would n ot answer any questions straight. September 04: Patient has been in restraints. Not eating drinking since yesterday at least. Overnight given 2 L of IV fluids. IV fluids started. D5W. Patient is very restless. Delirious. Saying words sentences repetitively. In restraints. September 05: Patient has remained in restraints. Has a sitter. Iate about 25% this morning. Being given Ativan. Fluids reorder that D545 at 100 mL an hour. Some elevation in CPK. Clinically not felt to be neuroleptic malignant syndrome. No fever. Elevated blood pressure recorded previously likely from agitation/restlessness. September 06: Patient has a sitter. Out of restraints. Has been receiving Ativan. Patient is able to sit up at the edge of the bed. Sleepy. Answering occasional question. Was able to feed the patient 1 couple of custard. Took some apple juice. the patient set up in the chair. Continue with IV fluid as oral intake is insufficient. Discussed the staff to give oral intake spaced out. September 07: Patient has been receiving Ativan. Sleepy this morning. Sitter in place. I help set up the patient edge of the bed. Used to washcloth to wipe her. Nursing staff present. Was able to feed her a couple of custard and a couple of Magic cup. She also took her medications. Drinks water. Plan to have the patient sit up in a chair. Supervised. September 08: Patient has been more restful. Not agitated. Has a sitter. Eating somewhat better. Sleepy. Discussed with Dr. Vaughn. Valium 2 mg twice a day. Will DC IV fluids later today. Also discussed with the nurse. Has a patient sit up in a chair. Supervised. May 3: Patient has been sleepy. Barely eating. Discussed with the nurse and Dr. Vaughn. Reinforced sleep hygiene. Discussed to cut back Valium to 1 mg twice daily. Repeat labs tomorrow. Up in chair as tolerated. September 4: Patient doing better today. She did eat fairly well. Has a sitter. Episodes of anxiousness reported. On Valium 1 mg twice a day. September 5: Patient has been tolerating a diet. Does walk in the hallways. Sometimes a bit erratic. Very anxious. Did sleep in the afternoon. Morning dose of Valium was held this morning. Discussed with Dr. Vaughn. Will DC the morning dose of Valium. Catapres will DC the patch in the morning. Catapres 0.1 mg twice a day starting the morning September 6: Patient did walk the hallways. Eating anywhere from 25-50%. Morning dose of Valium has been discontinued. Patient otherwise mainly subdued lethargic all day. Will cut back the evening dose of Valium down to 0.5 mg. Try to maintain sleep hygiene. Discussed with staff. September 7: Oral intake better. Less sleepy. Did walk in the hallway. Sitter. DC p.m. dose of Valium currently at 0.5 mg. September 8: Had been complaining of abdominal discomfort. X-ray showed significant fecal stasis. Lactulose 20 g, followed by half a bottle of magnesium citrate is given. Also soapsuds given. Small BM. We'll repeat medical molasses enema tomorrow. Also Metamucil twice daily being added. Also reinforced importance of keeping patient awake during the daytime except for afternoon nap. So that has sleep cycle can be maintained. Patient has been ambulating in the hallway. Sleepy. Oral intake fair. September 15: This morning patient had quite a few bowel movements. Loose. Abdomen soft. Eating fair. Did walk in the hallway. Answering questions. Patient will need sleep hygiene to be emphasized. September 16: Patient slept well. Sleepy in the daytime. Depakote daytime dose discontinued by Dr. Vaughn. Discussed with him. With the nurse I completed the patient to the lounge. Put the television on. Again sleep hygiene to be reinforced. Oral intake fair September 11: Medication adjusted by Dr. Vaughn. Oral intake fair. Ambulating in the hallway. Again sleep hygiene to be reinforced.. Dose of lactulose today. Active Medications Acetaminophen (Acetaminophen Tab 325 Mg Tab) 650 mg PO Q4HR PRN PRN Reason: Pain/Discomfort Last Admin: 09/16/21 22:20 Dose: 650 mg Documented by: Al Hydroxide/Mg Hydroxide (Mag Hydrox/Al Hydrox/Simeth 30 Ml Cup) 30 ml PO Q4HR PRN PRN Reason: GI Upset Last Admin: 09/16/21 22:20 Dose: 30 ml Documented by: Calcium Carbonate/Glycine (Calcium Carbonate Liquid 500 Mg/5 Ml Cup) 500 mg PO TID-W/MEALS PRN PRN Reason: GI Upset Last Admin: 09/16/21 09:59 Dose: 500 mg Documented by: Cholecalciferol (Cholecalciferol 25 Mcg (1000 Iu) Tablet) 25 mcg PO DAILY@1200 AVERY Last Admin: 09/17/21 12:46 Dose: 25 mcg Documented by: Clonidine (Clonidine Hcl 0.1 Mg Tab) 0.1 mg PO BID [facility] Last Admin: 09/17/21 08:29 Dose: 0.1 mg Documented by: Divalproex Sodium (Divalproex Er 250 Mg Tab.Er.24h) 500 mg PO [facility] Lamotrigine (Lamotrigine 25 Mg Tab) 25 mg PO BID [facility] Last Admin: 09/17/21 10:18 Dose: 25 mg Documented by: Lorazepam (Lorazepam 2 Mg/Ml Inj) 1 mg IV Q4H PRN PRN Reason: Agitation or Acute Anxiety Last Admin: 09/08/21 05:50 Dose: 1 mg Documented by: Lorazepam (Lorazepam 2 Mg/Ml Inj) 1 mg IM Q4HR PRN PRN Reason: Agitation or Acute Anxiety Lorazepam (Lorazepam 1 Mg Tab) 1 mg PO Q4HR PRN PRN Reason: Agitation or Acute Anxiety Last Admin: 09/16/21 22:20 Dose: 1 mg Documented by: Lorazepam (Lorazepam 1 Mg Tab) 1 mg PO [facility] Magnesium Hydroxide (Magnesium Hydroxide 2,400 Mg/10 Ml Cup) 2,400 mg PO DAILY PRN PRN Reason: Constipation Last Admin: 09/17/21 00:59 Dose: 2,400 mg Documented by: Melatonin (Melatonin 3 Mg Tablet) 3 mg PO [facility] Mirtazapine (Mirtazapine 15 Mg Tab) 30 mg PO HS [facility] Last Admin: 09/16/21 20:33 Dose: 30 mg Documented by: Psyllium Hydrophilic Mucilloid (Psyllium Husk 100% 6 Gm Packet) 6 gm PO BID [facility] Last Admin: 09/17/21 08:29 Dose: 6 gm Documented by: Ziprasidone (Ziprasidone 20 Mg Vial) 20 mg IM BID PRN PRN Reason: Agitation or Acute Psychosis Last Admin: 09/04/21 18:45 Dose: 20 mg Documented by: Past medical history to include: Goiter, bipolar disorder, chronic kidney disease Social history: This daughter. Alcohol occasionally. No smoking. Family history: CAD, diabetes Physical examination: VITAL SIGNS: 98.4, 70, 18, and 42/92, 97% room air GENERAL: Comfortable, more awake EYES: Pupils equal. Conjunctiva normal. HEENT: External appearance of nose and ears normal, oral cavity dry NECK: JVD not raised; masses not palpable. HEART: First and second heart sounds are normal; no edema. LUNGS: Respiratory rate normal; clear to auscultation. ABDOMEN: Soft, nontender, liver spleen not palpable, no masses palpable. PSYCH: Answering questions appropriately. MUSCULOSKELETAL:No Clubbing/cyanosis;muscles-grossly intact. Evidence of OA especially in the hands INVESTIGATIONS, reviewed in the clinical context: September 14: White count 4.8 hemoglobin 12.3 potassium 5.1 BUN 44 creatinine 1.80 September 07: Potassium 4.3 creatinine 1.44 September 06: Potassium 4.5 BUN 41 and creatinine 1.58 CPK 332 September 04: Potassium 4 BUN 20 creatinine 1.38 CPK 1027 UA: Unremarkable Urine drug screen: Negative BUN 33 creatinine 1.54. TSH 1.8 White count 6.6 hemoglobin 13.2 platelets 274 sodium 140 potassium 4.2 and 39 creatinine 1.71 and 3 TSH 0.401 COVID 19: Not detected Assessment and plan: -Bipolar disorder, manic episode: ,catatonia:AMRIT,F Being followed by psychiatry. -Acute delirium, multifactorial, improving Valium discontinued. Reinforce sleep hygiene cycle. DC morning dose of Depakote. -Acute rhabdomyolysis: Improved Received IV fluids -Chronic kidney disease, stage III likely nephrosclerosis -Acute kidney injury from dehydration from not taking oral:: Better IV fluids D5.45. Held -Hypertension with chronic kidney disease clonidine 0.1 mg twice a day i -Insomnia from underlying psychiatry disorder Remeron -Irritable bowel syndrome Bentyl -Severe constipation from decreased oral intake, inactivity: Responded to Laxatives. Continue Metamucil. Sleep hygiene reinforced-. Medication adjusted by Dr. Vaughn. Discussed with him..
[2021-09-17] MEDS: MIRTAZAPINE 15 MG TAB PO SCH (20:25)
[2021-09-17] MEDS: LORazepam 1 MG TAB PO SCH (20:25)
[2021-09-17] MEDS ORDERED: MELATONIN 3 MG TABLET PO SCH (21:00)
[2021-09-17] MEDS ORDERED: DIVALPROEX ER 250 MG TAB.ER.24H PO SCH (21:00)
[2021-09-18] MEDS: PSYLLIUM HUSK 100% 6 GM PACKET PO SCH (08:31)
[2021-09-18] MEDS: lamoTRIgine 25 MG TAB PO SCH ×2 (08:49→20:28)
[2021-09-18] MEDS: cloNIDine HCL 0.1 MG TAB PO SCH ×2 (08:50→20:28)
[2021-09-18] MEDS: CHOLECALCIFEROL 25 MCG (1000 IU) TABLET PO SCH (11:17)
--- NOTE | 2021-09-18 12:08 | P.PN ---
Progress Note - Text Progress Note Date: 09/18/21 Interval History: Patient was seen this morning for psychiatric follow-up. Patient was seen laya ier taking part in group activities. Staff are claiming that patient is doing better in terms of her cognition and also sleep wake cycle. She does continue to endorse abdominal pain at night, likely related to the depakote. Patient states that she is having some loose bowel movements since yesterday. She claims that she is eating better and also drinking water. She was concerned about where she will be going for discharge today. She appears to be a lot less constricted today and very improved affect. She also was alert and oriented 3. She claims that she did not sleep well last night although staff reports the patient slept much better. Patient is now is now off the one-to-one sitter. She is denying any depression or any anxiety today. She is denying any auditory or visual hallucinations. Denying any suicidal or homicidal ideations intent or plan. Mental Status Exam: General Appearance: Patient appears to be elderly, more awake today, slowed gait, improving hygiene and grooming. Wearing street clothing. Behavior: Patient appears to be more cooperative today. Responds to questions, improving Speech: Patient's speech is [place]. Soft tone, improving Mood/Affect: Denies any depression or anxiety. Affect is constricted. Suicidality/Homicidality: Denies Perceptions: Denies any auditory or visual hallucinations. Though content/process: Goal oriented. Poverty of content. Not endorsing any delusions or paranoia today. Memory and concentration: Alert and oriented 3. Slow to respond, improving midlly. Following most commands. Judgment and insight: Improving Assessment Catatonia, resolving Bipolar disorder, cheryle Plan: -Patient continues to meet criteria for inpatient psychiatric admission for symptom stabilization and safety. Patient has signed adult voluntary form and medication consent and was placed in patient's chart. -Medications: continue with cross titration of mood stabilizers, decrease Depakote 250 mg QHS for mood stabilization as patient is likely experiencing abdominal pain from medication. increase lamictal 50 mg bid for mood stabilization. continue with Ativan IVP to 1 mg q4hr PRN for treatment of catatonia. ativan 1 mg PO qhs for catatonia and plan to titrate up as tolerated. increase melatonin 6 mg qhs for sleep. will attempt to keep patient more awake during the day to help regulate and imrpove her sleep/wake cycle. continue with Remeron 30 mg qhs for sleep/mood/appetite. -depakote level / - 56.1, repeat level on 09/18 - 45. ammonia - 11 -When necessary Zyprexa and Geodon for agitation/aggression. -NRT - not needed as patient does not smoke. -SW on board for discharge planning. Encouraged the patient to participate in milieu. Patient is now currently on an active court order. Patient daughter does not want patient to go through ECT and wants to continue on with medical management. At this time it appears that patient is improving gradually with medical management. Will continue looking into [facility] assisted living for placement if patient is not accepted then [place] will be looked at going back to [facility] house upon discharge. PT and OT onboard. Daughter obtaining gaurdianship. likely discharge in 1-2 days.
[2021-09-18] MEDS: LORazepam 1 MG TAB PO SCH (20:28)
[2021-09-18] MEDS: MIRTAZAPINE 15 MG TAB PO SCH (20:28)
[2021-09-18] MEDS: MELATONIN 3 MG TABLET PO SCH (20:28)
[2021-09-18] MEDS ORDERED: DIVALPROEX ER 250 MG TAB.ER.24H PO SCH (21:00)
[2021-09-19] MEDS: CHOLECALCIFEROL 25 MCG (1000 IU) TABLET PO SCH (08:40)
[2021-09-19] MEDS: lamoTRIgine 25 MG TAB PO SCH (08:40)
[2021-09-19] MEDS: PSYLLIUM HUSK 100% 6 GM PACKET PO SCH (08:41)
[2021-09-19] MEDS: cloNIDine HCL 0.1 MG TAB PO SCH ×2 (08:41→21:09)
--- NOTE | 2021-09-19 10:37 | P.PN ---
Progress Note - Text Progress Note Date: 09/19/21 Interval History: Patient was seen this morning for psychiatric follow-up. Patient was seen lay ing down in her bed today. She was agreeable to speak in the office. Patient was noted to be going to groups and walking the hallway earlier. She appears to be mildly anxious today and states that she is feeling somewhat depressed. She claims that she has had benefits from Seroquel in the past and also Cymbalta. Patient continues to report some abdominal pain at nighttime after taking her Depakote. She claims that she is eating better and also drinking water. She was concerned about where she will be going for discharge. She appears to be a lot less constricted today. She also was alert and oriented 3. She claims that she did sleep much better last night. She is denying any auditory or visual hallucinations. Denying any suicidal or homicidal ideations intent or plan. Mental Status Exam: General Appearance: Patient appears to be elderly, more awake today, slowed gait, improving hygiene and grooming. Wearing street clothing. Behavior: Patient appears to be more cooperative today. Responds to questions, improving Speech: Patient's speech is [place]. Soft tone, improving Mood/Affect: admitting to depression today. Affect is constricted. Suicidality/Homicidality: Denies Perceptions: Denies any auditory or visual hallucinations. Though content/process: Goal oriented. Poverty of content. Not endorsing any delusions or paranoia today. Memory and concentration: Alert and oriented 3. Slow to respond, improving midlly. Following most commands. Judgment and insight: Improving Assessment Catatonia, resolving Bipolar disorder, cheryle Plan: -Patient continues to meet criteria for inpatient psychiatric admission for symptom stabilization and safety. Patient has signed adult voluntary form and medication consent and was placed in patient's chart. -Medications: continue with cross titration of mood stabilizers, d/c Depakote after tonight and increased lamictal 50 mg bid to TID dosing starting tomorrow for mood stabilization. continue with Ativan IVP to 1 mg q4hr PRN for treatment of catatonia. ativan 1 mg PO qhs for catatonia and plan to titrate up as tolerated. melatonin 6 mg qhs for sleep. added cymbalta 20 mg daily for mood/anxiety. will attempt to keep patient more awake during the day to help regulate and imropove her sleep/wake cycle. continue with Remeron 30 mg qhs for sleep/mood/appetite. -depakote level /6 - 56.1, repeat level on 09/18 - 45. ammonia - 11 -When necessary Zyprexa and Geodon for agitation/aggression. -NRT - not needed as patient does not smoke. -SW on board for discharge planning. Encouraged the patient to participate in milieu. Patient is now currently on an active court order. Patient daughter does not want patient to go through ECT and wants to continue on with medical management. At this time it appears that patient is improving gradually with medical management. Will continue looking into [facility] assisted living for placement if patient is not accepted then [place] will be looked at going back to [facility] house upon discharge. PT and OT onboard. Daughter obtaining gaurdianship. likely discharge early next week.
[2021-09-19] MEDS: DULoxetine HCL 20 MG CAPSULE.DR PO SCH (11:01)
--- NOTE | 2021-09-19 15:11 | P.PN ---
Progress Note - Text Progress Note Date: 09/18/21 - Chief Complaint Hyperactive Hospital course This is a pleasant 76-year-old patient who follows with Dr. Ferdinand Shelton. Chronic stable medical conditions include goiter that has been worked up, chronic kidney disease, insomnia, bipolar disorder. Patient is brought into the ER with her daughter for being very hyperactive pacing up and down not sleeping. Appetite has been okay. No change in bowel pattern. No fever no chills. Patient admitted with bipolar disorder/manic episode. September 03: Patient was sedated with Ativan earlier today.This afternoon patient is very anxious delirious. Walking the hallways. Holding onto people. Would n ot answer any questions straight. September 04: Patient has been in restraints. Not eating drinking since yesterday at least. Overnight given 2 L of IV fluids. IV fluids started. D5W. Patient is very restless. Delirious. Saying words sentences repetitively. In restraints. September 05: Patient has remained in restraints. Has a sitter. Iate about 25% this morning. Being given Ativan. Fluids reorder that D545 at 100 mL an hour. Some elevation in CPK. Clinically not felt to be neuroleptic malignant syndrome. No fever. Elevated blood pressure recorded previously likely from agitation/restlessness. September 06: Patient has a sitter. Out of restraints. Has been receiving Ativan. Patient is able to sit up at the edge of the bed. Sleepy. Answering occasional question. Was able to feed the patient 1 couple of custard. Took some apple juice. the patient set up in the chair. Continue with IV fluid as oral intake is insufficient. Discussed the staff to give oral intake spaced out. September 07: Patient has been receiving Ativan. Sleepy this morning. Sitter in place. I help set up the patient edge of the bed. Used to washcloth to wipe her. Nursing staff present. Was able to feed her a couple of custard and a couple of Magic cup. She also took her medications. Drinks water. Plan to have the patient sit up in a chair. Supervised. September 08: Patient has been more restful. Not agitated. Has a sitter. Eating somewhat better. Sleepy. Discussed with Dr. Vaughn. Valium 2 mg twice a day. Will DC IV fluids later today. Also discussed with the nurse. Has a patient sit up in a chair. Supervised. May 3: Patient has been sleepy. Barely eating. Discussed with the nurse and Dr. Vaughn. Reinforced sleep hygiene. Discussed to cut back Valium to 1 mg twice daily. Repeat labs tomorrow. Up in chair as tolerated. September 4: Patient doing better today. She did eat fairly well. Has a sitter. Episodes of anxiousness reported. On Valium 1 mg twice a day. September 5: Patient has been tolerating a diet. Does walk in the hallways. Sometimes a bit erratic. Very anxious. Did sleep in the afternoon. Morning dose of Valium was held this morning. Discussed with Dr. Vaughn. Will DC the morning dose of Valium. Catapres will DC the patch in the morning. Catapres 0.1 mg twice a day starting the morning September 6: Patient did walk the hallways. Eating anywhere from 25-50%. Morning dose of Valium has been discontinued. Patient otherwise mainly subdued lethargic all day. Will cut back the evening dose of Valium down to 0.5 mg. Try to maintain sleep hygiene. Discussed with staff. September 7: Oral intake better. Less sleepy. Did walk in the hallway. Sitter. DC p.m. dose of Valium currently at 0.5 mg. September 8: Had been complaining of abdominal discomfort. X-ray showed significant fecal stasis. Lactulose 20 g, followed by half a bottle of magnesium citrate is given. Also soapsuds given. Small BM. We'll repeat medical molasses enema tomorrow. Also Metamucil twice daily being added. Also reinforced importance of keeping patient awake during the daytime except for afternoon nap. So that has sleep cycle can be maintained. Patient has been ambulating in the hallway. Sleepy. Oral intake fair. September 15: This morning patient had quite a few bowel movements. Loose. Abdomen soft. Eating fair. Did walk in the hallway. Answering questions. Patient will need sleep hygiene to be emphasized. September 16: Patient slept well. Sleepy in the daytime. Depakote daytime dose discontinued by Dr. Vaughn. Discussed with him. With the nurse I completed the patient to the lounge. Put the television on. Again sleep hygiene to be reinforced. Oral intake fair September 11: Medication adjusted by Dr. Vaughn. Oral intake fair. Ambulating in the hallway. Again sleep hygiene to be reinforced.. Dose of lactulose today. September 18: Doing better. Oral intake fair. Did ambulate in the hallway. Continue current medications. Active Medications Acetaminophen (Acetaminophen Tab 325 Mg Tab) 650 mg PO Q4HR PRN PRN Reason: Pain/Discomfort Last Admin: 09/16/21 22:20 Dose: 650 mg Documented by: Al Hydroxide/Mg Hydroxide (Mag Hydrox/Al Hydrox/Simeth 30 Ml Cup) 30 ml PO Q4HR PRN PRN Reason: GI Upset Last Admin: 09/16/21 22:20 Dose: 30 ml Documented by: Calcium Carbonate/Glycine (Calcium Carbonate Liquid 500 Mg/5 Ml Cup) 500 mg PO TID-W/MEALS PRN PRN Reason: GI Upset Last Admin: 09/16/21 09:59 Dose: 500 mg Documented by: Cholecalciferol (Cholecalciferol 25 Mcg (1000 Iu) Tablet) 25 mcg PO DAILY@1200 [facility] Last Admin: 09/18/21 11:17 Dose: 25 mcg Documented by: Clonidine (Clonidine Hcl 0.1 Mg Tab) 0.1 mg PO BID [facility] Last Admin: 09/18/21 08:50 Dose: 0.1 mg Documented by: Divalproex Sodium (Divalproex Er 250 Mg Tab.Er.24h) 250 mg PO [facility] Lamotrigine (Lamotrigine 25 Mg Tab) 50 mg PO BID [facility] Lorazepam (Lorazepam 2 Mg/Ml Inj) 1 mg IV Q4H PRN PRN Reason: Agitation or Acute Anxiety Last Admin: 09/08/21 05:50 Dose: 1 mg Documented by: Lorazepam (Lorazepam 2 Mg/Ml Inj) 1 mg IM Q4HR PRN PRN Reason: Agitation or Acute Anxiety Lorazepam (Lorazepam 1 Mg Tab) 1 mg PO Q4HR PRN PRN Reason: Agitation or Acute Anxiety Last Admin: 09/16/21 22:20 Dose: 1 mg Documented by: Lorazepam (Lorazepam 1 Mg Tab) 1 mg PO [facility] Last Admin: 09/17/21 20:25 Dose: 1 mg Documented by: Magnesium Hydroxide (Magnesium Hydroxide 2,400 Mg/10 Ml Cup) 2,400 mg PO DAILY PRN PRN Reason: Constipation Last Admin: 09/17/21 00:59 Dose: 2,400 mg Documented by: Melatonin (Melatonin 3 Mg Tablet) 6 mg PO HS [facility] Mirtazapine (Mirtazapine 15 Mg Tab) 30 mg PO HS [facility] Last Admin: 09/17/21 20:25 Dose: 30 mg Documented by: Psyllium Hydrophilic Mucilloid (Psyllium Husk 100% 6 Gm Packet) 6 gm PO DAILY [facility] Ziprasidone (Ziprasidone 20 Mg Vial) 20 mg IM BID PRN PRN Reason: Agitation or Acute Psychosis Last Admin: 09/04/21 18:45 Dose: 20 mg Documented by: Past medical history to include: Goiter, bipolar disorder, chronic kidney disease Social history: This daughter. Alcohol occasionally. No smoking. Family history: CAD, diabetes Physical examination: VITAL SIGNS: 98.5, 70, 16, 121/59, GENERAL: Comfortable, tired EYES: Pupils equal. Conjunctiva normal. HEENT: External appearance of nose and ears normal, oral cavity dry NECK: JVD not raised; masses not palpable. HEART: First and second heart sounds are normal; no edema. LUNGS: Respiratory rate normal; clear to auscultation. ABDOMEN: Soft, nontender, liver spleen not palpable, no masses palpable. PSYCH: Answering questions appropriately. MUSCULOSKELETAL:No Clubbing/cyanosis;muscles-grossly intact. Evidence of OA especially in the hands INVESTIGATIONS, reviewed in the clinical context: September 14: White count 4.8 hemoglobin 12.3 potassium 5.1 BUN 44 creatinine 1.80 September 07: Potassium 4.3 creatinine 1.44 September 06: Potassium 4.5 BUN 41 and creatinine 1.58 CPK 332 September 04: Potassium 4 BUN 20 creatinine 1.38 CPK 1027 UA: Unremarkable Urine drug screen: Negative BUN 33 creatinine 1.54. TSH 1.8 White count 6.6 hemoglobin 13.2 platelets 274 sodium 140 potassium 4.2 and 39 creatinine 1.71 and 3 TSH 0.401 COVID 19: Not detected Assessment and plan: -Bipolar disorder, manic episode: ,catatonia:AMRIT,F Being followed by psychiatry. -Acute delirium, multifactorial, improving Valium discontinued. Reinforce sleep hygiene cycle. DC morning dose of Depakote. -Acute rhabdomyolysis: Improved Received IV fluids -Chronic kidney disease, stage III likely nephrosclerosis -Acute kidney injury from dehydration from not taking oral:: Better IV fluids D5.45. Held -Hypertension with chronic kidney disease clonidine 0.1 mg twice a day i -Insomnia from underlying psychiatry disorder Remeron -Irritable bowel syndrome Bentyl -Severe constipation from decreased oral intake, inactivity: Responded to Laxatives. Continue Metamucil. Sleep hygiene continued. Other medications to be continued. Doing better.. Patient's daughter has declined [employer] offered by the psychiatrist..
--- NOTE | 2021-09-19 20:01 | P.PN ---
Progress Note - Text Progress Note Date: 09/19/21 - Chief Complaint Hyperactive Hospital course This is a pleasant 76-year-old patient who follows with Dr. Ferdinand Shelton. Chronic stable medical conditions include goiter that has been worked up, chronic kidney disease, insomnia, bipolar disorder. Patient is brought into the ER with her daughter for being very hyperactive pacing up and down not sleeping. Appetite has been okay. No change in bowel pattern. No fever no chills. Patient admitted with bipolar disorder/manic episode. September 03: Patient was sedated with Ativan earlier today.This afternoon patient is very anxious delirious. Walking the hallways. Holding onto people. Would n ot answer any questions straight. September 04: Patient has been in restraints. Not eating drinking since yesterday at least. Overnight given 2 L of IV fluids. IV fluids started. D5W. Patient is very restless. Delirious. Saying words sentences repetitively. In restraints. September 05: Patient has remained in restraints. Has a sitter. Iate about 25% this morning. Being given Ativan. Fluids reorder that D545 at 100 mL an hour. Some elevation in CPK. Clinically not felt to be neuroleptic malignant syndrome. No fever. Elevated blood pressure recorded previously likely from agitation/restlessness. September 06: Patient has a sitter. Out of restraints. Has been receiving Ativan. Patient is able to sit up at the edge of the bed. Sleepy. Answering occasional question. Was able to feed the patient 1 couple of custard. Took some apple juice. the patient set up in the chair. Continue with IV fluid as oral intake is insufficient. Discussed the staff to give oral intake spaced out. September 07: Patient has been receiving Ativan. Sleepy this morning. Sitter in place. I help set up the patient edge of the bed. Used to washcloth to wipe her. Nursing staff present. Was able to feed her a couple of custard and a couple of Magic cup. She also took her medications. Drinks water. Plan to have the patient sit up in a chair. Supervised. September 08: Patient has been more restful. Not agitated. Has a sitter. Eating somewhat better. Sleepy. Discussed with Dr. Vaughn. Valium 2 mg twice a day. Will DC IV fluids later today. Also discussed with the nurse. Has a patient sit up in a chair. Supervised. May 3: Patient has been sleepy. Barely eating. Discussed with the nurse and Dr. Vaughn. Reinforced sleep hygiene. Discussed to cut back Valium to 1 mg twice daily. Repeat labs tomorrow. Up in chair as tolerated. September 4: Patient doing better today. She did eat fairly well. Has a sitter. Episodes of anxiousness reported. On Valium 1 mg twice a day. September 5: Patient has been tolerating a diet. Does walk in the hallways. Sometimes a bit erratic. Very anxious. Did sleep in the afternoon. Morning dose of Valium was held this morning. Discussed with Dr. Vaughn. Will DC the morning dose of Valium. Catapres will DC the patch in the morning. Catapres 0.1 mg twice a day starting the morning September 6: Patient did walk the hallways. Eating anywhere from 25-50%. Morning dose of Valium has been discontinued. Patient otherwise mainly subdued lethargic all day. Will cut back the evening dose of Valium down to 0.5 mg. Try to maintain sleep hygiene. Discussed with staff. September 7: Oral intake better. Less sleepy. Did walk in the hallway. Sitter. DC p.m. dose of Valium currently at 0.5 mg. September 8: Had been complaining of abdominal discomfort. X-ray showed significant fecal stasis. Lactulose 20 g, followed by half a bottle of magnesium citrate is given. Also soapsuds given. Small BM. We'll repeat medical molasses enema tomorrow. Also Metamucil twice daily being added. Also reinforced importance of keeping patient awake during the daytime except for afternoon nap. So that has sleep cycle can be maintained. Patient has been ambulating in the hallway. Sleepy. Oral intake fair. September 15: This morning patient had quite a few bowel movements. Loose. Abdomen soft. Eating fair. Did walk in the hallway. Answering questions. Patient will need sleep hygiene to be emphasized. September 16: Patient slept well. Sleepy in the daytime. Depakote daytime dose discontinued by Dr. Vaughn. Discussed with him. With the nurse I completed the patient to the lounge. Put the television on. Again sleep hygiene to be reinforced. Oral intake fair September 11: Medication adjusted by Dr. Vaughn. Oral intake fair. Ambulating in the hallway. Again sleep hygiene to be reinforced.. Dose of lactulose today. September 18: Doing better. Oral intake fair. Did ambulate in the hallway. Continue current medications. September 19: Eating well. Better conversation Ambulating. Had a bowel movement. Discussed with the patient. Active Medications Acetaminophen (Acetaminophen Tab 325 Mg Tab) 650 mg PO Q4HR PRN PRN Reason: Pain/Discomfort Last Admin: 09/16/21 22:20 Dose: 650 mg Documented by: Al Hydroxide/Mg Hydroxide (Mag Hydrox/Al Hydrox/Simeth 30 Ml Cup) 30 ml PO Q4HR PRN PRN Reason: GI Upset Last Admin: 09/16/21 22:20 Dose: 30 ml Documented by: Calcium Carbonate/Glycine (Calcium Carbonate Liquid 500 Mg/5 Ml Cup) 500 mg PO TID-W/MEALS PRN PRN Reason: GI Upset Last Admin: 09/16/21 09:59 Dose: 500 mg Documented by: Cholecalciferol (Cholecalciferol 25 Mcg (1000 Iu) Tablet) 25 mcg PO DAILY@1200 [facility] Last Admin: 09/19/21 08:40 Dose: 25 mcg Documented by: Clonidine (Clonidine Hcl 0.1 Mg Tab) 0.1 mg PO BID [facility] Last Admin: 09/19/21 08:41 Dose: 0.1 mg Documented by: Divalproex Sodium (Divalproex Er 250 Mg Tab.Er.24h) 250 mg PO ONCE ONE Stop: 09/19/21 21:01 Duloxetine HCl (Duloxetine Hcl 20 Mg Capsule.Dr) 20 mg PO DAILY [facility] Last Admin: 09/19/21 11:01 Dose: 20 mg Documented by: Lamotrigine (Lamotrigine 25 Mg Tab) 50 mg PO BID [facility] Stop: 09/20/21 08:00 Lamotrigine (Lamotrigine 25 Mg Tab) 50 mg PO TID [facility] Lorazepam (Lorazepam 2 Mg/Ml Inj) 1 mg IV Q4H PRN PRN Reason: Agitation or Acute Anxiety Last Admin: 09/08/21 05:50 Dose: 1 mg Documented by: Lorazepam (Lorazepam 2 Mg/Ml Inj) 1 mg IM Q4HR PRN PRN Reason: Agitation or Acute Anxiety Lorazepam (Lorazepam 1 Mg Tab) 1 mg PO Q4HR PRN PRN Reason: Agitation or Acute Anxiety Last Admin: 09/16/21 22:20 Dose: 1 mg Documented by: Lorazepam (Lorazepam 1 Mg Tab) 1 mg PO HS [facility] Last Admin: 09/18/21 20:28 Dose: 1 mg Documented by: Magnesium Hydroxide (Magnesium Hydroxide 2,400 Mg/10 Ml Cup) 2,400 mg PO DAILY PRN PRN Reason: Constipation Last Admin: 09/17/21 00:59 Dose: 2,400 mg Documented by: Melatonin (Melatonin 3 Mg Tablet) 6 mg PO HS [facility] Last Admin: 09/18/21 20:28 Dose: 6 mg Documented by: Mirtazapine (Mirtazapine 15 Mg Tab) 30 mg PO HS [facility] Last Admin: 09/18/21 20:28 Dose: 30 mg Documented by: Psyllium Hydrophilic Mucilloid (Psyllium Husk 100% 6 Gm Packet) 6 gm PO DAILY [facility] Last Admin: 09/19/21 08:41 Dose: Not Given Documented by: Ziprasidone (Ziprasidone 20 Mg Vial) 20 mg IM BID PRN PRN Reason: Agitation or Acute Psychosis Last Admin: 09/04/21 18:45 Dose: 20 mg Documented by: Past medical history to include: Goiter, bipolar disorder, chronic kidney disease Social history: This daughter. Alcohol occasionally. No smoking. Family history: CAD, diabetes Physical examination: VITAL SIGNS: 97.6, 60, 16, 131/58, 96% room air GENERAL: Laying in bed, comfortable EYES: Pupils equal. Conjunctiva normal. HEENT: External appearance of nose and ears normal, oral cavity dry NECK: JVD not raised; masses not palpable. HEART: First and second heart sounds are normal; no edema. LUNGS: Respiratory rate normal; clear to auscultation. ABDOMEN: Soft, nontender, liver spleen not palpable, no masses palpable. PSYCH: Answering questions appropriately. MUSCULOSKELETAL:No Clubbing/cyanosis;muscles-grossly intact. Evidence of OA especially in the hands INVESTIGATIONS, reviewed in the clinical context: September 14: White count 4.8 hemoglobin 12.3 potassium 5.1 BUN 44 creatinine 1.80 September 07: Potassium 4.3 creatinine 1.44 September 06: Potassium 4.5 BUN 41 and creatinine 1.58 CPK 332 September 04: Potassium 4 BUN 20 creatinine 1.38 CPK 1027 UA: Unremarkable Urine drug screen: Negative BUN 33 creatinine 1.54. TSH 1.8 White count 6.6 hemoglobin 13.2 platelets 274 sodium 140 potassium 4.2 and 39 creatinine 1.71 and 3 TSH 0.401 COVID 19: Not detected Assessment and plan: -Bipolar disorder, manic episode: ,catatonia: Better Being followed by psychiatry. -Acute delirium, multifactorial, improving Reinforce sleep hygiene cycle. -Acute rhabdomyolysis: Improved Received IV fluids -Chronic kidney disease, stage III likely nephrosclerosis -Acute kidney injury from dehydration from not taking oral:: Better IV fluids D5.45. Discontinued -Hypertension with chronic kidney disease clonidine 0.1 mg twice a day i -Insomnia from underlying psychiatry disorder Remeron -Irritable bowel syndrome Bentyl -Severe constipation from decreased oral intake, inactivity: Responded to Laxatives. Continue Metamucil. Sleep hygiene continue. Improving. Discussed with patient.
[2021-09-19] MEDS ORDERED: lamoTRIgine 25 MG TAB PO SCH (21:00)
[2021-09-19] MEDS ORDERED: DIVALPROEX ER 250 MG TAB.ER.24H PO ONE (21:00)
[2021-09-19] MEDS: MIRTAZAPINE 15 MG TAB PO SCH (21:09)
[2021-09-19] MEDS: LORazepam 1 MG TAB PO SCH (21:09)
[2021-09-19] MEDS: MELATONIN 3 MG TABLET PO SCH (21:10)
[2021-09-20] MEDS: DULoxetine HCL 20 MG CAPSULE.DR PO SCH (07:53)
[2021-09-20] MEDS: cloNIDine HCL 0.1 MG TAB PO SCH ×2 (07:53→20:47)
[2021-09-20] MEDS: lamoTRIgine 25 MG TAB PO SCH ×3 (07:53→20:47)
[2021-09-20] MEDS: CHOLECALCIFEROL 25 MCG (1000 IU) TABLET PO SCH (07:53)
[2021-09-20] MEDS: PSYLLIUM HUSK 100% 6 GM PACKET PO SCH (07:55)
--- NOTE | 2021-09-20 10:48 | P.PN ---
Progress Note - Text Progress Note Date: 09/20/21 Interval History: Patient was seen this morning for psychiatric follow-up. Patient was walking towards the family meeting room where he was expecting some family members to visit her She was agreeable to speak in the office. Patient was noted to be going to groups and walking the hallway earlier. Patient admits that she still feels little depressed She claims that she is eating better and also drinking water. She was concerned about where she will be going for discharge. . She also was alert and oriented 3. She claims that she did sleep much better last night. She is denying any auditory or visual hallucinations. Denying any suicidal or homicidal ideations intent or plan. Mental Status Exam: General Appearance: Patient appears to be elderly, more awake today, slowed gait, improving hygiene and grooming. Wearing street clothing. Behavior: Patient appears to be more cooperative today. Responds to questions, improving Speech: Patient's speech is [place]. Soft tone, improving Mood/Affect: admitting to depression today. Affect is constricted. Suicidality/Homicidality: Denies Perceptions: Denies any auditory or visual hallucinations. Though content/process: Goal oriented. Poverty of content. Not endorsing any delusions or paranoia today. Memory and concentration: Alert and oriented 3. Slow to respond, improving midlly. Following most commands. Judgment and insight: Improving Assessment Catatonia, resolving Bipolar disorder, cheryle Plan: -Patient continues to meet criteria for inpatient psychiatric admission for symptom stabilization and safety. Patient has signed adult voluntary form and medication consent and was placed in patient's chart. -Medications: continue with cross titration of mood stabilizers, increased lamictal 50 mg bid to TID for mood stabilization. continue with Ativan IVP to 1 mg q4hr PRN for treatment of catatonia. ativan 1 mg PO qhs for catatonia and plan to titrate up as tolerated. melatonin 6 mg qhs for sleep. cymbalta 20 mg daily for mood/anxiety. will attempt to keep patient more awake during the day to help regulate and imropove her sleep/wake cycle. continue with Remeron 30 mg qhs for sleep/mood/appetite. -depakote level 5/6 - 56.1, repeat level on 09/18 - 45. ammonia - 11 -When necessary Zyprexa and Geodon for agitation/aggression. -NRT - not needed as patient does not smoke. -SW on board for discharge planning. Encouraged the patient to participate in milieu. Patient is now currently on an active court order. Patient daughter does not want patient to go through ECT and wants to continue on with medical management. At this time it appears that patient is improving gradually with medical management. Will continue looking into [facility] for placement if patient is not accepted then liekly will be looked at going back to [facility] upon discharge. PT and OT onboard. Daughter obtaining gaurdianship. likely discharge early next week.
--- NOTE | 2021-09-20 14:26 | P.PN ---
Progress Note - Text Progress Note Date: 09/20/21 - Chief Complaint Hyperactive Hospital course This is a pleasant 76-year-old patient who follows with Dr. Ferdinand Shelton. Chronic stable medical conditions include goiter that has been worked up, chronic kidney disease, insomnia, bipolar disorder. Patient is brought into the ER with her daughter for being very hyperactive pacing up and down not sleeping. Appetite has been okay. No change in bowel pattern. No fever no chills. Patient admitted with bipolar disorder/manic episode. September 03: Patient was sedated with Ativan earlier today.This afternoon patient is very anxious delirious. Walking the hallways. Holding onto people. Would n ot answer any questions straight. September 04: Patient has been in restraints. Not eating drinking since yesterday at least. Overnight given 2 L of IV fluids. IV fluids started. D5W. Patient is very restless. Delirious. Saying words sentences repetitively. In restraints. September 05: Patient has remained in restraints. Has a sitter. Iate about 25% this morning. Being given Ativan. Fluids reorder that D545 at 100 mL an hour. Some elevation in CPK. Clinically not felt to be neuroleptic malignant syndrome. No fever. Elevated blood pressure recorded previously likely from agitation/restlessness. September 06: Patient has a sitter. Out of restraints. Has been receiving Ativan. Patient is able to sit up at the edge of the bed. Sleepy. Answering occasional question. Was able to feed the patient 1 couple of custard. Took some apple juice. the patient set up in the chair. Continue with IV fluid as oral intake is insufficient. Discussed the staff to give oral intake spaced out. September 07: Patient has been receiving Ativan. Sleepy this morning. Sitter in place. I help set up the patient edge of the bed. Used to washcloth to wipe her. Nursing staff present. Was able to feed her a couple of custard and a couple of Magic cup. She also took her medications. Drinks water. Plan to have the patient sit up in a chair. Supervised. September 08: Patient has been more restful. Not agitated. Has a sitter. Eating somewhat better. Sleepy. Discussed with Dr. Vaughn. Valium 2 mg twice a day. Will DC IV fluids later today. Also discussed with the nurse. Has a patient sit up in a chair. Supervised. May 3: Patient has been sleepy. Barely eating. Discussed with the nurse and Dr. Vaughn. Reinforced sleep hygiene. Discussed to cut back Valium to 1 mg twice daily. Repeat labs tomorrow. Up in chair as tolerated. September 4: Patient doing better today. She did eat fairly well. Has a sitter. Episodes of anxiousness reported. On Valium 1 mg twice a day. September 5: Patient has been tolerating a diet. Does walk in the hallways. Sometimes a bit erratic. Very anxious. Did sleep in the afternoon. Morning dose of Valium was held this morning. Discussed with Dr. Vaughn. Will DC the morning dose of Valium. Catapres will DC the patch in the morning. Catapres 0.1 mg twice a day starting the morning September 6: Patient did walk the hallways. Eating anywhere from 25-50%. Morning dose of Valium has been discontinued. Patient otherwise mainly subdued lethargic all day. Will cut back the evening dose of Valium down to 0.5 mg. Try to maintain sleep hygiene. Discussed with staff. September 7: Oral intake better. Less sleepy. Did walk in the hallway. Sitter. DC p.m. dose of Valium currently at 0.5 mg. September 8: Had been complaining of abdominal discomfort. X-ray showed significant fecal stasis. Lactulose 20 g, followed by half a bottle of magnesium citrate is given. Also soapsuds given. Small BM. We'll repeat medical molasses enema tomorrow. Also Metamucil twice daily being added. Also reinforced importance of keeping patient awake during the daytime except for afternoon nap. So that has sleep cycle can be maintained. Patient has been ambulating in the hallway. Sleepy. Oral intake fair. September 15: This morning patient had quite a few bowel movements. Loose. Abdomen soft. Eating fair. Did walk in the hallway. Answering questions. Patient will need sleep hygiene to be emphasized. September 16: Patient slept well. Sleepy in the daytime. Depakote daytime dose discontinued by Dr. Vaughn. Discussed with him. With the nurse I completed the patient to the lounge. Put the television on. Again sleep hygiene to be reinforced. Oral intake fair September 11: Medication adjusted by Dr. Vaughn. Oral intake fair. Ambulating in the hallway. Again sleep hygiene to be reinforced.. Dose of lactulose today. September 18: Doing better. Oral intake fair. Did ambulate in the hallway. Continue current medications. September 19: Eating well. Better conversation Ambulating. Had a bowel movement. Discussed with the patient. September 20: Oral intake fair. Has been up and about. Conversing. Looking better. Active Medications Acetaminophen (Acetaminophen Tab 325 Mg Tab) 650 mg PO Q4HR PRN PRN Reason: Pain/Discomfort Last Admin: 09/16/21 22:20 Dose: 650 mg Documented by: Al Hydroxide/Mg Hydroxide (Mag Hydrox/Al Hydrox/Simeth 30 Ml Cup) 30 ml PO Q4HR PRN PRN Reason: GI Upset Last Admin: 09/16/21 22:20 Dose: 30 ml Documented by: Calcium Carbonate/Glycine (Calcium Carbonate Liquid 500 Mg/5 Ml Cup) 500 mg PO TID-W/MEALS PRN PRN Reason: GI Upset Last Admin: 09/16/21 09:59 Dose: 500 mg Documented by: Cholecalciferol (Cholecalciferol 25 Mcg (1000 Iu) Tablet) 25 mcg PO DAILY@1200 [facility] Last Admin: 09/20/21 07:53 Dose: 25 mcg Documented by: Clonidine (Clonidine Hcl 0.1 Mg Tab) 0.1 mg PO BID [facility] Last Admin: 09/20/21 07:53 Dose: 0.1 mg Documented by: Duloxetine HCl (Duloxetine Hcl 20 Mg Capsule.Dr) 20 mg PO DAILY [facility] Last Admin: 09/20/21 07:53 Dose: 20 mg Documented by: Lamotrigine (Lamotrigine 25 Mg Tab) 50 mg PO TID [facility] Last Admin: 09/20/21 07:53 Dose: 50 mg Documented by: Lorazepam (Lorazepam 2 Mg/Ml Inj) 1 mg IV Q4H PRN PRN Reason: Agitation or Acute Anxiety Last Admin: 09/08/21 05:50 Dose: 1 mg Documented by: Lorazepam (Lorazepam 2 Mg/Ml Inj) 1 mg IM Q4HR PRN PRN Reason: Agitation or Acute Anxiety Lorazepam (Lorazepam 1 Mg Tab) 1 mg PO Q4HR PRN PRN Reason: Agitation or Acute Anxiety Last Admin: 09/16/21 22:20 Dose: 1 mg Documented by: Lorazepam (Lorazepam 1 Mg Tab) 1 mg PO [facility] Last Admin: 09/19/21 21:09 Dose: 1 mg Documented by: Magnesium Hydroxide (Magnesium Hydroxide 2,400 Mg/10 Ml Cup) 2,400 mg PO DAILY PRN PRN Reason: Constipation Last Admin: 09/17/21 00:59 Dose: 2,400 mg Documented by: Melatonin (Melatonin 3 Mg Tablet) 6 mg PO [facility] Last Admin: 09/19/21 21:10 Dose: 6 mg Documented by: Mirtazapine (Mirtazapine 15 Mg Tab) 30 mg PO [facility] Last Admin: 09/19/21 21:09 Dose: 30 mg Documented by: Psyllium Hydrophilic Mucilloid (Psyllium Husk 100% 6 Gm Packet) 6 gm PO DAILY [facility] Last Admin: 09/20/21 07:55 Dose: Not Given Documented by: Ziprasidone (Ziprasidone 20 Mg Vial) 20 mg IM BID PRN PRN Reason: Agitation or Acute Psychosis Last Admin: 09/04/21 18:45 Dose: 20 mg Documented by: Past medical history to include: Goiter, bipolar disorder, chronic kidney disease Social history: This daughter. Alcohol occasionally. No smoking. Family history: CAD, diabetes Physical examination: VITAL SIGNS: 98.9, 71, 16, 1 23 x 56, 98% room air GENERAL: Laying in bed, comfortable EYES: Pupils equal. Conjunctiva normal. HEENT: External appearance of nose and ears normal, oral cavity dry NECK: JVD not raised; masses not palpable. HEART: First and second heart sounds are normal; no edema. LUNGS: Respiratory rate normal; clear to auscultation. ABDOMEN: Soft, nontender, liver spleen not palpable, no masses palpable. PSYCH: Answering questions appropriately. MUSCULOSKELETAL:No Clubbing/cyanosis;muscles-grossly intact. Evidence of OA especially in the hands INVESTIGATIONS, reviewed in the clinical context: White count 4.8 hemoglobin 12.3 platelets 266 potassium 5.1 BUN 44 creatinine 1.8 Assessment and plan: -Bipolar disorder, manic episode: ,catatonia: Better Being followed by psychiatry. -Acute delirium, multifactorial, improving Reinforce sleep hygiene cycle. -Acute rhabdomyolysis: Improved Received IV fluids -Chronic kidney disease, stage III likely nephrosclerosis -Acute kidney injury from dehydration from not taking oral:: Better IV fluids D5.45. Discontinued -Hypertension with chronic kidney disease clonidine 0.1 mg twice a day i -Insomnia from underlying psychiatry disorder Remeron -Irritable bowel syndrome Bentyl -Severe constipation from decreased oral intake, inactivity: Responded to Laxatives. Continue Metamucil. Sleep hygiene continue. Doing better. Discussed with patient. Check labs on Wednesday.
[2021-09-20] MEDS: MIRTAZAPINE 15 MG TAB PO SCH (20:46)
[2021-09-20] MEDS: MELATONIN 3 MG TABLET PO SCH (20:47)
[2021-09-20] MEDS: LORazepam 1 MG TAB PO SCH (20:48)
[2021-09-21 06:39] VITALS: RESP 16; TEMP 97.9
[2021-09-21] MEDS: PSYLLIUM HUSK 100% 6 GM PACKET PO SCH (08:02)
[2021-09-21] MEDS: cloNIDine HCL 0.1 MG TAB PO SCH ×2 (08:03→20:25)
[2021-09-21] MEDS: DULoxetine HCL 20 MG CAPSULE.DR PO SCH (08:03)
[2021-09-21] MEDS: CHOLECALCIFEROL 25 MCG (1000 IU) TABLET PO SCH (08:03)
[2021-09-21] MEDS: lamoTRIgine 25 MG TAB PO SCH ×3 (08:03→20:24)
--- NOTE | 2021-09-21 08:33 | P.PN ---
Progress Note - Text Progress Note Date: 09/21/21 Progress Note - Text Progress Note Date: 09/21/21 Interval History: She was agreeable to speak with this show card writer. Patient was noted to be going to groups and walking the hallway earlier. Patient reports that she is feeling better She states that her depression seems to be improving She claims that she is eating better and also drinking water. . She also was alert and oriented 3. She claims that she did sleep much better last night. She is denying any auditory or visual hallucinations. Denying any suicidal or homicidal ideations intent or plan. Mental Status Exam: General Appearance: Patient appears to be elderly, more awake today, slowed gait, improving hygiene and grooming. Wearing street clothing. She has already showered and looks much more relaxed Behavior: Patient appears to be more cooperative today. Responds to questions, improving Speech: Patient's speech is [place]. Soft tone, improving Mood/Affect: admitting to depression today. Affect is constricted. Suicidality/Homicidality: Denies Perceptions: Denies any auditory or visual hallucinations. Though content/process: Goal oriented. Poverty of content. Not endorsing any delusions or paranoia today. Memory and concentration: Alert and oriented 3. Slow to respond, improving midlly. Following most commands. Judgment and insight: Improving Assessment Catatonia, resolving Bipolar disorder, cheryle Plan: -Patient continues to meet criteria for inpatient psychiatric admission for symptom stabilization and safety. Patient has signed adult voluntary form and medication consent and was placed in patient's chart. -Medications: continue with cross titration of mood stabilizers, increased lamictal 50 mg bid to TID for mood stabilization. continue with Ativan IVP to 1 mg q4hr PRN for treatment of catatonia. ativan 1 mg PO qhs for catatonia and plan to titrate up as tolerated. melatonin 6 mg qhs for sleep. cymbalta 20 mg daily for mood/anxiety. will attempt to keep patient more awake during the day to help regulate and imropove her sleep/wake cycle. continue with Remeron 30 mg qhs for sleep/mood/appetite. -When necessary Zyprexa and Geodon for agitation/aggression. -NRT - not needed as patient does not smoke. -SW on board for discharge planning. Encouraged the patient to participate in milieu. Patient is now currently on an active court order. Patient daughter does not want patient to go through ECT and wants to continue on with medical management. At this time it appears that patient is improving gradually with medical management. Will continue looking into [facility] assisted living for placement if patient is not accepted then liekly will be looked at going back to [facility] upon discharge. PT and OT onboard. Daughter obtaining gaurdianship. likely discharge early next week. monalisa cueto MD 09/21/21
--- NOTE | 2021-09-21 12:05 | P.PN ---
Progress Note - Text Progress Note Date: 09/21/21 - Chief Complaint Hyperactive Hospital course This is a pleasant 76-year-old patient who follows with Dr. Ferdinand Shelton. Chronic stable medical conditions include goiter that has been worked up, chronic kidney disease, insomnia, bipolar disorder. Patient is brought into the ER with her daughter for being very hyperactive pacing up and down not sleeping. Appetite has been okay. No change in bowel pattern. No fever no chills. Patient admitted with bipolar disorder/manic episode. September 03: Patient was sedated with Ativan earlier today.This afternoon patient is very anxious delirious. Walking the hallways. Holding onto people. Would n ot answer any questions straight. September 04: Patient has been in restraints. Not eating drinking since yesterday at least. Overnight given 2 L of IV fluids. IV fluids started. D5W. Patient is very restless. Delirious. Saying words sentences repetitively. In restraints. September 05: Patient has remained in restraints. Has a sitter. Iate about 25% this morning. Being given Ativan. Fluids reorder that D545 at 100 mL an hour. Some elevation in CPK. Clinically not felt to be neuroleptic malignant syndrome. No fever. Elevated blood pressure recorded previously likely from agitation/restlessness. September 06: Patient has a sitter. Out of restraints. Has been receiving Ativan. Patient is able to sit up at the edge of the bed. Sleepy. Answering occasional question. Was able to feed the patient 1 couple of custard. Took some apple juice. the patient set up in the chair. Continue with IV fluid as oral intake is insufficient. Discussed the staff to give oral intake spaced out. September 07: Patient has been receiving Ativan. Sleepy this morning. Sitter in place. I help set up the patient edge of the bed. Used to washcloth to wipe her. Nursing staff present. Was able to feed her a couple of custard and a couple of Magic cup. She also took her medications. Drinks water. Plan to have the patient sit up in a chair. Supervised. September 08: Patient has been more restful. Not agitated. Has a sitter. Eating somewhat better. Sleepy. Discussed with Dr. Vaughn. Valium 2 mg twice a day. Will DC IV fluids later today. Also discussed with the nurse. Has a patient sit up in a chair. Supervised. May 3: Patient has been sleepy. Barely eating. Discussed with the nurse and Dr. Vaughn. Reinforced sleep hygiene. Discussed to cut back Valium to 1 mg twice daily. Repeat labs tomorrow. Up in chair as tolerated. September 4: Patient doing better today. She did eat fairly well. Has a sitter. Episodes of anxiousness reported. On Valium 1 mg twice a day. September 5: Patient has been tolerating a diet. Does walk in the hallways. Sometimes a bit erratic. Very anxious. Did sleep in the afternoon. Morning dose of Valium was held this morning. Discussed with Dr. Vaughn. Will DC the morning dose of Valium. Catapres will DC the patch in the morning. Catapres 0.1 mg twice a day starting the morning September 6: Patient did walk the hallways. Eating anywhere from 25-50%. Morning dose of Valium has been discontinued. Patient otherwise mainly subdued lethargic all day. Will cut back the evening dose of Valium down to 0.5 mg. Try to maintain sleep hygiene. Discussed with staff. September 7: Oral intake better. Less sleepy. Did walk in the hallway. Sitter. DC p.m. dose of Valium currently at 0.5 mg. September 8: Had been complaining of abdominal discomfort. X-ray showed significant fecal stasis. Lactulose 20 g, followed by half a bottle of magnesium citrate is given. Also soapsuds given. Small BM. We'll repeat medical molasses enema tomorrow. Also Metamucil twice daily being added. Also reinforced importance of keeping patient awake during the daytime except for afternoon nap. So that has sleep cycle can be maintained. Patient has been ambulating in the hallway. Sleepy. Oral intake fair. September 15: This morning patient had quite a few bowel movements. Loose. Abdomen soft. Eating fair. Did walk in the hallway. Answering questions. Patient will need sleep hygiene to be emphasized. September 16: Patient slept well. Sleepy in the daytime. Depakote daytime dose discontinued by Dr. Vaughn. Discussed with him. With the nurse I completed the patient to the lounge. Put the television on. Again sleep hygiene to be reinforced. Oral intake fair September 11: Medication adjusted by Dr. Vaughn. Oral intake fair. Ambulating in the hallway. Again sleep hygiene to be reinforced.. Dose of lactulose today. September 18: Doing better. Oral intake fair. Did ambulate in the hallway. Continue current medications. September 19: Eating well. Better conversation Ambulating. Had a bowel movement. Discussed with the patient. September 20: Oral intake fair. Has been up and about. Conversing. Looking better. September 21: Has been up and about in the hallway. Holding the normal conversation. Oral intake good. Had bowel movement. Looking forward to go home. Active Medications Acetaminophen (Acetaminophen Tab 325 Mg Tab) 650 mg PO Q4HR PRN PRN Reason: Pain/Discomfort Last Admin: 09/16/21 22:20 Dose: 650 mg Documented by: Al Hydroxide/Mg Hydroxide (Mag Hydrox/Al Hydrox/Simeth 30 Ml Cup) 30 ml PO Q4HR PRN PRN Reason: GI Upset Last Admin: 09/16/21 22:20 Dose: 30 ml Documented by: Calcium Carbonate/Glycine (Calcium Carbonate Liquid 500 Mg/5 Ml Cup) 500 mg PO TID-W/MEALS PRN PRN Reason: GI Upset Last Admin: 09/16/21 09:59 Dose: 500 mg Documented by: Cholecalciferol (Cholecalciferol 25 Mcg (1000 Iu) Tablet) 25 mcg PO DAILY@1200 [facility] Last Admin: 09/21/21 08:03 Dose: 25 mcg Documented by: Clonidine (Clonidine Hcl 0.1 Mg Tab) 0.1 mg PO BID [facility] Last Admin: 09/21/21 08:03 Dose: 0.1 mg Documented by: Duloxetine HCl (Duloxetine Hcl 20 Mg Capsule.) 20 mg PO DAILY [facility] Last Admin: 09/21/21 08:03 Dose: 20 mg Documented by: Lamotrigine (Lamotrigine 25 Mg Tab) 50 mg PO TID [facility] Last Admin: 09/21/21 08:03 Dose: 50 mg Documented by: Lorazepam (Lorazepam 2 Mg/Ml Inj) 1 mg IV Q4H PRN PRN Reason: Agitation or Acute Anxiety Last Admin: 09/08/21 05:50 Dose: 1 mg Documented by: Lorazepam (Lorazepam 2 Mg/Ml Inj) 1 mg IM Q4HR PRN PRN Reason: Agitation or Acute Anxiety Lorazepam (Lorazepam 1 Mg Tab) 1 mg PO Q4HR PRN PRN Reason: Agitation or Acute Anxiety Last Admin: 09/16/21 22:20 Dose: 1 mg Documented by: Lorazepam (Lorazepam 1 Mg Tab) 1 mg PO HS [facility] Last Admin: 09/20/21 20:48 Dose: 1 mg Documented by: Magnesium Hydroxide (Magnesium Hydroxide 2,400 Mg/10 Ml Cup) 2,400 mg PO DAILY PRN PRN Reason: Constipation Last Admin: 09/17/21 00:59 Dose: 2,400 mg Documented by: Melatonin (Melatonin 3 Mg Tablet) 6 mg PO HS [facility] Last Admin: 09/20/21 20:47 Dose: 6 mg Documented by: Mirtazapine (Mirtazapine 15 Mg Tab) 30 mg PO HS [facility] Last Admin: 09/20/21 20:46 Dose: 30 mg Documented by: Psyllium Hydrophilic Mucilloid (Psyllium Husk 100% 6 Gm Packet) 6 gm PO DAILY [facility] Last Admin: 09/21/21 08:02 Dose: Not Given Documented by: Ziprasidone (Ziprasidone 20 Mg Vial) 20 mg IM BID PRN PRN Reason: Agitation or Acute Psychosis Last Admin: 09/04/21 18:45 Dose: 20 mg Documented by: Past medical history to include: Goiter, bipolar disorder, chronic kidney disease Social history: This daughter. Alcohol occasionally. No smoking. Family history: CAD, diabetes Physical examination: VITAL SIGNS: 97.9, 80, 16, 125/58, 97% room air GENERAL: Sitting up comfortable EYES: Pupils equal. Conjunctiva normal. HEENT: External appearance of nose and ears normal, oral cavity dry NECK: JVD not raised; masses not palpable. HEART: First and second heart sounds are normal; no edema. LUNGS: Respiratory rate normal; clear to auscultation. ABDOMEN: Soft, nontender, liver spleen not palpable, no masses palpable. PSYCH: Answering questions appropriately. MUSCULOSKELETAL:No Clubbing/cyanosis;muscles-grossly intact. Evidence of OA especially in the hands INVESTIGATIONS, reviewed in the clinical context: White count 4.8 hemoglobin 12.3 platelets 266 potassium 5.1 BUN 44 creatinine 1.8 Assessment and plan: -Bipolar disorder, manic episode: ,catatonia: Better Being followed by psychiatry. -Acute delirium, multifactorial, improved Reinforce sleep hygiene cycle. -Acute rhabdomyolysis: Improved Received IV fluids -Chronic kidney disease, stage III likely nephrosclerosis -Acute kidney injury from dehydration from not taking oral:: Better IV fluids D5.45. Discontinued -Hypertension with chronic kidney disease clonidine 0.1 mg twice a day i -Insomnia from underlying psychiatry disorder Remeron -Irritable bowel syndrome Bentyl -Severe constipation from decreased oral intake, inactivity: Improved Responded to Laxatives. Continue Metamucil. Sleep hygiene continue. Stable Discussed with patient. Check labs on Wednesday.
[2021-09-21] MEDS: MELATONIN 3 MG TABLET PO SCH (20:24)
[2021-09-21] MEDS: MIRTAZAPINE 15 MG TAB PO SCH (20:24)
[2021-09-21] MEDS: LORazepam 1 MG TAB PO SCH (20:25)
[2021-09-22 08:05] LABS: Calcium 9.1 mg/dL (8.4-10.2); Potassium 5.1 mmol/L (3.5-5.1)
[2021-09-22] MEDS: DULoxetine HCL 20 MG CAPSULE.DR PO SCH (08:34)
[2021-09-22] MEDS: cloNIDine HCL 0.1 MG TAB PO SCH (08:34)
[2021-09-22] MEDS: lamoTRIgine 25 MG TAB PO SCH ×2 (08:34→15:57)
[2021-09-22] MEDS: PSYLLIUM HUSK 100% 6 GM PACKET PO SCH (08:34)
[2021-09-22] MEDS: CHOLECALCIFEROL 25 MCG (1000 IU) TABLET PO SCH (08:35)
[2021-09-22 08:36] VITALS: BP 123/58; PULSE 75
--- NOTE | 2021-09-22 10:27 | P.DS ---
Providers Date of admission: 09/01/21 23:40 Expected date of discharge: 09/22/21 Attending physician: Jaylen Vaughn MD Consults: 09/01/21 23:42 Consult Physician Routine Consulting Provider: Jose Raul Childress Consult Reason/Comments: H&P and medical Do you want consulting provider notified?: Yes Primary care physician: Ferdinand Shelton - Discharge Diagnosis(es) (1) Catatonia Current Visit: Yes Status: Acute Priority: High (2) Bipolar disorder Current Visit: Yes Status: Acute Priority: High Hospital Course: Admission HPI: Admission note was completed by investment underwriter "Patient is a 76-year-old female with a history of bipolar disorder, currently lives with her daughter in the house has 2 kids and 4 grandchildren. Patient presented to the hospital yesterday on a petition by her daughter for increased agitation, pacing and also not taking medications and having poor sleep. Patient was given several prn meds last night for agitation in the ER before coming up to the mental health unit. Patient was admitted involuntarily on a petition and certificate. Patient was seen this morning in agreeable to speak to investment underwriter in the office. Patient appeared to be fairly calm today. She states that she was "pacing and not sleeping" at home. She states that she was also feeling agitated. This is been going on for the past 2 weeks she says. She claims that she "just needed some rest". She claims that she has a long history of bipolar disorder diagnosed when she was in her 20s. She states that her mood is "a bit better today". She is denying any current racing thoughts. She is denying any goal oriented/goal-directed behavior or flight of ideas. She claims that she is taking her medications at home including Lamictal and Seroquel as her daughter and sister help manage it for her. She claims that she does not have any paranoia. She claims that her appetite has been fairly poor. Patient denies any suicidal or homicidal ideations intent or plan. At this time patient denies any auditory or visual hallucinations. Patient denies any flight of ideas racing thoughts and increased in goal directed behavior. Patient admits to using no recreational drugs or cigarettes." Hospital course: Upon admission to the unit patient was directable and agreeable to commence treatment and signed adult voluntary form. However shortly after, patient decompensated further psychiatrically and started refusing medications therefore to certificate and petition were filed with the courts and patient ended up not deferring and had a court hearing date which resulted in a mental health treatment in order. Patient's daughter also filed for an obtained guardianship. Patient decompensated on the unit and was in a catatonic state for several weeks. Patient was pacing the hallways, repeating phrases and agitated. She was treated with several prn medications and restraints however did not improve. The decision was made to try patient on ativan IVP which helped patient and she was transitioned onto PO ativan at night time 1 mg qhs. she was also placed on melatonin 6 mg qhs for insomnia. cymbalta 20 mg dailyfor mood/anxiety, lamictal 100 mg bid for mood stabilization. Patient was tried on depakote however was experiencing abdominal pain therefor it was discontinued. remeron was resumed on 30 mg qhs for insomnia/mood/appetite. Patient improved gradually and started taking care of her ADLS, improving in sleep hygiene and ambulation and also was attending groups. Patient was also seen by medical team for history and physical exam. Throughout the course of the hospitalization patient gradually improved with regards to mood, anxiety, sleep and returned back to their baseline level of functioning. On the day of discharge patient denied any suicidal or homicidal ideations intent or plan denied any auditory or visual hallucinations. Patient endorsed wanting to live for her family and life. The patient denied any access to guns or weapons. Patient denied any paranoia and did not endorse any delusions. Patient does not have a significant history of substance abuse however was counseled on abstaining from all substances including alcohol and marijuana. Patient was also counseled on the medications and need for regular compliance and was encouraged to follow-up with their outpatient appointment for mental health and also for primary care. LARRY was working with patients daughter/koby to arrange for discharge today to her sisters house. Larry attempted to get patient placed into [facility] however they declined her. Mental status exam: General Appearance: Patient appears to be thin, elderly,stated age is alert, pleasant, and attempts to be cooperative. Patient is in no acute distress and has improved hygiene and grooming Behavior: Patient is calmly seated without any agitated behavior. Speech: Patient's speech is fluent and nonpressured. Mood/Affect: Patient reports their mood is "good", affect is congruent and constricted Suicidality/Homicidality: Patient denies having any suicidal or homicidal ideation intent or plan. Perceptions: Patient denies any auditory or visual hallucinations. Though content/process: There is no evidence of any delusional thought content and thought process is linear and goal-directed. Memory and concentration: AOX3, grossly intact for the purposes of this session. Can spell "WORLD" backwards correctly. Judgment and insight: improved with guarded prognosis Impression: Catatonia Bipolar disorder Plan: -Continue with discharge today as patient has improved and stabilized psychiatrically and is not currently an imminent threat to herself and/or others. Patient will remain at chronically elevated risk for harm to self and/or others due to her history of chronic and severe mental illness. -Continue medications: Remeron 30 mg daily at bedtime for sleep/appetite/mood, Lamictal 100 mg twice a day for mood stabilization, Ativan 1 mg by mouth daily at bedtime for catatonic symptoms, Cymbalta 20 mg daily for mood/anxiety, melatonin 6 mg daily at bedtime for sleep. -Patient was counseled on the need for medication compliance and appropriate follow-up at mental health and also primary care for medical issues. Patient verbalized understanding and agreed. -Social work to arrange for and conduct family meeting to ensure safety upon discharge and answer any questions/concerns. Social work also to arrange for patients follow up appointments for psychiatric care along with follow up with primary care provider. -Patient counseled on abstaining from recreational drugs and marijuana and alc ohol. Was informed/educated on the adverse effects on their physical and mental health. Patient verbally agreed and understood. -Patient was instructed to return to the hospital or seek immediate medical care if their psychiatric or medical symptoms do worsen or reoccur. Allergies Allergy/AdvReac Type Severity Reaction Status Date / Time Iodinated Contrast Media Allergy Unknown Verified 09/01/21 19:23 [Iodinated Contrast Media - IV Dye] lithium Allergy Dyspnea Verified 09/01/21 19:23 Laboratory Results WBC 4.8 k/uL (3.8-10.6) 09/14/21 06:23 RBC 3.87 m/uL (3.80-5.40) 09/14/21 06:23 Hgb 12.3 gm/dL (11.4-16.0) 09/14/21 06:23 Hct 37.7 % (34.0-46.0) 09/14/21 06:23 MCV 97.2 fL (80.0-100.0) 09/14/21 06:23 MCH 31.8 pg (25.0-35.0) 09/14/21 06:23 MCHC 32.7 g/dL (31.0-37.0) 09/14/21 06:23 RDW 12.1 % (11.5-15.5) 09/14/21 06:23 Plt Count 266 k/uL (150-450) 09/14/21 06:23 MPV 8.5 09/14/21 06:23 Neutrophils % 58 % 09/14/21 06:23 Lymphocytes % 29 % 09/14/21 06:23 Monocytes % 7 % 09/14/21 06:23 Eosinophils % 3 % 09/14/21 06:23 Basophils % 1 % 09/14/21 06:23 Neutrophils # 2.8 k/uL (1.3-7.7) 09/14/21 06:23 Lymphocytes # 1.4 k/uL (1.0-4.8) 09/14/21 06:23 Monocytes # 0.3 k/uL (0-1.0) 09/14/21 06:23 Eosinophils # 0.2 k/uL (0-0.7) 09/14/21 06:23 Basophils # 0.0 k/uL (0-0.2) 09/14/21 06:23 Sodium 139 mmol/L (137-145) 09/22/21 07:20 Potassium 5.1 mmol/L (3.5-5.1) 09/22/21 07:20 Chloride 105 mmol/L (98-107) 09/22/21 07:20 Carbon Dioxide 30 mmol/L (22-30) 09/22/21 07:20 Anion Gap 4 mmol/L 09/22/21 07:20 BUN 49 mg/dL (7-17) H 09/22/21 07:20 Creatinine 2.07 mg/dL (0.52-1.04) H 09/22/21 07:20 Est GFR (CKD-EPI)AfAm 27 (>60 ml/min/1.73 sqM) 09/22/21 07:20 Est GFR (CKD-EPI)NonAf 23 (>60 ml/min/1.73 sqM) 09/22/21 07:20 Glucose 91 mg/dL (74-99) 09/22/21 07:20 POC Glucose (mg/dL) 166 mg/dL (75-99) H 09/09/21 19:39 POC Glu Power Sweeper Operator ID Winter Flores 09/09/21 19:[address] Glu mg/dL 116 09/01/21 18:03 Hemoglobin A1c 5.7 % (0.0-6.0) 09/01/21 18:03 Calcium 9.1 mg/dL (8.4-10.2) 09/22/21 07:20 Magnesium 1.8 mg/dL (1.6-2.3) 09/04/21 23:29 Total Bilirubin 0.4 mg/dL (0.2-1.3) 09/07/21 12:55 AST 21 U/L (14-36) 09/07/21 12:55 ALT 17 U/L (4-34) 09/07/21 12:55 Alkaline Phosphatase 43 U/L (38-126) 09/07/21 12:55 Ammonia 11 umol/L (<30) 09/18/21 06:38 Creatine Kinase 332 U/L (30-135) H 09/06/21 07:09 CK-MB (CK-2) 7.7 ng/mL (0.0-2.4) H 09/03/21 20:40 Total Protein 5.7 g/dL (6.3-8.2) L 09/07/21 12:55 Albumin 3.1 g/dL (3.5-5.0) L 09/07/21 12:55 Triglycerides 95.60 mg/dL (0.00-149.00) 09/01/21 18:03 Cholesterol 201.00 mg/dL (0.00-200.00) H 09/01/21 18:03 LDL Cholesterol, Calc 103.7 mg/dL (0.0-131.0) 09/01/21 18:03 VLDL Cholesterol, Calc 19.12 mg/dL (5.00-40.00) 09/01/21 18:03 HDL Cholesterol 78.20 mg/dL (40.00-60.00) H 09/01/21 18:03 Cholesterol/HDL Ratio 2.57 Ratio 09/01/21 18:03 Amylase 92 U/L (30-110) 09/14/21 06:23 Lipase 153 U/L (23-300) 09/14/21 06:23 TSH 1.830 mIU/L (0.465-4.680) 09/03/21 20:40 Urine Color Light Yellow 09/04/21 14:35 Urine Appearance Clear (Clear) 09/04/21 14:35 Urine pH 6.5 (5.0-8.0) 09/04/21 14:35 Ur Specific [place] 1.006 (1.001-1.035) 09/04/21 14:35 Urine Protein Trace (Negative) H 09/04/21 14:35 Urine Glucose (UA) Negative (Negative) 09/04/21 14:35 Urine Ketones Negative (Negative) 09/04/21 14:35 Urine Blood Negative (Negative) 09/04/21 14:35 Urine Nitrite Negative (Negative) 09/04/21 14:35 Urine Bilirubin Negative (Negative) 09/04/21 14:35 Urine Urobilinogen <2.0 mg/dL (<2.0) 09/04/21 14:35 Ur Leukocyte Esterase Negative (Negative) 09/04/21 14:35 Urine Opiates Screen Not Detected (NotDetected) 09/04/21 14:35 Ur Oxycodone Screen Not Detected (NotDetected) 09/04/21 14:35 Urine Methadone Screen Not Detected (NotDetected) 09/04/21 14:35 Ur Propoxyphene Screen Not Detected (NotDetected) 09/04/21 14:35 Ur Barbiturates Screen Not Detected (NotDetected) 09/04/21 14:35 Valproic Acid 45.1 ug/mL 09/18/21 06:38 U Tricyclic Antidepress Not Detected (NotDetected) 09/04/21 14:35 Ur Phencyclidine Scrn Not Detected (NotDetected) 09/04/21 14:35 Ur Amphetamines Screen Not Detected (NotDetected) 09/04/21 14:35 U Methamphetamines Scrn Not Detected (NotDetected) 09/04/21 14:35 U Benzodiazepines Scrn Not Detected (NotDetected) 09/04/21 14:35 Urine Cocaine Screen Not Detected (NotDetected) 09/04/21 14:35 U Marijuana (THC) Screen Not Detected (NotDetected) 09/04/21 14:35 Coronavirus (PCR) Not Detected (Not Detectd) 09/01/21 22:00 Vital Signs Temp 97.9 F 09/21/21 06:39 Pulse 75 09/22/21 08:36 Resp 16 09/21/21 06:39 BP 123/58 09/22/21 08:36 Pulse Ox 97 09/21/21 06:39 Intake & Output 09/21/21 09/22/21 09/22/21 18:59 06:59 18:59 Weight 46.493 kg Patient Condition at Discharge: Stable Plan - Discharge Summary Discharge Rx Participant: No New Discharge Prescriptions: New LORazepam [Ativan] 1 mg PO HS 30 Days tab cloNIDine HCL [Catapres] 0.1 mg PO BID 30 Days tab lamoTRIgine [LaMICtal] 100 mg PO BID 30 Days tab Melatonin 6 mg PO HS 30 Days tablet Mirtazapine [Remeron] 30 mg PO HS 30 Days tab DULoxetine HCL [Cymbalta] 20 mg PO DAILY 30 Days Psyllium Husk 100% [Metamucil Packet] 6 gm PO DAILY packet Cholecalciferol [Vitamin D3 (25 Mcg = 1000 Iu)] 25 mcg PO DAILY@1200 tablet Discontinued Cholecalciferol [Vitamin D3 (25 Mcg = 1000 Iu)] 1,000 unit PO DAILY@1200 QUEtiapine [SEROquel] 200 mg PO HS Dicyclomine [Bentyl] 20 mg PO BID QUEtiapine [SEROquel] 25 mg PO BID@1200,2100 lamoTRIgine [LaMICtal] 100 mg PO BID Mirtazapine [Remeron] 30 mg PO HS Discharge Medication List Cholecalciferol [Vitamin D3 (25 Mcg = 1000 Iu)] 25 mcg PO DAILY@1200 tablet 09/22/21 [Rx] DULoxetine HCL [Cymbalta] 20 mg PO DAILY 30 Days 09/22/21 [Rx] LORazepam [Ativan] 1 mg PO HS 30 Days tab 09/22/21 [Rx] Melatonin 6 mg PO HS 30 Days tablet 09/22/21 [Rx] Mirtazapine [Remeron] 30 mg PO HS 30 Days tab 09/22/21 [Rx] Psyllium Husk 100% [Metamucil Packet] 6 gm PO DAILY packet 09/22/21 [Rx] cloNIDine HCL [Catapres] 0.1 mg PO BID 30 Days tab 09/22/21 [Rx] lamoTRIgine [LaMICtal] 100 mg PO BID 30 Days tab 09/22/21 [Rx] Follow up Appointment(s)/Referral(s): Ferdinand Shelton MD [Primary Care Provider] - 1-2 days Activity/Diet/Wound Care/Special Instructions: Activity and diet as tolerated. Avoid the use of street drugs and alcohol. Take all medications as prescribed. When you are in need of refills on your med ications please contact your medical provider and/or outpatient psychiatrist to have this done. Please go to scheduled outpatient appointment for aftercare treatment. If symptoms return or become worse, call the crisis line at and/or go to the nearest emergency room for evaluation Discharge Disposition: HOME SELF-CARE
--- NOTE | 2021-09-22 12:52 | P.PN ---
Progress Note - Text Progress Note Date: 09/22/21 - Chief Complaint Hyperactive Hospital course This is a pleasant 76-year-old patient who follows with Dr. Ferdinand Shelton. Chronic stable medical conditions include goiter that has been worked up, chronic kidney disease, insomnia, bipolar disorder. Patient is brought into the ER with her daughter for being very hyperactive pacing up and down not sleeping. Appetite has been okay. No change in bowel pattern. No fever no chills. Patient admitted with bipolar disorder/manic episode. September 03: Patient was sedated with Ativan earlier today.This afternoon patient is very anxious delirious. Walking the hallways. Holding onto people. Would n ot answer any questions straight. September 04: Patient has been in restraints. Not eating drinking since yesterday at least. Overnight given 2 L of IV fluids. IV fluids started. D5W. Patient is very restless. Delirious. Saying words sentences repetitively. In restraints. September 05: Patient has remained in restraints. Has a sitter. Iate about 25% this morning. Being given Ativan. Fluids reorder that D545 at 100 mL an hour. Some elevation in CPK. Clinically not felt to be neuroleptic malignant syndrome. No fever. Elevated blood pressure recorded previously likely from agitation/restlessness. September 06: Patient has a sitter. Out of restraints. Has been receiving Ativan. Patient is able to sit up at the edge of the bed. Sleepy. Answering occasional question. Was able to feed the patient 1 couple of custard. Took some apple juice. the patient set up in the chair. Continue with IV fluid as oral intake is insufficient. Discussed the staff to give oral intake spaced out. September 07: Patient has been receiving Ativan. Sleepy this morning. Sitter in place. I help set up the patient edge of the bed. Used to washcloth to wipe her. Nursing staff present. Was able to feed her a couple of custard and a couple of Magic cup. She also took her medications. Drinks water. Plan to have the patient sit up in a chair. Supervised. September 08: Patient has been more restful. Not agitated. Has a sitter. Eating somewhat better. Sleepy. Discussed with Dr. Vaughn. Valium 2 mg twice a day. Will DC IV fluids later today. Also discussed with the nurse. Has a patient sit up in a chair. Supervised. May 3: Patient has been sleepy. Barely eating. Discussed with the nurse and Dr. Vaughn. Reinforced sleep hygiene. Discussed to cut back Valium to 1 mg twice daily. Repeat labs tomorrow. Up in chair as tolerated. September 4: Patient doing better today. She did eat fairly well. Has a sitter. Episodes of anxiousness reported. On Valium 1 mg twice a day. September 5: Patient has been tolerating a diet. Does walk in the hallways. Sometimes a bit erratic. Very anxious. Did sleep in the afternoon. Morning dose of Valium was held this morning. Discussed with Dr. Vaughn. Will DC the morning dose of Valium. Catapres will DC the patch in the morning. Catapres 0.1 mg twice a day starting the morning September 6: Patient did walk the hallways. Eating anywhere from 25-50%. Morning dose of Valium has been discontinued. Patient otherwise mainly subdued lethargic all day. Will cut back the evening dose of Valium down to 0.5 mg. Try to maintain sleep hygiene. Discussed with staff. September 7: Oral intake better. Less sleepy. Did walk in the hallway. Sitter. DC p.m. dose of Valium currently at 0.5 mg. September 8: Had been complaining of abdominal discomfort. X-ray showed significant fecal stasis. Lactulose 20 g, followed by half a bottle of magnesium citrate is given. Also soapsuds given. Small BM. We'll repeat medical molasses enema tomorrow. Also Metamucil twice daily being added. Also reinforced importance of keeping patient awake during the daytime except for afternoon nap. So that has sleep cycle can be maintained. Patient has been ambulating in the hallway. Sleepy. Oral intake fair. September 15: This morning patient had quite a few bowel movements. Loose. Abdomen soft. Eating fair. Did walk in the hallway. Answering questions. Patient will need sleep hygiene to be emphasized. September 16: Patient slept well. Sleepy in the daytime. Depakote daytime dose discontinued by Dr. Vaughn. Discussed with him. With the nurse I completed the patient to the lounge. Put the television on. Again sleep hygiene to be reinforced. Oral intake fair September 11: Medication adjusted by Dr. Vaughn. Oral intake fair. Ambulating in the hallway. Again sleep hygiene to be reinforced.. Dose of lactulose today. September 18: Doing better. Oral intake fair. Did ambulate in the hallway. Continue current medications. September 19: Eating well. Better conversation Ambulating. Had a bowel movement. Discussed with the patient. September 20: Oral intake fair. Has been up and about. Conversing. Looking better. September 21: Has been up and about in the hallway. Holding the normal conversation. Oral intake good. Had bowel movement. Looking forward to go home. September 22: Patient doing well. Up and about. Oral intake fair. Discussed with the patient to decrease asleep during the daytime. So she can sleep better at night. Possibly returning to her daughter. Active Medications Acetaminophen (Acetaminophen Tab 325 Mg Tab) 650 mg PO Q4HR PRN PRN Reason: Pain/Discomfort Last Admin: 09/16/21 22:20 Dose: 650 mg Documented by: Al Hydroxide/Mg Hydroxide (Mag Hydrox/Al Hydrox/Simeth 30 Ml Cup) 30 ml PO Q4HR PRN PRN Reason: GI Upset Last Admin: 09/16/21 22:20 Dose: 30 ml Documented by: Calcium Carbonate/Glycine (Calcium Carbonate Liquid 500 Mg/5 Ml Cup) 500 mg PO TID-W/MEALS PRN PRN Reason: GI Upset Last Admin: 09/16/21 09:59 Dose: 500 mg Documented by: Cholecalciferol (Cholecalciferol 25 Mcg (1000 Iu) Tablet) 25 mcg PO DAILY@1200 [facility] Last Admin: 09/22/21 08:35 Dose: 25 mcg Documented by: Clonidine (Clonidine Hcl 0.1 Mg Tab) 0.1 mg PO BID [facility] Last Admin: 09/22/21 08:34 Dose: 0.1 mg Documented by: Duloxetine HCl (Duloxetine Hcl 20 Mg Capsule.Dr) 20 mg PO DAILY [facility] Last Admin: 09/22/21 08:34 Dose: 20 mg Documented by: Lamotrigine (Lamotrigine 25 Mg Tab) 50 mg PO TID [facility] Last Admin: 09/22/21 08:34 Dose: 50 mg Documented by: Lorazepam (Lorazepam 2 Mg/Ml Inj) 1 mg IV Q4H PRN PRN Reason: Agitation or Acute Anxiety Last Admin: 09/08/21 05:50 Dose: 1 mg Documented by: Lorazepam (Lorazepam 2 Mg/Ml Inj) 1 mg IM Q4HR PRN PRN Reason: Agitation or Acute Anxiety Lorazepam (Lorazepam 1 Mg Tab) 1 mg PO Q4HR PRN PRN Reason: Agitation or Acute Anxiety Last Admin: 09/16/21 22:20 Dose: 1 mg Documented by: Lorazepam (Lorazepam 1 Mg Tab) 1 mg PO HS [facility] Last Admin: 09/21/21 20:25 Dose: 1 mg Documented by: Magnesium Hydroxide (Magnesium Hydroxide 2,400 Mg/10 Ml Cup) 2,400 mg PO DAILY PRN PRN Reason: Constipation Last Admin: 09/17/21 00:59 Dose: 2,400 mg Documented by: Melatonin (Melatonin 3 Mg Tablet) 6 mg PO HS [facility] Last Admin: 09/21/21 20:24 Dose: 6 mg Documented by: Mirtazapine (Mirtazapine 15 Mg Tab) 30 mg PO HS [facility] Last Admin: 09/21/21 20:24 Dose: 30 mg Documented by: Psyllium Hydrophilic Mucilloid (Psyllium Husk 100% 6 Gm Packet) 6 gm PO DAILY [facility] Last Admin: 09/22/21 08:34 Dose: Not Given Documented by: Ziprasidone (Ziprasidone 20 Mg Vial) 20 mg IM BID PRN PRN Reason: Agitation or Acute Psychosis Last Admin: 09/04/21 18:45 Dose: 20 mg Documented by: Past medical history to include: Goiter, bipolar disorder, chronic kidney disease Social history: This daughter. Alcohol occasionally. No smoking. Family history: CAD, diabetes Physical examination: VITAL SIGNS: 97.9, 80, 16, 122/69, 97% room air GENERAL: Sitting up comfortable EYES: Pupils equal. Conjunctiva normal. HEENT: External appearance of nose and ears normal, oral cavity dry NECK: JVD not raised; masses not palpable. HEART: First and second heart sounds are normal; no edema. LUNGS: Respiratory rate normal; clear to auscultation. ABDOMEN: Soft, nontender, liver spleen not palpable, no masses palpable. PSYCH: Answering questions appropriately. MUSCULOSKELETAL:No Clubbing/cyanosis;muscles-grossly intact. Evidence of OA especially in the hands INVESTIGATIONS, reviewed in the clinical context: September 22: BUN 49 creatinine 2.07 White count 4.8 hemoglobin 12.3 platelets 266 potassium 5.1 BUN 44 creatinine 1.8 Assessment and plan: -Bipolar disorder, manic episode: ,catatonia: Better Being followed by psychiatry. -Acute delirium, multifactorial, improved Reinforce sleep hygiene cycle. -Acute rhabdomyolysis: Improved Received IV fluids -Chronic kidney disease, stage III likely nephrosclerosis -Acute kidney injury from dehydration from not taking oral: -Hypertension with chronic kidney disease clonidine 0.1 mg twice a day i -Insomnia from underlying psychiatry disorder Remeron -Irritable bowel syndrome Bentyl -Severe constipation from decreased oral intake, inactivity: Improved Responded to Laxatives. Continue Metamucil. Stable. Continue current medication. Should have repeat BMP in about a week's time. Continue Catapres. Follow-up with her PCP 1 week.
== END 2021-09-22 17:30 | disposition home or self-care (01) | DRG 885 ==
LOC: EC 12:55 → 3MHU 23:40
PROVIDERS: ADMIT Psychiatry & Neurology Psychiatry; ATTEND Psychiatry & Neurology Psychiatry
DX: F20.2 Catatonic schizophrenia (principal); F05 Delirium due to known physiological condition; R45.851 Suicidal ideations; M62.82 Rhabdomyolysis; N17.9 Acute kidney failure, unspecified; E86.0 Dehydration; E89.0 Postprocedural hypothyroidism; F41.9 Anxiety disorder, unspecified; G47.00 Insomnia, unspecified; I12.9 Hypertensive chronic kidney disease with stage 1 through stage 4 chronic kidney disease, or unspecified chronic kidney disease; K58.9 Irritable bowel syndrome, unspecified; N18.30 Chronic kidney disease, stage 3 unspecified; Z78.1 Physical restraint status; E04.9 Nontoxic goiter, unspecified; Z28.310 Unvaccinated for COVID-19; Z20.822 Contact with and (suspected) exposure to COVID-19; Z98.42 Cataract extraction status, left eye; Z98.41 Cataract extraction status, right eye; Z96.1 Presence of intraocular lens; Z98.51 Tubal ligation status; Z98.890 Other specified postprocedural states; Z79.899 Other long term (current) drug therapy; Z81.8 Family history of other mental and behavioral disorders; Z82.3 Family history of stroke; Z82.49 Family history of ischemic heart disease and other diseases of the circulatory system; Z83.3 Family history of diabetes mellitus
CPT/HCPCS: 36415; 74019; 80048; 80053; 80061; 80164; 80306; 81003; 82075; 82140; 82150; 82550; 82553; 83036; 83690; 83735; 84443; 85025; 85027; 87635; 93005; 96360; 96372; 99285

== ENCOUNTER → 2021-12-21 | Emergency (ER) | payer MEDICARE ==
[~2021-12-21] MED LIST: CHOLECALCIFEROL 25 MCG (1000 IU) TABLET PO SCH; LORazepam 1 MG TAB PO PRN; LORazepam 1 MG TAB PO STA; LORazepam 2 MG/ML INJ IV STA; MELATONIN 3 MG TABLET PO SCH; MIRTAZAPINE 15 MG TAB PO SCH; PSYLLIUM HUSK 100% 6 GM PACKET PO SCH; cloNIDine HCL 0.1 MG TAB PO SCH; lamoTRIgine 100 MG TAB PO SCH
--- NOTE | 2021-12-21 07:58 | ED ---
General Adult HPI - General Source: patient, family, RN notes reviewed Mode of arrival: ambulatory Limitations: no limitations <Jonas Mendoza - Last Filed: 12/21/21 13:17> <Ferdinand Rodriguez - Last Filed: 12/22/21 14:36> - General Stated complaint: Mental Health Time Seen by Provider: 12/21/21 07:50 - History of Present Illness Initial comments: This a 76-year-old female presents emergency Department with family for evaluation of psychiatric issues. Patient's been having increasing psychosis paranoia and which patient has been dealing with crisis line. Patient has reached the point where she is fairly paranoid, very excitable, very anxious. Patient was recent started on the to has been on multiple medications been taking them. Patient denies any physical complaints. Denies illicit drug use no alcohol abuse. (Jonas Mendoza) - Related Data Home Medications Medication Instructions Recorded Confirmed Benztropine Mesylate [Cogentin] 1 mg PO BID 12/21/21 12/21/21 LORazepam [Ativan] 1 mg PO BID PRN 12/21/21 12/21/21 Lurasidone [Latuda] 40 mg PO HS 12/21/21 12/21/21 Mirtazapine [Remeron] 30 mg PO HS 12/21/21 12/21/21 lamoTRIgine [LaMICtal] 100 mg PO BID 12/21/21 12/21/21 Previous Rx's Medication Instructions Recorded Cholecalciferol [Vitamin D3 (25 25 mcg PO DAILY@1200 tablet 09/22/21 Mcg = 1000 Iu)] DULoxetine HCL [Cymbalta] 20 mg PO DAILY 30 Days 09/22/21 Melatonin 6 mg PO HS 30 Days tablet 09/22/21 Psyllium Husk 100% [Metamucil 6 gm PO DAILY packet 09/22/21 Packet] cloNIDine HCL [Catapres] 0.1 mg PO BID 30 Days tab 09/22/21 Allergies Allergy/AdvReac Type Severity Reaction Status Date / Time Iodinated Contrast Media Allergy Unknown Verified 12/21/21 19:33 [Iodinated Contrast Media - IV Dye] lithium Allergy Dyspnea Verified 12/21/21 19:33 Review of Systems ROS Other: All systems not noted in ROS Statement are negative. <Jonas Mendoza - Last Filed: 12/21/21 13:17> ROS Other: All systems not noted in ROS Statement are negative. <Ferdinand Rodriguez - Last Filed: 12/22/21 14:36> ROS Statement: Those systems with pertinent positive or pertinent negative responses have been documented in the HPI. Past Medical History Past Medical History: Thyroid Disorder Additional Past Medical History / Comment(s): Goiter, rhabdomylosis History of Any Multi-Drug Resistant Organisms: None Reported Past Surgical History: Tubal Ligation Additional Past Surgical History / Comment(s): Bilateral cataract removal and lens implants Past Anesthesia/Blood Transfusion Reactions: No Reported Reaction Past Psychological History: Anxiety, Bipolar, Depression Smoking Status: Never smoker Past Alcohol Use History: Occasional Past Drug Use History: None Reported - Past Family History Father Family Medical History: Coronary Artery Disease (CAD), Diabetes Mellitus Additional Family Medical History / Comment(s): Father at age 65. He had history of coronary artery disease and diabetes. No history of eating disorders Mother Family Medical History: CVA/TIA Additional Family Medical History / Comment(s): Mother at age 88 from a CVA. Brother(s) Additional Family Medical History / Comment(s): The patient has 4 brothers and one has depression. Patient has 2 sisters. Patient has 2 children one son and one daughter. <Jonas Mendoza - Last Filed: 12/21/21 13:17> General Exam Limitations: no limitations General appearance: alert, in no apparent distress, anxious Head exam: Present: atraumatic, normocephalic, normal inspection Eye exam: Present: normal appearance, PERRL, EOMI. Absent: scleral icterus, conjunctival injection, periorbital swelling ENT exam: Present: normal exam, normal oropharynx, mucous membranes moist Neck exam: Present: normal inspection, full ROM. Absent: tenderness, meningis mus, lymphadenopathy Respiratory exam: Present: normal lung sounds bilaterally. Absent: respiratory distress, wheezes, rales, rhonchi, stridor Cardiovascular Exam: Present: regular rate, normal rhythm, normal heart sounds. Absent: systolic murmur, diastolic murmur, rubs, gallop, clicks Neurological exam: Present: alert Psychiatric exam: Present: anxious, manic Skin exam: Present: warm, dry, intact, normal color. Absent: rash <Jonas Mendoza - Last Filed: 12/21/21 13:17> Course Vital Signs 12/21/21 12/21/21 12/21/21 07:50 15:00 18:09 Temperature 97 F L 98.0 F Pulse Rate 93 90 88 Respiratory 18 18 18 Rate Blood Pressure 170/76 164/80 160/78 O2 Sat by Pulse 98 100 100 Oximetry 12/21/21 12/22/21 12/22/21 21:04 05:51 10:01 Temperature Pulse Rate 72 75 101 H Respiratory 18 16 16 Rate Blood Pressure 130/70 159/67 116/64 O2 Sat by Pulse 97 98 95 Oximetry Medical Decision Making - Lab Data Result diagrams: 12/21/21 08:36 12/21/21 08:36 <Jonas Mendoza - Last Filed: 12/21/21 13:17> - Lab Data Result diagrams: 12/21/21 08:36 12/21/21 08:36 <Ferdinand Rodriguez - Last Filed: 12/22/21 14:36> - Medical Decision Making Patient was evaluated by EPS case discussed with psychiatrist patient will be transferred to geriatric psych. (Jonas Mendoza) Patient was evaluated by EPS. Determine need for inpatient psychiatry. C ertification was completed by myself and placed in the chart. Plan is transfer to geriatric psych. (Ferdinand Rodriguez) - Lab Data Lab Results 12/21/21 12/21/21 12/21/21 Range/Units 08:07 08:36 08:36 WBC 8.1 (3.8-10.6) k/uL RBC 4.28 (3.80-5.40) m/uL Hgb 13.0 (11.4-16.0) gm/dL Hct 41.3 (34.0-46.0) % MCV 96.4 (80.0-100.0) fL MCH 30.4 (25.0-35.0) pg MCHC 31.5 (31.0-37.0) g/dL RDW 12.1 (11.5-15.5) % Plt Count 242 (150-450) k/uL MPV 7.1 Neutrophils % 72 % Lymphocytes % 18 % Monocytes % 5 % Eosinophils % 3 % Basophils % 1 % Neutrophils # 5.8 (1.3-7.7) k/uL Lymphocytes # 1.5 (1.0-4.8) k/uL Monocytes # 0.4 (0-1.0) k/uL Eosinophils # 0.2 (0-0.7) k/uL Basophils # 0.1 (0-0.2) k/uL Sodium 139 (137-145) mmol/L Potassium 4.4 (3.5-5.1) mmol/L Chloride 100 (98-107) mmol/L Carbon Dioxide 27 (22-30) mmol/L Anion Gap 12 mmol/L BUN 37 H (7-17) mg/dL Creatinine 1.87 H (0.52-1.04) mg/dL Est GFR (CKD-EPI)AfAm 30 (>60 ml/min/1.73 sqM) Est GFR (CKD-EPI)NonAf 26 (>60 ml/min/1.73 sqM) Glucose 103 H (74-99) mg/dL Calcium 10.0 (8.4-10.2) mg/dL Total Bilirubin 0.4 (0.2-1.3) mg/dL AST 25 (14-36) U/L ALT 15 (4-34) U/L Alkaline Phosphatase 61 (38-126) U/L Total Protein 7.7 (6.3-8.2) g/dL Albumin 4.8 (3.5-5.0) g/dL Urine Color Light Yellow Urine Appearance Clear (Clear) Urine pH 6.5 (5.0-8.0) Ur Specific [place] 1.007 (1.001-1.035) Urine Protein Negative (Negative) Urine Glucose (UA) Negative (Negative) Urine Ketones Negative (Negative) Urine Blood Negative (Negative) Urine Nitrite Negative (Negative) Urine Bilirubin Negative (Negative) Urine Urobilinogen <2.0 (<2.0) mg/dL Ur Leukocyte Esterase Negative (Negative) Urine Opiates Screen Not Detected (NotDetected) Ur Oxycodone Screen Not Detected (NotDetected) Urine Methadone Screen Not Detected (NotDetected) Ur Propoxyphene Screen Not Detected (NotDetected) Ur Barbiturates Screen Not Detected (NotDetected) U Tricyclic Antidepress Not Detected (NotDetected) Ur Phencyclidine Scrn Not Detected (NotDetected) Ur Amphetamines Screen Not Detected (NotDetected) U Methamphetamines Scrn Not Detected (NotDetected) U Benzodiazepines Scrn Detected H (NotDetected) Urine Cocaine Screen Not Detected (NotDetected) U Marijuana (THC) Screen Not Detected (NotDetected) Coronavirus (PCR) (Not Detectd) 12/21/21 Range/Units 12:13 WBC (3.8-10.6) k/uL RBC (3.80-5.40) m/uL Hgb (11.4-16.0) gm/dL Hct (34.0-46.0) % MCV (80.0-100.0) fL MCH (25.0-35.0) pg MCHC (31.0-37.0) g/dL RDW (11.5-15.5) % Plt Count (150-450) k/uL MPV Neutrophils % % Lymphocytes % % Monocytes % % Eosinophils % % Basophils % % Neutrophils # (1.3-7.7) k/uL Lymphocytes # (1.0-4.8) k/uL Monocytes # (0-1.0) k/uL Eosinophils # (0-0.7) k/uL Basophils # (0-0.2) k/uL Sodium (137-145) mmol/L Potassium (3.5-5.1) mmol/L Chloride (98-107) mmol/L Carbon Dioxide (22-30) mmol/L Anion Gap mmol/L BUN (7-17) mg/dL Creatinine (0.52-1.04) mg/dL Est GFR (CKD-EPI)AfAm (>60 ml/min/1.73 sqM) Est GFR (CKD-EPI)NonAf (>60 ml/min/1.73 sqM) Glucose (74-99) mg/dL Calcium (8.4-10.2) mg/dL Total Bilirubin (0.2-1.3) mg/dL AST (14-36) U/L ALT (4-34) U/L Alkaline Phosphatase (38-126) U/L Total Protein (6.3-8.2) g/dL Albumin (3.5-5.0) g/dL Urine Color Urine Appearance (Clear) Urine pH (5.0-8.0) Ur Specific [place] (1.001-1.035) Urine Protein (Negative) Urine Glucose (UA) (Negative) Urine Ketones (Negative) Urine Blood (Negative) Urine Nitrite (Negative) Urine Bilirubin (Negative) Urine Urobilinogen (<2.0) mg/dL Ur Leukocyte Esterase (Negative) Urine Opiates Screen (NotDetected) Ur Oxycodone Screen (NotDetected) Urine Methadone Screen (NotDetected) Ur Propoxyphene Screen (NotDetected) Ur Barbiturates Screen (NotDetected) U Tricyclic Antidepress (NotDetected) Ur Phencyclidine Scrn (NotDetected) Ur Amphetamines Screen (NotDetected) U Methamphetamines Scrn (NotDetected) U Benzodiazepines Scrn (NotDetected) Urine Cocaine Screen (NotDetected) U Marijuana (THC) Screen (NotDetected) Coronavirus (PCR) Not Detected (Not Detectd) Disposition Time of Disposition: 13:17 <Jonas Mendoza - Last Filed: 12/21/21 13:17> <Ferdinand Rodriguez - Last Filed: 12/22/21 14:36> Clinical Impression: Bipolar disorder, Manic behavior, Psychosis Disposition: TRANSFER TO PSYCH HOSP/UNIT Condition: Stable Referrals: eFrdinand Shelton MD [Primary Care Provider] - 1-2 days
[2021-12-21 08:19] LABS: Appearance,Urine Clear (Clear); Bilirubin,Urine Negative (Negative); Blood,Urine Negative (Negative); Color,Urine Light Yellow; Glucose,Urine (UA) Negative (Negative); Ketones,Urine Negative (Negative); Leukocyte Esterase,Urine Negative (Negative); Nitrite,Urine Negative (Negative); PH, Urine 6.5 (5.0-8.0); Protein,Urine Negative (Negative); Specific Gravity,Urine 1.007 (1.001-1.035); Urobilinogen,Urine <2.0 mg/dL (<2.0)
[2021-12-21 08:32] LABS: Amphetamine Screen,Urine Not Detected (NotDetected); Barbiturate Screen,Urine Not Detected (NotDetected); Benzodiazepines Screen,Urine Detected (NotDetected); Cocaine Screen,Urine Not Detected (NotDetected); Methadone Screen, Urine Not Detected (NotDetected); Opiate Screen,Urine Not Detected (NotDetected); Oxycodone Screen, Urine Not Detected (NotDetected); Phencyclidine Screen,Urine Not Detected (NotDetected); Tricyclic Antidepressant,Urine Not Detected (NotDetected); Urn Cannabinoid Scrn Not Detected (NotDetected)
[2021-12-21 08:45] LABS: Basophils # (A) 0.1 k/uL (0-0.2); Basophils % (A) 1 %; Eosinophils # (A) 0.2 k/uL (0-0.7); Eosinophils % (A) 3 %; HCT 41.3 % (34.0-46.0); Lymphocytes # (A) 1.5 k/uL (1.0-4.8); Lymphocytes % (A) 18 %; MCH 30.4 pg (25.0-35.0); MCHC 31.5 g/dL (31.0-37.0); MCV 96.4 fL (80.0-100.0); Mean Platelet Volume 7.1; Monocytes # (A) 0.4 k/uL (0-1.0); Monocytes % (A) 5 %; Neutrophils # (A) 5.8 k/uL (1.3-7.7); Neutrophils % (A) 72 %; Platelet Count 242 k/uL (150-450); RBC 4.28 m/uL (3.80-5.40); RDW 12.1 % (11.5-15.5); WBC 8.1 k/uL (3.8-10.6)
[2021-12-21 08:53] LABS: Albumin 4.8 g/dL (3.5-5.0); Potassium 4.4 mmol/L (3.5-5.1); Total Bilirubin 0.4 mg/dL (0.2-1.3); Total Protein 7.7 g/dL (6.3-8.2)
[2021-12-21 19:34] VITALS: TEMP 98
[2021-12-22] MEDS: cloNIDine HCL 0.1 MG TAB PO SCH ×2 (09:57→21:48)
[2021-12-22] MEDS: LORazepam 1 MG TAB PO PRN ×2 (09:58→21:47)
[2021-12-22] MEDS: BENZTROPINE MESYLATE 1 MG TAB PO SCH ×2 (09:58→23:57)
[2021-12-22] MEDS: lamoTRIgine 100 MG TAB PO SCH ×2 (09:58→21:47)
[2021-12-22] MEDS: PSYLLIUM HUSK 100% 6 GM PACKET PO SCH (09:58)
[2021-12-22] MEDS: DULoxetine HCL 20 MG CAPSULE.DR PO SCH (10:23)
[2021-12-22] MEDS: CHOLECALCIFEROL 25 MCG (1000 IU) TABLET PO SCH (12:09)
[2021-12-22] MEDS: MIRTAZAPINE 15 MG TAB PO SCH (21:48)
[2021-12-22] MEDS: LURASIDONE 40 MG TAB PO SCH (21:56)
[2021-12-23] MEDS: MELATONIN 3 MG TABLET PO SCH ×2 (03:33→20:50)
[2021-12-23] MEDS: BENZTROPINE MESYLATE 1 MG TAB PO SCH (09:29)
[2021-12-23] MEDS: cloNIDine HCL 0.1 MG TAB PO SCH ×2 (09:29→20:50)
[2021-12-23] MEDS: lamoTRIgine 100 MG TAB PO SCH ×2 (09:30→20:50)
[2021-12-23] MEDS: PSYLLIUM HUSK 100% 6 GM PACKET PO SCH (09:30)
[2021-12-23] MEDS: DULoxetine HCL 20 MG CAPSULE.DR PO SCH (09:30)
[2021-12-23] MEDS: LORazepam 1 MG TAB PO PRN (09:33)
[2021-12-23] MEDS: CHOLECALCIFEROL 25 MCG (1000 IU) TABLET PO SCH (11:47)
[2021-12-23 20:48] VITALS: RESP 16
[2021-12-23] MEDS: LURASIDONE 40 MG TAB PO SCH ×2 (20:50→20:51)
[2021-12-23] MEDS: MIRTAZAPINE 15 MG TAB PO SCH (20:50)
[2021-12-24] MEDS: DULoxetine HCL 20 MG CAPSULE.DR PO SCH (08:46)
[2021-12-24 09:22] VITALS: BP 135/73; PULSE 105
== END ==
LOC: EEVIPCON 07:48 → EC 07:48
DX: F31.9 Bipolar disorder, unspecified (principal); F29 Unspecified psychosis not due to a substance or known physiological condition; Z20.822 Contact with and (suspected) exposure to COVID-19; Z86.73 Personal history of transient ischemic attack (TIA), and cerebral infarction without residual deficits; Z91.041 Radiographic dye allergy status; Z88.8 Allergy status to other drugs, medicaments and biological substances
CPT/HCPCS: 82075; 36415; 80053; 80175; 85025; 81003; 80306; 87635; 99284; 96374; J2060

== ENCOUNTER → 2022-06-03 | Outpatient (CLI) | payer MEDICARE ==
--- NOTE | 2022-06-03 11:19 | US ---
EXAMINATION TYPE: US kidneys/renal and bladder DATE OF EXAM: 06/03/2022 COMPARISON: Renal ultrasound 01/25/2015. CLINICAL HISTORY: N18.4 CHRONIC KIDNEY DISEASE, STAGE 4 (SEVERE). CKD, patient is poor historian EXAM MEASUREMENTS: Right Kidney: 7.8 x 3.9 x 3.6 cm Left Kidney: unable you view Right Kidney: dilated pyramid versus possible cyst = 1.0 X 1.1 X 0.8cm Left Kidney: unable to view due to bowel Bladder: wnl exam stopped when patient started to not feel well, she was unstable on her feet and after voiding , I got her a wheelchair and assister with her son to get in the car Increased cortical echogenicity of the right kidney. Dilated pyramid versus possible cyst within the right kidney measuring up to 1.1 cm. No hydronephrosis. No nephrolithiasis or contour deforming solid mass. Left kidney not visualized due to overlying bowel gas. Urinary bladder is unremarkable. IMPRESSION: 1. Significantly limited examination as described above with nonvisualization of left kidney. 2. Findings suggest chronic medical renal disease of the right kidney with dilated pyramid versus pos sible cyst. No hydronephrosis.
== END | disposition home or self-care (01) ==
LOC: RADUSWWP 10:27
PROVIDERS: ATTEND Internal Medicine Nephrology
DX: N18.4 Chronic kidney disease, stage 4 (severe) (principal)
CPT/HCPCS: 76770

== ENCOUNTER 2023-04-16 15:47 | Inpatient (IN) | payer MEDICARE ==
[2023-04-16] MEDS ORDERED: SODIUM CHLORIDE 0.9% 1,000 ML IV ONE (17:04)
[2023-04-16 17:33] LABS: Glucose,Whole Blood 83 mg/dL (70-110)
--- NOTE | 2023-04-16 17:40 | ED ---
General Adult HPI - General Chief complaint: Altered Mental Status Stated complaint: lethargic-failure to thrive Time Seen by Provider: 04/16/23 16:31 Source: patient, family, RN notes reviewed Mode of arrival: ambulatory - History of Present Illness Initial comments: 77-year-old female presents to the emergency Department with chief complaint of decreased appetite and unwillingness to hydrate x7 days. Patient's son states that she has a history of mild dementia. He states that over the past 7 days she has not been willing to eat or drink much. He states that she puts food in her mouth and then spits it back out. He also states that she has been more confused and weak since this has been going on. She has a history of chronic kidney disease. He denies recent illness, nausea, vomiting. Denies cardiac history, history of stroke. - Related Data Home Medications Medication Instructions Recorded Confirmed Acetaminophen Tab [Tylenol Tab] 1,000 mg PO Q6HR PRN 04/16/23 04/16/23 Clotrimazole 10 mg MUCOUS MEM 5XD 04/16/23 04/16/23 DULoxetine HCL [Cymbalta] 30 mg PO DAILY 04/16/23 04/16/23 LORazepam [Ativan] 1 mg PO BID PRN 04/16/23 04/16/23 Lactulose 10 gm PO DAILY PRN 04/16/23 04/16/23 Mirtazapine [Remeron] 22.5 mg PO HS 04/16/23 04/16/23 Multivitamins, Thera [Multivitamin 1 tab PO DAILY 04/16/23 04/16/23 (formulary)] busPIRone HCl [Buspar] See Taper PO DAILY 04/16/23 04/16/23 Previous Rx's Medication Instructions Recorded Psyllium Husk 100% [Metamucil 6 gm PO DAILY 30 Days packet 01/01/22 Packet] cloNIDine HCL [Catapres] 0.1 mg PO BID 30 Days #60 tab 01/01/22 lamoTRIgine [LaMICtal] 100 mg PO BID 30 Days tab 01/01/22 Allergies Allergy/AdvReac Type Severity Reaction Status Date / Time Iodinated Contrast Media Allergy Unknown Verified 04/16/23 18:00 [Iodinated Contrast Media - IV Dye] lithium Allergy Dyspnea Verified 04/16/23 18:00 Review of Systems ROS Statement: Those systems with pertinent positive or pertinent negative responses have been documented in the HPI. ROS Other: All systems not noted in ROS Statement are negative. Past Medical History Past Medical History: Thyroid Disorder Additional Past Medical History / Comment(s): Goiter, rhabdomylosis History of Any Multi-Drug Resistant Organisms: None Reported Past Surgical History: Tubal Ligation Additional Past Surgical History / Comment(s): Bilateral cataract removal and lens implants Past Anesthesia/Blood Transfusion Reactions: No Reported Reaction Past Psychological History: Anxiety, Bipolar, Depression Smoking Status: Never smoker Past Alcohol Use History: Occasional Past Drug Use History: None Reported - Past Family History Father Family Medical History: Coronary Artery Disease (CAD), Diabetes Mellitus Additional Family Medical History / Comment(s): Father at age 65. He had history of coronary artery disease and diabetes. No history of eating disorders Mother Family Medical History: CVA/TIA Additional Family Medical History / Comment(s): Mother at age 88 from a CVA. Brother(s) Additional Family Medical History / Comment(s): The patient has 4 brothers and one has depression. Patient has 2 sisters. Patient has 2 children one son and one daughter. General Exam Limitations: altered mental status General appearance: alert, in no apparent distress Head exam: Present: atraumatic, normocephalic, normal inspection Eye exam: Present: PERRL. Absent: EOMI ENT exam: Present: mucous membranes dry Neck exam: Present: normal inspection, full ROM. Absent: tenderness, meningismus, lymphadenopathy Respiratory exam: Present: normal lung sounds bilaterally. Absent: respiratory distress, wheezes, rales, rhonchi, stridor Cardiovascular Exam: Present: regular rate, normal rhythm, normal heart sounds. Absent: systolic murmur, diastolic murmur, rubs, gallop, clicks GI/Abdominal exam: Present: soft, normal bowel sounds. Absent: distended, tenderness, guarding, rebound, rigid Extremities exam: Present: normal inspection Back exam: Present: normal inspection Neurological exam: Present: alert. Absent: oriented X3 (Ox2), CN II-XII intact Expanded Neurological exam: Present: protecting the airway Patient oriented to: Present: person, place. Absent: time Speech: Present: fluid speech Cranial nerves: Tongue Deviation: Normal, Facial Sensation: Normal Ataxia: Absent: yes Sensory exam: Upper Extremity Light Touch: Normal, Lower Extremity Light Touch: Normal Motor strength exam: RUE: 4, LUE: 4, RLE: 4, LLE: 4 Eye Response: (4) open spontaneously Motor Response: (6) obeys commands Verbal Response: (5) oriented Psychiatric exam: Present: normal affect, normal mood Skin exam: Present: warm, dry, intact, normal color. Absent: rash Course Vital Signs 04/16/23 16:04 Temperature 98.1 F Pulse Rate 100 Respiratory 20 Rate Blood Pressure 147/90 O2 Sat by Pulse 95 Oximetry Medical Decision Making - Medical Decision Making Was pt. sent in by a medical professional or institution (, PA, SILK WINDING MACHINE OPERATOR, urgent care, hospital, or senior living...) When possible be specific @ -No Did you speak to anyone other than the patient for history (EMS, parent, family, police, friend...)? What history was obtained from this source @ -Patients son provided history for this patient Did you review nursing and triage notes (agree or disagree)? Why? @ -I reviewed and agree with nursing and triage notes Were old charts reviewed (outside hosp., previous admission, EMS record, old EKG, old radiological studies, urgent care reports/EKG's, senior living records)? Report findings @ -No old charts were reviewed Differential Diagnosis (chest pain, altered mental status, abdominal pain women, abdominal pain men, vaginal bleeding, weakness, fever, dyspnea, syncope, headache, dizziness, GI bleed, back pain, seizure, CVA, palpatations, mental health, musculoskeletal)? @ -Differential Altered Mental Status: Hypoglycemia, DKA, hypercapnia, ETOH, overdose, CO poisoning, trauma, myxedema coma, HTN encephalopathy, infection, encephalitis, psychosis, intercranial hemorrhage, hepatic encephalopathy, meningitis, CVA, this is not meant to be an all-inclusive list EKG interpreted by me (3pts min.). @ -EKG at 1754 shows sinus rhythm rate 98, ID 140, QRS 89, QTQTc [id number] X-rays interpreted by me (1pt min.). @ -Chest x-ray shows rightward deviation of the trachea secondary to left paratracheal mass which seems to be progressing from prior CT interpreted by me (1pt min.). @ -CT brain shows no evidence of acute process U/S interpreted by me (1pt. min.). @ -None done What testing was considered but not performed or refused? (CT, X-rays, U/S, labs)? Why? @ -None What meds were considered but not given or refused? Why? @ -None Did you discuss the management of the patient with other professionals (professionals i.e. , PA, SILK WINDING MACHINE OPERATOR, lab, RT, psych nurse, social science manager, associate buyer, teacher, custom protection officer, hospice case manager)? Give summary @ -case discussed with Dr. Ford who is accepting of the admission Was smoking cessation discussed for >3mins.? @ -No Was critical care preformed (if so, how long)? @ -No Were there social determinants of health that impacted care today? How? (Homelessness, low income, unemployed, alcoholism, drug addiction, transportation, low edu. Level, literacy, decrease access to med. care, custodial, rehab)? @ -No Was there de-escalation of care discussed even if they declined (Discuss DNR or withdrawal of care, Hospice)? DNR status @ -No What co-morbidities impacted this encounter? (DM, HTN, Smoking, COPD, CAD, Cancer, CVA, ARF, Chemo, Hep., AIDS, mental health diagnosis, sleep apnea, morbid obesity)? @ -None Was patient admitted / discharged? Hospital course, mention meds given and route, prescriptions, significant lab abnormalities, going to OR and other pertinent info. @ -admitted. Patient presented to the emergency department for chief complaint of failure to eat and drink 7 days. Patient tolerated a small amount of fluids while in the emergency department. Laboratory studies obtained which show hypernatremia. Laboratory studies show WBC 7.5, hemoglobin 14.1, hematocrit 45.0; CMP shows hyponatremia at 159, potassium 4.4, chloride 122, creatinine 2.53 which is elevated from prior. Serum osmolality is 356. Troponin negative. Shows no evidence of infection including nitrites, leukocyte esterase. CT brain shows no acute process. Chest x-ray shows rightward deviation of the trachea likely due to a left paratracheal mass. This was present on her prior x-ray that is on file but has progressed. She was unaware of any mass. Patient was given 1 L normal saline in the emergency department. Patient was started on D5 normal saline at a slow rate. Case was discussed with Dr. Ford who is accepting of the admission. CT chest pending at time of admission. Case discussed with Dr. Chiu Undiagnosed new problem with uncertain prognosis? @ -No Drug Therapy requiring intensive monitoring for toxicity (Heparin, Nitro, Insulin, Cardizem)? @ -No Were any procedures done? @ -No Diagnosis/symptom? @ -FTT, hypernatremia Acute, or Chronic, or Acute on Chronic? @ -acute Uncomplicated (without systemic symptoms) or Complicated (systemic symptoms)? @ -uncomplicated Side effects of treatment? @ -No Exacerbation, Progression, or Severe Exacerbation? @ -No Poses a threat to life or bodily function? How? (Chest pain, USA, MA, pneumonia, PE, COPD, DKA, ARF, appy, cholecystitis, CVA, Diverticulitis, Homicidal, Suicidal, threat to staff... and all critical care pts) @ -No - Lab Data Result diagrams: 04/16/23 17:30 04/16/23 17:30 Lab Results 04/16/23 04/16/23 04/16/23 Range/Units 17:30 17:30 17:30 WBC 7.5 (3.8-10.6) k/uL RBC 4.46 (3.80-5.40) m/uL Hgb 14.1 (11.4-16.0) gm/dL Hct 45.0 (34.0-46.0) % MCV 100.9 H (80.0-100.0) fL MCH 31.7 (25.0-35.0) pg MCHC 31.4 (31.0-37.0) g/dL RDW 12.7 (11.5-15.5) % Plt Count 203 (150-450) k/uL MPV 8.1 Neutrophils % 62 % Lymphocytes % 29 % Monocytes % 5 % Eosinophils % 2 % Basophils % 0 % Neutrophils # 4.6 (1.3-7.7) k/uL Lymphocytes # 2.1 (1.0-4.8) k/uL Monocytes # 0.4 (0-1.0) k/uL Eosinophils # 0.1 (0-0.7) k/uL Basophils # 0.0 (0-0.2) k/uL Hypochromasia Slight PT 9.9 L (10.0-12.5) sec INR 0.9 (<1.2) APTT 21.0 L (22.0-30.0) sec Sodium (137-145) mmol/L Potassium (3.5-5.1) mmol/L Chloride (98-107) mmol/L Carbon Dioxide (22-30) mmol/L Anion Gap mmol/L BUN (7-17) mg/dL Creatinine (0.52-1.04) mg/dL Est GFR (CKD-EPI)AfAm (>60 ml/min/1.73 sqM) Est GFR (CKD-EPI)NonAf (>60 ml/min/1.73 sqM) Glucose (74-99) mg/dL POC Glucose (mg/dL) (70-110) mg/dL POC Glu Instrument Fitter ID Calcium (8.4-10.2) mg/dL Total Bilirubin (0.2-1.3) mg/dL AST (14-36) U/L ALT (4-34) U/L Alkaline Phosphatase (38-126) U/L Troponin I (0.000-0.034) ng/mL Total Protein (6.3-8.2) g/dL Albumin (3.5-5.0) g/dL Urine Color Light Yellow Urine Appearance Clear (Clear) Urine pH 5.0 (5.0-8.0) Ur Specific [place] 1.010 (1.001-1.035) Urine Protein Negative (Negative) Urine Glucose (UA) Negative (Negative) Urine Ketones Negative (Negative) Urine Blood Negative (Negative) Urine Nitrite Negative (Negative) Urine Bilirubin Negative (Negative) Urine Urobilinogen <2.0 (<2.0) mg/dL Ur Leukocyte Esterase Negative (Negative) Urine Osmolality (50-1400) mosm/kg Urine Opiates Screen Not Detected (NotDetected) Ur Oxycodone Screen Not Detected (NotDetected) Urine Methadone Screen Not Detected (NotDetected) Ur Propoxyphene Screen Not Detected (NotDetected) Ur Barbiturates Screen Not Detected (NotDetected) U Tricyclic Antidepress Not Detected (NotDetected) Ur Phencyclidine Scrn Not Detected (NotDetected) Ur Amphetamines Screen Not Detected (NotDetected) U Methamphetamines Scrn Not Detected (NotDetected) U Benzodiazepines Scrn Not Detected (NotDetected) Urine Cocaine Screen Not Detected (NotDetected) U Marijuana (THC) Screen Not Detected (NotDetected) 04/16/23 04/16/23 04/16/23 Range/Units 17:30 17:30 17:30 WBC (3.8-10.6) k/uL RBC (3.80-5.40) m/uL Hgb (11.4-16.0) gm/dL Hct (34.0-46.0) % MCV (80.0-100.0) fL MCH (25.0-35.0) pg MCHC (31.0-37.0) g/dL RDW (11.5-15.5) % Plt Count (150-450) k/uL MPV Neutrophils % % Lymphocytes % % Monocytes % % Eosinophils % % Basophils % % Neutrophils # (1.3-7.7) k/uL Lymphocytes # (1.0-4.8) k/uL Monocytes # (0-1.0) k/uL Eosinophils # (0-0.7) k/uL Basophils # (0-0.2) k/uL Hypochromasia PT (10.0-12.5) sec INR (<1.2) APTT (22.0-30.0) sec Sodium 159 H (137-145) mmol/L Potassium 4.4 (3.5-5.1) mmol/L Chloride 122 H (98-107) mmol/L Carbon Dioxide 22 (22-30) mmol/L Anion Gap 15 mmol/L BUN 96 H (7-17) mg/dL Creatinine 2.53 H (0.52-1.04) mg/dL Est GFR (CKD-EPI)AfAm 21 (>60 ml/min/1.73 sqM) Est GFR (CKD-EPI)NonAf 18 (>60 ml/min/1.73 sqM) Glucose 80 (74-99) mg/dL POC Glucose (mg/dL) (70-110) mg/dL POC Glu Instrument Fitter ID Calcium 9.9 (8.4-10.2) mg/dL Total Bilirubin 0.4 (0.2-1.3) mg/dL AST 23 (14-36) U/L ALT 18 (4-34) U/L Alkaline Phosphatase 59 (38-126) U/L Troponin I <0.012 (0.000-0.034) ng/mL Total Protein 7.1 (6.3-8.2) g/dL Albumin 4.3 (3.5-5.0) g/dL Urine Color Urine Appearance (Clear) Urine pH (5.0-8.0) Ur Specific [place] (1.001-1.035) Urine Protein (Negative) Urine Glucose (UA) (Negative) Urine Ketones (Negative) Urine Blood (Negative) Urine Nitrite (Negative) Urine Bilirubin (Negative) Urine Urobilinogen (<2.0) mg/dL Ur Leukocyte Esterase (Negative) Urine Osmolality 389 (50-1400) mosm/kg Urine Opiates Screen (NotDetected) Ur Oxycodone Screen (NotDetected) Urine Methadone Screen (NotDetected) Ur Propoxyphene Screen (NotDetected) Ur Barbiturates Screen (NotDetected) U Tricyclic Antidepress (NotDetected) Ur Phencyclidine Scrn (NotDetected) Ur Amphetamines Screen (NotDetected) U Methamphetamines Scrn (NotDetected) U Benzodiazepines Scrn (NotDetected) Urine Cocaine Screen (NotDetected) U Marijuana (THC) Screen (NotDetected) 04/16/23 Range/Units 17:32 WBC (3.8-10.6) k/uL RBC (3.80-5.40) m/uL Hgb (11.4-16.0) gm/dL Hct (34.0-46.0) % MCV (80.0-100.0) fL MCH (25.0-35.0) pg MCHC (31.0-37.0) g/dL RDW (11.5-15.5) % Plt Count (150-450) k/uL MPV Neutrophils % % Lymphocytes % % Monocytes % % Eosinophils % % Basophils % % Neutrophils # (1.3-7.7) k/uL Lymphocytes # (1.0-4.8) k/uL Monocytes # (0-1.0) k/uL Eosinophils # (0-0.7) k/uL Basophils # (0-0.2) k/uL Hypochromasia PT (10.0-12.5) sec INR (<1.2) APTT (22.0-30.0) sec Sodium (137-145) mmol/L Potassium (3.5-5.1) mmol/L Chloride (98-107) mmol/L Carbon Dioxide (22-30) mmol/L Anion Gap mmol/L BUN (7-17) mg/dL Creatinine (0.52-1.04) mg/dL Est GFR (CKD-EPI)AfAm (>60 ml/min/1.73 sqM) Est GFR (CKD-EPI)NonAf (>60 ml/min/1.73 sqM) Glucose (74-99) mg/dL POC Glucose (mg/dL) 83 (70-110) mg/dL POC Glu Instrument Fitter ID Kim Jaeger Calcium (8.4-10.2) mg/dL Total Bilirubin (0.2-1.3) mg/dL AST (14-36) U/L ALT (4-34) U/L Alkaline Phosphatase (38-126) U/L Troponin I (0.000-0.034) ng/mL Total Protein (6.3-8.2) g/dL Albumin (3.5-5.0) g/dL Urine Color Urine Appearance (Clear) Urine pH (5.0-8.0) Ur Specific [place] (1.001-1.035) Urine Protein (Negative) Urine Glucose (UA) (Negative) Urine Ketones (Negative) Urine Blood (Negative) Urine Nitrite (Negative) Urine Bilirubin (Negative) Urine Urobilinogen (<2.0) mg/dL Ur Leukocyte Esterase (Negative) Urine Osmolality (50-1400) mosm/kg Urine Opiates Screen (NotDetected) Ur Oxycodone Screen (NotDetected) Urine Methadone Screen (NotDetected) Ur Propoxyphene Screen (NotDetected) Ur Barbiturates Screen (NotDetected) U Tricyclic Antidepress (NotDetected) Ur Phencyclidine Scrn (NotDetected) Ur Amphetamines Screen (NotDetected) U Methamphetamines Scrn (NotDetected) U Benzodiazepines Scrn (NotDetected) Urine Cocaine Screen (NotDetected) U Marijuana (THC) Screen (NotDetected) Disposition Clinical Impression: Failure to thrive, Hypernatremia, Decreased oral intake Disposition: ADMITTED IP TO THIS HOSP Condition: Stable Is patient prescribed a controlled substance at d/c from ED?: No
[2023-04-16 17:54] LABS: Basophils % (A) 0 %; Eosinophils # (A) 0.1 k/uL (0-0.7); Eosinophils % (A) 2 %; HGB 14.1 gm/dL (11.4-16.0); Hypochromasia Slight; Lymphocytes # (A) 2.1 k/uL (1.0-4.8); Lymphocytes % (A) 29 %; MCH 31.7 pg (25.0-35.0); MCHC 31.4 g/dL (31.0-37.0); MCV 100.9 fL (80.0-100.0); Mean Platelet Volume 8.1; Monocytes # (A) 0.4 k/uL (0-1.0); Monocytes % (A) 5 %; Neutrophils # (A) 4.6 k/uL (1.3-7.7); Neutrophils % (A) 62 %; Platelet Count 203 k/uL (150-450); RBC 4.46 m/uL (3.80-5.40); RDW 12.7 % (11.5-15.5); WBC 7.5 k/uL (3.8-10.6)
[2023-04-16 18:06] LABS: ALT 18 U/L (4-34); AST 23 U/L (14-36); African American GFR (CKD) 21 (>60 ml/min/1.73 sqM); Albumin 4.3 g/dL (3.5-5.0); Alkaline Phosphatase 59 U/L (38-126); Anion Gap 15 mmol/L; Blood Urea Nitrogen 96 mg/dL (7-17); Calcium 9.9 mg/dL (8.4-10.2); Carbon Dioxide 22 mmol/L (22-30); Chloride 122 mmol/L (98-107); Glucose 80 mg/dL (74-99); Non-African American GFR(CKD) 18 (>60 ml/min/1.73 sqM); Potassium 4.4 mmol/L (3.5-5.1); Sodium 159 mmol/L (137-145); Total Bilirubin 0.4 mg/dL (0.2-1.3); Total Protein 7.1 g/dL (6.3-8.2)
[2023-04-16 18:23] LABS: INR 0.9 (<1.2); Prothrombin Time 9.9 sec (10.0-12.5)
--- NOTE | 2023-04-16 18:25 | XR ---
EXAMINATION TYPE: XR chest 2V DATE OF EXAM: 04/16/2023 COMPARISON: 01/09/2017 HISTORY: 77-year-old female altered mental status, confusion, lethargic TECHNIQUE: AP and lateral views FINDINGS: Heart borderline in size. Aorta within normal limits. Large left perihilar mass deviating the trachea to the right causing minimal narrowing. Hyperinflation. No consolidation or pleural effusion. IMPRESSION: 1. Progressively enlarging left paratracheal mass now with greater deviation of the trachea towards t he right and secondary minimal narrowing. Likely enlarging left thyroid lobe goiter (see thyroid ultr asound of 01/10/2017). However, this should be confirmed with outpatient contrast-enhanced CT chest fol low-up 2. COPD. Otherwise, no acute process seen.
--- NOTE | 2023-04-16 19:39 | CT ---
EXAMINATION TYPE: CT brain wo con CT DLP: 1132.4 mGycm, Automated exposure control for dose reduction was used. DATE OF EXAM: 04/16/2023 7:07 PM COMPARISON: None. CLINICAL INDICATION:Female, 77 years old with history of Altered mental status, Patient has not ate o r drank anything in 7 days per son. TECHNIQUE: Brain: Axial CT images of the brain were obtained with coronal and sagittal reformats created and rev iewed. Contrast used: None. Oral contrast used: None. FINDINGS: Extra-axial spaces: No abnormal extra-axial fluid collections. Ventricular system: Appear dilated in proportion to the degree of cerebral atrophy. Cerebral parenchyma: No increased attenuation to suggest acute intraparenchymal hemorrhage. The gra y-white matter interface appears maintained. Mild/moderate generalized brain atrophy. Scattered hyp oattenuating areas are seen within the cerebral white matter, nonspecific but most often seen with ch ronic microvascular ischemic changes; mild/moderate in degree. Cerebellum: No acute abnormality. Mass effect: No evidence of mass effect or midline shift. Intracranial vasculature: Unremarkable Soft tissues: Normal. Visualized orbits: Orbital contents appear grossly intact. Bilateral aphakia Calvarium/osseous structures: No evidence of calvarial fracture. Paranasal sinuses and mastoid air cells: Clear MRI is more sensitive for detecting acute processes such as infarct, and may be considered if clinica lly warranted. IMPRESSION: 1. Atrophy and chronic microvascular ischemic white matter changes. 2. No CT evidence of an acute intracranial abnormality.
[2023-04-16 21:09] LABS: Appearance,Urine Clear (Clear); Color,Urine Light Yellow; Glucose,Urine (UA) Negative (Negative); Protein,Urine Negative (Negative)
[2023-04-16 21:10] LABS: Bilirubin,Urine Negative (Negative); Blood,Urine Negative (Negative); Ketones,Urine Negative (Negative); Leukocyte Esterase,Urine Negative (Negative); Nitrite,Urine Negative (Negative); Urobilinogen,Urine <2.0 mg/dL (<2.0)
[2023-04-16 21:17] LABS: Amphetamine Screen,Urine Not Detected (NotDetected); Barbiturate Screen,Urine Not Detected (NotDetected); Benzodiazepines Screen,Urine Not Detected (NotDetected); Cocaine Screen,Urine Not Detected (NotDetected); Methadone Screen, Urine Not Detected (NotDetected); Opiate Screen,Urine Not Detected (NotDetected); Oxycodone Screen, Urine Not Detected (NotDetected); Phencyclidine Screen,Urine Not Detected (NotDetected); Tricyclic Antidepressant,Urine Not Detected (NotDetected); Urn Cannabinoid Scrn Not Detected (NotDetected)
[2023-04-16] MEDS ORDERED: MORPHINE SULFATE 2 MG/ML SYRINGE IV PRN (21:44)
[2023-04-16] MEDS ORDERED: NALOXONE 0.4 MG/ML 1 ML VIAL IV PRN (21:44)
[2023-04-16] MEDS ORDERED: HYDROcodone/APAP 5-325MG 1 EACH TAB PO PRN (21:44)
[2023-04-16] MEDS ORDERED: ACETAMINOPHEN TAB 325 MG TAB PO PRN (21:44)
[2023-04-16 22:09] LABS: Glucose,Whole Blood 111 mg/dL (70-110)
[2023-04-17] MEDS ORDERED: DEXTROSE 5%-0.9% NACL 1,000 ML IV SCH (01:15)
--- NOTE | 2023-04-17 02:21 | CT ---
EXAM: CT Neck Without Intravenous Contrast CLINICAL HISTORY: ITS.REASON CT Reason: tracheal deviation, paratracheal mass TECHNIQUE: Axial computed tomography images of the neck without intravenous contrast. CTDI is 7.2 mGy and DLP is 297.8 mGy-cm. This CT exam was performed using one or more of the following dose reduction techniques: automated exposure control, adjustment of the mA and/or kV according to patient size, and/or use of iterative reconstruction technique. COMPARISON: No relevant prior studies available. FINDINGS: Severely enlarged left thyroid gland which encroaches into the superior mediastinum. This measures approximately 5.5 x 5.0 x 8 cm. Trachea is deviated to the right but not significantly narrowed. IMPRESSION: Severely enlarged left thyroid gland which encroaches into the superior mediastinum. This measures approximately 5.5 x 5.0 x 8 cm. Trachea is deviated to the right but not significantly narrowed. EXAM: CT Chest Without Intravenous Contrast CLINICAL HISTORY: ITS.REASON CT Reason: tracheal deviation, paratracheal mass TECHNIQUE: Axial computed tomography images of the chest without intravenous contrast. CTDI is 7.2 mGy and DLP is 297.8 mGy-cm. This CT exam was performed using one or more of the following dose reduction techniques: automated exposure control, adjustment of the mA and/or kV according to patient size, and/or use of iterative reconstruction technique. COMPARISON: No relevant prior studies available. FINDINGS: Lungs: No mass. No consolidation. Cyst in the left lower lobe. Scarring in the right middle and lower lobes. Pleural space: No pneumothorax. No effusion. Heart: Normal heart size. No pericardial effusion. Bones/joints: No acute fracture. Soft tissues: Large left thyroid gland encroaches into the superior mediastinum. Vasculature: Unremarkable. No thoracic aortic aneurysm. Lymph nodes: No enlarged lymph nodes. IMPRESSION: Large left thyroid gland encroaches into the superior mediastinum. No acute cardiopulmonary process.
[2023-04-17 05:29] LABS: Basophils % (A) 0 %; Eosinophils # (A) 0.2 k/uL (0-0.7); Eosinophils % (A) 3 %; HCT 41.1 % (34.0-46.0); HGB 12.9 gm/dL (11.4-16.0); Hypochromasia Slight; Lymphocytes % (A) 28 %; MCH 31.9 pg (25.0-35.0); MCHC 31.3 g/dL (31.0-37.0); MCV 101.8 fL (80.0-100.0); Macrocytosis Slight; Mean Platelet Volume 9.2; Monocytes # (A) 0.3 k/uL (0-1.0); Monocytes % (A) 5 %; Neutrophils # (A) 4.3 k/uL (1.3-7.7); Neutrophils % (A) 62 %; Platelet Count 191 k/uL (150-450); RBC 4.04 m/uL (3.80-5.40); RDW 13.1 % (11.5-15.5)
[2023-04-17 05:43] LABS: African American GFR (CKD) 24 (>60 ml/min/1.73 sqM); Blood Urea Nitrogen 73 mg/dL (7-17); Calcium 9.5 mg/dL (8.4-10.2); Carbon Dioxide 22 mmol/L (22-30); Glucose 88 mg/dL (74-99); Non-African American GFR(CKD) 21 (>60 ml/min/1.73 sqM); Potassium 3.8 mmol/L (3.5-5.1)
[2023-04-17 05:56] LABS: Sodium 161 mmol/L (137-145)
[2023-04-17 06:10] LABS: Anion Gap 12 mmol/L; Chloride 127 mmol/L (98-107)
[2023-04-17] MEDS ORDERED: LORazepam 1 MG TAB PO PRN (09:28)
[2023-04-17] MEDS ORDERED: DEXTROSE 5% IN WATER 1,000 ML IV ONE (09:51)
--- NOTE | 2023-04-17 09:51 | P.HPIM ---
History of Present Illness This is a pleasant 77 years old female with multiple medical problems as below. Information were obtained from the patient for this on at bedside. Patient looks mildly confused she couldn't tell she is in the [facility] the name of the president but she is not sure about the date. She was having difficulty eating and drinking for the last week and she lost about 10 pounds. She denies nausea vomiting she denies choking but she reports some difficulty in eating and drinking. She has history of goiter for about 3 years and the CAT scan that her suspicions of a large thyroid gland that encroaches into the upper mediastinum which might infected. Also patient noticed to have a spiking movement and clenching on her left side for the last week. Patient is a known case of bipolar and multiple psych medications and she will follow up with mental health clinic as an outpatient. Recently her physician was tapering down her BuSpar. And this also may offer psych medication but the patient and son are not aware of the names however reviewing her home medications she is currently on Remeron, BuSpar 5 mg. Son also confirm she is taking Lamictal and sometimes benzodiazepine for her mental problem. procedure problem. Patient also reports being large amount of fluid but she denies dysuria or urgency. This was confirmed with the son at bedside. No abdominal pain. No chest pain or dyspnea or coughing. No headache dizziness weakness or numbness. No smoking alcohol or illicit drugs. On admission her sodium is elevated 159 and 161 today. Patient received normal saline and emergency room. Also creatinine elevated 2.5 and 2.2 with baseline is about 1.4-2.0. Dressings labs reviewed including CBC liver enzymes troponin urine analysis and urine drug screen were unremarkable. Is negative for acute process CT of the neck and chest without Contrast Showing Severely Enlarged Thyroid Gland Encroaching into the Superior Mediastinum Trachea Deviated but There Is No Narrowing. EKG Showed Normal Sinus Rhythm at [address]-T Changes. Review of Systems Review of systems CONSTITUTIONAL: No fever, no malaise, no fatigue. HEENT: No recent visual problems or hearing problems. Denied any sore throat. CARDIOVASCULAR: No orthopnea, PND, no palpitations, no syncope. PULMONARY: No shortness of breath, no cough, no hemoptysis. GASTROINTESTINAL: No diarrhea, no nausea, no vomiting, no abdominal pain. Normoactive bowel sounds. NEUROLOGICAL: No headaches, no weakness, no numbness. HEMATOLOGICAL: Denies any bleeding or petechiae. GENITOURINARY: Denies any burning micturition, frequency, or urgency. MUSCULOSKELETAL/RHEUMATOLOGICAL: Denies any joint pain, swelling, or any muscle pain. ENDOCRINE: Denies any polyuria or polydipsia. Past Medical History Past Medical History: Thyroid Disorder Additional Past Medical History / Comment(s): Goiter, rhabdomylosis History of Any Multi-Drug Resistant Organisms: None Reported Past Surgical History: Tubal Ligation Additional Past Surgical History / Comment(s): Bilateral cataract removal and lens implants Past Anesthesia/Blood Transfusion Reactions: No Reported Reaction Past Psychological History: Anxiety, Bipolar, Depression Smoking Status: Never smoker Past Alcohol Use History: Occasional Past Drug Use History: None Reported - Past Family History Father Family Medical History: Coronary Artery Disease (CAD), Diabetes Mellitus Additional Family Medical History / Comment(s): Father at age 65. He had history of coronary artery disease and diabetes. No history of eating disorders Mother Family Medical History: CVA/TIA Additional Family Medical History / Comment(s): Mother at age 88 from a CVA. Brother(s) Additional Family Medical History / Comment(s): The patient has 4 brothers and one has depression. Patient has 2 sisters. Patient has 2 children one son and one daughter. Medications and Allergies Home Medications Medication Instructions Recorded Confirmed Type Psyllium Husk 100% [Metamucil 6 gm PO DAILY 30 Days packet 01/01/22 04/16/23 Rx Packet] cloNIDine HCL [Catapres] 0.1 mg PO BID 30 Days #60 tab 01/01/22 04/16/23 Rx lamoTRIgine [LaMICtal] 100 mg PO BID 30 Days tab 01/01/22 04/16/23 Rx Acetaminophen Tab [Tylenol Tab] 1,000 mg PO Q6HR PRN 04/16/23 04/16/23 History Clotrimazole 10 mg MUCOUS MEM 5XD 04/16/23 04/16/23 History DULoxetine HCL [Cymbalta] 30 mg PO DAILY 04/16/23 04/16/23 History LORazepam [Ativan] 1 mg PO BID PRN 04/16/23 04/16/23 History Lactulose 10 gm PO DAILY PRN 04/16/23 04/16/23 History Mirtazapine [Remeron] 22.5 mg PO HS 04/16/23 04/16/23 History Multivitamins, Thera [Multivitamin 1 tab PO DAILY 04/16/23 04/16/23 History (formulary)] busPIRone HCl [Buspar] See Taper PO DAILY 04/16/23 04/16/23 History Allergies Allergy/AdvReac Type Severity Reaction Status Date / Time Iodinated Contrast Media Allergy Unknown Verified 04/16/23 18:00 [Iodinated Contrast Media - IV Dye] lithium Allergy Dyspnea Verified 04/16/23 18:00 Physical Exam Vitals: Vital Signs Temp Pulse Resp BP Pulse Ox 04/17/23 09:08 102 H 16 142/80 97 04/17/23 06:00 93 17 136/87 97 04/17/23 05:14 89 17 110/71 04/17/23 03:40 90 17 146/92 98 04/16/23 16:04 98.1 F 100 20 147/90 95 Intake and Output 04/16/23 04/17/23 04/17/23 22:59 06:59 14:59 Other: Weight 39.916 kg -GENERAL: The patient is alert and oriented 2, not in any acute distress. Well developed, well nourished. -HEENT: Pupils are round and equally reacting to light. EOMI. No scleral ict erus. No conjunctival pallor. Normocephalic, atraumatic. No pharyngeal erythema. No thyromegaly. Patient looks dehydrated CARDIOVASCULAR: S1 and S2 present. No murmurs, rubs, or gallops. PULMONARY: Chest is clear to auscultation, no wheezing , no crackles. ABDOMEN: Soft, nontender, nondistended, normoactive bowel sounds. No palpable organomegaly. MUSCULOSKELETAL: No joint swelling or deformity. EXTREMITIES: No cyanosis, clubbing, or pedal edema. NEUROLOGICAL: Gross neurological examination did not reveal any focal deficits. SKIN: No rashes. no petechiae. Results CBC & Chem 7: 04/17/23 05:16 04/17/23 05:16 Labs: Abnormal Lab Results - Last 24 Hours (Table) 04/16/23 04/16/23 04/16/23 Range/Units 17:30 17:30 17:30 MCV 100.9 H (80.0-100.0) fL PT 9.9 L (10.0-12.5) sec APTT 21.0 L (22.0-30.0) sec Sodium 159 H (137-145) mmol/L Chloride 122 H (98-107) mmol/L BUN 96 H (7-17) mg/dL Creatinine 2.53 H (0.52-1.04) mg/dL POC Glucose (mg/dL) (70-110) mg/dL Osmolality (280-301) mosm/kg TSH (0.465-4.680) mIU/L 04/16/23 04/16/23 04/17/23 Range/Units 20:10 22:07 05:16 MCV 101.8 H (80.0-100.0) fL PT (10.0-12.5) sec APTT (22.0-30.0) sec Sodium (137-145) mmol/L Chloride (98-107) mmol/L BUN (7-17) mg/dL Creatinine (0.52-1.04) mg/dL POC Glucose (mg/dL) 111 H (70-110) mg/dL Osmolality 356 H* (280-301) mosm/kg TSH (0.465-4.680) mIU/L 04/17/23 04/17/23 Range/Units 05:16 05:16 MCV (80.0-100.0) fL PT (10.0-12.5) sec APTT (22.0-30.0) sec Sodium 161 H* (137-145) mmol/L Chloride 127 H (98-107) mmol/L BUN 73 H (7-17) mg/dL Creatinine 2.23 H (0.52-1.04) mg/dL POC Glucose (mg/dL) (70-110) mg/dL Osmolality (280-301) mosm/kg TSH 0.090 L (0.465-4.680) mIU/L Assessment and Plan Assessment: Acute hypernatremia Mild metabolic/toxic encephalopathy Severe goiter, Rule out dysphagia, rule out thyroid disease Acute kidney injury on chronic kidney disease stage III Polyuria. Patient is clenching on her teeth when she talks. Rule out tardive Dyskinesia Report disorder Plan: Change IV fluid to D5W at 75 mL per hour Check Thyroid Function test Psychiatry consult Check hemoglobin A1c Modified barium swallow Labs and medication were reviewed.. Continue same treatment. Continue with symptomatic treatment. Resume home medication. Monitor labs and vitals. DVT and GI prophylaxis. Further recommendations as per clinical course of the patient DVT prophylaxis: Subcutaneous heparin GI Prophylaxis: Pepcid PT/OT: Pending Prognosis is guarded
[2023-04-17 10:10] LABS: T4, Free (Free Thyroxine) 1.22 ng/dL (0.78-2.19)
--- NOTE | 2023-04-17 13:51 | FL ---
EXAMINATION TYPE: FL barium swallow DATE OF EXAM: 04/17/2023 CLINICAL INDICATION: 77-year-old female and large goiter, dysphagia, trouble swallowing COMPARISON: Radiograph 04/16/2023 Total Fluoroscopy Time: 55 seconds Total images: 27 Total DAP: 10 mGycm2 FINDINGS: Single contrast technique was utilized due to patient's dementia and urgent nature of the exam. There is rightward deviation of the esophagus corresponding to mass effect from the patient's goiter and markedly enlarged left thyroid lobe. Despite the deviation, no significant narrowing is appreciat ed on larger swallows. There is slight delay in clearance of contrast from the distal esophagus suggesting blunted secondary stripping waves and mild dysmotility. On the KIDD imaging, no discrete hiatal hernia or stricture is identified. IMPRESSION: Limited single contrast technique. No evident stricture or hiatal hernia. There is prominent rightwar d deviation of the upper esophagus due to mass effect from the patient's enlarged thyroid gland. Desp ite the deviation, no obstruction is seen. Mild distal esophageal dysmotility.
[2023-04-17 17:38] LABS: ALT 16 U/L (4-34); AST 18 U/L (14-36); African American GFR (CKD) 27 (>60 ml/min/1.73 sqM); Albumin 3.7 g/dL (3.5-5.0); Albumin/Globulin Ratio 1.5; Alkaline Phosphatase 55 U/L (38-126); Anion Gap 10 mmol/L; Blood Urea Nitrogen 56 mg/dL (7-17); Calcium 9.4 mg/dL (8.4-10.2); Carbon Dioxide 23 mmol/L (22-30); Chloride 130 mmol/L (98-107); Globulin 2.4 g/dL; Glucose 130 mg/dL (74-99); Non-African American GFR(CKD) 23 (>60 ml/min/1.73 sqM); Total Bilirubin 0.3 mg/dL (0.2-1.3); Total Protein 6.1 g/dL (6.3-8.2)
[2023-04-17 17:41] LABS: Sodium 163 mmol/L (137-145)
[2023-04-17] MEDS: DEXTROSE 5% IN WATER 1,000 ML IV SCH (18:57)
[2023-04-17] MEDS: lamoTRIgine 100 MG TAB PO SCH (20:44)
[2023-04-17] MEDS: HEPARIN SODIUM,PORCINE 5,000 UNIT/ML 1 ML VIAL SQ SCH (20:44)
[2023-04-17] MEDS: FAMOTIDINE 20 MG/2 ML VIAL IV SCH (20:44)
[2023-04-17] MEDS: MIRTAZAPINE 15 MG TAB PO SCH (20:44)
[2023-04-18] MEDS: DEXTROSE 5% IN WATER 1,000 ML IV SCH ×3 (04:12→20:19)
[2023-04-18] MEDS: lamoTRIgine 100 MG TAB PO SCH ×2 (09:31→20:18)
[2023-04-18] MEDS: busPIRone HCl 5 MG TAB PO SCH (09:31)
[2023-04-18] MEDS: HEPARIN SODIUM,PORCINE 5,000 UNIT/ML 1 ML VIAL SQ SCH ×2 (09:31→20:18)
[2023-04-18] MEDS: DULoxetine HCL 30 MG CAPSULE.DR PO SCH (09:31)
--- NOTE | 2023-04-18 16:12 | P.CN ---
Psychiatric Consult - . Consult date: 04/18/23 Consult:: Consultation service: Reason for Consult/Chief Complaint: "Mouth clinching, T.Ds" History of Present Illness: Patient was seen in the medical floor Sources of information for medical record review by provider: The patient and medical records The patient was evaluated while lying on bed at the medical floor, and presents tense, partially cooperative with some irritability. The patient's son Isac De Jesus was at the bedside. The patient was admitted to the medical floor because failure to thrive and she lost 10 pounds in less than 10 days. The patient home psych medications including Remeron to 22.5 mg at bedtime, Ativan 1 mg twice daily as needed, Cymbalta 30 mg daily, Buspar 5 mg daily, Lamictal 100 mg twice daily. The patient is currently following with [facility] for outpatient psychiatric service, and the last time was seen by her outpatient psychiatrist less than 10 days ago. The patient denies any symptoms all depression, but reports feeling anxious and tense. She denies any halluc inations, paranoid ideation, delusions, and no manic symptoms have been reported or noticed. The patient denies suicidal or homicidal ideation. The patient reports having trouble swallowing and she feels like a hole in her mouth for the past 10 days. According to the medical team the patient has enlargement of goiter which could be affecting swallowing. No abnormal movements observed on the patient's face, torso, or arms. No purposeless movement to indicate tardive dyskinesia. No rigidity or muscle stiffness. The patient reports sometimes feeling clinching and her show and grinding her teeth which usually get help with Ativan as needed. The patient is not currently on any antipsychotic medications. The patient presents confused and looks fully oriented to time. The patient had been admitted to inpatient psych unit in this hospital several times in the past, and she was diagnosed with bipolar disorder with psychotic features. Past psychiatric history: Psychiatric diagnosis: History of bipolar disorder diagnosed in her 20s. The patient has been on several different psychiatric medications. They'll both psych medications are the most recent one as Her son. The patient had several previous psychiatric hospitalizations. The patient has had 3 suicidal attempts in the past Past Medical History: Thyroid Disorder Additional Past Medical History / Comment(s): Goiter, rhabdomylosis Substance use history: Nicotine: None reported Alcohol: None reported Social/ Developmental History: Patient was born and raised in [facility]. The patient completed high school and got her associates degree in business. The patient has 2 kids and 4 grandchildren. The patient currently currently lives with her daughter in house. Family Psychiatric History: None reported Mental Status Examination: Appearance: Appears stated age, groomed, below average body built, and no specific features. Gait/ posture: Gait was not assessed no abnormal movements noticed . Attitude and Behavior: Engaged, cooperative, maintained eye contact during course of interview. Motor Activity: normal psychomotor activity. Speech: Normal rate, rhythm, articulation, and prosody. None pressured. Mood: " anxious Affect: stable, reactive, congruent to mood, appropriate to context and situation. Thought form: Goal directed, linear, and relevant, not incoherent and no clang association. Thought content: Logical, non-delusional, denies suicidal, homicidal thoughts, intentions, or plans. Perception: Denies any auditory/ visual or tactile hallucinations. Attention: No impairment. Orientation: Oriented to place, person, and situation. Not fully oriented to time Insight & Judgment: Fair Impulse control: Fair Assessment: Bipolar disorder, unspecified Recommendation: Addressed and ensured patient's safety, patient does not meet the criteria for psychiatric hospitalization. Currently there is no need for further follow-up by psychiatric team. Medication management: Continue current psychiatric medications including Remeron 22.5 mg by mouth at bedtime for depression and insomnia, Lamictal 100 mg twice daily for mood stabilization, Cymbalta 30 mg daily for depression and anxiety, and BuSpar 5 mg daily for anxiety. As per the patient's son, the outpatient psychiatrist plans to take the patient off Buspar. Also, continue Ativan 1 mg by mouth twice a day when necessary for severe anxiety. There is no abnormal purpose movement noticed or observed and none reported by the patient or her son. The patient she'll clinching could be related to an anxiety, and the patient needs to follow up with her outpatient psychiatric services for further monitoring and treatment. Brief supportive psychotherapy and psychoeducation was provided to the patient. Discussed the treatment plan with the requesting physician/service. Thank you for permitting me to assist in this patient's treatment. Please call the psychiatry department if you have any questions or need further help with this case.
[2023-04-18] MEDS: FAMOTIDINE 20 MG/2 ML VIAL IV SCH (20:18)
[2023-04-18] MEDS: MIRTAZAPINE 15 MG TAB PO SCH (20:18)
[2023-04-19] MEDS: DEXTROSE 5% IN WATER 1,000 ML IV SCH ×5 (04:00→17:30)
--- NOTE | 2023-04-19 05:54 | P.PN ---
Subjective This is a pleasant 77 years old female with multiple medical problems as below. Information were obtained from the patient for this on at bedside. Patient looks mildly confused she couldn't tell she is in the [facility] the name of the president but she is not sure about the date. She was having difficulty eating and drinking for the last week and she lost about 10 pounds. She denies nausea vomiting she denies choking but she reports some difficulty in eating and drinking. She has history of goiter for about 3 years and the CAT scan that her suspicions of a large thyroid gland that encroaches into the upper mediastinum which might infected. Also patient noticed to have a spiking movement and clenching on her left side for the last week. Patient is a known case of bipolar and multiple psych medications and she will follow up with mental health clinic as an outpatient. Recently her physician was tapering down her BuSpar. And this also may offer psych medication but the patient and son are not aware of the names however re viewing her home medications she is currently on Remeron, BuSpar 5 mg. Son also confirm she is taking Lamictal and sometimes benzodiazepine for her mental problem. procedure problem. Patient also reports being large amount of fluid but she denies dysuria or urgency. This was confirmed with the son at bedside. No abdominal pain. No chest pain or dyspnea or coughing. No headache dizziness weakness or numbness. No smoking alcohol or illicit drugs. On admission her sodium is elevated 159 and 161 today. Patient received normal saline and emergency room. Also creatinine elevated 2.5 and 2.2 with baseline is about 1.4-2.0. Dressings labs reviewed including CBC liver enzymes troponin urine analysis and urine drug screen were unremarkable. Is negative for acute process CT of the neck and chest without Contrast Showing Severely Enlarged Thyroid Gland Encroaching into the Superior Mediastinum Trachea Deviated but There Is No Narrowing. EKG Showed Normal Sinus Rhythm at [address]-T Changes. 04/18/2023 Patient is mildly confused, her mentation improvement with D5W, her sodium level came down to 153, she remains on D5W at 1 25 mL/h, lower Rate of 100 mL per hour She currently nothing by mouth she has modified barium swallow: : There is prominent rightward deviation of the upper esophagus due to mass effect from the patient's enlarged thyroid gland. Despite the deviation, no obstruction is seen. Mild distal esophageal dysmotility. Most likely mass effect above this is due to large goiter extending into the superior mediastinum and encroaching into the esophagus. TSH is slightly low but T4 is within the reference range. Creatinine improving down to 2.0. We will check creatinine level tomorrow. Hemoglobin A1c 6%. Psychiatric the patient for bipolar, no abnormal movements of the mouth, most likely his anxiety and he recommended to continue with same treatment. Review of systems CONSTITUTIONAL: No fever, no malaise, no fatigue. HEENT: No recent visual problems or hearing problems. Denied any sore throat. CARDIOVASCULAR: No orthopnea, PND, no palpitations, no syncope. PULMONARY: No shortness of breath, no cough, no hemoptysis. GASTROINTESTINAL: No diarrhea, no nausea, no vomiting, no abdominal pain. Normoactive bowel sounds. NEUROLOGICAL: No headaches, no weakness, no numbness. Active Medications Generic Name Dose Route Start Last Admin Trade Name Freq PRN Reason Stop Dose Admin Acetaminophen 650 mg 04/16/23 21:44 Acetaminophen Tab 325 Mg Tab PO Q6HR PRN Mild Pain or Fever > 100.5 Hydrocodone Bitart/Acetaminophen 1 each 04/16/23 21:44 Hydrocodone/Apap 5-325mg 1 Each Tab PO Q4HR PRN Moderate Pain (Scale 4 to 6) Buspirone HCl 5 mg 04/18/23 09:00 04/18/23 09:31 Buspirone Hcl 5 Mg Tab PO 5 mg DAILY AVERY Administration Duloxetine HCl 30 mg 04/18/23 09:00 04/18/23 09:31 Duloxetine Hcl 30 Mg Capsule.Dr PO 30 mg DAILY AVERY Administration Famotidine 20 mg 04/17/23 21:00 04/18/23 20:18 Famotidine 20 Mg/2 Ml Vial IV 20 mg HS AVERY Administration Heparin Sodium (Porcine) 5,000 unit 04/17/23 21:00 04/18/23 20:18 Heparin Sodium,Porcine 5,000 Unit/Ml 1 Ml Vial SQ 5,000 unit Q12HR AVERY Administration Dextrose/Water 1,000 mls @ 100 mls/hr 04/17/23 18:30 04/19/23 04:00 Dextrose 5%-Water Iv Soln IV Not Given .Q10H AVERY Lamotrigine 100 mg 04/17/23 21:00 04/18/23 20:18 Lamotrigine 100 Mg Tab PO 100 mg BID AVERY Administration Lorazepam 1 mg 04/17/23 09:28 Lorazepam 1 Mg Tab PO BID PRN Anxiety Mirtazapine 22.5 mg 04/17/23 21:00 04/18/23 20:18 Mirtazapine 15 Mg Tab PO 22.5 mg HS AVERY Administration Morphine Sulfate 2 mg 04/16/23 21:44 Morphine Sulfate 2 Mg/Ml Syringe IV Q4HR PRN Severe Pain (Scale 7 to 10) Naloxone HCl 0.2 mg 04/16/23 21:44 Naloxone 0.4 Mg/Ml 1 Ml Vial IV Q2M PRN Opioid Reversal Objective - Vital Signs Vital signs: Vital Signs Temp 98.4 F 04/18/23 11:59 Pulse 93 04/18/23 11:59 Resp 16 04/18/23 11:59 BP 154/96 04/18/23 11:59 Pulse Ox 98 04/18/23 11:59 FiO2 Intake & Output 04/18/23 04/18/23 04/19/23 06:59 18:59 06:59 Intake Total 1200 Balance 1200 Intake: Intake, IV Titration 1200 Amount Dextrose 5% in Water 1, 1200 000 ml @ 100 mls/hr IV . Q10H AVERY Rx#:[id number] Other: Voiding Method Toilet Toilet # Voids 2 # Bowel Movements 1 - Exam --GENERAL: The patient is alert and oriented x2, not in any acute distress. Thin built. Generally weak HEENT: Pupils are round and equally reacting to light. EOMI. No scleral icterus. No conjunctival pallor. Normocephalic, atraumatic. No pharyngeal erythema. No thyromegaly. CARDIOVASCULAR: S1 and S2 present. No murmurs, rubs, or gallops. PULMONARY: Chest is clear to auscultation, no wheezing , no crackles. ABDOMEN: Soft, nontender, nondistended, normoactive bowel sounds. No palpable organomegaly. MUSCULOSKELETAL: No joint swelling or deformity. EXTREMITIES: No cyanosis, clubbing, or pedal edema. NEUROLOGICAL: Gross neurological examination did not reveal any focal deficits. SKIN: No rashes. no petechiae. - Labs CBC & Chem 7: 04/17/23 05:16 04/18/23 12:45 Labs: Abnormal Lab Results - Last 24 Hours (Table) 04/17/23 04/18/23 04/18/23 Range/Units 20:40 01:37 06:06 Sodium 161 H* 159 H 160 H (137-145) mmol/L 04/18/23 04/18/23 Range/Units 09:22 12:45 Sodium 157 H 153 H (137-145) mmol/L Assessment and Plan Assessment: Acute hypernatremia Mild metabolic/toxic encephalopathy Severe goiter, Rule out dysphagia, rule out thyroid disease moderate calorie protein malnutrition Acute kidney injury on chronic kidney disease stage III Polyuria. Patient is clenching on her teeth when she talks. Rule out tardive Dyskinesia Report disorder Plan: Change IV fluid to D5W at 100 mL per hour Swallow evaluation Psychiatry consult is appreciated, continue same medication Dietary consult for malnutrition Modified barium swallow Labs and medication were reviewed.. Continue same treatment. Continue with s ymptomatic treatment. Resume home medication. Monitor labs and vitals. DVT and GI prophylaxis. Further recommendations as per clinical course of the patient DVT prophylaxis: Subcutaneous heparin GI Prophylaxis: Pepcid PT/OT: Pending Prognosis is guarded
[2023-04-19] MEDS: busPIRone HCl 5 MG TAB PO SCH (09:34)
[2023-04-19] MEDS: HEPARIN SODIUM,PORCINE 5,000 UNIT/ML 1 ML VIAL SQ SCH ×2 (09:34→20:23)
[2023-04-19] MEDS: lamoTRIgine 100 MG TAB PO SCH ×2 (09:34→20:24)
[2023-04-19] MEDS: DULoxetine HCL 30 MG CAPSULE.DR PO SCH (09:34)
[2023-04-19 11:04] LABS: Basophils # (A) 0.03 X 10*3/uL (0.00-0.10); Basophils % (A) 0.5 %; Eosinophils # (A) 0.22 X 10*3/uL (0.04-0.35); Eosinophils % (A) 3.3 %; HCT 39.1 % (37.2-46.3); Lymphocytes # (A) 2.24 X 10*3/uL (0.90-5.00); Lymphocytes % (A) 33.9 %; MCH 31.2 pg (27.0-32.0); MCHC 30.7 g/dL (32.0-37.0); MCV 101.6 FL (80.0-97.0); Mean Platelet Volume 11.3 FL (9.5-12.2); Monocytes # (A) 0.46 X 10*3/uL (0.20-1.00); NRBC Per 100 WBC 0 X 10*3/uL (0.00-0.01); Neutrophils # (A) 3.64 X 10*3/uL (1.80-7.70); Neutrophils % (A) 55.1 %; Platelet Count 166 X 10*3/uL (140-440); RBC 3.85 X 10*6/uL (4.10-5.20); RDW 12.5 % (11.5-14.5)
[2023-04-19 11:18] LABS: BUN/Creat Ratio 13.06 Ratio (12.00-20.00); Blood Urea Nitrogen 23.5 mg/dL (9.0-27.0); Calcium 9.2 mg/dL (8.7-10.3); Carbon Dioxide 24.7 mmol/L (21.6-31.8); Chloride 115 mmol/L (96-109); Glucose 109 mg/dL (70-110); Potassium 3.4 mmol/L (3.5-5.5); Sodium 149 mmol/L (135-145)
[2023-04-19 15:17] VITALS: BMI 15.5
[2023-04-19] MEDS ORDERED: Potassium Replacement Protocol 1 EACH MISC MISCELLANE PRN ×2 (17:27→22:11)
[2023-04-19] MEDS ORDERED: bisacodyL 10 MG SUPP RECTAL STA ×2 (18:00→19:12)
[2023-04-19] MEDS: POTASSIUM CHLORIDE ER 20 MEQ TAB.ER PO SCH ×2 (19:03→20:23)
[2023-04-19] MEDS: FAMOTIDINE 20 MG/2 ML VIAL IV SCH (20:24)
[2023-04-19] MEDS: MIRTAZAPINE 15 MG TAB PO SCH (20:24)
[2023-04-19] MEDS ORDERED: POTASSIUM CHLORIDE ER 20 MEQ TAB.ER PO SCH (23:00)
--- NOTE | 2023-04-20 03:20 | P.PN ---
Subjective This is a pleasant 77 years old female with multiple medical problems as below. Information were obtained from the patient for this on at bedside. Patient looks mildly confused she couldn't tell she is in the [facility] the name of the president but she is not sure about the date. She was having difficulty eating and drinking for the last week and she lost about 10 pounds. She denies nausea vomiting she denies choking but she reports some difficulty in eating and drinking. She has history of goiter for about 3 years and the CAT scan that her suspicions of a large thyroid gland that encroaches into the upper mediastinum which might infected. Also patient noticed to have a spiking movement and clenching on her left side for the last week. Patient is a known case of bipolar and multiple psych medications and she will follow up with mental health clinic as an outpatient. Recently her physician was tapering down her BuSpar. And this also may offer psych medication but the patient and son are not aware of the names however re viewing her home medications she is currently on Remeron, BuSpar 5 mg. Son also confirm she is taking Lamictal and sometimes benzodiazepine for her mental problem. procedure problem. Patient also reports being large amount of fluid but she denies dysuria or urgency. This was confirmed with the son at bedside. No abdominal pain. No chest pain or dyspnea or coughing. No headache dizziness weakness or numbness. No smoking alcohol or illicit drugs. On admission her sodium is elevated 159 and 161 today. Patient received normal saline and emergency room. Also creatinine elevated 2.5 and 2.2 with baseline is about 1.4-2.0. Dressings labs reviewed including CBC liver enzymes troponin urine analysis and urine drug screen were unremarkable. Is negative for acute process CT of the neck and chest without Contrast Showing Severely Enlarged Thyroid Gland Encroaching into the Superior Mediastinum Trachea Deviated but There Is No Narrowing. EKG Showed Normal Sinus Rhythm at [address]-T Changes. 04/18/2023 Patient is mildly confused, her mentation improvement with D5W, her sodium level came down to 153, she remains on D5W at 1 25 mL/h, lower Rate of 100 mL per hour She currently nothing by mouth she has modified barium swallow: : There is prominent rightward deviation of the upper esophagus due to mass effect from the patient's enlarged thyroid gland. Despite the deviation, no obstruction is seen. Mild distal esophageal dysmotility. Most likely mass effect above this is due to large goiter extending into the superior mediastinum and encroaching into the esophagus. TSH is slightly low but T4 is within the reference range. Creatinine improving down to 2.0. We will check creatinine level tomorrow. Hemoglobin A1c 6%. Psychiatric the patient for bipolar, no abnormal movements of the mouth, most likely his anxiety and he recommended to continue with same treatment. 04/19/2023 Patient pass swallow evaluation and regular diet with thin liquids as recommended Patient continued on D5W at 75-100 mL per hour, a sodium is improved down to 149, creatinine improving down to 1.8. As well as patient will be started on diet Psychiatric input is appreciated, no evidence of start duct her clenching on her teeth is a chronic more than 6 months at mostly related to anxiety She has large goiter encroaches into the superior mediastinum, patient is aware aborted we are going to consult general surgery Patient remains generally weak and informed consult PT/OT recommended subacute rehab which I agree with, family welfare social work professor consult Objective - Vital Signs Vital signs: Vital Signs Temp 98.2 F 04/19/23 13:05 Pulse 85 04/19/23 13:05 Resp 16 04/19/23 13:05 BP 153/83 04/19/23 13:05 Pulse Ox 100 04/19/23 13:05 FiO2 Intake & Output 04/18/23 04/19/23 04/19/23 18:59 06:59 18:59 Intake Total 1200 Balance 1200 Weight 39.916 kg Intake: Intake, IV Titration 1200 Amount Dextrose 5% in Water 1, 1200 000 ml @ 100 mls/hr IV . Q10H [facility] Rx#:[id number] Other: Voiding Method Toilet Toilet Toilet # Voids 1 1 - Exam --GENERAL: The patient is alert and oriented x2, not in any acute distress. Thin built. Generally weak HEENT: Pupils are round and equally reacting to light. EOMI. No scleral icterus. No conjunctival pallor. Normocephalic, atraumatic. No pharyngeal erythema. No thyromegaly. CARDIOVASCULAR: S1 and S2 present. No murmurs, rubs, or gallops. PULMONARY: Chest is clear to auscultation, no wheezing , no crackles. ABDOMEN: Soft, nontender, nondistended, normoactive bowel sounds. No palpable organomegaly. MUSCULOSKELETAL: No joint swelling or deformity. EXTREMITIES: No cyanosis, clubbing, or pedal edema. NEUROLOGICAL: Gross neurological examination did not reveal any focal deficits. SKIN: No rashes. no petechiae. - Labs CBC & Chem 7: 04/19/23 05:52 04/19/23 21:10 Labs: Abnormal Lab Results - Last 24 Hours (Table) 04/19/23 04/19/23 Range/Units 05:52 05:52 RBC 3.85 L (4.10-5.20) X 10*6/uL MCV 101.6 H (80.0-97.0) FL MCHC 30.7 L (32.0-37.0) g/dL Sodium 149 H (135-145) mmol/L Potassium 3.4 L (3.5-5.5) mmol/L Chloride 115 H (96-109) mmol/L Creatinine 1.8 H (0.6-1.5) mg/dL Est GFR (CKD-EPI) 29 L (>=60) Assessment and Plan Assessment: Acute hypernatremia Mild metabolic/toxic encephalopathy Severe goiter, Rule out dysphagia, rule out thyroid disease moderate calorie protein malnutrition Acute kidney injury on chronic kidney disease stage III Polyuria. Patient is clenching on her teeth when she talks. Rule out tardive Dyskinesia Report disorder Plan: Change IV fluid to D5W at 100 mL per hour Swallow evaluation, patient started on regular diet Psychiatry consult is appreciated, continue same medication Dietary consult for malnutrition Modified barium swallow reviewed general surgery consult for large goiter Labs and medication were reviewed.. Continue same treatment. Continue with symptomatic treatment. Resume home medication. Monitor labs and vitals. DVT and GI prophylaxis. Further recommendations as per clinical course of the patient DVT prophylaxis: Subcutaneous heparin GI Prophylaxis: Pepcid PT/OT: Recommended subacute rehab, family welfare social work professor consult Prognosis is guarded
[2023-04-20] MEDS: HEPARIN SODIUM,PORCINE 5,000 UNIT/ML 1 ML VIAL SQ SCH ×2 (08:34→22:01)
[2023-04-20] MEDS: busPIRone HCl 5 MG TAB PO SCH (08:34)
[2023-04-20] MEDS: DULoxetine HCL 30 MG CAPSULE.DR PO SCH (08:34)
[2023-04-20] MEDS: lamoTRIgine 100 MG TAB PO SCH ×2 (08:34→22:02)
[2023-04-20] MEDS: DEXTROSE 5% IN WATER 1,000 ML IV SCH ×2 (08:40→22:06)
--- NOTE | 2023-04-20 12:02 | CDI ---
Documentation Clarification Form Date: 04/20/2023 11:32:43 AM From: Viola Lovell RN CCDS Phone: [phone] Admit Date: 04/16/2023 06:23:00 PM Patient Name: Lacey Ziegler Visit Number: [id number] Discharge Date: ATTENTION: The Clinical Documentation Specialists (CDI) and [facility] Coding Staff appreciate your assistance in clarifying documentation. Please respond to the clarification below the line at the bottom and electronically sign. The CDI & [facility] Coding staff will review the response and follow-up if needed. Please note: Queries are made part of the Legal Health Record. If you have any questions, please contact the author of this message via ITS. Dr. Pavon E Sheet Conflicting documentation has been found in the medical record. As attending physician, please provide clarification. Moderate calorie protein malnutrition, 04/19, Medicine progress note. Severe calorie protein malnutrition, 04/19, Dietary consult. History/Risk Factors: 77- year-old female presents to the ED mildly confused and lost about 10lbs. Medical history: CAD, Thyroid disorder and CKD III. Clinical Indicators: CT Neck, 04/17: Large left thyroid gland encroaches into the superior mediastinum. Barium Swallow, 05/07: There is prominent rightward deviation of the upper esophagus due to mass effect from the patients enlarged thyroid gland. Mild distal esophageal dysmotillity. Dietary consult, 04/19: Appetite poor for a duration of 1-3 months. BMI 15.6kg; Hgt 5ft 3in; Wgt 39.916kg Estimated protein needs 50-60 grams per day Nutritional diagnosis: Malnutrition severe, acute Related to disease process, evidenced by: Muscle wasting to temporal And clavicular region. Treatment: Ensure enlive TID, regular diet with thin liquids, high protein diet. Monitor Supplement and PO intake. Please clarify which diagnosis is most appropriate: [ ] Moderate protein calorie malnutrition [ ] Severe protein calorie malnutrition [ ] Other (please specify) [ ] Unable to determine In responding to this query, please exercise your independent professional judgment. The [facility] Coding Staff and Clinical Documentation Specialists appreciate your assistance in clarifying documentation, maintaining compliance with coding guidelines, accurately documenting patients condition and capturing severity of illness. The fact that a question is asked does not imply that any particular answer is desired or expected. Communication forms are a method of clarifying documentation and are made part of the Legal Health Record. Thank you in advance for your clarification. Last Reviewed November 2022 Reference: Using the ASPEN Guidelines, Undernutrition (Malnutrition) is characterized by at least two of the following six findings. The severity can be determined based on the criteria listed below. Malnutrition Characteristics for Moderate and Severe Malnutrition Type of Malnutrition Acute Illness or Injury Chronic Illness Degree of Malnutrition Non-severe (moderate) Malnutrition Severe Malnutrition Non-severe (moderate) Malnutrition Severe Malnutrition Energy Intake <75% for >7 days = 50% for = 5 days <75% for = 1 month =75% for = 1 month Weight Loss 1-2% in one week, 5% in 1 month, 7.5% in 3 months 2% in one week, >5% in 1 month, >7.5% in 3 months 5% in one month, 7.5% in 3 months, 10% in 6 months, 20% in 1 year >5% in one month, >7.5% in 3 months, >10% in 6 months, >20% in 1 year Body Fat Wasting Mild Moderate Mild Severe Muscle Wasting Mild Moderate Mild Severe Presence of Edema Mild Moderate to Severe Mild Severe Partner Cco Strength Not applicable Measurably Reduced Not applicable Measurably Reduced Source: Juan JV, Hunter P, Velasquez G, et al. Consensus statement: Academy of Nutrition and Dietetics and [place] Society for Parenteral and Enteral Nutrition: characteristics recommended for the identification and documentation of adult malnutrition (undernutrition).CAMI Carreon Parenter Enteral Nutr. 2012;36(3):275-283. (Template Last Revised: July 2020) Severe protein calorie malnutrition MTDD
--- NOTE | 2023-04-20 14:32 | P.GSCN ---
History of Present Illness Consult date: 04/20/23 History of present illness: CHIEF COMPLAINT: Difficulty swallowing HISTORY OF PRESENT ILLNESS: This is a 77-year-old female with a known history of a thyroid goiter. Patient reports that she's had difficulty swallowing for about 2 weeks and having episodes of vomiting. She's had poor oral intake. She denies any pain. Denies any shortness of breath. She reports that it's easier to swallow liquids and softer foods. Patient seen by speech therapy and they recommended a regular diet with thin liquids. Patient's jackerman swallowing eval. Surgical service consulted in regards to left thyroid goiter. PAST MEDICAL HISTORY: Goiter, anxiety, bipolar, depression PAST SURGICAL HISTORY: Tubal ligation MEDICATIONS: See below ALLERGIES: See below SOCIAL HISTORY: No illicit drug use. REVIEW OF SYSTEMS: CONSTITUTIONAL: Denies fever or chills. HEENT: Denies blurred vision, vision changes, or eye pain. Denies hemoptysis CARDIOVASCULAR: Denies chest pain or pressure. RESPIRATORY: No shortness of breath. GASTROINTESTINAL: See HPI for pertinent findings HEMATOLOGIC: Denies bleeding disorders. GENITOURINARY: Denies any blood in urine or increased urinary frequency. SKIN: Denies pruitis. Denies rash. PHYSICAL EXAM: VITAL SIGNS: Reviewed GENERAL: Well-developed in no acute distress. HEENT: Enlarged thyroid noted ABDOMEN: Soft. Nondistended. Nontender NEUROLOGIC: Alert and oriented. Cranial nerves II through XII grossly intact. LABORATORY DATA: WBC 6.60 Hgb 12.0 platelets 166 Sodium 149 potassium 4.1 creatinine 1.8 IMAGING: Computed tomography scan neck severely enlarged left thyroid gland which encroaches into the superior mediastinum. This measures approximately 5.5 x 5 x 8 cm. Trachea is DVT to the right but not significantly narrowed. Barium swallow x-ray no evidence of stricture or hiatal hernia. There is prominent rightward deviation of the esophagus due to mass effect from the patient's enlarged thyroid gland. Despite the deviation no obstruction seen. Mild distal esophageal dysmotility. ASSESSMENT: 1. Large left thyroid gland PLAN: -Continue a soft diet -Further recommendations forthcoming per surgeon -Continue supportive care Physician Anatomy And Physiology Instructor note has been reviewed by physician. Signing provider agrees with the documented findings, assessment, and plan of care. Past Medical History Past Medical History: Thyroid Disorder Additional Past Medical History / Comment(s): Goiter, rhabdomylosis History of Any Multi-Drug Resistant Organisms: None Reported Past Surgical History: Tubal Ligation Additional Past Surgical History / Comment(s): Bilateral cataract removal and lens implants Past Anesthesia/Blood Transfusion Reactions: No Reported Reaction Past Psychological History: Anxiety, Bipolar, Depression Smoking Status: Never smoker Past Alcohol Use History: Occasional Past Drug Use History: None Reported - Past Family History Father Family Medical History: Coronary Artery Disease (CAD), Diabetes Mellitus Additional Family Medical History / Comment(s): Father at age 65. He had history of coronary artery disease and diabetes. No history of eating disorders Mother Family Medical History: CVA/TIA Additional Family Medical History / Comment(s): Mother at age 88 from a CVA. Brother(s) Additional Family Medical History / Comment(s): The patient has 4 brothers and one has depression. Patient has 2 sisters. Patient has 2 children one son and one daughter. Medications and Allergies Home Medications Medication Instructions Recorded Confirmed Type Psyllium Husk 100% [Metamucil 6 gm PO DAILY 30 Days packet 01/01/22 04/16/23 Rx Packet] cloNIDine HCL [Catapres] 0.1 mg PO BID 30 Days #60 tab 01/01/22 04/16/23 Rx lamoTRIgine [LaMICtal] 100 mg PO BID 30 Days tab 01/01/22 04/16/23 Rx Acetaminophen Tab [Tylenol Tab] 1,000 mg PO Q6HR PRN 04/16/23 04/16/23 History Clotrimazole 10 mg MUCOUS MEM 5XD 04/16/23 04/16/23 History DULoxetine HCL [Cymbalta] 30 mg PO DAILY 04/16/23 04/16/23 History LORazepam [Ativan] 1 mg PO BID PRN 04/16/23 04/16/23 History Lactulose 10 gm PO DAILY PRN 04/16/23 04/16/23 History Mirtazapine [Remeron] 22.5 mg PO HS 04/16/23 04/16/23 History Multivitamins, Thera [Multivitamin 1 tab PO DAILY 04/16/23 04/16/23 History (formulary)] busPIRone HCl [Buspar] See Taper PO DAILY 04/16/23 04/16/23 History Allergies Allergy/AdvReac Type Severity Reaction Status Date / Time Iodinated Contrast Media Allergy Unknown Verified 04/16/23 18:00 [Iodinated Contrast Media - IV Dye] lithium Allergy Dyspnea Verified 04/16/23 18:00 Surgical - Exam Vital Signs Temp Pulse Resp BP Pulse Ox 98.1 F 100 20 147/90 95 04/16/23 16:04 04/16/23 16:04 04/16/23 16:04 04/16/23 16:04 04/16/23 16:04 Results - Labs 04/19/23 05:52 04/20/23 06:14 Abnormal Lab Results - Last 24 Hours (Table) 04/19/23 Range/Units 05:52 Sodium 149 H (135-145) mmol/L Potassium 3.4 L (3.5-5.5) mmol/L Chloride 115 H (96-109) mmol/L Creatinine 1.8 H (0.6-1.5) mg/dL Est GFR (CKD-EPI) 29 L (>=60) Diabetes panel 04/19/23 04/19/23 Range/Units 05:52 21:10 Sodium 149 H (135-145) mmol/L Potassium 3.4 L 3.9 (3.5-5.5) mmol/L Chloride 115 H (96-109) mmol/L Carbon Dioxide 24.7 (21.6-31.8) mmol/L BUN 23.5 (9.0-27.0) mg/dL Creatinine 1.8 H (0.6-1.5) mg/dL Glucose 109 (70-110) mg/dL Calcium 9.2 (8.7-10.3) mg/dL Calcium panel 04/19/23 Range/Units 05:52 Calcium 9.2 (8.7-10.3) mg/dL Pituitary panel 04/19/23 04/19/23 Range/Units 05:52 21:10 Sodium 149 H (135-145) mmol/L Potassium 3.4 L 3.9 (3.5-5.5) mmol/L Chloride 115 H (96-109) mmol/L Carbon Dioxide 24.7 (21.6-31.8) mmol/L BUN 23.5 (9.0-27.0) mg/dL Creatinine 1.8 H (0.6-1.5) mg/dL Glucose 109 (70-110) mg/dL Calcium 9.2 (8.7-10.3) mg/dL Adrenal panel 04/19/23 04/19/23 Range/Units 05:52 21:10 Sodium 149 H (135-145) mmol/L Potassium 3.4 L 3.9 (3.5-5.5) mmol/L Chloride 115 H (96-109) mmol/L Carbon Dioxide 24.7 (21.6-31.8) mmol/L BUN 23.5 (9.0-27.0) mg/dL Creatinine 1.8 H (0.6-1.5) mg/dL Glucose 109 (70-110) mg/dL Calcium 9.2 (8.7-10.3) mg/dL
[2023-04-20] MEDS: FAMOTIDINE 20 MG/2 ML VIAL IV SCH (22:01)
[2023-04-20] MEDS: MIRTAZAPINE 15 MG TAB PO SCH (22:01)
--- NOTE | 2023-04-21 00:50 | P.PN ---
Subjective This is a pleasant 77 years old female with multiple medical problems as below. Information were obtained from the patient for this on at bedside. Patient looks mildly confused she couldn't tell she is in the [facility] the name of the president but she is not sure about the date. She was having difficulty eating and drinking for the last week and she lost about 10 pounds. She denies nausea vomiting she denies choking but she reports some difficulty in eating and drinking. She has history of goiter for about 3 years and the CAT scan that her suspicions of a large thyroid gland that encroaches into the upper mediastinum which might infected. Also patient noticed to have a spiking movement and clenching on her left side for the last week. Patient is a known case of bipolar and multiple psych medications and she will follow up with mental health clinic as an outpatient. Recently her physician was tapering down her BuSpar. And this also may offer psych medication but the patient and son are not aware of the names however re viewing her home medications she is currently on Remeron, BuSpar 5 mg. Son also confirm she is taking Lamictal and sometimes benzodiazepine for her mental problem. procedure problem. Patient also reports being large amount of fluid but she denies dysuria or urgency. This was confirmed with the son at bedside. No abdominal pain. No chest pain or dyspnea or coughing. No headache dizziness weakness or numbness. No smoking alcohol or illicit drugs. On admission her sodium is elevated 159 and 161 today. Patient received normal saline and emergency room. Also creatinine elevated 2.5 and 2.2 with baseline is about 1.4-2.0. Dressings labs reviewed including CBC liver enzymes troponin urine analysis and urine drug screen were unremarkable. Is negative for acute process CT of the neck and chest without Contrast Showing Severely Enlarged Thyroid Gland Encroaching into the Superior Mediastinum Trachea Deviated but There Is No Narrowing. EKG Showed Normal Sinus Rhythm at [address]-T Changes. 04/18/2023 Patient is mildly confused, her mentation improvement with D5W, her sodium level came down to 153, she remains on D5W at 1 25 mL/h, lower Rate of 100 mL per hour She currently nothing by mouth she has modified barium swallow: : There is prominent rightward deviation of the upper esophagus due to mass effect from the patient's enlarged thyroid gland. Despite the deviation, no obstruction is seen. Mild distal esophageal dysmotility. Most likely mass effect above this is due to large goiter extending into the superior mediastinum and encroaching into the esophagus. TSH is slightly low but T4 is within the reference range. Creatinine improving down to 2.0. We will check creatinine level tomorrow. Hemoglobin A1c 6%. Psychiatric the patient for bipolar, no abnormal movements of the mouth, most likely his anxiety and he recommended to continue with same treatment. 04/19/2023 Patient pass swallow evaluation and regular diet with thin liquids as recommended Patient continued on D5W at 75-100 mL per hour, a sodium is improved down to 149, creatinine improving down to 1.8. As well as patient will be started on diet Psychiatric input is appreciated, no evidence of start duct her clenching on her teeth is a chronic more than 6 months at mostly related to anxiety She has large goiter encroaches into the superior mediastinum, patient is aware aborted we are going to consult general surgery Patient remains generally weak and informed consult PT/OT recommended subacute rehab which I agree with, forensic social worker consult 04/20/2023 Awake and daughter at bedside, she is able to eat better. Still has normal bowel movement. Vitals and labs reviewed and looks stable. Remains in the same treatment of D5W and will follow-up sodium level tomorrow Today patient developed low-grade fever of 500.3. Today, to order chest x-ray and urine analysis Objective - Vital Signs Vital signs: Vital Signs Temp 98.3 F 04/20/23 07:43 Pulse 84 04/20/23 07:43 Resp 15 04/20/23 07:43 BP 112/63 04/20/23 07:43 Pulse Ox 97 04/20/23 07:43 FiO2 Intake & Output 04/19/23 04/20/23 04/20/23 18:59 06:59 18:59 Intake Total 900 420 Balance 900 420 Weight 39.916 kg Intake: Intake, IV Titration 900 Amount Dextrose 5% in Water 1, 900 000 ml @ 75 mls/hr IV . [id number] [facility] Rx#:[id number] Oral 420 Other: Voiding Method Toilet Toilet Toilet # Voids 1 2 - Exam --GENERAL: The patient is alert and oriented x2, not in any acute distress. Thin built. Generally weak HEENT: Pupils are round and equally reacting to light. EOMI. No scleral icterus. No conjunctival pallor. Normocephalic, atraumatic. No pharyngeal erythema. No thyromegaly. CARDIOVASCULAR: S1 and S2 present. No murmurs, rubs, or gallops. PULMONARY: Chest is clear to auscultation, no wheezing , no crackles. ABDOMEN: Soft, nontender, nondistended, normoactive bowel sounds. No palpable organomegaly. MUSCULOSKELETAL: No joint swelling or deformity. EXTREMITIES: No cyanosis, clubbing, or pedal edema. NEUROLOGICAL: Gross neurological examination did not reveal any focal deficits. SKIN: No rashes. no petechiae. - Labs CBC & Chem 7: 04/19/23 05:52 04/20/23 06:14 Assessment and Plan Assessment: Acute hypernatremia Mild metabolic/toxic encephalopathy Severe goiter, Rule out dysphagia, rule out thyroid disease moderate calorie protein malnutrition Acute kidney injury on chronic kidney disease stage III Polyuria. Patient is clenching on her teeth when she talks. Rule out tardive Dyskinesia Report disorder Plan: Change IV fluid to D5W at 100 mL per hour Swallow evaluation, patient started on regular diet Psychiatry consult is appreciated, continue same medication Dietary consult for malnutrition Modified barium swallow reviewed general surgery consult for large goiter Labs and medication were reviewed.. Continue same treatment. Continue with symptomatic treatment. Resume home medication. Monitor labs and vitals. DVT and GI prophylaxis. Further recommendations as per clinical course of the patient DVT prophylaxis: Subcutaneous heparin GI Prophylaxis: Pepcid PT/OT: Recommended subacute rehab, forensic social worker consult Prognosis is guarded
--- NOTE | 2023-04-21 07:04 | XR ---
EXAMINATION TYPE: XR chest 1V DATE OF EXAM: 04/21/2023 COMPARISON: 04/16/2023, CT neck 04/16/2023 INDICATION: Short of breath TECHNIQUE: Single frontal view of the chest is obtained. FINDINGS: The heart size is normal. The pulmonary vasculature is normal. The lungs are clear. There is fullness in the suprahilar region. There is tracheal deviation to the right. This is accentu ated by the patient's right rotation. IMPRESSION: 1. 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
[2023-04-21 07:22] LABS: Amorphous Sediment,Urine Rare /hpf; RBC,Urine <1 /hpf (0-5); Squamous Epithelial Cell,Urine <1 /hpf (0-4); WBC,Urine <1 /hpf (0-5)
[2023-04-21 07:23] LABS: Appearance,Urine Clear (Clear); Color,Urine Light Yellow
[2023-04-21 07:24] LABS: Bilirubin,Urine Negative (Negative); Blood,Urine Trace (Negative); Glucose,Urine (UA) Negative (Negative); Ketones,Urine Negative (Negative); Leukocyte Esterase,Urine Negative (Negative); Nitrite,Urine Negative (Negative); Protein,Urine Negative (Negative); Urobilinogen,Urine 0.2 mg/dL (<2.0)
[2023-04-21] MEDS: DULoxetine HCL 30 MG CAPSULE.DR PO SCH (08:30)
[2023-04-21] MEDS: lamoTRIgine 100 MG TAB PO SCH ×2 (08:30→20:56)
[2023-04-21] MEDS: HEPARIN SODIUM,PORCINE 5,000 UNIT/ML 1 ML VIAL SQ SCH ×4 (08:30→20:57)
[2023-04-21] MEDS: busPIRone HCl 5 MG TAB PO SCH (08:30)
[2023-04-21] MEDS: DEXTROSE 5% IN WATER 1,000 ML IV SCH ×2 (08:30→18:37)
[2023-04-21 10:59] LABS: Basophils # (A) 0.04 X 10*3/uL (0.00-0.10); Basophils % (A) 0.6 %; Eosinophils # (A) 0.17 X 10*3/uL (0.04-0.35); Eosinophils % (A) 2.5 %; HCT 38.3 % (37.2-46.3); HGB 12.3 g/dL (12.0-15.0); Lymphocytes # (A) 1.61 X 10*3/uL (0.90-5.00); Lymphocytes % (A) 23.6 %; MCH 31.4 pg (27.0-32.0); MCHC 32.1 g/dL (32.0-37.0); MCV 97.7 FL (80.0-97.0); Mean Platelet Volume 11.3 FL (9.5-12.2); Monocytes # (A) 0.58 X 10*3/uL (0.20-1.00); Monocytes % (A) 8.5 %; NRBC Per 100 WBC 0 X 10*3/uL (0.00-0.01); Neutrophils # (A) 4.41 X 10*3/uL (1.80-7.70); Neutrophils % (A) 64.5 %; Platelet Count 172 X 10*3/uL (140-440); RBC 3.92 X 10*6/uL (4.10-5.20); RDW 12.5 % (11.5-14.5); WBC 6.83 X 10*3/uL (4.50-10.00)
[2023-04-21 11:15] LABS: BUN/Creat Ratio 11.89 Ratio (12.00-20.00); Blood Urea Nitrogen 22.6 mg/dL (9.0-27.0); Calcium 9.2 mg/dL (8.7-10.3); Carbon Dioxide 23.9 mmol/L (21.6-31.8); Chloride 114 mmol/L (96-109); Glucose 106 mg/dL (70-110); Potassium 4.2 mmol/L (3.5-5.5); Sodium 147 mmol/L (135-145)
[2023-04-21 14:14] LABS: Appearance,Urine Clear (Clear); Color,Urine Yellow; Protein,Urine Negative (Negative)
[2023-04-21 14:15] LABS: Bilirubin,Urine Negative (Negative); Blood,Urine Trace (Negative); Glucose,Urine (UA) Negative (Negative); Ketones,Urine Negative (Negative); Leukocyte Esterase,Urine Negative (Negative); Nitrite,Urine Negative (Negative); Urobilinogen,Urine 0.2 mg/dL (<2.0)
[2023-04-21 14:17] LABS: RBC,Urine <1 /hpf (0-5); Squamous Epithelial Cell,Urine <1 /hpf (0-4); WBC,Urine 3 /hpf (0-5)
--- NOTE | 2023-04-21 14:56 | US ---
EXAMINATION TYPE: US carotid duplex BILAT DATE OF EXAM: 04/21/2023 COMPARISON: 2017 US Carotid CLINICAL INDICATION: Female, 77 years old with history of Left side bruit, slurred speech; TECHNIQUE: Carotid duplex ultrasound examination. Indirect Doppler criteria was utilized. FINDINGS: EXAM MEASUREMENTS: RIGHT: Peak Systolic Velocity (PSV) cm/sec ----- Right CCA: 93.5 ----- Right ICA: 95.5 ----- Right ECA: 106.0 ICA/CCA ratio: 1.02 RIGHT: End Diastole cm/sec ----- Right CCA: 14.9 ----- Right ICA: 27.9 ----- Right ECA: 9.5 LEFT: Peak Systolic Velocity (PSV) cm/sec ----- Left CCA: 118.0 ----- Left ICA: 87.7 ----- Left ECA: 98.7 ICA/CCA ratio: 0.74 LEFT: End Diastole cm/sec ----- Left CCA: 25.3 ----- Left ICA: 18.2 ----- Left ECA: 14.3 VERTEBRALS (direction of flow): Right Vertebral: Antegrade Left Vertebral: Antegrade Rhythm: Normal MEAL GRINDER TENDER NOTES: No significant stenosis seen IMPRESSION: 1. No significant flow-limiting stenosis bilateral carotid bifurcations. Criteria for Assigning % of Stenosis / Diameter reduction (Estimation based on the indirect measurements of the internal carotid artery velocities (ICA PSV). 1. Normal (no stenosis)=ICA PSV < 125 cm/s: ratio < 2.0: ICA EDV<40 cm/s. 2. Less than 50% stenosis=ICA PSV < 125 cm/s: ratio < 2.0: ICA EDV<40 cm/s. 3. 50 to 69% stenosis=ICA PSV of 125 to 230 cm/s: ration 2.0 ? 4.0: ICA EDV 40-100 cm/s. 4. Greater than 70% stenosis to near occlusion= ICA PSV > 230 cm/s: ratio > 4.0: ICA EDV > 100 cm/s. 5. Near occlusion= ICA PSV velocities may be low or undetectable: variable ratio and ICA EDV. 6. Total occlusion=unable to detect flow.
--- NOTE | 2023-04-21 15:53 | P.PN ---
Subjective Progress Note Date: 04/21/23 CHIEF COMPLAINT: Thyroid goiter HISTORY OF PRESENT ILLNESS: Patient has an enlarged thyroid goiter. She is tolerating a soft diet. Afebrile. WBC 6.83 Hgb 12.3 platelets 172 Patient seen and examined with Dr. Fowler PHYSICAL EXAM: VITAL SIGNS: Reviewed. GENERAL: Well-developed in no acute distress. HEENT: No sclera icterus. Extraocular movements grossly intact. Moist buccal mucosa. Head is atraumatic, normocephalic. ABDOMEN: Soft. Nondistended. Nontender. NEUROLOGIC: Alert and oriented. Cranial nerves II through XII grossly intact. ASSESSMENT: 1. Large left thyroid goiter PLAN: -Consult placed for ENT service regarding the thyroid goiter -Continue soft diet Physician Software Deployment Engineer note has been reviewed by physician. Signing provider agrees with the documented findings, assessment, and plan of care. Objective - Vital Signs Vital signs: Vital Signs Temp 98.2 F 04/21/23 08:00 Pulse 86 04/21/23 08:00 Resp 17 04/21/23 08:00 BP 157/79 04/21/23 08:00 Pulse Ox 99 04/21/23 08:00 FiO2 Intake & Output 04/20/23 04/21/23 04/21/23 18:59 06:59 18:59 Intake Total 900 590 Balance 900 590 Intake: Intake, IV Titration 900 Amount Dextrose 5% in Water 1, 900 000 ml @ 75 mls/hr IV . [id number] AVERY Rx#:[id number] Oral 590 Other: Voiding Method Toilet # Voids 2 - Labs CBC & Chem 7: 04/21/23 06:44 04/21/23 06:44 Labs: Abnormal Lab Results - Last 24 Hours (Table) 04/21/23 Range/Units 06:22 Urine Blood Trace H (Negative) Amorphous Sediment Rare H (None) /hpf
[2023-04-21] MEDS: MIRTAZAPINE 15 MG TAB PO SCH (20:56)
[2023-04-21] MEDS: FAMOTIDINE 20 MG/2 ML VIAL IV SCH (20:57)
--- NOTE | 2023-04-22 01:02 | CONS ---
CONSULTATION REASON FOR CONSULTATION: Enlarged thyroid. HISTORY: This is a 77-year-old white female, Dr. Fowler requested a consult and our opinion on an enlarged thyroid. The patient was admitted on April 16 with altered mental status and decreased appetite. Due to the fact that she was felt to have some dysphagia, she had CT of the neck and chest and barium swallow. The barium swallow showed rightward deviation of the esophagus due to the enlarged thyroid, but no obstruction was seen. There was some distal esophageal dysmotility, which would be related to aging typically. CT of the neck and chest showed left thyroid enlarged which deviated the trachea to the right, although not significantly narrowed. The thyroid lobe was into the superior mediastinum and measured 5.5 x 5 x 8 cm. I obtained history from the patient and her son today. Her thyroid goiter diagnosis is 30 years old. This has been known for 30 years and was visible at 1 time and this was how it was detected externally. She has had a needle biopsy in the past, which was felt to be benign. She had routine thyroid checks every 5 years over the last 30 years, but not so much recently and has not been symptomatic in the past with no compressive symptoms previously. She has improved since her admission and is now eating normally again. Her mental status has improved also. PAST MEDICAL HISTORY: Goiter, rhabdomyolysis. PAST SURGICAL HISTORY: Tubal ligation, cataract surgery. PAST PSYCHOLOGIC HISTORY: Anxiety, bipolar disease, and depression. SOCIAL HISTORY: Occasional alcohol. No smoking, no illicit drug use. FAMILY HISTORY: Noncontributory. REVIEW OF SYSTEMS: A 14-point negative other than the positive points made in the HPI. HOME MEDICATIONS: 1. Metamucil. 2. Catapres. 3. Lamictal. 4. Tylenol. 5. Clotrimazole. 6. Cymbalta. 7. Ativan. 8. Lactulose. 9. Remeron. 10.BuSpar. ALLERGIES: To iodine and lithium. PHYSICAL EXAMINATION: VITALS: Appear stable. She is afebrile. GENERAL: A thin adult white female, in no acute distress. She is conversant and alert, awake, and oriented. Her son is also present. HEENT: Head normocephalic and atraumatic. Ears bilaterally clear. Canals are clear. Tympanic membranes unremarkable and mobile. The nose shows no drainage or obstruction. Mouth shows no abnormal masses or lesions in the oropharynx. No erythema. NECK: Supple without adenopathy or tenderness. No particular thyromegaly is palpated. ASSESSMENT: Thyromegaly, particularly left-sided. PLAN: The patient appears currently asymptomatic and whether or not the recent decreased appetite issue was related to her goiter which apparently has been present for about 30 years or whether or not this was more, her psychiatric status is unknown as she is improved now. I reviewed options with the patient and her son today which would include continued observation and observation for recurrent symptoms versus thyroidectomy. 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 She and her son are not interested in pursuing any surgical intervention at this point, but they do understand that her symptoms may recur and/or become worse including dysphagia or even respiratory difficulty given time. They deferred any further workup also such as repeat FNA under ultrasound guidance for further cytohistologic evaluation. If there are questions or concerns, please free to contact me. MMODL / IJN: [id number] /
[2023-04-22] MEDS: DEXTROSE 5% IN WATER 1,000 ML IV SCH ×2 (05:38→16:57)
[2023-04-22] MEDS: busPIRone HCl 5 MG TAB PO SCH (07:30)
[2023-04-22] MEDS: DULoxetine HCL 30 MG CAPSULE.DR PO SCH (07:30)
[2023-04-22] MEDS: lamoTRIgine 100 MG TAB PO SCH ×2 (07:30→20:18)
[2023-04-22] MEDS ORDERED: DEXTROSE 5%-0.45% NACL 1,000 ML IV SCH (08:30)
--- NOTE | 2023-04-22 08:38 | P.PN ---
Subjective This is a pleasant 77 years old female with multiple medical problems as below. Information were obtained from the patient for this on at bedside. Patient looks mildly confused she couldn't tell she is in the [facility] the name of the president but she is not sure about the date. She was having difficulty eating and drinking for the last week and she lost about 10 pounds. She denies nausea vomiting she denies choking but she reports some difficulty in eating and drinking. She has history of goiter for about 3 years and the CAT scan that her suspicions of a large thyroid gland that encroaches into the upper mediastinum which might infected. Also patient noticed to have a spiking movement and clenching on her left side for the last week. Patient is a known case of bipolar and multiple psych medications and she will follow up with mental health clinic as an outpatient. Recently her physician was tapering down her BuSpar. And this also may offer psych medication but the patient and son are not aware of the names however re viewing her home medications she is currently on Remeron, BuSpar 5 mg. Son also confirm she is taking Lamictal and sometimes benzodiazepine for her mental problem. procedure problem. Patient also reports being large amount of fluid but she denies dysuria or urgency. This was confirmed with the son at bedside. No abdominal pain. No chest pain or dyspnea or coughing. No headache dizziness weakness or numbness. No smoking alcohol or illicit drugs. On admission her sodium is elevated 159 and 161 today. Patient received normal saline and emergency room. Also creatinine elevated 2.5 and 2.2 with baseline is about 1.4-2.0. Dressings labs reviewed including CBC liver enzymes troponin urine analysis and urine drug screen were unremarkable. Is negative for acute process CT of the neck and chest without Contrast Showing Severely Enlarged Thyroid Gland Encroaching into the Superior Mediastinum Trachea Deviated but There Is No Narrowing. EKG Showed Normal Sinus Rhythm at [address]-T Changes. 04/18/2023 Patient is mildly confused, her mentation improvement with D5W, her sodium level came down to 153, she remains on D5W at 1 25 mL/h, lower Rate of 100 mL per hour She currently nothing by mouth she has modified barium swallow: : There is prominent rightward deviation of the upper esophagus due to mass effect from the patient's enlarged thyroid gland. Despite the deviation, no obstruction is seen. Mild distal esophageal dysmotility. Most likely mass effect above this is due to large goiter extending into the superior mediastinum and encroaching into the esophagus. TSH is slightly low but T4 is within the reference range. Creatinine improving down to 2.0. We will check creatinine level tomorrow. Hemoglobin A1c 6%. Psychiatric the patient for bipolar, no abnormal movements of the mouth, most likely his anxiety and he recommended to continue with same treatment. 04/19/2023 Patient pass swallow evaluation and regular diet with thin liquids as recommended Patient continued on D5W at 75-100 mL per hour, a sodium is improved down to 149, creatinine improving down to 1.8. As well as patient will be started on diet Psychiatric input is appreciated, no evidence of start duct her clenching on her teeth is a chronic more than 6 months at mostly related to anxiety She has large goiter encroaches into the superior mediastinum, patient is aware aborted we are going to consult general surgery Patient remains generally weak and informed consult PT/OT recommended subacute rehab which I agree with, psych social worker consult 04/20/2023 Awake and daughter at bedside, she is able to eat better. Still has normal bowel movement. Vitals and labs reviewed and looks stable. Remains in the same treatment of D5W and will follow-up sodium level tomorrow Today patient developed low-grade fever of 500.3. Today, to order chest x-ray and urine analysis 04/21/2023 Patient continued to improve slowly and gradually She is more awake, she is able to eat She has not had any bowel movement yet Sodium slightly elevated at 147 CBC was also reviewed. 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 Surgery team R following the case and the planned for fine needle aspiration for biopsy. Also they consulted ENT service will advise this goiter has been going on for about 30 years, not sure if that was because his symptoms or is growing more therefore they recommended surgery versus observation pending his family decision. If patient requires surgery they were not recommended to be transferred to hard level of care. Patient had low-grade fever of 100.31 no evidence of worsening leukocytosis. Repeat workup showing chest x-ray with same sup mediastinal mass with right esophageal deviation. Repeat UA is negative. No more episodes of fever and therefore we'll keep monitoring while off antibiotics for now Case was discussed with staff in details. When I discussed with the daughter she requested neurologist to evaluate the patient given her heavy talking as this unusual for her before nephrology service was consulted Review of systems CONSTITUTIONAL: No fever, no malaise, no fatigue. HEENT: No recent visual problems or hearing problems. Denied any sore throat. CARDIOVASCULAR: No orthopnea, PND, no palpitations, no syncope. PULMONARY: No shortness of breath, no cough, no hemoptysis. GASTROINTESTINAL: No diarrhea, no nausea, no vomiting, no abdominal pain. Normoactive bowel sounds. NEUROLOGICAL: No headaches, no weakness, no numbness. Active Medications Generic Name Dose Route Start Last Admin Trade Name Freq PRN Reason Stop Dose Admin Acetaminophen 650 mg 04/16/23 21:44 04/20/23 01:26 Acetaminophen Tab 325 Mg Tab PO 650 mg Q6HR PRN Administration Mild Pain or Fever > 100.5 Hydrocodone Bitart/Acetaminophen 1 each 04/16/23 21:44 Hydrocodone/Apap 5-325mg 1 Each Tab PO Q4HR PRN Moderate Pain (Scale 4 to 6) Buspirone HCl 5 mg 04/18/23 09:00 04/22/23 07:30 Buspirone Hcl 5 Mg Tab PO 5 mg DAILY AVERY Administration Duloxetine HCl 30 mg 04/18/23 09:00 04/22/23 07:30 Duloxetine Hcl 30 Mg Capsule.Dr PO 30 mg DAILY AVERY Administration Famotidine 20 mg 04/17/23 21:00 04/21/23 20:57 Famotidine 20 Mg/2 Ml Vial IV 20 mg HS AVERY Administration Heparin Sodium (Porcine) 5,000 unit 04/17/23 21:00 04/21/23 20:57 Heparin Sodium,Porcine 5,000 Unit/Ml 1 Ml Vial SQ 5,000 unit Q12HR AVERY Administration Dextrose/Sodium Chloride 1,000 mls @ 50 mls/hr 04/22/23 08:30 Dextrose 5%-1/2ns Iv Soln IV .Q20H AVERY Lamotrigine 100 mg 04/17/23 21:00 04/22/23 07:30 Lamotrigine 100 Mg Tab PO 100 mg BID AVERY Administration Lorazepam 1 mg 04/17/23 09:28 Lorazepam 1 Mg Tab PO BID PRN Anxiety Mirtazapine 22.5 mg 04/17/23 21:00 04/21/23 20:56 Mirtazapine 15 Mg Tab PO 22.5 mg HS AVERY Administration Miscellaneous Information 1 each 04/19/23 17:27 Potassium Replacement Protocol 1 Each Misc MISCELLANE DAILY PRN Per Protocol Protocol Morphine Sulfate 2 mg 04/16/23 21:44 Morphine Sulfate 2 Mg/Ml Syringe IV Q4HR PRN Severe Pain (Scale 7 to 10) Naloxone HCl 0.2 mg 04/16/23 21:44 Naloxone 0.4 Mg/Ml 1 Ml Vial IV Q2M PRN Opioid Reversal Objective - Vital Signs Vital signs: Vital Signs Temp 98.7 F 04/21/23 14:00 Pulse 89 04/21/23 14:00 Resp 16 04/21/23 14:00 BP 127/72 04/21/23 14:00 Pulse Ox 99 04/21/23 14:00 FiO2 Intake & Output 04/20/23 04/21/23 04/21/23 18:59 06:59 18:59 Intake Total 900 590 Output Total 700 Balance 900 590 -700 Intake: Intake, IV Titration 900 Amount Dextrose 5% in Water 1, 900 000 ml @ 75 mls/hr IV . [id number] AVERY Rx#:[id number] Oral 590 Output: Urine 600 Post Void Residual 100 Other: Voiding Method Toilet # Voids 2 - Exam --GENERAL: The patient is alert and oriented x2, not in any acute distress. Thin built. Generally weak HEENT: Pupils are round and equally reacting to light. EOMI. No scleral icterus. No conjunctival pallor. Normocephalic, atraumatic. No pharyngeal erythema. No thyromegaly. CARDIOVASCULAR: S1 and S2 present. No murmurs, rubs, or gallops. PULMONARY: Chest is clear to auscultation, no wheezing , no crackles. ABDOMEN: Soft, nontender, nondistended, normoactive bowel sounds. No palpable organomegaly. MUSCULOSKELETAL: No joint swelling or deformity. EXTREMITIES: No cyanosis, clubbing, or pedal edema. NEUROLOGICAL: Gross neurological examination did not reveal any focal deficits. SKIN: No rashes. no petechiae. - Labs CBC & Chem 7: 12/13/23 06:44 04/21/23 06:44 Labs: Abnormal Lab Results - Last 24 Hours (Table) 04/21/23 04/21/23 04/21/23 Range/Units 06:22 06:44 06:44 RBC 3.92 L (4.10-5.20) X 10*6/uL MCV 97.7 H (80.0-97.0) FL Sodium 147 H (135-145) mmol/L Chloride 114 H (96-109) mmol/L Creatinine 1.9 H (0.6-1.5) mg/dL Est GFR (CKD-EPI) 27 L (>=60) BUN/Creatinine Ratio 11.89 L (12.00-20.00) Ratio Urine Blood Trace H (Negative) Amorphous Sediment Rare H (None) /hpf 04/21/23 Range/Units 13:35 RBC (4.10-5.20) X 10*6/uL MCV (80.0-97.0) FL Sodium (135-145) mmol/L Chloride (96-109) mmol/L Creatinine (0.6-1.5) mg/dL Est GFR (CKD-EPI) (>=60) BUN/Creatinine Ratio (12.00-20.00) Ratio Urine Blood Trace H (Negative) Amorphous Sediment (None) /hpf Assessment and Plan Assessment: Acute hypernatremia Mild metabolic/toxic encephalopathy Severe goiter, Rule out dysphagia, rule out thyroid cancer moderate calorie protein malnutrition Acute kidney injury on chronic kidney disease stage III Polyuria. Patient is clenching on her teeth when she talks. tardive Dyskinesia ruled out by psychiatrist. Rule out Plan: Change IV fluid to D5W at 75 mL per hour and switched to D5 half-normal saline at 50 mL per hour Keep monitoring sodium Swallow evaluation, patient started on regular diet Psychiatry consult is appreciated, continue same medication Dietary consult for malnutrition General surgery team and ENT are following him closely. And then requested fine-needle aspiration for a goiter Keep monitoring the patient while off antibiotics with close follow-up Labs and medication were reviewed.. Continue same treatment. Continue with symptomatic treatment. Resume home medication. Monitor labs and vitals. DVT and GI prophylaxis. Further recommendations as per clinical course of the patient DVT prophylaxis: Subcutaneous heparin GI Prophylaxis: Pepcid PT/OT: Recommended subacute rehab, psych social worker consult Prognosis is guarded
[2023-04-22 09:13] LABS: Basophils % (A) 0 %; Eosinophils # (A) 0.2 k/uL (0-0.7); Eosinophils % (A) 3 %; HCT 40.5 % (34.0-46.0); Lymphocytes # (A) 1.5 k/uL (1.0-4.8); Lymphocytes % (A) 27 %; MCH 31.8 pg (25.0-35.0); MCHC 32.1 g/dL (31.0-37.0); Mean Platelet Volume 8.3; Monocytes # (A) 0.4 k/uL (0-1.0); Monocytes % (A) 8 %; Neutrophils # (A) 3.5 k/uL (1.3-7.7); Neutrophils % (A) 60 %; Platelet Count 169 k/uL (150-450); RBC 4.09 m/uL (3.80-5.40); RDW 12.5 % (11.5-15.5); WBC 5.8 k/uL (3.8-10.6)
[2023-04-22 09:35] LABS: African American GFR (CKD) 31 (>60 ml/min/1.73 sqM); Anion Gap 11 mmol/L; Blood Urea Nitrogen 24 mg/dL (7-17); Calcium 9.2 mg/dL (8.4-10.2); Carbon Dioxide 25 mmol/L (22-30); Chloride 109 mmol/L (98-107); Glucose 127 mg/dL (74-99); Non-African American GFR(CKD) 27 (>60 ml/min/1.73 sqM); Potassium 4.2 mmol/L (3.5-5.1); Sodium 145 mmol/L (137-145)
--- NOTE | 2023-04-22 09:55 | P.CNNES ---
History of Present Illness Consult date: 04/21/23 Requesting physician: Librado Cohen Reason for Consult: Heavy talking History of Present Illness: Patient is a 77-year-old left-handed female with history of goiter for 30 years came to the hospital 04/16/2023 for decreased appetite, dehydration, spitting out food and more confusion besides her underlying mild dementia. Neurology was consulted for heavy speech. Patient's son was present, who provided most of the history. He mentions that patient has history of goiter for 30 years and has been tested many times over last several years. However no surgery was recommended. In the past 1 month off and on, patient has developed "lazy tongue", in which it would not move around as normal. Sometimes she talks nor rex sometimes she has thick speech. Patient's son mentions that patient also has history of bipolar disorder, on medications for it. For over 1 year, patient has had confusion, memory problems and she saw a neurologist, but a formal diagnosis of dementia was not made because of her underlying psychiatric condition/medications. No change in medications recently. Otherwise patient's son has not noticed any strokelike symptom like focal weakness, double vision, loss of vision, numbness. Patient does have hypertension but no diabetes in never smoked. No history of strokes or TIA. CT head performed 04/16/2023 revealed atrophy and chronic microvascular ischemic white matter changes, no CT evidence of an acute intracranial abnormality. EKG shows sinus rhythm. CT of the chest showed large left thyroid gland encroaches into the superior mediastinum. No acute cardio per report is. CT of the neck showed severely enlarged left thyroid gland which encroaches into the superior mediastinum. This measures approximately 5.5 x 5.0 x 8 cm. Trachea is deviated to the right but not significantly narrowed. Barium swallow revealed limited single contrast technique. No evidence of stricture or hiatal hernia. There is prominent rightward deviation of the upper esophagus due to mass effect from the patient's enlarged thyroid gland. Despite the deviation, no obstruction is seen. Mild distal esophageal dysmotility. Blood test shows normal CBC with elevated MCV 101.6. Sodium 147, potassium 4.2, BUN 22, creatinine 1.9. UA negative. Hemoglobin A1c 6.0. Sodium at one point was 161 on 04/17/2023. TSH is decreased 0.090 with normal free T4 1 0.22. UA negative. Urine drug screen negative. Review of Systems Constitutional: Reports weight loss, Denies chills, Denies fever Eyes: bilateral diplopia (comes and goes for 2 years), denies blurred vision, denies pain Ears: deny: decreased hearing, ear discharge Ears, nose, mouth and throat: Reports dysphagia, Reports swelling in throat, Denies headache, Denies sore throat Cardiovascular: Denies chest pain, Denies shortness of breath Respiratory: Reports cough, Reports excessive sputum, Denies snoring Gastrointestinal: Denies abdominal pain, Denies diarrhea, Denies nausea, Denies vomiting Genitourinary: Reports urgency, Reports urinary frequency, Denies urge incontinence Musculoskeletal: Denies low back pain, Denies myalgias, Denies neck pain Integumentary: Denies pruritus, Denies rash Neurological: Reports as per HPI Psychiatric: Reports anxiety, Reports depression, Reports memory loss Endocrine: Reports fatigue, Reports weight change Hematologic/Lymphatic: Reports easy bruising, Denies easy bleeding Past Medical History Past Medical History: Thyroid Disorder Additional Past Medical History / Comment(s): Goiter, rhabdomylosis History of Any Multi-Drug Resistant Organisms: None Reported Past Surgical History: Tubal Ligation Additional Past Surgical History / Comment(s): Bilateral cataract removal and lens implants Past Anesthesia/Blood Transfusion Reactions: No Reported Reaction Past Psychological History: Anxiety, Bipolar, Depression Smoking Status: Never smoker Past Alcohol Use History: Occasional Past Drug Use History: None Reported - Past Family History Father Family Medical History: Coronary Artery Disease (CAD), Diabetes Mellitus Additional Family Medical History / Comment(s): Father at age 65. He had history of coronary artery disease and diabetes. No history of eating disorders Mother Family Medical History: CVA/TIA Additional Family Medical History / Comment(s): Mother at age 88 from a CVA. Brother(s) Additional Family Medical History / Comment(s): The patient has 4 brothers and o ne has depression. Patient has 2 sisters. Patient has 2 children one son and one daughter. Medications and Allergies Home Medications Medication Instructions Recorded Confirmed Type Psyllium Husk 100% [Metamucil 6 gm PO DAILY 30 Days packet 01/01/22 04/16/23 Rx Packet] cloNIDine HCL [Catapres] 0.1 mg PO BID 30 Days #60 tab 01/01/22 04/16/23 Rx lamoTRIgine [LaMICtal] 100 mg PO BID 30 Days tab 01/01/22 04/16/23 Rx Acetaminophen Tab [Tylenol Tab] 1,000 mg PO Q6HR PRN 04/16/23 04/16/23 History Clotrimazole 10 mg MUCOUS MEM 5XD 04/16/23 04/16/23 History DULoxetine HCL [Cymbalta] 30 mg PO DAILY 04/16/23 04/16/23 History LORazepam [Ativan] 1 mg PO BID PRN 04/16/23 04/16/23 History Lactulose 10 gm PO DAILY PRN 04/16/23 04/16/23 History Mirtazapine [Remeron] 22.5 mg PO HS 04/16/23 04/16/23 History Multivitamins, Thera [Multivitamin 1 tab PO DAILY 04/16/23 04/16/23 History (formulary)] busPIRone HCl [Buspar] See Taper PO DAILY 04/16/23 04/16/23 History Allergies Allergy/AdvReac Type Severity Reaction Status Date / Time Iodinated Contrast Media Allergy Unknown Verified 04/16/23 18:00 [Iodinated Contrast Media - IV Dye] lithium Allergy Dyspnea Verified 04/16/23 18:00 Physical Examination - Vital Signs Vital Signs: Vital Signs Temp Pulse Resp BP Pulse Ox 04/21/23 08:00 98.2 F 86 17 157/79 99 04/21/23 02:00 98.6 F 91 16 152/73 91 L 04/20/23 20:00 99.1 F 82 16 136/75 97 04/20/23 14:00 97.6 F 85 17 123/70 98 Intake and Output 04/20/23 04/21/23 04/21/23 22:59 06:59 14:59 Intake Total 900 590 Balance 900 590 Intake: Intake, IV Titration 900 Amount Dextrose 5% in Water 1, 900 000 ml @ 75 mls/hr IV . [id number] [facility] Rx#:[id number] Oral 590 Other: # Voids 2 Patient is an elderly female, in no acute distress. Patient is alert awake. She states it is April 2023 and stated that she was in the [employer] building but then she knows that it is not the pressure building. She says that she lives in [place], [place]. She knows that she is in the hospital but does not know the name and believes that it starts with "F". Speech and language functions are normal. Patient can name and repeat very well. No aphasia or dysarthria. Attention, concentration is intact and fund of knowledge is slightly limited. Patient has positive visuospatial apraxia, positive palmomental reflex. On cranial nerve examination, pupils are equal, round and reacting to light, visual fried are full on confrontation, with no neglect on double simultaneous stimulation. Extraocular muscles are intact with no nystagmus. Patient has proptosis. Face is symmetric, tongue protrudes to the midline. Palatal elevation and sensation normal, hearing and shoulder shrug normal, facial sensation normal. On muscle strength testing, there is very mild right pronator drift. The muscle strength appears patient generalized weak but symmetric, with deltoids 5-, bic eps 5-, triceps 5, subway car repairer 5-, hip flexion 5-4+, ankle dorsiflexion 5. Deep tendon reflexes are symmetric biceps 3, brachioradialis 2, knees 2, ankles 2 and plantars downgoing bilaterally. Sensory to touch is equal with no neglect on double simultaneous stimulation. Cerebellar function showed no ataxia for [id number] testing. No dysdiadochokinesia. No ataxia for [id number] testing on either side. Tone and bulk of muscles normal. Gait deferred.. On general examination, there is no carotid bruit or murmur, S1-S2 audible. Chest is clear on consultation. Abdomen is soft nontender. No organomegaly, bowel sounds present. Peripheral pulses are present. No peripheral edema. patient has a goiter. Results - Laboratory Findings CBC and BMP: 04/22/23 08:40 04/22/23 08:40 Abnormal Lab Findings: Abnormal Labs 04/16/23 04/16/23 04/16/23 17:30 17:30 17:30 RBC MCV 100.9 H MCHC PT 9.9 L APTT 21.0 L Sodium 159 H Potassium Chloride 122 H BUN 96 H Creatinine 2.53 H Est GFR (CKD-EPI) BUN/Creatinine Ratio Glucose POC Glucose (mg/dL) Osmolality Total Protein TSH Urine Blood Amorphous Sediment 04/16/23 04/16/23 04/17/23 20:10 22:07 05:16 RBC MCV 101.8 H MCHC PT APTT Sodium Potassium Chloride BUN Creatinine Est GFR (CKD-EPI) BUN/Creatinine Ratio Glucose POC Glucose (mg/dL) 111 H Osmolality 356 H* Total Protein TSH Urine Blood Amorphous Sediment 04/17/23 04/17/23 04/17/23 05:16 05:16 16:52 RBC MCV MCHC PT APTT Sodium 161 H* 163 H* Potassium Chloride 127 H 130 H BUN 73 H 56 H Creatinine 2.23 H 2.06 H Est GFR (CKD-EPI) BUN/Creatinine Ratio Glucose 130 H POC Glucose (mg/dL) Osmolality Total Protein 6.1 L TSH 0.090 L Urine Blood Amorphous Sediment 04/17/23 04/18/23 04/18/23 20:40 01:37 06:06 RBC MCV MCHC PT APTT Sodium 161 H* 159 H 160 H Potassium Chloride BUN Creatinine Est GFR (CKD-EPI) BUN/Creatinine Ratio Glucose POC Glucose (mg/dL) Osmolality Total Protein TSH Urine Blood Amorphous Sediment 04/18/23 04/18/23 04/19/23 09:22 12:45 05:52 RBC 3.85 L MCV 101.6 H MCHC 30.7 L PT APTT Sodium 157 H 153 H Potassium Chloride BUN Creatinine Est GFR (CKD-EPI) BUN/Creatinine Ratio Glucose POC Glucose (mg/dL) Osmolality Total Protein TSH Urine Blood Amorphous Sediment 04/19/23 04/21/23 04/21/23 05:52 06:22 06:44 RBC 3.92 L MCV 97.7 H MCHC PT APTT Sodium 149 H Potassium 3.4 L Chloride 115 H BUN Creatinine 1.8 H Est GFR (CKD-EPI) 29 L BUN/Creatinine Ratio Glucose POC Glucose (mg/dL) Osmolality Total Protein TSH Urine Blood Trace H Amorphous Sediment Rare H 04/21/23 06:44 RBC MCV MCHC PT APTT Sodium 147 H Potassium Chloride 114 H BUN Creatinine 1.9 H Est GFR (CKD-EPI) 27 L BUN/Creatinine Ratio 11.89 L Glucose POC Glucose (mg/dL) Osmolality Total Protein TSH Urine Blood Amorphous Sediment Assessment and Plan Assessment: * Speech difficulty, dysphagia, likely mechanical due to large goiter. Doubt neuromuscular condition or stroke/TIA * Left carotid bruit * Hypertension * Hypernatremia * Acute kidney injury, likely due to dehydration, decreased nutritional intake, improving * Mild encephalopathy, likely due to reasons mentioned above and below. She may have underlying cognitive impairment as well, as per her son's report, the memory loss has been going on for over one year. * Goiter * Bipolar disorder * Hyperthyroidism, with low TSH but normal free T4 * Macrocytosis, rule out B12/folate deficiency Plan: * Check B12, folate, B1 level * Carotid Doppler, rule out stenosis. * Surgery is on board for large goiter, may need surgery. * ENT consulted. * Speech and swallow evaluation recommending pured regular thin liquid diet. * Patient's son was concerned about diagnosis of dementia. I informed him that patient cannot be diagnosed with dementia while in the hospital with multiple medical issues. Once all medical conditions have been corrected, then he should take her to a neurologist locally to rule out underlying dementia. * Neurology will follow. Thank you for the consult.
--- NOTE | 2023-04-22 11:02 | US ---
ULTRASOUND GUIDED FNA THYROID BIOPSY: CLINICAL HISTORY: Large left thyroid nodule FINDINGS: The procedure was explained to the patient. The risks, complications, benefits and alternatives were discussed and any questions were answered. Informed consent was obtained. Patient was placed supin e on the ultrasound table and prepped and draped in the usual sterile fashion. Utilizing a 25 gauge needle, five passes were made into the requested thyroid nodule. Patient was stable throughout the procedure. Pathology is pending. All elements of maximal barrier technique were utilized. IMPRESSION: 1. Successful ultrasound guided FNA thyroid biopsy.
--- NOTE | 2023-04-22 13:15 | P.PN ---
Subjective Progress Note Date: 04/22/23 CHIEF COMPLAINT: Thyroid goiter HISTORY OF PRESENT ILLNESS: Patient has an enlarged thyroid goiter. She is tolerating a soft diet. Patient seen by ENT service. She had biopsy of the thyroid with interventional radiology today. PHYSICAL EXAM: VITAL SIGNS: Reviewed. GENERAL: Well-developed in no acute distress. Neck: Biopsy site left-sided neck with bandage clean dry and intact ABDOMEN: Soft. Nondistended. Nontender. ASSESSMENT: 1. Large left thyroid goiter PLAN: -Patient can be discharged from surgical standpoint -Continue soft diet -Recommend follow up at [facility] Physician Vp Respiratory note has been reviewed by physician. Signing provider agrees with the documented findings, assessment, and plan of care. Objective - Vital Signs Vital signs: Vital Signs Temp 98.2 F 04/22/23 08:00 Pulse 86 04/22/23 10:00 Resp 16 04/22/23 10:00 BP 131/66 04/22/23 10:00 Pulse Ox 99 04/22/23 10:00 FiO2 Intake & Output 04/21/23 04/22/23 04/22/23 18:59 06:59 18:59 Intake Total 580 710 Output Total 700 Balance -120 710 Weight 39.916 kg Intake: Oral 580 710 Output: Urine 600 Post Void Residual 100 Other: Voiding Method Toilet Toilet # Voids 2 3 - Labs CBC & Chem 7: 04/22/23 08:40 04/22/23 08:40 Labs: Abnormal Lab Results - Last 24 Hours (Table) 04/21/23 04/22/23 Range/Units 13:35 08:40 Chloride 109 H (98-107) mmol/L BUN 24 H (7-17) mg/dL Creatinine 1.84 H (0.52-1.04) mg/dL Glucose 127 H (74-99) mg/dL Urine Blood Trace H (Negative)
[2023-04-22] MEDS: FAMOTIDINE 20 MG/2 ML VIAL IV SCH (20:18)
[2023-04-22] MEDS: MIRTAZAPINE 15 MG TAB PO SCH (20:18)
--- NOTE | 2023-04-22 21:39 | P.PN ---
Subjective Progress Note Date: 04/22/23 Patient is evaluated today ambulating in room. Underwent FNA biopsy of the thyroid with IR today. Plan is to follow up outpatient with ENT for this and if warranted schedule surgical intervention outpatient. Patient has been continued on D5 1/2 normal saline with chloride elevated and would recommending to change fluids to D5 water and continue overnight. Patient will be returning home with family. No other acute complaints. Had carotid doppler study showing no significant flow-limiting stenosis bilateral carotid bifurcations. Review of Systems Constitutional: Denied any fatigue denied any fever. Cardio vascular: denied any chest pain, palpitations Gastrointestinal: denied any nausea, vomiting, diarrhea Pulmonary: Denied any shortness of breath cough Neurologic denied any new focal deficits All inpatient medications were reviewed and appropriate changes in these medications as dictated in the interval history and assessment and plan. PHYSICAL EXAMINATION: GENERAL: The patient is alert and oriented x3, not in any acute distress. Well developed, well nourished. HEENT: Pupils are round and equally reacting to light. EOMI. No scleral icterus. No conjunctival pallor. Normocephalic, atraumatic. No pharyngeal erythema. No thyromegaly. CARDIOVASCULAR: S1 and S2 present. No murmurs, rubs, or gallops. PULMONARY: Chest is clear to auscultation, no wheezing or crackles. ABDOMEN: Soft, nontender, nondistended, normoactive bowel sounds. No palpable organomegaly. MUSCULOSKELETAL: No joint swelling or deformity. EXTREMITIES: No cyanosis, clubbing, or pedal edema. NEUROLOGICAL: Gross neurological examination did not reveal any focal deficits. SKIN: No rashes. Assessment and Plan Acute hypernatremia improved and switched to D5 water recommend to follow up labs in AM Mild metabolic/toxic encephalopathy improved likely from the hypernatremia Severe goiter status post FNA biopsy with ENT recommending outpatient follow up for biopsy. Tracheal deviation secondary to above not causing obstruction and speech therapy evaluated the patient who has been started on diet. moderate calorie protein malnutrition dietary consultation in place. Acute kidney injury on chronic kidney disease stage III creatinine near baseline of 1.5 to 1.6. Polyuria. Patient is clenching on her teeth when she talks. tardive Dyskinesia ruled out by psychiatrist. Continue current medications GI prophylaxis Plan As above and discharge home in the next 24 hours The impression and plan of care has been dictated by Yoli Garland, Nurse Practitioner as directed. Dr. Maurice MD I have performed a history and physical examination and medical decision making of this patient, discussed the same with the dictator, and agree with the dictators assessment and plan as written, documented as a scribe. Based on total visit time, I have performed more than 50% of this visit. Objective - Vital Signs Vital signs: Vital Signs Temp 98.2 F 04/22/23 08:00 Pulse 84 04/22/23 08:00 Resp 16 04/22/23 08:00 BP 146/63 04/22/23 08:00 Pulse Ox 97 04/22/23 08:00 FiO2 Intake & Output 04/21/23 04/22/23 04/22/23 18:59 06:59 18:59 Intake Total 580 710 Output Total 700 Balance -120 710 Intake: Oral 580 710 Output: Urine 600 Post Void Residual 100 Other: Voiding Method Toilet # Voids 2 3 - Labs CBC & Chem 7: 04/22/23 08:40 04/22/23 08:40 Labs: Abnormal Lab Results - Last 24 Hours (Table) 04/21/23 04/21/23 04/21/23 Range/Units 06:44 06:44 13:35 RBC 3.92 L (4.10-5.20) X 10*6/uL MCV 97.7 H (80.0-97.0) FL Sodium 147 H (135-145) mmol/L Chloride 114 H (96-109) mmol/L Creatinine 1.9 H (0.6-1.5) mg/dL Est GFR (CKD-EPI) 27 L (>=60) BUN/Creatinine Ratio 11.89 L (12.00-20.00) Ratio Urine Blood Trace H (Negative) Assessment and Plan Time with Patient: Less than 30
[2023-04-23] MEDS: DEXTROSE 5% IN WATER 1,000 ML IV SCH ×2 (00:18→05:33)
[2023-04-23 07:36] VITALS: TEMP 98.2
[2023-04-23] MEDS: busPIRone HCl 5 MG TAB PO SCH (09:26)
[2023-04-23] MEDS: lamoTRIgine 100 MG TAB PO SCH (09:26)
[2023-04-23] MEDS: HEPARIN SODIUM,PORCINE 5,000 UNIT/ML 1 ML VIAL SQ SCH (09:26)
[2023-04-23] MEDS: DULoxetine HCL 30 MG CAPSULE.DR PO SCH (09:27)
--- NOTE | 2023-04-23 13:11 | P.PN ---
Subjective Progress Note Date: 04/23/23 CHIEF COMPLAINT: Thyroid goiter HISTORY OF PRESENT ILLNESS: Patient has an enlarged thyroid goiter. She is tolerating a soft diet. Patient seen by ENT service. She had biopsy of the thyroid with interventional radiology today. PHYSICAL EXAM: VITAL SIGNS: Reviewed. GENERAL: Well-developed in no acute distress. Neck: Biopsy site left-sided neck with bandage clean dry and intact ABDOMEN: Soft. Nondistended. Nontender. ASSESSMENT: 1. Large left thyroid goiter PLAN: -Patient can be discharged from surgical standpoint -Continue soft diet -Recommend follow up at [facility] -Surgical service will sign off. Please call with any questions or concerns Physician Slitter Cut Off Operator note has been reviewed by physician. Signing provider agrees with the documented findings, assessment, and plan of care. Objective - Vital Signs Vital signs: Vital Signs Temp 98.2 F 04/23/23 07:33 Pulse 93 04/23/23 07:33 Resp 15 04/23/23 07:33 BP 126/76 04/23/23 07:33 Pulse Ox 99 04/23/23 07:33 FiO2 Intake & Output 04/22/23 04/23/23 04/23/23 18:59 06:59 18:59 Intake Total 240 590 240 Balance 240 590 240 Weight 39.916 kg Intake: Oral 240 590 240 Other: Voiding Method Toilet Toilet # Voids 4 4 # Bowel Movements 1 - Labs CBC & Chem 7: 04/22/23 08:40 04/22/23 08:40
[2023-04-23 13:34] VITALS: BP 129/60; PULSE 83; RESP 16
--- NOTE | 2023-04-24 17:25 | P.DS ---
Providers Date of admission: 04/16/23 18:23 Attending physician: Bhumika Ford Consults: 04/17/23 09:50 Consult Physician Urgent Consulting Provider: Jaylen Vaughn Consult Reason/Comments: mouth clinching ,r/u tardive dyskinesia, bipolar Do you want consulting provider notified?: Yes 04/17/23 18:21 Consult Physician Routine Consulting Provider: Tyesha Goodman Consult Reason/Comments: critical [place] Do you want consulting provider notified?: Yes 04/20/23 12:16 Consult Physician Urgent Consulting Provider: Maribell Vargas Consult Reason/Comments: heavy talking Do you want consulting provider notified?: Yes 04/21/23 10:08 Consult Physician Routine Consulting Provider: Rex Macdonald Consult Reason/Comments: large thyroid goiter Do you want consulting provider notified?: Yes Primary care physician: [facility] Course: Final Diagnosis Acute hypernatremia improved Mild metabolic/toxic encephalopathy improved likely from the hypernatremia Severe goiter status post FNA biopsy with ENT recommending outpatient follow up for biopsy. Tracheal deviation secondary to above not causing obstruction moderate calorie protein malnutrition dietary consultation in place. Acute kidney injury on chronic kidney disease stage III creatinine near baseline of 1.5 to 1.6. Polyuria. Patient is clenching on her teeth when she talks. tardive Dyskinesia ruled out by psychiatrist. Possible cognitive impairment will need outpatient work up Hyperthyroidism, with low TSH but normal free T4 Bipolar disorder Hypertension Discharge Disposition Patient is stable for discharge back to the [facility]. recommending pured regular thin liquid diet and softer foods. Follow up with ENT specialist Dr. Macdonald follow up for the thyroid biopsy and further recommendations. Follow up with neurology outpatient further work up for possible underlying dementia per family concerns. Activity limited until follow up with PCP. Repeat labs in 2 to 3 days. Hospital Course This is a pleasant 77 years old female history of goiter, anxiety depression bipolar. Information were obtained from the patient for this on at bedside. Patient looks mildly confused she couldn't tell she is in the [facility] the name of the president but she is not sure about the date. She was having difficulty eating and drinking for the last week and she lost about 10 pounds. She denies nausea vomiting she denies choking but she reports some difficulty in eating and drinking. She has history of goiter for about 3 years and the CAT scan that her suspicions of a large thyroid gland that encroaches into the upper mediastinum which might infected. Also patient noticed to have a spiking movement and clenching on her left side for the last week. Patient is a known case of bipolar and multiple psych medications and she will follow up with mental health clinic as an outpatient. Recently her physician was tapering down her BuSpar. And this also may offer psych medication but the patient and son are not aware of the names however reviewing her home medications she is currently on Remeron, BuSpar 5 mg. Son also confirm she is taking Lamictal and sometimes benzodiazepine for her mental problem. Patient also reports being large amount of fluid but she denies dysuria or urgency. This was confirmed with the son at bedside. No abdominal pain. No chest pain or dyspnea or coughing. No headache dizziness weakness or numbness. No smoking alcohol or illicit drugs. On admission her sodium is elevated 159 and 161 today. Patient received normal saline and emergency room. Also creatinine elevated 2.5 and 2.2 with baseline is about 1.4-2.0. CT of the neck and chest without Contrast Showing Severely Enlarged Thyroid Gland Encroaching into the Superior Mediastinum Trachea Deviated but There Is No Narrowing. Admitted to the hospital under medicine with surgery and ENT consultation and neurology. Underwent FNA biopsy of the thyroid with IR. Had barium swallow showing no evident stricture or hiatal hernia, prominent rightward deviation of the upper esophagus due to mass effect from the patients enlarged thyroid gland. Despite deviation no obstruction is seen. Mild distal esophageal dysmotility is seen. Plan is to follow up outpatient with ENT for this and if warranted schedule surgical intervention outpatient. Had carotid doppler study showing no significant flow-limiting stenosis bilateral carotid bifurcations. She was treated with D5 in water and sodium improved to 145 and creatinine 1.85 which per family they think is near her baseline. She has no acute complaints no chest pain no shortness of breath. Clenching of teeth appears better. Mentation improved. Will be discharged with the above mentioned recommendations. Please see medication reconciliation for a list of current medication. Thank you for allowing us to participate in the care of this patient. The impression and plan of care has been dictated by Yoli Garland, Nurse Practitioner as directed. Dr. Maurice MD I have performed a history and physical examination and medical decision making of this patient, discussed the same with the dictator, and agree with the dictators assessment and plan as written, documented as a scribe. Based on total visit time, I have performed more than 50% of this visit. Patient Condition at Discharge: Stable Plan - Discharge Summary Discharge Rx Participant: Yes New Discharge Prescriptions: New Famotidine [Pepcid] 20 mg PO DAILY #30 tablet Continue lamoTRIgine [LaMICtal] 100 mg PO BID 30 Days tab Mirtazapine [Remeron] 22.5 mg PO HS Multivitamins, Thera [Multivitamin (formulary)] 1 tab PO DAILY DULoxetine HCL [Cymbalta] 30 mg PO DAILY Psyllium Husk 100% [Metamucil Packet] 6 gm PO DAILY 30 Days packet Acetaminophen Tab [Tylenol] 1,000 mg PO Q6HR PRN PRN Reason: Fever And/ Or Pain Lactulose 10 gm PO DAILY PRN PRN Reason: Constipation LORazepam [Ativan] 1 mg PO BID PRN PRN Reason: Anxiety Clotrimazole 10 mg MUCOUS MEM 5XD busPIRone HCl [Buspar] See Taper PO DAILY Discontinued cloNIDine HCL [Catapres] 0.1 mg PO BID 30 Days #60 tab Discharge Medication List Psyllium Husk 100% [Metamucil Packet] 6 gm PO DAILY 30 Days packet 01/01/22 [Rx] lamoTRIgine [LaMICtal] 100 mg PO BID 30 Days tab 01/01/22 [Rx] Acetaminophen Tab [Tylenol] 1,000 mg PO Q6HR PRN 04/16/23 [History] Clotrimazole 10 mg MUCOUS MEM 5XD 04/16/23 [History] DULoxetine HCL [Cymbalta] 30 mg PO DAILY 04/16/23 [History] LORazepam [Ativan] 1 mg PO BID PRN 04/16/23 [History] Lactulose 10 gm PO DAILY PRN 04/16/23 [History] Mirtazapine [Remeron] 22.5 mg PO HS 04/16/23 [History] Multivitamins, Thera [Multivitamin (formulary)] 1 tab PO DAILY 04/16/23 [History] busPIRone HCl [Buspar] See Taper PO DAILY 04/16/23 [History] Famotidine [Pepcid] 20 mg PO DAILY #30 tablet 04/23/23 [Rx] Follow up Appointment(s)/Referral(s): Ferdinand Shelton MD [Primary Care Provider] - 1-2 days (The office will call with appointment.) Rex Macdonald MD [STAFF PHYSICIAN] - 05/14/23 10:30 am (Please come at 10:00 to complete new patient paperwork. Legal Guardian will need to contact the office prior to appointment or attend appointment with patient. ) Ambulatory/Diagnostic Orders: Basic Metabolic Panel [LAB.AMB] Time Frame: 3 Days, Location: None Selected Patient Instructions/Handouts: Failure to Thrive (DC), Hypernatremia (DC) Activity/Diet/Wound Care/Special Instructions: Follow up with ENT specialist Dr. Macdonald follow up for the thyroid biopsy and further recommendations Activity limited until follow up with PCP. Repeat labs in 2 to 3 days Follow up with neurology outpatient further work up for possible underlying dementia per family concerns. Discharge Disposition: HOME WITH HOME HEALTH SERVICES
--- NOTE | 2023-04-25 17:27 | P.PN ---
Subjective Progress Note Date: 04/22/23 Patient was seen for a follow-up. Patient offers no new complaints. Patient is sitting comfortably in the recliner. Family members were not present. Her speech is back to baseline. No new focal symptoms. Objective - Vital Signs Vital signs: Vital Signs Temp 98.4 F 04/22/23 14:00 Pulse 80 04/22/23 14:00 Resp 16 04/22/23 14:00 BP 132/62 04/22/23 14:00 Pulse Ox 98 04/22/23 14:00 FiO2 Intake & Output 04/21/23 04/22/23 04/22/23 18:59 06:59 18:59 Intake Total 580 710 240 Output Total 700 Balance -120 710 240 Weight 39.916 kg Intake: Oral 580 710 240 Output: Urine 600 Post Void Residual 100 Other: Voiding Method Toilet Toilet # Voids 2 3 4 # Bowel Movements 1 - Exam Examination remains unchanged. Mentation normal. - Labs CBC & Chem 7: 04/22/23 08:40 04/22/23 08:40 Labs: Abnormal Lab Results - Last 24 Hours (Table) 04/22/23 Range/Units 08:40 Chloride 109 H (98-107) mmol/L BUN 24 H (7-17) mg/dL Creatinine 1.84 H (0.52-1.04) mg/dL Glucose 127 H (74-99) mg/dL Assessment and Plan Assessment: * Speech difficulty, dysphagia, likely mechanical due to large goiter. Doubt neuromuscular condition or stroke/TIA * Left carotid bruit * Hypertension * Hypernatremia * Acute kidney injury, likely due to dehydration, decreased nutritional intake, improving * Mild encephalopathy, likely due to reasons mentioned above and below. She may have underlying cognitive impairment as well, as per her son's report, the memory loss has been going on for over one year. * Goiter * Bipolar disorder * Hyperthyroidism, with low TSH but normal free T4 * Macrocytosis, rule out B12/folate deficiency Plan: * B12 878, folate 13.0, B1 88, all normal * Carotid Doppler, revealed no significant flow limiting stenosis bilateral carotid bifurcations. Antegrade flow in both vertebral arteries. * Surgery is on board for large goiter, may need surgery. * ENT consulted. * Speech and swallow evaluation recommending pured regular thin liquid diet. * Patient's son was concerned about diagnosis of dementia. I informed him that patient cannot be diagnosed with dementia while in the hospital with multiple medical issues. Once all medical conditions have been corrected, then he should take her to a neurologist locally to rule out underlying dementia. * Neurologically clear for discharge.
== END 2023-04-23 14:46 | disposition home health service (06) | DRG 640 ==
LOC: EC 15:47 → 5NMEDONC 18:23
PROVIDERS: ADMIT Internal Medicine; ATTEND Internal Medicine
PROC: 0GBG3ZX Excision of Left Thyroid Gland Lobe, Percutaneous Approach, Diagnostic (ICD-10-PCS; principal; 2023-04-22)
DX: E87.0 Hyperosmolality and hypernatremia (principal); E43 Unspecified severe protein-calorie malnutrition; G92.8 Other toxic encephalopathy; N17.9 Acute kidney failure, unspecified; Z68.1 Body mass index [BMI] 19.9 or less, adult; R62.7 Adult failure to thrive; J39.8 Other specified diseases of upper respiratory tract; R13.19 Other dysphagia; N18.30 Chronic kidney disease, stage 3 unspecified; I12.9 Hypertensive chronic kidney disease with stage 1 through stage 4 chronic kidney disease, or unspecified chronic kidney disease; E04.9 Nontoxic goiter, unspecified; E86.0 Dehydration; E87.1 Hypo-osmolality and hyponatremia; R63.39 Other feeding difficulties; R35.89 Other polyuria; R09.89 Other specified symptoms and signs involving the circulatory and respiratory systems; D75.89 Other specified diseases of blood and blood-forming organs; R47.81 Slurred speech; F31.9 Bipolar disorder, unspecified; Z91.51 Personal history of suicidal behavior; Z79.899 Other long term (current) drug therapy; Z91.041 Radiographic dye allergy status; Z88.8 Allergy status to other drugs, medicaments and biological substances
CPT/HCPCS: 10005; 36415; 70450; 70490; 71045; 71046; 71250; 74220; 80048; 80053; 80306; 81001; 81003; 82607; 82746; 83036; 83930; 83935; 84132; 84295; 84300; 84425; 84439; 84443; 84484; 85025; 85610; 85730; 88173; 88305; 93005; 93880; 94760; 96360; 96361; 99285

== ENCOUNTER 2023-05-21 11:37 | Inpatient (IN) | payer MEDICARE ==
--- NOTE | 2023-05-21 12:09 | ED ---
ENT HPI - General Source: patient, family, RN notes reviewed Mode of arrival: ambulatory Limitations: no limitations <Nubia Kim - Last Filed: 05/21/23 12:07> - General Source: patient, family, RN notes reviewed, old records reviewed Limitations: no limitations <Sid Chiu - Last Filed: 05/21/23 15:29> - General Chief complaint: ENT Stated complaint: Lethargic Time Seen by Provider: 05/21/23 12:07 - History of Present Illness Initial comments: Patient is 78-year-old female presented ER with chief complaint of not eating. Daughter is providing most HPI. She states the patient was recently admitted here and found to have hyponatremia. Daughter is worried there may be a blockage in her esophagus as to why patient is not eating or drinking. Daughter denies any fevers, chills, night sweats, chest pain, shortness of breath, abdominal pain. (Nubia Kim) Patient is a pleasant 78 show female presenting to the emergency department secondary to not eating. Patient does have a history of similar symptoms previously. Patient has been evaluated for this. Patient has a known goiter for decades. Patient has seen ENT for this and had recent scope a month ago and follow-up just a week ago. Patient feels her symptoms have worsened for the past several months and worse this past week. Patient states very limited eating and drinking this week. Patient does have psychiatric history and daughter questions if that could be related. (Sid Chiu) - Related Data Home Medications Medication Instructions Recorded Confirmed Acetaminophen Tab [Tylenol] 1,000 mg PO Q6HR PRN 04/16/23 04/16/23 Clotrimazole 10 mg MUCOUS MEM 5XD 04/16/23 04/16/23 DULoxetine HCL [Cymbalta] 30 mg PO DAILY 04/16/23 04/16/23 LORazepam [Ativan] 1 mg PO BID PRN 04/16/23 04/16/23 Lactulose 10 gm PO DAILY PRN 04/16/23 04/16/23 Mirtazapine [Remeron] 22.5 mg PO HS 04/16/23 04/16/23 Multivitamins, Thera [Multivitamin 1 tab PO DAILY 04/16/23 04/16/23 (formulary)] busPIRone HCl [Buspar] See Taper PO DAILY 04/16/23 04/16/23 Previous Rx's Medication Instructions Recorded Psyllium Husk 100% [Metamucil 6 gm PO DAILY 30 Days packet 01/01/22 Packet] lamoTRIgine [LaMICtal] 100 mg PO BID 30 Days tab 01/01/22 Famotidine [Pepcid] 20 mg PO DAILY #30 tablet 04/23/23 Allergies Allergy/AdvReac Type Severity Reaction Status Date / Time Iodinated Contrast Media Allergy Unknown Verified 05/21/23 11:54 [Iodinated Contrast Media - IV Dye] lithium Allergy Dyspnea Verified 05/21/23 11:54 Review of Systems ROS Other: All systems not noted in ROS Statement are negative. <Nubia Kim - Last Filed: 05/21/23 12:07> ROS Other: All systems not noted in ROS Statement are negative. Constitutional: Denies: fever Eyes: Denies: eye pain ENT: Denies: ear pain Respiratory: Denies: cough, dyspnea Cardiovascular: Denies: chest pain Endocrine: Denies: fatigue Gastrointestinal: Reports: as per HPI. Denies: vomiting Genitourinary: Denies: dysuria Musculoskeletal: Denies: back pain <Sid Chiu - Last Filed: 05/21/23 15:29> ROS Statement: Those systems with pertinent positive or pertinent negative responses have been documented in the HPI. Past Medical History Past Medical History: Thyroid Disorder Additional Past Medical History / Comment(s): Goiter, rhabdomylosis History of Any Multi-Drug Resistant Organisms: None Reported Past Surgical History: Tubal Ligation Additional Past Surgical History / Comment(s): Bilateral cataract removal and lens implants Past Anesthesia/Blood Transfusion Reactions: No Reported Reaction Past Psychological History: Anxiety, Bipolar, Depression Smoking Status: Never smoker Past Alcohol Use History: Occasional Past Drug Use History: None Reported - Past Family History Father Family Medical History: Coronary Artery Disease (CAD), Diabetes Mellitus Additional Family Medical History / Comment(s): Father at age 65. He had history of coronary artery disease and diabetes. No history of eating disorders Mother Family Medical History: CVA/TIA Additional Family Medical History / Comment(s): Mother at age 88 from a CVA. Brother(s) Additional Family Medical History / Comment(s): The patient has 4 brothers and one has depression. Patient has 2 sisters. Patient has 2 children one son and one daughter. <Nubia Kim - Last Filed: 05/21/23 12:07> General Exam Limitations: no limitations <Nubia Kim - Last Filed: 05/21/23 12:07> Limitations: no limitations General appearance: alert, in no apparent distress Head exam: Present: atraumatic Eye exam: Present: normal appearance ENT exam: Present: normal oropharynx Neck exam: Present: other (Moderate sized goiter) Respiratory exam: Present: normal lung sounds bilaterally Cardiovascular Exam: Present: regular rate, normal rhythm GI/Abdominal exam: Present: soft. Absent: tenderness Extremities exam: Present: normal inspection Neurological exam: Present: alert Psychiatric exam: Present: anxious Skin exam: Present: normal color <Sid Chiu - Last Filed: 05/21/23 15:29> - General Exam Comments Initial Comments: Visual Physical Exam Vital signs reviewed General: weak-appearing, nontoxic, no acute distress. Head: Normocephalic, atraumatic Eyes: PERRLA, EOMI ENT: Airway patent Chest: Nonlabored breathing Skin: No visual rash, normal skin tone Neuro: Alert and oriented 3 Musculoskeletal: No gross abnormalities (Nubia Kim) Course Vital Signs 05/21/23 11:51 Temperature 97.6 F Pulse Rate 113 H Respiratory 18 Rate Blood Pressure 142/83 O2 Sat by Pulse 96 Oximetry Medical Decision Making <Nubia Kim - Last Filed: 05/21/23 12:07> - Lab Data Result diagrams: 05/21/23 14:32 05/21/23 14:32 <Sid Chiu - Last Filed: 05/21/23 15:29> - Medical Decision Making I performed the quick note portion of the exam. Electronically signed by Nubia Kim PA-C (Nubia Kim) Was pt. sent in by a medical professional or institution ([facility], [facility], urgent care, hospital, or long term...) When possible be specific @ -No Did you speak to anyone other than the patient for history (EMS, parent, family, police, friend...)? What history was obtained from this source @ -Daughter provides majority of history is patient is somewhat a poor historia n Did you review nursing and triage notes (agree or disagree)? Why? @ -I reviewed and agree with nursing and triage notes Were old charts reviewed (outside hosp., previous admission, EMS record, old EKG, old radiological studies, urgent care reports/EKG's, long term records)? Report findings @ -Previous admission labs reviewed Differential Diagnosis (chest pain, altered mental status, abdominal pain women, abdominal pain men, vaginal bleeding, weakness, fever, dyspnea, syncope, headache, dizziness, GI bleed, back pain, seizure, CVA, palpatations, mental health, musculoskeletal)? @ -Differential Weakness: Hypoglycemia, shock, sepsis, hyponatremia, anemia, infection, MN, ETOH, adverse medicine reaction, overdose, stroke, this is not meant to be an all-inclusive list. EKG interpreted by me (3pts min.). @ -As above X-rays interpreted by me (1pt min.). @ -Chest x-ray shows no acute process. Barium swallow does show some narrowing of the distal esophagus. CT interpreted by me (1pt min.). @ -None done U/S interpreted by me (1pt. min.). @ -None done What testing was considered but not performed or refused? (CT, X-rays, U/S, labs)? Why? @ -None What meds were considered but not given or refused? Why? @ -None Did you discuss the management of the patient with other professionals (professionals i.e. , PA, [facility], lab, RT, psych nurse, social media assistant, photonics engineering technologist, teacher, electrical engineering drafting officer, pillowcase folder)? Give summary @ -Case was discussed with Dr. Desir, who will admit for Dr. Childress, who admits for Dr. Champion. Was smoking cessation discussed for >3mins.? @ -No Was critical care preformed (if so, how long)? @ -No Were there social determinants of health that impacted care today? How? (Homelessness, low income, unemployed, alcoholism, drug addiction, transportation, low edu. Level, literacy, decrease access to med. care, halfway, rehab)? @ -No Was there de-escalation of care discussed even if they declined (Discuss DNR or withdrawal of care, Hospice)? DNR status @ -No What co-morbidities impacted this encounter? (DM, HTN, Smoking, COPD, CAD, Cancer, CVA, ARF, Chemo, Hep., AIDS, mental health diagnosis, sleep apnea, morbid obesity)? @ -None Was patient admitted / discharged? Hospital course, mention meds given and route, prescriptions, significant lab abnormalities, going to OR and other pertinent info. @ -Patient presents with difficulty swallowing. There is some narrowing of distal esophagus. Barium swallow and patient does appear dehydrated. Patient will be admitted and hydrated. Undiagnosed new problem with uncertain prognosis? @ -No Drug Therapy requiring intensive monitoring for toxicity (Heparin, Nitro, Insulin, Cardizem)? @ -No Were any procedures done? @ -No Diagnosis/symptom? @ -Dehydration, dysphagia Acute, or Chronic, or Acute on Chronic? @ -Acute Uncomplicated (without systemic symptoms) or Complicated (systemic symptoms)? @ -Complicated with dehydration Side effects of treatment? @ -No Exacerbation, Progression, or Severe Exacerbation? @ -No Poses a threat to life or bodily function? How? (Chest pain, USA, MN, pneumonia, PE, COPD, DKA, ARF, appy, cholecystitis, CVA, Diverticulitis, Homicidal, Suicidal, threat to staff... and all critical care pts) @ -No (Sid Chiu) - Lab Data Lab Results 05/21/23 05/21/23 Range/Units 14:32 14:32 WBC 7.5 (3.8-10.6) k/uL RBC 3.80 (3.80-5.40) m/uL Hgb 12.7 (11.4-16.0) gm/dL Hct 37.3 (34.0-46.0) % MCV 98.1 (80.0-100.0) fL MCH 33.3 (25.0-35.0) pg MCHC 34.0 (31.0-37.0) g/dL RDW 12.6 (11.5-15.5) % Plt Count 253 (150-450) k/uL MPV 7.6 Sodium 154 H (137-145) mmol/L Potassium 5.0 (3.5-5.1) mmol/L Chloride 115 H (98-107) mmol/L Carbon Dioxide 20 L (22-30) mmol/L Anion Gap 19 mmol/L BUN 64 H (7-17) mg/dL Creatinine 2.36 H (0.52-1.04) mg/dL Est GFR (CKD-EPI)AfAm 22 (>60 ml/min/1.73 sqM) Est GFR (CKD-EPI)NonAf 19 (>60 ml/min/1.73 sqM) Glucose 119 H (74-99) mg/dL Calcium 10.7 H (8.4-10.2) mg/dL Phosphorus 4.4 (2.5-4.5) mg/dL Magnesium 2.4 H (1.6-2.3) mg/dL Total Bilirubin 0.4 (0.2-1.3) mg/dL AST 40 H (14-36) U/L ALT 30 (4-34) U/L Alkaline Phosphatase 64 (38-126) U/L Total Protein 7.7 (6.3-8.2) g/dL Albumin 4.8 (3.5-5.0) g/dL Disposition <Nubia Kim - Last Filed: 05/21/23 12:07> Is patient prescribed a controlled substance at d/c from ED?: No Time of Disposition: 15:29 <Sid Chiu - Last Filed: 05/21/23 15:29> Clinical Impression: Dehydration, Dysphasia Disposition: ADMITTED IP TO THIS HOSP Referrals: Ferdinand Shelton MD [Primary Care Provider] - 1-2 days
[2023-05-21] MEDS ORDERED: SODIUM CHLORIDE 0.9% 1,000 ML IV STA (13:11)
[2023-05-21] MEDS ORDERED: LORazepam 2 MG/ML INJ IV STA (13:12)
--- NOTE | 2023-05-21 14:02 | XR ---
EXAMINATION TYPE: XR chest 2V DATE OF EXAM: 05/21/2023 COMPARISON: 04/21/2023 INDICATION: Lethargy dysphasia TECHNIQUE: Frontal and lateral views of the chest are obtained. FINDINGS: The heart size is normal. The pulmonary vasculature is normal. The lungs are clear. There is hyperinflation and flattening the diaphragms compatible with COPD Trachea is deviated to the right. The patient has a known goiter which may account for the fullness i n the superior mediastinum. Note is made of contrast within the esophagus during the chest x-ray sugg esting some reflux is present. IMPRESSION: 1. No acute pulmonary process. 2. COPD. 3. Gastroesophageal reflux
--- NOTE | 2023-05-21 14:19 | FL ---
EXAMINATION TYPE: FL barium swallow DATE OF EXAM: 05/21/2023 COMPARISON: 04/17/2023 HISTORY: Dysphagia food getting stuck TECHNIQUE: Uroscopy time: 33 seconds DP: 759.18 Images: 155 Patient swallowed barium without difficulty. Esophagus dilates to normal caliber has a normal contour pass the patient's known goiter. Note is made of tertiary contractions within the distal esophagus d uring the exam. There is some persistent narrowing at the gastroesophageal junction. Patient may bene fit from EGD to evaluate for stricture due to reflux.This appears to interval change from comparison. Note is made of reflux on a subsequent chest x-ray. IMPRESSION: 1. Presbyesophagus. 2. Distal gastroesophageal junction stenosis.
[2023-05-21 14:54] LABS: HCT 37.3 % (34.0-46.0); HGB 12.7 gm/dL (11.4-16.0); MCH 33.3 pg (25.0-35.0); MCV 98.1 fL (80.0-100.0); Mean Platelet Volume 7.6; Platelet Count 253 k/uL (150-450); RDW 12.6 % (11.5-15.5); WBC 7.5 k/uL (3.8-10.6)
[2023-05-21 15:10] LABS: ALT 30 U/L (4-34); AST 40 U/L (14-36); African American GFR (CKD) 22 (>60 ml/min/1.73 sqM); Albumin 4.8 g/dL (3.5-5.0); Alkaline Phosphatase 64 U/L (38-126); Anion Gap 19 mmol/L; Blood Urea Nitrogen 64 mg/dL (7-17); Calcium 10.7 mg/dL (8.4-10.2); Carbon Dioxide 20 mmol/L (22-30); Chloride 115 mmol/L (98-107); Glucose 119 mg/dL (74-99); Magnesium 2.4 mg/dL (1.6-2.3); Non-African American GFR(CKD) 19 (>60 ml/min/1.73 sqM); Phosphorus 4.4 mg/dL (2.5-4.5); Sodium 154 mmol/L (137-145); Total Bilirubin 0.4 mg/dL (0.2-1.3); Total Protein 7.7 g/dL (6.3-8.2)
[2023-05-21] MEDS ORDERED: ONDANSETRON 4 MG/2 ML VIAL IVP PRN (15:29)
[2023-05-21] MEDS ORDERED: NALOXONE 0.4 MG/ML 1 ML VIAL IV PRN (15:29)
[2023-05-21] MEDS ORDERED: PANTOPRAZOLE 40 MG/10 ML VIAL IV SCH (15:45)
[2023-05-21] MEDS: SODIUM CHLORIDE 0.9% 1,000 ML IV SCH (16:12)
[2023-05-21] MEDS: PANTOPRAZOLE 40 MG/10 ML VIAL IVP SCH ×2 (16:12→21:22)
[2023-05-21 17:41] LABS: T4, Free (Free Thyroxine) 1.38 ng/dL (0.78-2.19)
[2023-05-21] MEDS: HEPARIN SODIUM,PORCINE 5,000 UNIT/ML 1 ML VIAL SQ SCH (21:32)
--- NOTE | 2023-05-22 02:05 | HP ---
HISTORY AND PHYSICAL CHIEF COMPLAINT: Lethargy and dehydration. HISTORY OF PRESENT ILLNESS: This is a 78-year-old woman with a past medical history of multiple medical problems, who was complaining of significant dysphagia and diminished p.o. intake. The patient is severely dehydrated. The patient was admitted recently and has been worked up. The patient also seen by ENT. Goiter was also noted. The patient also had significant hypernatremia and metabolic encephalopathy. The patient also had a biopsy by ENT recently. The patient is severely malnourished. The patient admitted for further evaluation and treatment. The possibility of depression and associated psych issues have also been raised by the family at this time. The admission showed severe hypernatremia indicated for dehydration with creatinine 2.36 indicating acute renal failure. The baseline creatinine was around 1.5 and 1.8. Sodium was 154. The patient is able to give only a sketchy history, most history is taken by discussion with staff and ER physician as well as discussion with the daughter at the bedside. PAST MEDICAL HISTORY: Reviewed include thyroid disorder, goiter, anxiety, bipolar, depression. MEDICATIONS: Prior to admission include, home medications are Lamictal. Dose and rest of medications noted. ALLERGIES: Connell. FAMILY HISTORY: History of coronary artery disease, diabetes mellitus. SOCIAL HISTORY: Occasional alcohol. REVIEW OF SYSTEMS: Could not be taken. The patient is mildly confused. PHYSICAL EXAMINATION: VITAL SIGNS: Pulse is 113, blood pressure 142/83, respirations 18. HEENT: Conjunctivae normal. Oral mucosa dry. NECK: No jugular venous distention. No carotid bruit. No lymphadenopathy. CARDIOVASCULAR: S1, S2. RESPIRATIONS: Bilateral scattered rhonchi and crackles. ABDOMEN: Soft, nontender. Scaphoid. LEGS: No edema. NERVOUS SYSTEM: Diffusely weak and emaciated. SKIN: No ulcer, rash, bleeding. JOINTS: No active deforming arthropathy. LABORATORY DATA: Reviewed. Otherwise, chest x-ray, which was reviewed personally by me showed COPD, goiter. Barium swallow, presbyesophagus. Neck and chest CT just done in April, large left thyroid gland at the superior mediastinum. ASSESSMENT: 1. Dysphagia, diminished p.o. intake, multifactorial for evaluation. 2. Severe dehydration. Acute renal failure with hypernatremia secondary to diminished p.o. intake and acute prerenal, and acute tubular necrosis. 3. Large thyroid goiter on the left side causing tracheal deviation. 4. Hypernatremia. 5. Anxiety, bipolar depression. 6. Severe malnutrition with BMI of 15.8. RECOMMENDATIONS AND DISCUSSION: This is a 78-year-old woman, who presented with multiple complex medical issues, we will monitor the patient closely. Recommend cautious IV hydration. Monitor closely and symptomatic treatment. ENT has seen the patient. The biopsy report showed risk of cancer approximately 50%. We will obtain ENT evaluation. We will continue to monitor. Once again, the prognosis is extremely guarded because of multiple complex medical problems. Further recommendations to follow. See orders for further details. The CT of the brain was done in April, which showed atrophy. See orders for further details. MMODL / IJN: [id number] /
[2023-05-22 02:07] LABS: Appearance,Urine Clear (Clear); Bilirubin,Urine Negative (Negative); Blood,Urine Trace (Negative); Color,Urine Colorless; Glucose,Urine (UA) Negative (Negative); Ketones,Urine Negative (Negative); Leukocyte Esterase,Urine Negative (Negative); Mucus,Urine Rare /hpf; Nitrite,Urine Negative (Negative); PH, Urine 5.5 (5.0-8.0); Protein,Urine Negative (Negative); RBC,Urine 1 /hpf (0-5); Specific Gravity,Urine 1.009 (1.001-1.035); Urobilinogen,Urine <2.0 mg/dL (<2.0); WBC,Urine 2 /hpf (0-5)
[2023-05-22] MEDS: PANTOPRAZOLE 40 MG/10 ML VIAL IVP SCH ×2 (08:10→21:05)
[2023-05-22] MEDS: HEPARIN SODIUM,PORCINE 5,000 UNIT/ML 1 ML VIAL SQ SCH ×2 (08:10→21:05)
[2023-05-22] MEDS: SODIUM CHLORIDE 0.9% 1,000 ML IV SCH (08:10)
[2023-05-22 10:14] LABS: Basophils # (A) 0.05 X 10*3/uL (0.00-0.10); Basophils % (A) 0.8 %; Eosinophils # (A) 0.04 X 10*3/uL (0.04-0.35); Eosinophils % (A) 0.7 %; HCT 36.4 % (37.2-46.3); HGB 11.2 g/dL (12.0-15.0); Immature Grans, Automated 0 %; Lymphocytes # (A) 2.04 X 10*3/uL (0.90-5.00); Lymphocytes % (A) 33.7 %; MCH 31.5 pg (27.0-32.0); MCHC 30.8 g/dL (32.0-37.0); MCV 102.2 FL (80.0-97.0); Mean Platelet Volume 10.3 FL (9.5-12.2); Monocytes # (A) 0.42 X 10*3/uL (0.20-1.00); Monocytes % (A) 6.9 %; NRBC Per 100 WBC 0 X 10*3/uL (0.00-0.01); Neutrophils # (A) 3.51 X 10*3/uL (1.80-7.70); Neutrophils % (A) 57.9 %; Platelet Count 225 X 10*3/uL (140-440); RBC 3.56 X 10*6/uL (4.10-5.20); RDW 12.9 % (11.5-14.5); WBC 6.06 X 10*3/uL (4.50-10.00)
[2023-05-22 10:18] LABS: ALT 23 U/L (8-44); AST 29 U/L (13-35); Albumin 4.1 g/dL (3.8-4.9); Albumin/Globulin Ratio 1.95 Ratio (1.60-3.17); Alkaline Phosphatase 48 U/L (41-126); BUN/Creat Ratio 23.73 Ratio (12.00-20.00); Blood Urea Nitrogen 52.2 mg/dL (9.0-27.0); Calcium 9.7 mg/dL (8.7-10.3); Carbon Dioxide 23.1 mmol/L (21.6-31.8); Chloride 120 mmol/L (96-109); Globulin 2.1 g/dL (1.6-3.3); Glucose 78 mg/dL (70-110); Potassium 4.4 mmol/L (3.5-5.5); Sodium 155 mmol/L (135-145); Total Bilirubin 0.3 mg/dL (0.3-1.2); Total Protein 6.2 g/dL (6.2-8.2)
--- NOTE | 2023-05-22 11:53 | P.GSCN ---
History of Present Illness Consult date: 05/22/23 Reason for Consult: Dysphagia History of present illness: Patient is a 78-year-old female who presents with worsening dysphagia. Patient states that for several weeks she has had worsening dysphagia. She states that her dysphagia was originally to solids, but has progressed to liquids. She states that she is able to keep liquids down without nausea or regurgitation. No prior endoscopy in the past. No hematemesis. No fevers or chills. No shortness of breath or chest pain. No abdominal pain nausea or vomiting. Admits to bowel movements and flatus. Upon presentation to [facility] emergency department a barium Salus study was performed which showed evidence of irregularity at the GE junction concerning for possible stenosis. General surgery consultation for further evaluation. Review of Systems - Constitutional Constitutional Comment(s): Negative Except for as stated above Past Medical History Past Medical History: Thyroid Disorder Additional Past Medical History / Comment(s): Goiter, rhabdomylosis History of Any Multi-Drug Resistant Organisms: None Reported Past Surgical History: Tubal Ligation Additional Past Surgical History / Comment(s): Bilateral cataract removal and lens implants Past Anesthesia/Blood Transfusion Reactions: No Reported Reaction Past Psychological History: Anxiety, Bipolar, Depression Smoking Status: Never smoker Past Alcohol Use History: Occasional Past Drug Use History: None Reported - Past Family History Father Family Medical History: Coronary Artery Disease (CAD), Diabetes Mellitus Additional Family Medical History / Comment(s): Father at age 65. He had history of coronary artery disease and diabetes. No history of eating disorders Mother Family Medical History: CVA/TIA Additional Family Medical History / Comment(s): Mother at age 88 from a CVA. Brother(s) Additional Family Medical History / Comment(s): The patient has 4 brothers and one has depression. Patient has 2 sisters. Patient has 2 children one son and one daughter. Medications and Allergies Home Medications Medication Instructions Recorded Confirmed Type Psyllium Husk 100% [Metamucil 6 gm PO DAILY 30 Days packet 01/01/22 05/21/23 Rx Packet] lamoTRIgine [LaMICtal] 100 mg PO BID 30 Days tab 01/01/22 05/21/23 Rx Acetaminophen Tab [Tylenol] 1,000 mg PO Q6HR PRN 04/16/23 05/21/23 History DULoxetine HCL [Cymbalta] 30 mg PO DAILY 04/16/23 05/21/23 History LORazepam [Ativan] 1 mg PO BID PRN 04/16/23 05/21/23 History Lactulose 10 gm PO DAILY PRN 04/16/23 05/21/23 History Mirtazapine [Remeron] 22.5 mg PO HS 04/16/23 05/21/23 History Multivitamins, Thera [Multivitamin 1 tab PO DAILY 04/16/23 05/21/23 History (formulary)] Famotidine [Pepcid] 20 mg PO DAILY #30 tablet 04/23/23 05/21/23 Rx cloNIDine HCL [Catapres] 0.1 mg PO DAILY 05/21/23 05/21/23 History Allergies Allergy/AdvReac Type Severity Reaction Status Date / Time Iodinated Contrast Media Allergy Unknown Verified 05/21/23 11:54 [Iodinated Contrast Media - IV Dye] lithium Allergy Dyspnea Verified 05/21/23 11:54 Surgical - Exam Vital Signs Temp Pulse Resp BP Pulse Ox 97.6 F 113 H 18 142/83 96 05/21/23 11:51 05/21/23 11:51 05/21/23 11:51 05/21/23 11:51 05/21/23 11:51 Gen: AxO, NAD Pulm: non-labored respirations Abd: soft, non-tender, minimally distended, no guarding/rebound/rigidity Extrem: no edema seen Results - Labs 05/22/23 06:16 05/22/23 06:16 Abnormal Lab Results - Last 24 Hours (Table) 05/21/23 05/21/23 05/22/23 Range/Units 14:32 16:17 01:54 RBC (4.10-5.20) X 10*6/uL Hgb (12.0-15.0) g/dL Hct (37.2-46.3) % MCV (80.0-97.0) FL MCHC (32.0-37.0) g/dL Sodium 154 H (137-145) mmol/L Chloride 115 H (98-107) mmol/L Carbon Dioxide 20 L (22-30) mmol/L BUN 64 H (7-17) mg/dL Creatinine 2.36 H (0.52-1.04) mg/dL Est GFR (CKD-EPI) (>=60) BUN/Creatinine Ratio (12.00-20.00) Ratio Glucose 119 H (74-99) mg/dL Calcium 10.7 H (8.4-10.2) mg/dL Magnesium 2.4 H (1.6-2.3) mg/dL AST 40 H (14-36) U/L TSH 0.030 L (0.465-4.680) mIU/L Urine Blood Trace H (Negative) Urine Mucus Rare H (None) /hpf 05/22/23 05/22/23 Range/Units 06:16 06:16 RBC 3.56 L (4.10-5.20) X 10*6/uL Hgb 11.2 L (12.0-15.0) g/dL Hct 36.4 L (37.2-46.3) % MCV 102.2 H (80.0-97.0) FL MCHC 30.8 L (32.0-37.0) g/dL Sodium 155 H (137-145) mmol/L Chloride 120 H (98-107) mmol/L Carbon Dioxide (22-30) mmol/L BUN 52.2 H (7-17) mg/dL Creatinine 2.2 H (0.52-1.04) mg/dL Est GFR (CKD-EPI) 23 L (>=60) BUN/Creatinine Ratio 23.73 H (12.00-20.00) Ratio Glucose (74-99) mg/dL Calcium (8.4-10.2) mg/dL Magnesium (1.6-2.3) mg/dL AST (14-36) U/L TSH (0.465-4.680) mIU/L Urine Blood (Negative) Urine Mucus (None) /hpf Diabetes panel 05/21/23 05/22/23 Range/Units 14:32 06:16 Sodium 154 H 155 H (137-145) mmol/L Potassium 5.0 4.4 (3.5-5.1) mmol/L Chloride 115 H 120 H (98-107) mmol/L Carbon Dioxide 20 L 23.1 (22-30) mmol/L BUN 64 H 52.2 H (7-17) mg/dL Creatinine 2.36 H 2.2 H (0.52-1.04) mg/dL Glucose 119 H 78 (74-99) mg/dL Calcium 10.7 H 9.7 (8.4-10.2) mg/dL AST 40 H 29 (14-36) U/L ALT 30 23 (4-34) U/L Alkaline Phosphatase 64 48 (38-126) U/L Total Protein 7.7 6.2 (6.3-8.2) g/dL Albumin 4.8 4.1 (3.5-5.0) g/dL Thyroid panel 05/21/23 Range/Units 16:17 TSH 0.030 L (0.465-4.680) mIU/L Calcium panel 05/21/23 05/22/23 Range/Units 14:32 06:16 Calcium 10.7 H 9.7 (8.4-10.2) mg/dL Phosphorus 4.4 (2.5-4.5) mg/dL Albumin 4.8 4.1 (3.5-5.0) g/dL Pituitary panel 05/21/23 05/21/23 05/22/23 Range/Units 14:32 16:17 06:16 Sodium 154 H 155 H (137-145) mmol/L Potassium 5.0 4.4 (3.5-5.1) mmol/L Chloride 115 H 120 H (98-107) mmol/L Carbon Dioxide 20 L 23.1 (22-30) mmol/L BUN 64 H 52.2 H (7-17) mg/dL Creatinine 2.36 H 2.2 H (0.52-1.04) mg/dL Glucose 119 H 78 (74-99) mg/dL Calcium 10.7 H 9.7 (8.4-10.2) mg/dL TSH 0.030 L (0.465-4.680) mIU/L Adrenal panel 05/21/23 05/22/23 Range/Units 14:32 06:16 Sodium 154 H 155 H (137-145) mmol/L Potassium 5.0 4.4 (3.5-5.1) mmol/L Chloride 115 H 120 H (98-107) mmol/L Carbon Dioxide 20 L 23.1 (22-30) mmol/L BUN 64 H 52.2 H (7-17) mg/dL Creatinine 2.36 H 2.2 H (0.52-1.04) mg/dL Glucose 119 H 78 (74-99) mg/dL Calcium 10.7 H 9.7 (8.4-10.2) mg/dL Total Bilirubin 0.4 0.3 (0.2-1.3) mg/dL AST 40 H 29 (14-36) U/L ALT 30 23 (4-34) U/L Alkaline Phosphatase 64 48 (38-126) U/L Total Protein 7.7 6.2 (6.3-8.2) g/dL Albumin 4.8 4.1 (3.5-5.0) g/dL Assessment and Plan Assessment: Patient is a 78 year old female with a PMH of thyroid goiter, tracheal deviation previously seen by ENT who presents with dysphasia and barium swallow evidence of GE junction stenosis Plan: -CLD as tolerated -IVF hydration -PRN pain and nausea control -Appreciate ENT recs -No acute surgical intervention; patient may benefit from endoscopy and possible dilatation. Will f/u ENT recommendations prior to endoscopic evaluation and intervention Mason Duke MD General Surgery
[2023-05-22] MEDS ORDERED: LACTULOSE 20 GM/30 ML CUP PO PRN (12:51)
[2023-05-22] MEDS ORDERED: ACETAMINOPHEN TAB 500 MG TAB PO PRN (12:51)
[2023-05-22] MEDS: DEXTROSE 5% IN WATER 1,000 ML IV SCH (13:15)
--- NOTE | 2023-05-22 13:20 | PN ---
PROGRESS NOTE DATE OF SERVICE: 05/22/2023 SUBJECTIVE: This 78-year-old woman is admitted with dehydration, dysphagia, had barium swallow, which showed some presbycusis as well as distally GE junction stenosis also. The patient was closely monitored. The patient has renal failure and hyponatremia also. PAST MEDICAL HISTORY: Reviewed. REVIEW OF SYSTEMS: The patient is mildly confused. CURRENT MEDICATIONS: Reviewed include apresoline, dose and rest of medications noted. PHYSICAL EXAMINATION: VITAL SIGNS: Pulse 74, blood pressure 133/70, respirations 17. CHEST: Clear, few scattered rhonchi and crackles. ABDOMEN: Soft, nontender. NERVOUS SYSTEM: Nonfocal. LABORATORY DATA: Sodium 155, rest of the labs are reviewed. Chest x-ray reviewed, barium swallow reviewed personally. ASSESSMENT: 1. Dysphagia, diminished p.o. intake, combination of presbyesophagus and distal GE junction stenosis as well as compression from goiter. 2. Severe dehydration with hypernatremia. 3. Acute renal failure with acute tubular necrosis and prerenal renal failure. 4. 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 5. Anxiety, bipolar depression. 6. Severe malnutrition with BMI of 15.8. RECOMMENDATIONS: Recommended to continue current management and continue symptomatic treatment. Change the fluid to D5 water. Monitor potassium closely. Resume the home medications. DVT prophylaxis. Surgical evaluation. ENT evaluation. Prognosis guarded because of multiple complex medical issues. Further recommendations to follow. See orders for details. MMODL / IJN: [id number] / MTDD
[2023-05-22] MEDS ORDERED: LORazepam 1 MG TAB PO PRN (14:03)
[2023-05-22] MEDS ORDERED: LORazepam 2 MG/ML INJ IV ONE (14:16)
--- NOTE | 2023-05-22 16:42 | CT ---
EXAMINATION TYPE: CT brain wo con CT DLP: 1095.4 mGycm, Automated exposure control for dose reduction was used. DATE OF EXAM: 05/22/2023 3:29 PM COMPARISON: None. CLINICAL INDICATION:Female, 78 years old with history of stroke??, ams, weakness TECHNIQUE: Brain: Axial CT images of the brain were obtained with coronal and sagittal reformats created and rev iewed. Contrast used: None. Oral contrast used: None. FINDINGS: Extra-axial spaces: No abnormal extra-axial fluid collections. Ventricular system: Ventricles appear dilated in proportion to the degree of cerebral atrophy. Cerebral parenchyma: No increased attenuation to suggest acute intraparenchymal hemorrhage. The gra y-white matter interface appears maintained. Moderate generalized brain atrophy. Scattered hypoatte nuating areas are seen within the cerebral white matter, nonspecific but most often seen with chronic microvascular ischemic changes; moderate in degree. Cerebellum: No acute abnormality. Mass effect: No evidence of mass effect or midline shift. Intracranial vasculature: Atherosclerotic mild calcifications of the larger arteries near the skull b ase. Soft tissues: No acute abnormality. Visualized orbits: Orbital contents appear grossly intact. There has likely been previous lens surg moises. Calvarium/osseous structures: No evidence of calvarial fracture. Paranasal sinuses and mastoid air cells: Clear. MRI is more sensitive for detecting acute processes such as infarct, and may be considered if clinica lly warranted. IMPRESSION: No CT evidence of an acute intracranial abnormality. Atrophy and chronic microvascular ischemic white matter changes.
[2023-05-22] MEDS: DULoxetine HCL 30 MG CAPSULE.DR PO SCH (18:18)
[2023-05-22] MEDS: FAMOTIDINE 20 MG TAB PO SCH (18:18)
[2023-05-22] MEDS: lamoTRIgine 100 MG TAB PO SCH (21:06)
[2023-05-22] MEDS: MIRTAZAPINE 15 MG TAB PO SCH (21:16)
[2023-05-23] MEDS: DEXTROSE 5% IN WATER 1,000 ML IV SCH ×2 (03:38→18:03)
[2023-05-23 08:10] LABS: Basophils # (A) 0.1 k/uL (0-0.2); Basophils % (A) 1 %; Eosinophils # (A) 0.2 k/uL (0-0.7); Eosinophils % (A) 3 %; HCT 35.1 % (34.0-46.0); HGB 11.5 gm/dL (11.4-16.0); Lymphocytes # (A) 2.1 k/uL (1.0-4.8); Lymphocytes % (A) 39 %; MCH 32.3 pg (25.0-35.0); MCHC 32.7 g/dL (31.0-37.0); MCV 98.8 fL (80.0-100.0); Mean Platelet Volume 8.4; Monocytes # (A) 0.4 k/uL (0-1.0); Monocytes % (A) 7 %; Neutrophils # (A) 2.7 k/uL (1.3-7.7); Neutrophils % (A) 49 %; Platelet Count 191 k/uL (150-450); RBC 3.56 m/uL (3.80-5.40); RDW 12.9 % (11.5-15.5); WBC 5.5 k/uL (3.8-10.6)
[2023-05-23 08:31] LABS: African American GFR (CKD) 29 (>60 ml/min/1.73 sqM); Anion Gap 9 mmol/L; Blood Urea Nitrogen 37 mg/dL (7-17); Calcium 9.1 mg/dL (8.4-10.2); Carbon Dioxide 26 mmol/L (22-30); Chloride 111 mmol/L (98-107); Glucose 94 mg/dL (74-99); Non-African American GFR(CKD) 25 (>60 ml/min/1.73 sqM); Potassium 3.8 mmol/L (3.5-5.1); Sodium 146 mmol/L (137-145)
[2023-05-23] MEDS: cloNIDine HCL 0.1 MG TAB PO SCH (09:11)
[2023-05-23] MEDS: lamoTRIgine 100 MG TAB PO SCH ×2 (09:11→20:49)
[2023-05-23] MEDS: FAMOTIDINE 20 MG TAB PO SCH (09:11)
[2023-05-23] MEDS: PSYLLIUM HUSK 100% 6 GM PACKET PO SCH (09:11)
[2023-05-23] MEDS: HEPARIN SODIUM,PORCINE 5,000 UNIT/ML 1 ML VIAL SQ SCH ×2 (09:12→20:49)
[2023-05-23] MEDS: DULoxetine HCL 30 MG CAPSULE.DR PO SCH (09:12)
[2023-05-23] MEDS: MULTIVITAMINS, THERA 1 EACH TAB PO SCH (09:12)
[2023-05-23] MEDS: PANTOPRAZOLE 40 MG/10 ML VIAL IVP SCH ×2 (10:07→20:49)
--- NOTE | 2023-05-23 15:04 | P.PN ---
Subjective Progress Note Date: 05/23/23 Additional history obtained with daughter at bedside. Symptoms progressive for over 1 month with goiter assessment. No prior upper scope or dilation. Swallow demonstrates presbyesophagus. May benefit from upper endoscopy with dilation. Recommend warm beverages as cold beverages exacerbate symptoms and spasms Objective - Vital Signs Vital signs: Vital Signs Temp 97.7 F 05/23/23 12:42 Pulse 80 05/23/23 12:42 Resp 16 05/23/23 12:42 BP 134/77 05/23/23 12:42 Pulse Ox 93 L 05/23/23 12:42 FiO2 Intake & Output 05/22/23 05/23/23 05/23/23 18:59 06:59 18:59 Intake Total 0 890 Output Total 400 Balance -400 890 Weight 40.37 kg Intake: Oral 0 890 Output: Urine 400 Other: # Voids 1 3 # Bowel Movements 1 - Labs CBC & Chem 7: 05/23/23 06:31 05/23/23 06:31 Labs: Abnormal Lab Results - Last 24 Hours (Table) 05/23/23 05/23/23 Range/Units 06:31 06:31 RBC 3.56 L (3.80-5.40) m/uL Sodium 146 H (137-145) mmol/L Chloride 111 H (98-107) mmol/L BUN 37 H (7-17) mg/dL Creatinine 1.90 H (0.52-1.04) mg/dL
[2023-05-23] MEDS ORDERED: DEXAMETHASONE SOD PHOSPHATE 4 MG/ML 1 ML VIAL IVP PRN (19:57)
[2023-05-23] MEDS: MIRTAZAPINE 15 MG TAB PO SCH (20:49)
--- NOTE | 2023-05-24 05:34 | PN ---
PROGRESS NOTE DATE OF SERVICE: 05/23/2023 SUBJECTIVE: This 78-year-old woman admitted with dehydration and diminished p.o. intake, also had distal GERD stenosis causing abnormalities in the barium swallow. The patient also had presbyesophagus also. A brain CT scan showed some atrophy, no acute abnormalities. PAST MEDICAL HISTORY: Reviewed. REVIEW OF SYSTEMS: 14-point review is negative except as mentioned above. CURRENT MEDICATIONS: Cymbalta, doses and rest of medication are noted. PHYSICAL EXAMINATION: VITAL SIGNS: Pulse is 63, blood pressure 123/62, respirations 16. CHEST: Few scattered rhonchi. ABDOMEN: Soft. NERVOUS SYSTEM: Nonfocal. LABS: Hemoglobin 11.5, sodium 146, improving. ASSESSMENT: 1. Dysphagia, diminished p.o. intake, combination of presbyesophagus and distal GE junction stenosis as well as compression from the goiter. 2. Severe dehydration, hypernatremia, present on admission. 3. Acute renal failure with acute tubular necrosis and prerenal renal failure. 4. 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 5. Anxiety, bipolar depression. 6. Severe malnutrition with BMI of 15.8. RECOMMENDATIONS: Recommend to continue current medications, continue symptomatic treatment, D5 water today also, monitor sodium closely. The patient will require detailed evaluation including endoscopies and possible dilatation and biopsies. I would recommend repeat labs. Creatinine is 1.9 today. Overall prognosis extremely guarded because of above- mentioned multiple complex medical issues, and further recommendations for follow. MMODL / IJN: [id number] /
[2023-05-24] MEDS: DEXTROSE 5% IN WATER 1,000 ML IV SCH ×2 (05:44→18:21)
[2023-05-24] MEDS: HEPARIN SODIUM,PORCINE 5,000 UNIT/ML 1 ML VIAL SQ SCH ×2 (09:16→20:15)
[2023-05-24] MEDS: DULoxetine HCL 30 MG CAPSULE.DR PO SCH (09:16)
[2023-05-24] MEDS: PSYLLIUM HUSK 100% 6 GM PACKET PO SCH (09:16)
[2023-05-24] MEDS: FAMOTIDINE 20 MG TAB PO SCH (09:16)
[2023-05-24] MEDS: PANTOPRAZOLE 40 MG/10 ML VIAL IVP SCH ×2 (09:16→20:15)
[2023-05-24] MEDS: cloNIDine HCL 0.1 MG TAB PO SCH (09:16)
[2023-05-24] MEDS: lamoTRIgine 100 MG TAB PO SCH ×3 (09:16→23:14)
[2023-05-24] MEDS: MULTIVITAMINS, THERA 1 EACH TAB PO SCH (09:16)
[2023-05-24 11:07] LABS: Basophils # (A) 0.03 X 10*3/uL (0.00-0.10); Basophils % (A) 0.7 %; Eosinophils # (A) 0 X 10*3/uL (0.04-0.35); Eosinophils % (A) 0 %; HCT 38.1 % (37.2-46.3); Lymphocytes # (A) 1.14 X 10*3/uL (0.90-5.00); Lymphocytes % (A) 26.8 %; MCH 31.8 pg (27.0-32.0); MCHC 31.5 g/dL (32.0-37.0); MCV 101.1 FL (80.0-97.0); Mean Platelet Volume 10.9 FL (9.5-12.2); Monocytes # (A) 0.26 X 10*3/uL (0.20-1.00); Monocytes % (A) 6.1 %; NRBC Per 100 WBC 0 X 10*3/uL (0.00-0.01); Neutrophils % (A) 65.9 %; Platelet Count 208 X 10*3/uL (140-440); RBC 3.77 X 10*6/uL (4.10-5.20); RDW 12.5 % (11.5-14.5); WBC 4.25 X 10*3/uL (4.50-10.00)
[2023-05-24 11:37] LABS: BUN/Creat Ratio 13.61 Ratio (12.00-20.00); Blood Urea Nitrogen 24.5 mg/dL (9.0-27.0); Calcium 9.4 mg/dL (8.7-10.3); Carbon Dioxide 22.1 mmol/L (21.6-31.8); Chloride 109 mmol/L (96-109); Glucose 171 mg/dL (70-110); Potassium 4.7 mmol/L (3.5-5.5); Sodium 143 mmol/L (135-145)
--- NOTE | 2023-05-24 15:55 | P.PN ---
Subjective Progress Note Date: 05/24/23 CHIEF COMPLAINT: Dysphagia HISTORY OF PRESENT ILLNESS: Patient has history of large goiter. Barium swallow study had shown presbyesophagus and distal gastroesophageal junction stenosis. Patient complains of difficulty swallowing. Afebrile. WBC 4.25 Hgb 12 platelets 208 sodium 143 potassium 4.7 creatinine 1.8 PHYSICAL EXAM: VITAL SIGNS: Reviewed. GENERAL: Well-developed in no acute distress. ABDOMEN: Soft. Nondistended. Nontender. NEUROLOGIC: Alert and oriented. Cranial nerves II through XII grossly intact. ASSESSMENT: 1. Dysphagia. Barium swallow with presbyesophagus and distal gastroesophageal junction stenosis 2. Large goiter PLAN: -Patient scheduled for EGD with possible dilation tomorrow with Dr. Fowler -Nothing by mouth after midnight Physician Machine Hostler note has been reviewed by physician. Signing provider agrees with the documented findings, assessment, and plan of care. Objective - Vital Signs Vital signs: Vital Signs Temp 97.7 F 05/24/23 07:06 Pulse 69 05/24/23 07:06 Resp 16 05/24/23 07:06 BP 147/69 05/24/23 07:06 Pulse Ox 100 05/24/23 07:06 FiO2 Intake & Output 05/23/23 05/24/23 05/24/23 18:59 06:59 18:59 Intake Total 240 Balance 240 Intake: Oral 240 Other: # Voids 3 2 # Bowel Movements 1 - Labs CBC & Chem 7: 05/24/23 06:05 05/24/23 06:05 Labs: Abnormal Lab Results - Last 24 Hours (Table) 05/24/23 05/24/23 Range/Units 06:05 06:05 WBC 4.25 L (4.50-10.00) X 10*3/uL RBC 3.77 L (4.10-5.20) X 10*6/uL MCV 101.1 H (80.0-97.0) FL MCHC 31.5 L (32.0-37.0) g/dL Eosinophils # 0 L (0.04-0.35) X 10*3/uL Creatinine 1.8 H (0.6-1.5) mg/dL Est GFR (CKD-EPI) 29 L (>=60) Glucose 171 H (70-110) mg/dL
[2023-05-24 17:11] VITALS: BMI 15.7
[2023-05-24] MEDS: MIRTAZAPINE 15 MG TAB PO SCH ×2 (20:15→23:13)
[2023-05-24] MEDS: LORazepam 2 MG/ML INJ IV PRN (20:16)
--- NOTE | 2023-05-25 06:02 | PN ---
PROGRESS NOTE DATE OF SERVICE: 05/24/2023 SUBJECTIVE: This is a 78-year-old woman, who was admitted with dysphagia, which is multifactorial, is being closely monitored at this time. The patient also had severe dehydration on admission. Multiple consultants are following the patient closely. CT of the brain, which I reviewed personally showed no acute abnormality. Atrophy was noted. PAST MEDICAL HISTORY: Reviewed. REVIEW OF SYSTEMS: A 14-point review is negative except as mentioned earlier. CURRENT MEDICATIONS: Reviewed include Decadron once and Catapres. PHYSICAL EXAMINATION: VITAL SIGNS: Pulse is 70, blood pressure 122/66, respirations 16. CHEST: Clear to auscultation. CARDIOVASCULAR: S1, S2. ABDOMEN: Soft. NERVOUS SYSTEM: Nonfocal. LABORATORY DATA: Sodium 143, potassium 4.7. Rest of the labs are noted. ASSESSMENT: 1. Dysphagia and severe dehydration. Dysphagia possibly due to combination of presbyesophagus and distal GE junction stenosis as well as compression from the retrosternal goiter. 2. Severe dehydration with hyponatremia present on admission. 3. Acute renal failure with acute tubular necrosis and prerenal renal failure present on admission. 4. 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 5. Anxiety, depression, bipolar. 6. Severe malnutrition with BMI of 15.8. RECOMMENDATIONS: Recommended to continue current management and continue symptomatic treatment, otherwise at this time, I recommend repeat labs. Creatinine has improved significantly. We will monitor the sodium. Continue with IV fluids. Gastroenterology consultation, possible endoscopes and dilatation. Prognosis guarded because of multiple complex medical issues. Further recommendations to follow. Discussed the patient. See orders for further details. MMODL / IJN: [id number] /
[2023-05-25 07:28] VITALS: RESP 16
[2023-05-25] MEDS ORDERED: LACTATED RINGERS 1,000 ML IV SCH (07:28)
[2023-05-25] MEDS ORDERED: IV FLUID CONTINUATION 1,000 ML IV ONE (07:35)
[2023-05-25] MEDS ORDERED: PROPOFOL 10 MG/ML 20 ML VIAL IV ONE (07:35)
[2023-05-25] MEDS ORDERED: LIDOCAINE 1% INJ 10MG/ML (20 ML MDV) ONE (07:35)
[2023-05-25] MEDS: DEXTROSE 5% IN WATER 1,000 ML IV SCH (08:02)
[2023-05-25] MEDS ORDERED: SODIUM CHLORIDE 0.9% 500 ML 500 ML IV ONE (08:08)
--- NOTE | 2023-05-25 08:29 | P.OP ---
Date of Procedure: 05/25/23 Preoperative Diagnosis: Dysphagia Postoperative Diagnosis: Dysphagia Procedure(s) Performed: EGD Anesthesia: MAC Surgeon: José Fowler Pathology: other (Antrum, esophagus) Condition: stable Disposition: PACU Description of Procedure: The patient's placed on the endoscopy table in the lateral position. She received IV sedation. The gastroscope placed oropharynx passed in the esophagus and stomach. Scope was placed through the pylorus. First and second portion duodenum. Normal. Scope back the antrum was mildly inflamed. A biopsies performed. Scope was unretroflexed and remainder some appeared normal. Patient had a moderate size hiatal hernia. The GE junction was at 38 cm. The distal es ophagus. Inflamed. This was biopsied. The middle portion esophagus appeared to be mildly inflamed. A biopsies performed. The proximal esophagus appeared normal. Scope withdrawn for patient.
[2023-05-25] MEDS: LORazepam 2 MG/ML INJ IV PRN (09:17)
[2023-05-25 10:45] LABS: Basophils # (A) 0.04 X 10*3/uL (0.00-0.10); Basophils % (A) 0.7 %; Eosinophils # (A) 0.21 X 10*3/uL (0.04-0.35); Eosinophils % (A) 3.6 %; HCT 39.8 % (37.2-46.3); HGB 12.6 g/dL (12.0-15.0); Lymphocytes # (A) 2.86 X 10*3/uL (0.90-5.00); Lymphocytes % (A) 49.5 %; MCH 31.3 pg (27.0-32.0); MCHC 31.7 g/dL (32.0-37.0); Mean Platelet Volume 11.4 FL (9.5-12.2); Monocytes # (A) 0.52 X 10*3/uL (0.20-1.00); NRBC Per 100 WBC 0 X 10*3/uL (0.00-0.01); Neutrophils # (A) 2.13 X 10*3/uL (1.80-7.70); Neutrophils % (A) 36.9 %; Platelet Count 220 X 10*3/uL (140-440); RBC 4.02 X 10*6/uL (4.10-5.20); RDW 12.7 % (11.5-14.5); WBC 5.78 X 10*3/uL (4.50-10.00)
[2023-05-25 11:26] LABS: BUN/Creat Ratio 10.37 Ratio (12.00-20.00); Blood Urea Nitrogen 19.7 mg/dL (9.0-27.0); Calcium 9.5 mg/dL (8.7-10.3); Carbon Dioxide 25.9 mmol/L (21.6-31.8); Chloride 107 mmol/L (96-109); Glucose 82 mg/dL (70-110); Potassium 4.4 mmol/L (3.5-5.5); Sodium 142 mmol/L (135-145)
[2023-05-25] MEDS: lamoTRIgine 100 MG TAB PO SCH (11:51)
[2023-05-25] MEDS: PANTOPRAZOLE 40 MG/10 ML VIAL IVP SCH (11:51)
[2023-05-25] MEDS: FAMOTIDINE 20 MG TAB PO SCH (11:51)
[2023-05-25] MEDS: DULoxetine HCL 30 MG CAPSULE.DR PO SCH (11:51)
[2023-05-25] MEDS: PSYLLIUM HUSK 100% 6 GM PACKET PO SCH (11:51)
[2023-05-25] MEDS: HEPARIN SODIUM,PORCINE 5,000 UNIT/ML 1 ML VIAL SQ SCH (11:51)
[2023-05-25] MEDS: cloNIDine HCL 0.1 MG TAB PO SCH (11:51)
[2023-05-25] MEDS: MULTIVITAMINS, THERA 1 EACH TAB PO SCH (11:51)
--- NOTE | 2023-05-25 14:16 | P.PN ---
Subjective Progress Note Date: 05/25/23 CHIEF COMPLAINT: Dysphagia HISTORY OF PRESENT ILLNESS: Patient has history of large goiter. Barium swallow study had shown presbyesophagus and distal gastroesophageal junction stenosis. Patient status post EGD with biopsies. Patient did have confusion after EGD. And currently has a bedside sitter and did receive Ativan. Afebrile. WBC 5.78 Hgb 12.6 platelets 220 PHYSICAL EXAM: VITAL SIGNS: Reviewed. GENERAL: Well-developed in no acute distress. ABDOMEN: Soft. Nondistended. Nontender. NEUROLOGIC: Alert and oriented. Cranial nerves II through XII grossly intact. ASSESSMENT: 1. Dysphagia. Barium swallow with presbyesophagus and distal gastroesophageal junction stenosis. Status post EGD with biopsy 2. Large goiter PLAN: -Patient may require possible PEG tube placement if she does not meet her nutritional needs -Regular diet ordered Physician Powertrain Calibration Engineer note has been reviewed by physician. Signing provider agrees with the documented findings, assessment, and plan of care. Objective - Vital Signs Vital signs: Vital Signs Temp 97.5 F L 05/25/23 07:17 Pulse 78 05/25/23 07:17 Resp 16 05/25/23 07:17 BP 156/74 05/25/23 07:17 Pulse Ox 97 05/25/23 07:17 FiO2 Intake & Output 05/24/23 05/25/23 05/25/23 18:59 06:59 18:59 Intake Total 900 100 Balance 900 100 Weight 40.37 kg Intake: IV 100 Intake, IV Titration 900 Amount Dextrose 5% in Water 1, 900 000 ml @ 75 mls/hr IV . [id number] AVERY Rx#:[id number] Other: # Voids 2 - Labs CBC & Chem 7: 05/25/23 06:37 05/25/23 06:37 Labs: Abnormal Lab Results - Last 24 Hours (Table) 05/25/23 05/25/23 Range/Units 06:37 06:37 RBC 4.02 L (4.10-5.20) X 10*6/uL MCV 99.0 H (80.0-97.0) FL MCHC 31.7 L (32.0-37.0) g/dL Creatinine 1.9 H (0.6-1.5) mg/dL Est GFR (CKD-EPI) 27 L (>=60) BUN/Creatinine Ratio 10.37 L (12.00-20.00) Ratio
[2023-05-25 15:46] VITALS: BP 115/67; PULSE 99; TEMP 98.1
[2023-05-25] MEDS ORDERED: CEPHALEXIN 500 MG CAP PO STA (17:26)
== END 2023-05-25 17:45 | disposition home or self-care (01) | DRG 391 ==
LOC: EC 11:37 → 5NMEDONC 15:31
PROVIDERS: ADMIT Hospitalist; ATTEND Hospitalist
PROC: 0DB78ZX Excision of Stomach, Pylorus, Via Natural or Artificial Opening Endoscopic, Diagnostic (ICD-10-PCS; principal; 2023-05-25 12:30)
DX: R13.10 Dysphagia, unspecified (principal); E43 Unspecified severe protein-calorie malnutrition; G93.41 Metabolic encephalopathy; N17.0 Acute kidney failure with tubular necrosis; Z68.1 Body mass index [BMI] 19.9 or less, adult; E87.0 Hyperosmolality and hypernatremia; F31.30 Bipolar disorder, current episode depressed, mild or moderate severity, unspecified; E04.9 Nontoxic goiter, unspecified; K22.2 Esophageal obstruction; J39.8 Other specified diseases of upper respiratory tract; Z28.310 Unvaccinated for COVID-19; Z28.21 Immunization not carried out because of patient refusal; E86.0 Dehydration; F41.9 Anxiety disorder, unspecified; K21.9 Gastro-esophageal reflux disease without esophagitis; K22.89 Other specified disease of esophagus; Z79.899 Other long term (current) drug therapy; Z82.49 Family history of ischemic heart disease and other diseases of the circulatory system; Z88.8 Allergy status to other drugs, medicaments and biological substances; Z91.041 Radiographic dye allergy status
CPT/HCPCS: 36415; 43239; 70450; 71046; 74220; 80048; 80053; 81001; 83735; 84100; 84439; 84443; 85025; 85027; 88305; 96361; 96374; 96375; 96376; 99285